=== PATIENT | female | born 1970 | race Caucasian/White ===

== ENCOUNTER 2017-06-05 04:05 | Emergency (ER) | payer OTHER ==
[~2017-06-05] VITALS: Ht 157.5 cm; Wt 75.9 kg
[~2017-06-05 04:05] MED LIST: BENZ100C18 PO; ONDA4TAB10 SL
[2017-06-05 04:08] VITALS: Ht 157.5 cm; Wt 75.9 kg
--- NOTE | 2017-06-05 04:16 | EMERGENCY ROOM VISIT NOTE ---
History Report prepared by Godwin: Nikita Grider Under the Supervision of: Dr. Edgar Arnett M.D. First contact with patient: 04:13 Chief Complaint: FLU LIKE SX Stated Complaint: NAUSEA,VOMITING,DIARRHEA History of Present Illness The patient is a 46 year old female who presents to the Emergency Room with complaints of a persistent illness that started yesterday. She says that she has been having nausea with episodes of vomiting and diarrhea. The patient adds that she has been having chills. She notes that she is having some abdominal pain. The patient says that she took Imodium around 6 hours ago. Associated with epigastric abdominal pain, sharp, radiating to RUQ. No blood in stool though room was dark. History of this previously was due to dehydration. Previous surgery of hysterectomy. Previous US GB with sludge. No trauma, injury, syncope. No cp, sob, fevers, rashes, leg swelling, urinary symptoms, etc. Movement makes worse, rest makes better. Denies recent etoh use. Source of History: patient Onset: Yesterday Position: other (global - illness) Timing: other (persistent) Associated Symptoms: + chills, + nausea, + vomiting, + diarrhea Note: No other associated symptoms noted. Review of Systems See HPI for pertinent positives & negatives. A total of 10 systems reviewed and were otherwise negative. Past Medical & Surgical Medical Problems: (1) Carpal Tunnel Syndrome (2) Rheumatoid Arthritis Surgical Problems: (1) H/O: hysterectomy Family History Cancer Diabetes mellitus Heart disease Hypertension Kidney disease Kidney stones Lung disease Social History Smoking Status: Current Every Day Smoker Alcohol Use: none Marital Status: Housing Status: lives with significant other Occupation Status: employed Current/Historical Medications No Active Prescriptions or Reported Meds Allergies Coded Allergies: Homatropine (Unverified Allergy, Severe, NAUSEA, 06/05/17) Hydrocodone (Unverified Allergy, Severe, NAUSEA, 06/05/17) Morphine (Verified Allergy, Mild, nausea vomiting, 06/05/17) Physical Exam Vital Signs Date Time Temp Pulse Resp B/P (MAP) Pulse Ox O2 Delivery O2 Flow Rate FiO2 06/05/17 05:53 81 16 131/85 97 Room Air 06/05/17 04:08 36.6 77 18 154/87 97 Room Air Physical Exam GENERAL: Patient is very uncomfortable appearing and in moderate distress. HEENT: No acute trauma, normocephalic atraumatic, mucous membranes moist, no nasal congestion, no scleral icterus. NECK: No stridor, no adenopathy, no meningismus, trachea is midline. LUNGS: No dyspnea. Clear to auscultation and equal bilaterally. No wheeze, no rhonchi. HEART: Regular rate and rhythm. No murmurs, rubs, gallops appreciated. ABDOMEN: Moderate epigastric TTP, otherwise soft, nontender, bowel sounds positive, no masses appreciated, no peritonitis. BACK: No midline tenderness, no CVA tenderness EXTREMITIES: Normal motion all extremities, no cyanosis, no edema. NEUROLOGIC: Alert and oriented, no acute motor or sensory deficits, no focal weakness, cranial nerves grossly intact. SKIN: No rash, no jaundice, no diaphoresis. Medical Decision & Procedures ER Provider Diagnostic Interpretation: US results are stated below per my interpretation and the radiologist's interpretation. US RUQ: Comparison: US dated 01/17/2016. Gallbladder sludge and possible small gallbladder polyp. No distinct gallstones or gallbladder wall thickening. Negative sonographic Watson's sign. CBD measures 2.6 to 6.6 mm in diameter. No intrahepatic biliary dilation. Echogenic 1 cm lesion in the liver adjacent to the main portal vein. This may represent small hemangioma although other etiologies are not excluded. Trace perihepatic fluid. Radiologist: Lesley Velez MD Laboratory Results 06/05/17 04:20 Red Blood Count 4.82, Mean Corpuscular Volume 87.6, Mean Corpuscular Hemoglobin 30.1, Mean Corpuscular Hemoglobin Concent 34.4, Mean Platelet Volume 10.7, Neutrophils (%) (Auto) 68.0, Lymphocytes (%) (Auto) 23.4, Monocytes (%) (Auto) 4.6, Eosinophils (%) (Auto) 3.6, Basophils (%) (Auto) 0.3, Neutrophils # (Auto) 5.88, Lymphocytes # (Auto) 2.02, Monocytes # (Auto) 0.40, Eosinophils # (Auto) 0.31, Basophils # (Auto) 0.03 06/05/17 04:20 Test 06/05/17 04:20 06/05/17 04:28 06/05/17 05:30 White Blood Count 8.65 K/uL (4.8-10.8) Red Blood Count 4.82 M/uL (4.2-5.4) Hemoglobin 14.5 g/dL (12.0-16.0) Hematocrit 42.2 % (37-47) Mean Corpuscular Volume 87.6 fL (80-100) Mean Corpuscular Hemoglobin 30.1 pg (25-34) Mean Corpuscular Hemoglobin Concent 34.4 g/dl (32-36) Platelet Count 238 K/uL (130-400) Mean Platelet Volume 10.7 fL (7.4-10.4) Neutrophils (%) (Auto) 68.0 % Lymphocytes (%) (Auto) 23.4 % Monocytes (%) (Auto) 4.6 % Eosinophils (%) (Auto) 3.6 % Basophils (%) (Auto) 0.3 % Neutrophils # (Auto) 5.88 K/uL (1.4-6.5) Lymphocytes # (Auto) 2.02 K/uL (1.2-3.4) Monocytes # (Auto) 0.40 K/uL (0.11-0.59) Eosinophils # (Auto) 0.31 K/uL (0-0.5) Basophils # (Auto) 0.03 K/uL (0-0.2) RDW Standard Deviation 44.6 fL (36.4-46.3) RDW Coefficient of Variation 13.9 % (11.5-14.5) Immature Granulocyte % (Auto) 0.1 % Immature Granulocyte # (Auto) 0.01 K/uL (0.00-0.02) Anion Gap 10.0 mmol/L (3-11) Est Creatinine Clear Calc Drug Dose 79.1 ml/min Estimated GFR () 96.6 Estimated GFR (Non- 83.4 BUN/Creatinine Ratio 15.6 (10-20) Calcium Level 9.1 mg/dl (8.5-10.1) Total Bilirubin 0.5 mg/dl (0.2-1) Direct Bilirubin 0.1 mg/dl (0-0.2) Aspartate Amino Transf (AST/SGOT) 11 U/L (15-37) Alanine Aminotransferase (ALT/SGPT) 21 U/L (12-78) Alkaline Phosphatase 107 U/L (45-117) Total Protein 7.5 gm/dl (6.4-8.2) Albumin 3.9 gm/dl (3.4-5.0) Lipase 65 U/L (73-393) Bedside Lactic Acid Venous 1.57 mmol/L (0.90-1.70) Urine Color YELLOW Urine Appearance CLEAR (CLEAR) Urine pH 5.0 (4.5-7.5) Urine Specific Meally 1.016 (1.000-1.030) Urine Protein NEG (NEG) Urine Glucose (UA) NEG (NEG) Urine Ketones NEG (NEG) Urine Occult Blood NEG (NEG) Urine Nitrite NEG (NEG) Urine Bilirubin NEG (NEG) Urine Urobilinogen NEG (NEG) Urine Leukocyte Esterase NEG (NEG) Urine WBC (Auto) 1-5 /hpf (0-5) Urine RBC (Auto) 0-4 /hpf (0-4) Urine Hyaline Casts (Auto) 1-5 /lpf (0-5) Urine Epithelial Cells (Auto) 20-30 /lpf (0-5) Urine Bacteria (Auto) NEG (NEG) Laboratory results as reviewed by me. Medications Administered Medications (Trade) Dose Ordered Sig/Niall Route Start Time Stop Time Status Last Admin Dose Admin Sodium Chloride 1,000 ml @ 999 mls/hr Q1H1M STAT IV 06/05/17 04:17 06/05/17 05:17 DC 06/05/17 04:25 999 MLS/HR Ondansetron HCl (Zofran Inj) 4 mg NOW STAT IV 06/05/17 04:17 06/05/17 04:19 DC 06/05/17 04:25 4 MG Sodium Chloride 1,000 ml @ 999 mls/hr Q1H1M STAT IV 06/05/17 05:13 06/05/17 06:13 DC 06/05/17 05:13 999 MLS/HR Ketorolac Tromethamine (Toradol Inj) 30 mg NOW STAT IV 06/05/17 05:47 06/05/17 05:48 DC 06/05/17 05:52 30 MG Ondansetron HCl (Zofran Inj) 4 mg NOW STAT IV 06/05/17 05:47 06/05/17 05:48 DC 06/05/17 05:51 4 MG Sodium Chloride 1,000 ml @ 999 mls/hr Q1H1M STAT IV 06/05/17 06:20 06/05/17 07:20 06/05/17 06:20 999 MLS/HR ED Course 0414: The patient was evaluated in room B12B. A complete history and physical exam was performed. 0417: Ordered Zofran Inj 4 mg IV, NSS 1000 ml @ 999 mls/hr IV, Fentanyl Inj 100 mcg IV. 0513: I reevaluated the patient and she declines pain medications. She says that she is still having pain but the nausea resolved. Ordered NSS 1000 ml @ 999 mls/hr IV. 0547: I reevaluated the patient and she says that her pain is much improved but the nausea is coming back. Ordered Toradol Inj 30 mg IV. 0700: I reevaluated the patient and she is resting comfortably. The patient verbally expressed understanding and agreement of the treatment plan. The patient will be discharged. Medical Decision Differential: Gastroenteritis, PUD/Gastritis, Biliary Pathology, Pyelonephritis , Bowel Obstruction, Aortic Pathology, Acute Coronary Syndrome, amongst other pathologies entertained. 46 yr old female with excruciating epigastric pain after vomiting/diarrhea overnight. Notes this occurred 1 yr ago with similar symptoms. Fluids, zofran toradol with much improvement. Declines Fentanyl. US Gallbladder unremarkable. Feeling better. Health care worker thus Cdiff sent. Still a bit dry after 2 L thus 3rd given. Looking well and in much better comfort. Comfortable with going home and stable. Nausea meds and oxy IR to go (will help pain and help decrease diarrhea some). Reviewed symptoms requiring return. Given improvement in symptoms I do not feel this is aortic in nature. Clearly TTP and with nausea/vomiting/diarrhea I feel this is not ACS. Likely primary is gastroenteritis and in setting dehydration is getting some spasm. Medication Reconcilliation Current Medication List: was personally reviewed by me Blood Pressure Screening Patient's blood pressure: Elevated blood pressure Blood pressure disposition: Elevated BP felt to be situational Impression Primary Impression: Nausea, vomiting and diarrhea Additional Impressions: Epigastric abdominal pain Dehydration Scribe Attestation The scribe's documentation has been prepared under my direction and personally reviewed by me in its entirety. I confirm that the note above accurately reflects all work, treatment, procedures, and medical decision making performed by me. Departure Information Dispostion Home / Self-Care Prescriptions No Active Prescriptions or Reported Meds Referrals No Doctor, Assigned (PCP) Patient Instructions ED Gastroenteritis Viral, My [facility] Additional Instructions You have received a narcotic pain medication. These medications may cause drowsiness and should not be used with other sedative medications. Do not drive , drink alcohol, perform dangerous activities, nor make important decisions after taking these medications. intermediate frame tender use or inappropriate use may lead to addiction. Problem Qualifiers
[2017-06-05] MEDS ORDERED: ONDANSETRON INJ 2 MG/ML 2 ML VIAL IV STA ×2 (04:17→05:47)
[2017-06-05] MEDS ORDERED: SODIUM CHLORIDE 0.9% 1000ML 1,000 ML IV STA ×3 (04:17→06:20)
[2017-06-05] MEDS ORDERED: FENTANYL CITRATE INJ 50 MCG/1 ML 2 ML VIAL IV STA (04:17)
[2017-06-05 04:36] LABS: BASO % 0.3 %; BASO ABS # 0.03 K/uL (0-0.2); COMPLETE YES; EOS % 3.6 %; HEMATOCRIT 42.2 % (37-47); IG% 0.1 %; LYMPH % 23.4 %; LYMPH ABS # 2.02 K/uL (1.2-3.4); MEAN CELL VOLUME 87.6 fL (80-100); MEAN CORPUSCULAR HEMOGLOBIN 30.1 pg (25-34); MEAN CORPUSCULAR HGB CONC 34.4 g/dl (32-36); MEAN PLATELET VOLUME 10.7 fL (7.4-10.4); MONO % 4.6 %; PLATELET COUNT 238 K/uL (130-400); RED BLOOD COUNT 4.82 M/uL (4.2-5.4); WHITE BLOOD COUNT 8.65 K/uL (4.8-10.8)
[2017-06-05 04:58] LABS: BUN/CREATININE RATIO 15.6 (10-20); CALCIUM 9.1 mg/dl (8.5-10.1); CREATININE 0.83 mg/dl (0.60-1.20); POTASSIUM 3.8 mmol/L (3.5-5.1)
[2017-06-05 05:42] LABS: MANUAL MICROSCOPIC REQUIRED? NO; REVIEW REQ? NO; URINE APPEARANCE CLEAR (CLEAR); URINE BILIRUBIN NEG (NEG); URINE COLOR YELLOW; URINE EPITHELIAL CELL AUTO 20-30 /lpf (0-5); URINE NITRITE NEG (NEG); URINE SPECIFIC GRAVITY 1.016 (1.000-1.030); UROBILINOGEN NEG (NEG); ZZUR CULT IF INDIC CLEAN CATCH NO
[2017-06-05] MEDS ORDERED: KETOROLAC TROMETHAMINE 30 MG/ML VIAL IV STA (05:47)
[2017-06-05] MEDS ORDERED: OXYCODONE IR HOME PACK PO ONE (07:00)
[2017-06-05] MEDS ORDERED: ONDANSETRON HOME PACK 4MG OD TAB PO ONE (07:00)
[2017-06-05 07:08] VITALS: BP 97/43; PULSE 88; TEMP 36.9; O2SAT 94
--- NOTE | 2017-06-05 07:16 | DIAGNOSTIC IMAGING REPORT ---
ABDOMINAL ULTRASOUND, RIGHT UPPER QUADRANT HISTORY: Epigastric and right upper quadrant abdominal pain. COMPARISON: Right upper quadrant ultrasound January 17, 2016. FINDINGS: Liver morphology is normal. A 1 cm echogenic hepatic lesion adjacent to the main portal vein is noted. No additional hepatic lesions are present. There is no biliary ductal dilatation. Trace perihepatic fluid is noted. The pancreas is within normal limits by sonography although the tail is partially obscured by gas. No shadowing gallstones are identified. There is no gallbladder wall thickening. There is a small amount of sludge within the gallbladder and a tiny gallbladder polyp. There is no right hydronephrosis. IMPRESSION: 1. No gallstones or biliary ductal dilatation. 2. Suspected tiny gallbladder polyp and minimal sludge within the gallbladder. No gallbladder wall thickening. 3. 1 cm echogenic hepatic lesion. While nonspecific, this likely reflects a hemangioma. Electronically signed by: Cleve Gutierres M.D. 06/05/2017 7:14 AM Dictated Date/Time: 06/05/2017 7:11 AM
== END 2017-06-05 07:09 | disposition home or self-care (01) ==
LOC: C.EDB 04:07
DX: K52.9 Noninfective gastroenteritis and colitis, unspecified (principal); E86.0 Dehydration; Z90.710 Acquired absence of both cervix and uterus; M06.9 Rheumatoid arthritis, unspecified; F17.210 Nicotine dependence, cigarettes, uncomplicated; Z80.9 Family history of malignant neoplasm, unspecified; Z83.3 Family history of diabetes mellitus; Z82.49 Family history of ischemic heart disease and other diseases of the circulatory system; Z84.1 Family history of disorders of kidney and ureter

== ENCOUNTER → 2017-08-17 | Outpatient (CLI) | payer OTHER ==
--- NOTE | 2017-08-17 08:59 | DIAGNOSTIC IMAGING REPORT ---
NUCLEAR HEPATOBILIARY SCAN CLINICAL HISTORY: Right upper quadrant abdominal pain. COMPARISON STUDY: Abdominal ultrasound dated 06/05/2017. TECHNIQUE: Dynamic images of the liver and anterior abdomen were obtained every 5 minutes for a total of 40 minutes following the IV administration of 5.5mCi of technetium 99m Choletec. FINDINGS: The hepatobiliary scan shows prompt and homogeneous hepatic uptake. There is visualized activity within the intra and extrahepatic biliary tree at 10 minutes, and within the gallbladder at 10 minutes. There is normal biliary to bowel transit, with small bowel visualized by 30 minutes. IMPRESSION: Unremarkable nuclear hepatobiliary scan. There is no scintigraphic evidence of cholecystitis. Electronically signed by: Mann Liu M.D. 08/17/2017 8:57 AM Dictated Date/Time: 08/17/2017 8:56 AM
== END | disposition home or self-care (01) ==
LOC: C.NUCL 07:20
PROVIDERS: ATTEND Physician Assistant Medical
DX: K82.8 Other specified diseases of gallbladder (principal)

== ENCOUNTER 2021-10-17 05:40 | Inpatient (IN) ==
[2021-10-17] MEDS ORDERED: ONDANSETRON INJ 2 MG/ML 2 ML VIAL IV STA (06:06)
[2021-10-17] MEDS ORDERED: ACETAMINOPHEN 1,000 MG/100 ML VIAL IV STA (06:06)
[2021-10-17] MEDS ORDERED: fentaNYL citrate 100 MCG/2 ML VIAL IV STA (06:06)
[2021-10-17] MEDS: SODIUM CHLORIDE 0.9% 1000ML 1,000 ML IV SCH ×2 (06:13→11:23)
--- NOTE | 2021-10-17 06:28 | Emergency Department Note ---
History of Present Illness General Chief complaint: Abdominal Pain Stated complaint: ABD-NAUSEA,VOMITING,DIARRHEA Time Seen by Provider: 10/17/21 06:05 Source: patient Mode of arrival: ambulatory Limitations: no limitations History of Present Illness Provider complaint: Abdominal pain, nausea, vomiting Onset (ago): day(s) 2 Location: abdomen Maximum Pain Intensity: 8 Associated symptoms: + loss of appetite, + malaise and + nausea/vomiting; no chest pain, no fever/chills or no shortness of breath Treatments prior to arrival: none This is a 51-year-old female presents emergency department complaining abdominal pain, nausea vomiting. Patient states symptoms began 2 days ago. They have been constant, steadily worsening, no change with position or exertion. Patient states she has been unable to eat and is barely drinking. Patient is having difficulty taking her medications. Patient took a Zofran, however no other medications for pain. Patient does use methotrexate and prednisone due to r heumatoid arthritis. She states he also 2 weeks ago began taking injections for her RA in addition. No other medication changes. No history of PUD, IBS or IBD. Patient denies any hematemesis. Denies any black or bloody stools. Patient states she does have chronic diarrhea due to her medications. Patient denies fevers although states she has been having chills. Patient denies any sick contact or change in diet. Pt seen during a time of high acuity and national emergency pandemic while wearing PPE. Home Medications Medication Instructions Recorded Confirmed Type alendronate 70 mg tablet (Fosamax) 70 mg PO WK 11/20/19 10/17/21 History folic acid 1 mg tablet 1 mg PO QAM 11/20/19 10/17/21 History methotrexate sodium 25 mg/mL 20 mg IM WK 11/20/19 10/17/21 History injection solution prednisone 5 mg tablet 5 mg PO QAM 11/20/19 10/17/21 History tramadol 50 mg tablet 50 - 100 mg PO Q6H PRN #24 tab 11/20/19 10/17/21 Rx omeprazole 20 mg capsule,delayed 20 mg PO DAILYBB 10/05/20 10/17/21 History release duloxetine 30 mg capsule,delayed 30 mg PO QAM 10/17/21 10/17/21 History release gabapentin 300 mg capsule 300 mg PO TID 10/17/21 10/17/21 History ondansetron 4 mg disintegrating 4 mg PO Q6H PRN 10/17/21 10/17/21 History tablet tocilizumab 162 mg/0.9 mL 162 mg SUBCUT .Q2W 10/17/21 10/17/21 History subcutaneous pen injector (Actemra ACTPen) Allergies Allergy/AdvReac Type Severity Reaction Status Date / Time homatropine Allergy Severe NAUSEA Unverified 10/17/21 07:16 morphine Allergy Mild nausea Verified 10/17/21 07:16 vomiting Past Med/Surg History Medical History Carpal tunnel syndrome Rheumatoid arthritis Social History Smoking Status: Current every day smoker Tobacco Type: Cigarettes Cigarettes Per Day: 1/2 pack; Second Hand Exposure: No; Do You Dip or Chew Tobacco: No; Tobacco Cessation Education Requested by Patient: No Hx Alcohol Use: No Hx Substance Use: No Preferred Language: Kinyarwanda Communication Ability: Effective Disease Intervention Specialist Required: No Beliefs That Will Affect Care: None Current Living Situation: Spouse Feels Safe at Home: Yes Safety Concerns: Feels Safe At This Time Assistive Devices: Glasses Review of Systems A total of 10 systems reviewed and were otherwise negative All systems reviewed & are unremarkable except as noted in HPI & below Physical Exam Vital Signs Vital Signs - 24 hr 10/17/21 05:43 10/17/21 06:19 10/17/21 06:20 Temperature 36.8 C Temperature Source Oral Pulse Rate 94 H 75 Pulse Rate [Bilateral Apical] 77 Pulse Rate from SpO2 Sensor 78 Pulse Rhythm [Bilateral Apical] Pulse Strength [Bilateral Apical] Respiratory Rate 20 20 16 Respiratory Effort / Characteristics Non-Labored Spontaneous Respiratory Depth Normal Respiratory Pattern Blood Pressure 181/107 H 129/82 Blood Pressure [Right Arm] 163/112 H Blood Pressure Mean 131 97 Blood Pressure Mean [Right Arm] 129 Pulse Oximetry 98 97 97 Oxygen Delivery Method Room Air Room Air Room Air Sepsis New/Unexplained Change in Mental Status N/A Sepsis Action Taken by Nursing No Action Required 10/17/21 06:27 10/17/21 08:24 10/17/21 08:30 Temperature Temperature Source Pulse Rate 81 Pulse Rate [Bilateral Apical] 73 82 Pulse Rate from SpO2 Sensor 78 Pulse Rhythm [Bilateral Apical] Regular Pulse Strength [Bilateral Apical] Normal Respiratory Rate 20 18 16 Respiratory Effort / Characteristics Non-Labored Respiratory Depth Normal Respiratory Pattern Regular Blood Pressure 127/85 Blood Pressure [Right Arm] 129/82 139/104 H Blood Pressure Mean 99 Blood Pressure Mean [Right Arm] 97 115 Pulse Oximetry 94 98 94 Oxygen Delivery Method Room Air Room Air Room Air Sepsis New/Unexplained Change in Mental Status Sepsis Action Taken by Nursing GENERAL: alert, unwell appearing, well nourished, mild distress, non-toxic, tearful EYE EXAM: normal conjunctiva, PERRL and EOM's grossly intact OROPHARYNX: no exudate, no erythema, lips, buccal mucosa, and tongue normal and mucous membranes are moist NECK: supple, no nuchal rigidity, no adenopathy, non-tender LUNGS: Clear to auscultation. Normal chest wall mechanics, no w/r/r HEART: no murmurs, S1 normal and S2 normal ABDOMEN: abdomen soft, generalized discomfort with palpation, normo-active bowel sounds, no masses, no rebound or guarding. BACK: Back is symmetrical on inspection and there is no deformity, no midline tenderness, no CVA tenderness. SKIN: no rashes and no bruising UPPER EXTREMITIES: upper extremities are grossly normal. FROM, nml pulses b/l. LOWER EXTREMITIES: No pitting edema. FROM, nml pulses b/l. NEURO EXAM: Normal sensorium, cranial nerves II-XII grossly intact, normal speech, no gross weakness of arms, no gross weakness of legs. Gross sensation intact. Course Course 0650: Pain mildly improved after IV Tylenol and IV fentanyl. Patient awaiting CT. 0802: Updated patient on labs and imaging. While fentanyl does temporarily alleviate some but not all of the pain, patient still has considerable abdominal pain and feels nauseated. IV fluids running. Vital signs stable blood pressure improved. 0823: Discussed with Dr. Lee. Administered Medications Duloxetine HCl (Duloxetine Hcl 30 Mg Cap) 30 mg PO QPM [facility] Stop: 11/16/21 20:59 Last Admin: 10/17/21 20:06 Dose: 30 mg Documented by: [id number] Folic Acid (Folic Acid 1 Mg Tab) 1 mg PO QPM ASHLEY Stop: 11/16/21 20:59 Last Admin: 10/17/21 20:05 Dose: 1 mg Documented by: [id number] Gabapentin (Gabapentin 300 Mg Cap) 300 mg PO QPM ASHLEY Stop: 11/16/21 20:59 Last Admin: 10/17/21 20:06 Dose: 300 mg Documented by: [id number] Hydromorphone HCl (Hydromorphone Inj 0.5 Mg/0.5 Ml Syr) 0.5 mg IV Q6H PRN PRN Reason: Pain Stop: 10/31/21 10:44 Last Admin: 10/17/21 18:09 Dose: 0.5 mg Documented by: [id number] Dextrose/Sodium Chloride (D5w And Nss) 1,000 mls @ 100 mls/hr IV .Q10H ASHLEY Stop: 11/16/21 10:29 Last Admin: 10/17/21 21:31 Dose: 100 mls/hr Documented by: [id number] Infusion: 10/17/21 21:28 Dose: 100 mls/hr Documented by: [id number] Admin: 10/17/21 11:28 Dose: 100 mls/hr Documented by: [id number] Ondansetron HCl (Ondansetron Inj 2 Mg/Ml 2 Ml Vial) 4 mg IV Q6H PRN PRN Reason: nausea/vomiting Stop: 11/16/21 08:39 Last Admin: 10/17/21 17:34 Dose: 4 mg Documented by: [id number] Prednisone (Prednisone 5 Mg Tab) 5 mg PO QPM ASHLEY Stop: 11/16/21 20:59 Last Admin: 10/17/21 20:04 Dose: 5 mg Documented by: [id number] Discontinued Medications Duloxetine HCl (Duloxetine Hcl 30 Mg Cap) 30 mg PO QAM ASHLEY Stop: 11/16/21 10:44 Last Admin: 10/17/21 12:09 Dose: Not Given Documented by: [id number] Famotidine (Famotidine 20mg/5ml Iv Push) 20 mg IV ONE STA Stop: 10/17/21 07:45 Last Admin: 10/17/21 08:17 Dose: 20 mg Documented by: [id number] Fentanyl Citrate (Fentanyl Citrate 100 Mcg/2 Ml Vial) 50 mcg IV NOW STA Stop: 10/17/21 06:07 Last Admin: 10/17/21 06:15 Dose: 50 mcg Documented by: [id number] Fentanyl Citrate (Fentanyl Citrate 100 Mcg/2 Ml Vial) 50 mcg IV Q15M PRN PRN Reason: Pain Stop: 10/31/21 06:51 Last Admin: 10/17/21 08:17 Dose: 50 mcg Documented by: [id number] Folic Acid (Folic Acid 1 Mg Tab) 1 mg PO QAM ASHLEY Stop: 11/16/21 10:44 Last Admin: 10/17/21 12:10 Dose: Not Given Documented by: [id number] Gabapentin (Gabapentin 300 Mg Cap) 300 mg PO TID ASHLEY Stop: 11/16/21 10:44 Last Admin: 10/17/21 12:10 Dose: Not Given Documented by: [id number] Sodium Chloride (Nss 1000ml) 1,000 mls @ 250 mls/hr IV .Q4H ASHLEY Stop: 11/16/21 06:14 Last Admin: 10/17/21 11:23 Dose: Not Given Documented by: [id number] Infusion: 10/17/21 10:48 Dose: 0 mls/hr Documented by: [id number] Admin: 10/17/21 06:13 Dose: 250 mls/hr Documented by: [id number] Acetaminophen (Ofirmev) 1,000 mg in 100 mls @ 400 mls/hr IV NOW STA Stop: 10/17/21 06:20 Last Infusion: 10/17/21 06:28 Dose: 0 mls/hr Documented by: [id number] Admin: 10/17/21 06:12 Dose: 400 mls/hr Documented by: [id number] Prochlorperazine (Compazine) 1 mls @ 1 mls/min IV ONE ONE Stop: 10/17/21 08:10 Last Admin: 10/17/21 08:17 Dose: 1 mls/min Documented by: [id number] Sodium Chloride (Nss 1000ml) 1,000 mls @ 999 mls/hr IV .Q1H1M ONE Stop: 10/17/21 09:09 Last Infusion: 10/17/21 09:17 Dose: 0 mls/hr Documented by: [id number] Admin: 10/17/21 08:16 Dose: 999 mls/hr Documented by: [id number] Ioversol (Optiray 320 100ml) 95 ml IV ONCE ONE Stop: 10/17/21 07:38 Last Admin: 10/17/21 07:37 Dose: 95 ml Documented by: [id number] Lansoprazole (Lansoprazole 15 Mg Soltab) 15 mg PO NOW STA Stop: 10/17/21 20:37 Last Admin: 10/17/21 21:32 Dose: 15 mg Documented by: [id number] Ondansetron HCl (Ondansetron Inj 2 Mg/Ml 2 Ml Vial) 4 mg IV NOW STA Stop: 10/17/21 06:07 Last Admin: 10/17/21 06:14 Dose: 4 mg Documented by: [id number] Prednisone (Prednisone 5 Mg Tab) 5 mg PO [facility] Stop: 11/16/21 10:44 Last Admin: 10/17/21 12:10 Dose: Not Given Documented by: [id number] Promethazine HCl (Promethazine Hcl 25 Mg/20 Ml Udp) 25 mg PO NOW STA Stop: 10/17/21 20:37 Last Admin: 10/17/21 21:33 Dose: 25 mg Documented by: [id number] Medical Decision Making Differential Diagnosis Differential diagnoses includes but is not limited to gastritis, peptic ulcer disease, GERD, gallbladder disease, pancreatitis, small bowel obstruction, acute coronary syndrome, pericarditis, ischemic bowel, irritable bowel disease, irritable bowel syndrome, appendicitis, diverticulitis, malignancy, hernia, urinary tract infection, torsion, [/ectopic (if female)], perforation, trauma, infectious. Medical Records Attestation: I reviewed the patient's medical records. Home Medications Current Medication List: was personally reviewed by me Laboratory Data Attestation: I reviewed the patient's lab results. Result diagrams: 10/17/21 06:05 10/17/21 06:05 Lab Results 10/17/21 10/17/21 10/17/21 Range/Units 06:05 06:05 06:05 WBC 8.19 (4.8-10.8) K/uL RBC 4.75 (4.2-5.4) M/uL Hgb 16.1 H (12.0-16.0) g/dL Hct 46.5 (37-47) % MCV 97.9 (80-100) fL MCH 33.9 (25-34) pg MCHC 34.6 (32-36) g/dL RDW Std Deviation 52.8 H (36.4-46.3) fL RDW Coeff of Ailyn 15.2 H (11.5-14.5) % Plt Count 196 (130-400) K/uL MPV 10.7 H (7.4-10.4) fL Immature Gran % (Auto) 0.1 % Neut % (Auto) 58.2 % Lymph % (Auto) 30.0 % [place] % (Auto) 6.8 % Eos % (Auto) 4.4 % Baso % (Auto) 0.5 % Neut # (Auto) 4.76 (1.4-6.5) K/uL Lymph # (Auto) 2.46 (1.2-3.4) K/uL [place] # (Auto) 0.56 (0.11-0.59) K/uL Eos # (Auto) 0.36 (0-0.5) K/uL Baso # (Auto) 0.04 (0-0.2) K/uL Immature Gran # (Auto) 0.01 (0.00-0.02) K/uL Sodium 135 L (136-145) mmol/L Potassium 3.6 (3.5-5.1) mmol/L Chloride 101 (98-107) mmol/L Carbon Dioxide 25 (21-32) mmol/L Anion Gap 9 (3-11) BUN 12 (6-23) mg/dl Creatinine 0.85 (0.6-1.2) mg/dl Est Cr Clr Drug Dosing 80.8 ml/min Est GFR ( Amer) 90.7 ml/min Est GFR (Non-Af Amer) 78.2 ml/min BUN/Creatinine Ratio 14.1 (10-20) Glucose 96 (70-99(Fasting)) mg/dl Lactate 1.3 (0.4-2.0) mmol/L Calcium 8.9 (8.5-10.1) mg/dl Magnesium 2.0 (1.7-2.4) mg/dl Total Bilirubin 0.7 (0.2-1.0) mg/dl AST 29 (13-39) U/L ALT 60 H (7-52) U/L Alkaline Phosphatase 81 (34-104) U/L Troponin I < 0.03 (0-0.04) ng/ml Total Protein 7.4 (6.0-8.3) gm/dl Albumin 4.3 (3.4-5.0) gm/dl Globulin 3.1 (2.5-4.0) gm/dl Albumin/Globulin Ratio 1.4 (0.9-2) Lipase 12 (11-82) U/L SARS-CoV-2, RNA, NAAT (NEGATIVE) 10/17/21 Range/Units 08:25 WBC (4.8-10.8) K/uL RBC (4.2-5.4) M/uL Hgb (12.0-16.0) g/dL Hct (37-47) % MCV (80-100) fL MCH (25-34) pg MCHC (32-36) g/dL RDW Std Deviation (36.4-46.3) fL RDW Coeff of Ailyn (11.5-14.5) % Plt Count (130-400) K/uL MPV (7.4-10.4) fL Immature Gran % (Auto) % Neut % (Auto) % Lymph % (Auto) % [place] % (Auto) % Eos % (Auto) % Baso % (Auto) % Neut # (Auto) (1.4-6.5) K/uL Lymph # (Auto) (1.2-3.4) K/uL [place] # (Auto) (0.11-0.59) K/uL Eos # (Auto) (0-0.5) K/uL Baso # (Auto) (0-0.2) K/uL Immature Gran # (Auto) (0.00-0.02) K/uL Sodium (136-145) mmol/L Potassium (3.5-5.1) mmol/L Chloride (98-107) mmol/L Carbon Dioxide (21-32) mmol/L Anion Gap (3-11) BUN (6-23) mg/dl Creatinine (0.6-1.2) mg/dl Est Cr Clr Drug Dosing ml/min Est GFR ( Amer) ml/min Est GFR (Non-Af Amer) ml/min BUN/Creatinine Ratio (10-20) Glucose (70-99(Fasting)) mg/dl Lactate (0.4-2.0) mmol/L Calcium (8.5-10.1) mg/dl Magnesium (1.7-2.4) mg/dl Total Bilirubin (0.2-1.0) mg/dl AST (13-39) U/L ALT (7-52) U/L Alkaline Phosphatase (34-104) U/L Troponin I (0-0.04) ng/ml Total Protein (6.0-8.3) gm/dl Albumin (3.4-5.0) gm/dl Globulin (2.5-4.0) gm/dl Albumin/Globulin Ratio (0.9-2) Lipase (11-82) U/L SARS-CoV-2, RNA, NAAT NEGATIVE (NEGATIVE) Imaging Data Radiologist's Impression: Abdomen/Pelvis CT 10/17/21 06:06 CT OF THE ABDOMEN AND PELVIS WITH CONTRAST CLINICAL HISTORY: Abdominal pain, nausea and vomiting COMPARISON STUDY: Right upper quadrant ultrasound June 05, 2017. TECHNIQUE: Following IV administration of 95 mL of Optiray, axial images of the abdomen and pelvis were obtained from the lung bases to the proximal femurs. Images were reviewed in the axial, sagittal, and coronal planes. IV contrast was administered without complication. Automated exposure control was utilized for the study. A dose lowering technique was utilized adhering to the principles of ALARA. CT DOSE: 402.56 mGy.cm FINDINGS: Note is made of mild subpleural groundglass opacities within the lower lungs. There is a 7 mm right lower lobe nodule on image 74 of 476 and a 5 mm left lower lobe nodule on image 40. No pneumatosis, free air or portal venous gas is present. Hepatic steatosis is noted. There is no biliary or pancreatic d uctal dilatation. No peripancreatic or pericholecystic infiltration is present. 2 low-attenuation lesions within the upper pole of the left kidney favor cysts. A 2 mm right renal calculus is present. There are no ureteral calculi and there is no hydronephrosis. The appendix is unremarkable. Submucosal fat deposition is noted within the distal ileum as well as the colon. This suggest chronic inflam mation. However, there is wall thickening with associated hyperemia and mesenteric stranding of the distal ileum. No free air or abscess is present. Stranding adjacent to the cecum and terminal ileum is also noted. There is a small amount of fluid within the pelvis. There is no abscess. Major vasculature is patent. IMPRESSION: 1. Wall thickening of the distal ileum with evidence for hyperemia with adjacent stranding. This represents an acute enteritis which may be infectious or inflammatory. Submucosal fat deposition within the ileum and colon suggests chronic inflammation. No abscess. No bowel obstruction. 2. No evidence for acute appendicitis. 3. Hepatic steatosis. 4. Subpleural groundglass opacities within the lungs which favor an infectious process, possibly resolving. 5. A few lung nodules measuring up to 7 mm. A follow-up chest CT in 6 months is recommended. 6. 2 mm right renal calculus. ACT 112: Negative or not required by law. Electronically signed by: Cleve Gutierres M.D. 10/17/2021 7:53 AM ECG Data Attestation: I personally reviewed and interpreted this ECG as follows: Indication: + abdominal pain Rate (beats per minute): 84 Rhythm: + normal sinus ECG Intervals/blocks: + Normal QRS and + Normal QT ECG Crump: + Normal ECG ST segments: + Normal ST segments MDM Narrative This is a 51 yo female with a hx of extensive RA on several medications who presents with 2 days of n/v and abdominal pain. VS stable, hypertension likely from pain. Patient given several medications for pain and nausea and started on IVF. Patient stated bad reactions previously to both morphine and Dilaudid, was hesitant to try anything beyond Tylenol or Toradol. Symptoms were slightly improved, patient still appeared visibly uncomfortable. Patient did receive additional medication for nausea and additional IV fluids. I did discuss all results with her at bedside. Due to concern is patient is immunocompromise given her medications for RA, has had ongoing symptoms despite reassuring labs and imaging, I do not feel patient could tolerate p.o. at this point and pain is not controlled for safe discharge home. Discussed with patient and daughter at bedside, they verbalized understanding, and they were in agreement with the plan. Case discussed with hospitalist for inpatient management of intractable pain and intractable nausea. An order was placed for continuous cardiac monitoring. The monitor shows a rate of _80_ with _normal sinus_ rhythm. Impression & Plan Abdominal pain, Nausea & vomiting, Rheumatoid arthritis, Enteritis Discharge Plan Visit Data Chief Complaint: Abdominal Pain Stated Complaint: ABD-NAUSEA,VOMITING,DIARRHEA ED Provider: Liv Simmons Discharge Problem: Abdominal pain, Nausea & vomiting, Rheumatoid arthritis, Enteritis Patient Disposition: Admitted As Inpatient Discharge Instructions Interventions: ED Discharge Assessment Last Done: 10/17/21 10:05 Discharge Problem: Abdominal pain Qualifiers: Abdominal location: generalized Qualified Code(s): R10.84 - Generalized abdominal pain Nausea & vomiting Qualifiers: Vomiting type: unspecified Qualified Code(s): R11.2 - Nausea with vomiting, unspecified Rheumatoid arthritis Qualifiers: Rheumatoid arthritis location: multiple sites Rheumatoid factor presence: unspecified presence Qualified Code(s): M06.9 - Rheumatoid arthritis, u nspecified
[2021-10-17 06:45] LABS: Troponin I < 0.03 ng/ml (0-0.04)
[2021-10-17] MEDS ORDERED: fentaNYL citrate 100 MCG/2 ML VIAL IV PRN (06:52)
[2021-10-17 06:55] LABS: Hematocrit (blood only) 46.5 % (37-47); Hemoglobin 16.1 g/dL (12.0-16.0); Mean Corpuscular Hemoglobin 33.9 pg (25-34); Mean Corpuscular Hgb Conc 34.6 g/dL (32-36); Mean Corpuscular Volume 97.9 fL (80-100); Mean Platelet Volume 10.7 fL (7.4-10.4); Platelet Count 196 K/uL (130-400); RDW Coefficient of Variation 15.2 % (11.5-14.5); RDW Standard Deviation 52.8 fL (36.4-46.3); Red Blood Count 4.75 M/uL (4.2-5.4); White Blood Count 8.19 K/uL (4.8-10.8)
[2021-10-17 06:56] LABS: Alanine Aminotransferase 60 U/L (7-52); Albumin Globulin Ratio 1.4 (0.9-2); Albumin Level 4.3 gm/dl (3.4-5.0); Alkaline Phosphatase 81 U/L (34-104); Anion Gap 9 (3-11); Aspartate Aminotransferase 29 U/L (13-39); BUN Creatinine Ratio 14.1 (10-20); Bilirubin,Total 0.7 mg/dl (0.2-1.0); Blood Urea Nitrogen 12 mg/dl (6-23); Calcium 8.9 mg/dl (8.5-10.1); Carbon Dioxide 25 mmol/L (21-32); Chloride 101 mmol/L (98-107); Creatinine Clr Calc Pharmacy 80.8 ml/min; Est GFR (African American) 90.7 ml/min; Est GFR (Non-African American) 78.2 ml/min; Globulin 3.1 gm/dl (2.5-4.0); Glucose 96 mg/dl (70-99(Fasting)); Lipase 12 U/L (11-82); Potassium 3.6 mmol/L (3.5-5.1); Sodium 135 mmol/L (136-145); Total Protein 7.4 gm/dl (6.0-8.3)
[2021-10-17 07:16] LABS: Basophils # (auto) 0.04 K/uL (0-0.2); Basophils % (auto) 0.5 %; Eosinophils # (auto) 0.36 K/uL (0-0.5); Eosinophils % (auto) 4.4 %; Immature Granulocytes # (auto) 0.01 K/uL (0.00-0.02); Immature Granulocytes % (auto) 0.1 %; Lymphocytes # (auto) 2.46 K/uL (1.2-3.4); Monocytes # (auto) 0.56 K/uL (0.11-0.59); Monocytes % (auto) 6.8 %; Neutrophils # (auto) 4.76 K/uL (1.4-6.5); Neutrophils % (auto) 58.2 %
[2021-10-17] MEDS ORDERED: OPTIRAY 320 100ml IV ONE (07:37)
[2021-10-17] MEDS ORDERED: FAMOTIDINE 20MG/5ML IV PUSH IV STA (07:44)
--- NOTE | 2021-10-17 07:54 | CT Scan Report ---
CT OF THE ABDOMEN AND PELVIS WITH CONTRAST CLINICAL HISTORY: Abdominal pain, nausea and vomiting COMPARISON STUDY: Right upper quadrant ultrasound June 05, 2017. TECHNIQUE: Following IV administration of 95 mL of Optiray, axial images of the abdomen and pelvis we re obtained from the lung bases to the proximal femurs. Images were reviewed in the axial, sagittal, and coronal planes. IV contrast was administered without complication. Automated exposure control wa s utilized for the study. A dose lowering technique was utilized adhering to the principles of ALARA . CT DOSE: 402.56 mGy.cm FINDINGS: Note is made of mild subpleural groundglass opacities within the lower lungs. There is a 7 mm right lower lobe nodule on image 74 of 476 and a 5 mm left lower lobe nodule on image 40. No pneum atosis, free air or portal venous gas is present. Hepatic steatosis is noted. There is no biliary or pancreatic ductal dilatation. No peripancreatic or pericholecystic infiltration is present. 2 low-att enuation lesions within the upper pole of the left kidney favor cysts. A 2 mm right renal calculus is present. There are no ureteral calculi and there is no hydronephrosis. The appendix is unremarkable. Submucosal fat deposition is noted within the distal ileum as well as the colon. This suggest chroni c inflammation. However, there is wall thickening with associated hyperemia and mesenteric stranding of the distal ileum. No free air or abscess is present. Stranding adjacent to the cecum and terminal ileum is also noted. There is a small amount of fluid within the pelvis. There is no abscess. Major v asculature is patent. IMPRESSION: 1. Wall thickening of the distal ileum with evidence for hyperemia with adjacent stranding. This repr esents an acute enteritis which may be infectious or inflammatory. Submucosal fat deposition within t he ileum and colon suggests chronic inflammation. No abscess. No bowel obstruction. 2. No evidence for acute appendicitis. 3. Hepatic steatosis. 4. Subpleural groundglass opacities within the lungs which favor an infectious process, possibly reso lving. 5. A few lung nodules measuring up to 7 mm. A follow-up chest CT in 6 months is recommended. 6. 2 mm right renal calculus. ACT 112: Negative or not required by law. Electronically signed by: Cleve Gutierres M.D. 10/17/2021 7:53 AM
[2021-10-17] MEDS ORDERED: SODIUM CHLORIDE 0.9% 1000ML 1,000 ML IV ONE (08:09)
[2021-10-17] MEDS ORDERED: PROCHLORPERAZINE 1 ML IV ONE (08:09)
[2021-10-17] MEDS ORDERED: FOLIC ACID 1 MG TAB PO SCH (10:45)
[2021-10-17] MEDS ORDERED: predniSONE 5 MG TAB PO SCH (10:45)
[2021-10-17] MEDS ORDERED: DULoxetine HCL 30 MG CAP PO SCH (10:45)
[2021-10-17] MEDS ORDERED: GABAPENTIN 300 MG CAP PO SCH (10:45)
[2021-10-17] MEDS: D5W AND NSS 1,000 ML IV SCH ×2 (11:28→21:31)
--- NOTE | 2021-10-17 11:54 | Electrocardiogram Report ---
Test Reason : Blood Pressure : / mmHG Vent. Rate : 084 BPM Atrial Rate : 084 BPM P-R Int : 132 ms QRS Dur : 094 ms QT Int : 380 ms P-R-T Axes : 070 025 066 degrees QTc Int : 449 ms Normal sinus rhythm Incomplete right bundle branch block Borderline ECG When compared with ECG of 11-JUN-2019 16:49, No significant change was found Confirmed by Rogers Lazar ([id number]) on 10/17/2021 11:54:46 AM Referred By: Confirmed By:Rogers Lazar
--- NOTE | 2021-10-17 14:14 | Ultrasound Report ---
US gallbladder CLINICAL HISTORY: Abdominal pain, nausea and vomiting. COMPARISON STUDY: Right upper quadrant ultrasound June 05, 2017. CT of the abdomen and pelvis p erformed earlier today. FINDINGS: Hepatic echogenicity is increased. No hepatic lesions are identified. There is no biliary d uctal dilatation. The common bile duct measures 5 mm in caliber. No gallstones are identified. There is no gallbladder wall thickening. Gallbladder is slightly distended. Pancreas body is normal. Head a nd tail are obscured. IMPRESSION: 1. Hepatic steatosis. 2. No gallstones or biliary ductal dilatation. 3. Mildly distended gallbladder. No gallbladder wall thickening. No pericholecystic fluid. No evidenc e for cholecystitis. ACT 112: Negative or not required by law. Electronically signed by: Cleve Gutierres M.D. 10/17/2021 2:13 PM
--- NOTE | 2021-10-17 14:39 | History & Physical Report ---
Date of Service October 17, 2021 Assessment & Plan (1) Intractable nausea and vomiting: Plan: 51-year-old white female with a past medical history of rheumatoid arthritis on methotrexate, prednisone, and recently started on tocilizumab presented with intractable nausea vomiting and abdominal pain X 24-hour - Lab data unremarkable including a normal white blood cell count, normal lipase, normal bilirubin. ALT slightly elevated at 60 with a normal ALT - Patient with exquisite right upper quadrant and epigastric tenderness for which right upper quadrant ultrasound performed showing distended gallbladder without gallbladder wall thickening, pericholecystic fluid or evidence of cholecystitis - In review of old records, she does have a history of biliary sludge. Patient very well could have biliary dyskinesia - In addition, CT scan does show evidence of enteritis. This simply could be a viral gastroenteritis - For now, will keep her on a clear liquid/low-fat diet - IV antiemetics and pain medications ordered as needed - Plan for HIDA scan in a.m. if able to facilitate - Although patient with chronic loose stools and reports no change, will obtain stool studies as she is immunocompromised' - Continue to follow clinically (2) Abdominal pain: Plan: - CT scan of the abdomen and pelvis shows concern for acute enteritis--see above as outlined (3) Rheumatoid arthritis: Plan: -Patient on chronic prednisone, methotrexate, and recently started on tocilizumab -Most recent tocilizumab injection was 1 week ago thus doubt this is the contributing factor to #1 and #2 -Patient is ill-appearing but not toxic. No need for steroid challenge at this time; however, should her status change clinically would have low threshold to steroid challenge (4) Abnormal CT scan, chest: Plan: - CT scan of the abdomen and pelvis shows subpleural groundglass opacities which could be concern for infectious process (resolving). Patient without any respiratory symptoms at this time and her Covid test is negative - In addition, noted to have 7 mm nodule in the lung for which a follow-up CT scan in 6 months is advised. 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 Daughter at bedside and agrees would respect patient's wishes but plan is for full code at this time - will D/W Dr. Lee. Further orders as warranted Admission and Anticipated Discharge Date Admission Date: October 17, 2021 History of Present Illness Chief Complaint: Abdominal pain and intractable nausea and vomiting X 24 hours Primary Care Provider: Vitaliy Glass MD Mrs. Richmond is a 51-year-old white female with an underlying past medical history of rheumatoid arthritis on chronic prednisone, methotrexate, and recently started on tocilizumab. She awoke yesterday morning feeling unwell. She describes subjective fevers and chills along with severe abdominal discomfort, nausea and intractable emesis. Pain was epigastric and right-sided in nature. Seem to be better when sitting up and leaning forward. Unable to tolerate oral intake due to the severity of the pain. Pain was initially constant and a 10/10 and throughout the day yesterday and into the evening, pain seemed to wax and wane without known alleviating or aggravating factors. She has chronic loose bowels and denies a change in her bowels. No melena or hematochezia. Denies any recent travel, antibiotic use, other ill contacts, or reptilian pets. Upon further prompting, she does have a gallbladder. The night prior to her symptom onset, she had a hoagie. Her daughter is at bedside and when asked, she does frequently get "stomach problems" which is usually self-limiting. Patient presented to the ED where she was found to be afebrile and hemodynamica lly stable. Lab data was unremarkable. White count was normal at 8.19. Lipase normal at 12. BUN and creatinine 12 and 0.85. LFTs within normal limits. Troponin less than 0.03. CT scan of the abdomen pelvis showed evidence of acute enteritis. She received Fentanyl, Zofran, IV Pepcid, and Compazine and subsequently hospitalized for further evaluation and care. After evaluation by myself, RUQ US ordered showing distended GB but no stones, pericholecystic fluid or evidence of acute cholecystitis. Allergies Allergy/AdvReac Type Severity Reaction Status Date / Time homatropine Allergy Severe NAUSEA Unverified 10/17/21 07:16 morphine Allergy Mild nausea Verified 10/17/21 07:16 vomiting Home Medications Medication Instructions Recorded Confirmed Type alendronate 70 mg tablet (Fosamax) 70 mg PO WK 11/20/19 10/17/21 History folic acid 1 mg tablet 1 mg PO QAM 11/20/19 10/17/21 History methotrexate sodium 25 mg/mL 20 mg IM WK 11/20/19 10/17/21 History injection solution prednisone 5 mg tablet 5 mg PO QAM 11/20/19 10/17/21 History tramadol 50 mg tablet 50 - 100 mg PO Q6H PRN #24 tab 11/20/19 10/17/21 Rx omeprazole 20 mg capsule,delayed 20 mg PO DAILYBB 10/05/20 10/17/21 History release duloxetine 30 mg capsule,delayed 30 mg PO QAM 10/17/21 10/17/21 History release gabapentin 300 mg capsule 300 mg PO TID 10/17/21 10/17/21 History ondansetron 4 mg disintegrating 4 mg PO Q6H PRN 10/17/21 10/17/21 History tablet tocilizumab 162 mg/0.9 mL 162 mg SUBCUT .Q2W 10/17/21 10/17/21 History subcutaneous pen injector (Actemra ACTPen) Past Med/Surg History Medical History Carpal tunnel syndrome Rheumatoid arthritis Social History Smoking Status: Current every day smoker Tobacco Type: Cigarettes Cigarettes Per Day: 1/2 pack; Second Hand Exposure: No; Do You Dip or Chew Tobacco: No; Tobacco Cessation Education Requested by Patient: No Hx Alcohol Use: No Hx Substance Use: No Preferred Language: Kuwaiti Communication Ability: Effective Housing Installer Required: No Beliefs That Will Affect Care: None Current Living Situation: Spouse Feels Safe at Home: Yes Safety Concerns: Feels Safe At This Time Assistive Devices: Glasses Review of Systems Review of Systems: All systems reviewed and are unremarkable except as noted in HPI and below Denies fevers, chills, headache, nasal congestion, sore throat, cough, chest pain, shortness of breath, palpitations, orthopnea, PND, diarrhea, constipation, dysuria, hematuria, frequency, back pain, joint pain or swelling, easy bruising or bleeding, skin lesions or rashes. Physical Exam Physical Exam: General: Resting comfortably in her hospital bed. Appears to be mildly ill but not toxic NAD. HEENT: Head is AT/NC buccal mucosa is moist and pink Neck: No JVD. Negative hepatojugular reflex Cardiac: RRR with 1/6 SMITA Lungs: CTA without W/R/R Abdomen: Normoactive x4. Abdomen soft. Exquisitely tender in the epigastric and right upper quadrant with positive Watson sign. Extremities: No peripheral clubbing cyanosis or edema Neuro: A&O X4 cranial nerves II through XII are grossly intact no focal neuro deficits Skin: No obvious skin lesions or rashes Psych: Appropriate affect pleasant and cooperative Results & Data Results & Data ([facility]) Vital Signs (Past 12 Hours) Vital Signs Temp Pulse Pulse Pulse Resp BP BP 10/17/21 10:45 36.6 C 83 18 175/97 H 10/17/21 09:30 77 16 161/93 H 10/17/21 09:00 87 20 126/85 10/17/21 08:30 81 16 127/85 10/17/21 08:24 82 18 139/104 H 10/17/21 06:27 73 20 129/82 10/17/21 06:20 75 16 129/82 10/17/21 06:19 77 20 163/112 H 10/17/21 05:43 36.8 C 94 H 20 181/107 H Pulse Ox 10/17/21 10:45 97 10/17/21 09:30 97 10/17/21 09:00 97 10/17/21 08:30 94 10/17/21 08:24 98 10/17/21 06:27 94 10/17/21 06:20 97 10/17/21 06:19 97 10/17/21 05:43 98 Laboratory Results 10/17/21 06:05 10/17/21 06:05 Total bilirubin: 0.7 AST: 29 ALT: Elevated at 60 Covid: Negative Lipase: 12 Troponin: Less than 0.[address] of the abdomen and pelvis: IMPRESSION: 1. Wall thickening of the distal ileum with evidence for hyperemia with adjacent stranding. This represents an acute enteritis which may be infectious or inflammatory. Submucosal fat deposition within the ileum and colon suggests chronic inflammation. No abscess. No bowel obstruction. 2. No evidence for acute appendicitis. 3. Hepatic steatosis. 4. Subpleural groundglass opacities within the lungs which favor an infectious process, possibly resolving. 5. A few lung nodules measuring up to 7 mm. A follow-up chest CT in 6 months is recommended. 6. 2 mm right renal calculus. Right upper quadrant ultrasound: IMPRESSION: 1. Hepatic steatosis. 2. No gallstones or biliary ductal dilatation. 3. Mildly distended gallbladder. No gallbladder wall thickening. No pericholecystic fluid. No evidence for cholecystitis. Code Status & VTE Plan VTE Prophylaxis Plan VTE Prophylaxis will be ordered: Yes Supervising Physician Co-Signing Physician Notes Patient seen and examined, chart reviewed, case discussed with Ny Gary and I agree with the assessment and plan as above except as otherwise noted General: A&Ox3. NAD. Cooperative. HEENT: Atraumatic, normocephalic. Pulm: CTAB A&P. -wheezes, -rales, -rhonchi. Symmetrical chest rise. No increase work of breathing. No respiratory distress. Cardiac: RRR, Radial pulses intact and symmetrical. Abdomen: Soft, nondistended. Is focally and exquisitely tender in the right upper quadrant worsened on inspiration, positive Watson's. Minimal radiating epigastric tenderness. No right lower or left lower quadrant tenderness. No guarding. No rebound tenderness. All labs and images reviewed Gabi is a 51-year-old female with a past history of right upper quadrant pain following meals, rheumatoid arthritis who presents with increased right upper quadrant pain. She has had intermittent right upper quadrant pain in the past which has been incited and worsened by meals with a equivocal work-up in the past, she recalls having a HIDA scan done in the past which she is not sure was remarkable. Her CT scan without evidence of appendicitis, suggestive of enteritis inflammatory versus infectious and some suggestion of chronic colonic inflammation. Patient has had similar symptoms in the past, and did see surgery sometime ago who were going to perform a cholecystectomy based on her symptoms, however had deferred then due to an RA flare at the time. Ultrasound shows some gallbladder distention, HIDA scan is pending. She is nontoxic, no leukocytosis or fever. DDx includes viral enteritis, but will continue gallbladder work-up as above based on acute on chronic history and clinical exam. PG Care Time/CCT Total # of Minutes Spent Total Time Spent with Patient: Total time spent is greater than 50% in coordination of care (as documented) at patient's floor/unit and/or counseling patient: Coding Level of Care Code INT OBSERVATION CARE 50M LVL 2 Diagnoses Intractable nausea and vomiting R11.2 Abdominal pain R10.84 Abdominal location: generalized Rheumatoid arthritis M06.[address] scan, chest R93.89 (1) Abdominal pain Abdominal location: generalized Qualified Code(s): R10.84 - Generalized abdominal pain
[2021-10-17] MEDS: ONDANSETRON INJ 2 MG/ML 2 ML VIAL IV PRN (17:34)
[2021-10-17] MEDS: HYDROmorphone INJ 0.5 MG/0.5 ML SYR IV PRN (18:09)
[2021-10-17] MEDS: predniSONE 5 MG TAB PO SCH (20:04)
[2021-10-17] MEDS: FOLIC ACID 1 MG TAB PO SCH (20:05)
[2021-10-17] MEDS: DULoxetine HCL 30 MG CAP PO SCH (20:06)
[2021-10-17] MEDS: GABAPENTIN 300 MG CAP PO SCH (20:06)
[2021-10-17] MEDS ORDERED: LANSOPRAZOLE 15 MG SOLTAB PO STA (20:36)
[2021-10-17] MEDS ORDERED: PROMETHAZINE HCL 25 MG/20 ML UDP PO STA (20:36)
[2021-10-18] MEDS: D5W AND NSS 1,000 ML IV SCH ×2 (06:19→18:24)
[2021-10-18 06:36] LABS: Basophils # (auto) 0.01 K/uL (0-0.2); Basophils % (auto) 0.1 %; Eosinophils # (auto) 0.23 K/uL (0-0.5); Eosinophils % (auto) 3.4 %; Hematocrit (blood only) 38.4 % (37-47); Hemoglobin 12.9 g/dL (12.0-16.0); Immature Granulocytes # (auto) 0.01 K/uL (0.00-0.02); Immature Granulocytes % (auto) 0.1 %; Lymphocytes # (auto) 2.48 K/uL (1.2-3.4); Lymphocytes % (auto) 37.1 %; Mean Corpuscular Hemoglobin 33.3 pg (25-34); Mean Corpuscular Hgb Conc 33.6 g/dL (32-36); Mean Corpuscular Volume 99.2 fL (80-100); Mean Platelet Volume 10.3 fL (7.4-10.4); Monocytes # (auto) 0.39 K/uL (0.11-0.59); Monocytes % (auto) 5.8 %; Neutrophils # (auto) 3.57 K/uL (1.4-6.5); Neutrophils % (auto) 53.5 %; Platelet Count 144 K/uL (130-400); RDW Coefficient of Variation 15.4 % (11.5-14.5); Red Blood Count 3.87 M/uL (4.2-5.4); White Blood Count 6.69 K/uL (4.8-10.8)
[2021-10-18 06:49] LABS: Albumin Globulin Ratio 1.5 (0.9-2); Albumin Level 3.4 gm/dl (3.4-5.0); BUN Creatinine Ratio 9.7 (10-20); Bilirubin,Total 0.5 mg/dl (0.2-1.0); Calcium 7.7 mg/dl (8.5-10.1); Creatinine Clr Calc Pharmacy 93.4 ml/min; Est GFR (African American) 110.8 ml/min; Est GFR (Non-African American) 95.6 ml/min; Globulin 2.2 gm/dl (2.5-4.0); Potassium 3.7 mmol/L (3.5-5.1); Total Protein 5.6 gm/dl (6.0-8.3)
[2021-10-18] MEDS: ENOXAPARIN INJ 40 MG/0.4 ML SYR SQ SCH (08:29)
[2021-10-18] MEDS ORDERED: SINCALIDE 1.6 MCG in 0.9 % SODIUM CHLORIDE 100 ML IV ONE (10:30)
--- NOTE | 2021-10-18 12:06 | Nuclear Medicine Report ---
NM hepatobiliary EF CLINICAL HISTORY: 51 years-old Female with abd pain, n/v. Acute generalized abdominal pain with naus ea and vomiting TECHNIQUE: Following the intravenous administration of 5.03 mCi of technetium-99m Choletec, sequenti al abdominal images were obtained. In order to evaluate the contractile response of the gallbladder, 1.6 mcg of Kinevac was administered by slow intravenous infusion over 30 min starting approximately 60 min after the administration of the radiopharmaceutical. Sequential imaging was continued for 45 min after the start of the Kinevac infusion. COMPARISON: CT abdomen and pelvis 10/17/2021 FINDINGS: There is prompt, uniform accumulation of the tracer by the liver. There is normal filling of the int rahepatic ducts, common bile duct and gallbladder and normal excretion of the tracer into the duodenu m. There is decreased contraction of the gallbladder. The calculated gallbladder ejection fraction is 18% (normal >40%). There is no significant enterogastric reflux. IMPRESSION: 1. Delayed contractile response of the gallbladder to Kinevac infusion. 2. Otherwise unremarkable biliary imaging study. ACT 112: Negative or not required by law. The above report was generated using voice recognition software. It may contain grammatical, syntax o r spelling errors. Electronically signed by: Rufino Pedro M.D. 10/18/2021 12:05 PM
[2021-10-18] MEDS: HYDROmorphone INJ 0.5 MG/0.5 ML SYR IV PRN ×3 (12:26→18:44)
--- NOTE | 2021-10-18 16:20 | Hospitalist Progress Note ---
Date of Service October 18, 2021 Assessment & Plan (1) Biliary dyskinesia: Plan: 51-year-old white female with a past medical history of rheumatoid arthritis on methotrexate, prednisone, and recently started on tocilizumab presented with intractable nausea vomiting and abdominal pain X 24-hour * Lab data unremarkable including a normal white blood cell count, lipase, total bilirubin. AST normal with slightly elevated ALT at 60 (which has since normalized today) * CT of the abdomen and pelvis shows concern for enteritis * Given clinical presentation and reported history of recurrent symptoms, underlying gallbladder disease was suspected * Right upper quadrant ultrasound performed showing distended gallbladder but no pericholecystic fluid, gallbladder wall thickening, cholelithiasis or evidence of acute cholecystitis * HIDA scan done this morning which immediately reproduced patient's pain and nausea. She does have decreased function of the gallbladder consistent with biliary dyskinesia * At this point, patient not able to tolerate oral intake (tried a low-fat diet last evening but subsequently vomited) and her pain is severe/intense following the Kinevac administered today * I have a message out to general surgery regarding potential cholecystectomy * Patient will need steroid challenged if going to the OR (2) Abdominal pain: Plan: - CT scan of the abdomen and pelvis shows concern for acute enteritis--see above as outlined - suspect GB related; however, is on routine Pepcid and could have underlying enteritis - Patient empirically started on pantoprazole and Pepcid IV - Again, call out to general surgery regarding potential cholecystectomy. May need EGD at some point (3) Rheumatoid arthritis: Plan: -Patient on chronic prednisone, methotrexate, and recently started on tocilizumab -Most recent tocilizumab injection was 1 week ago thus doubt this is the contributing factor to #1 and #2 -Patient is ill-appearing but not toxic. No need for steroid challenge at this time; however, if she is going for cholecystectomy will need steroid challenge (4) Abnormal CT scan, chest: Plan: - CT scan of the abdomen and pelvis shows subpleural groundglass opacities which could be concern for infectious process (resolving). Patient without any resp iratory symptoms at this time and her Covid test is negative - In addition, noted to have 7 mm nodule in the lung for which a follow-up CT scan in 6 months is advised. Plan: - Lovenox for DVT prophylaxis - Currently Full code but patient specifies that she would NOT want CPR or Intubation should her quality of life seem poor or her chance of survival be slim. Daughter at bedside and agrees would respect patient's wishes but plan is for full code at this time - will D/W Dr. Lee. Further orders as warranted Admission and Anticipated Discharge Date Admission Date: October 17, 2021 Subjective Patient seen on daily rounds today. Had a low-fat diet tray last evening but subsequently developed vomiting. Was feeling well as of this morning and immediately after her HIDA scan with Kinevac, she developed severe/intense right upper quadrant/epigastric discomfort and nausea. Her HIDA scan does show evidence of biliary dyskinesia Otherwise, she denies fevers, chills, chest pain, shortness of breath Review of Systems Review of Systems: All systems reviewed and are unremarkable except as noted in HPI and below Denies fevers, chills, headache, nasal congestion, sore throat, cough, chest kermit n, shortness of breath, palpitations, orthopnea, PND, diarrhea, constipation, dysuria, hematuria, frequency, back pain, joint pain or swelling, easy bruising or bleeding, skin lesions or rashes. Physical Exam Physical Exam: General: Resting comfortably in her hospital bed. She appears in moderate discomfort but not septic or toxic NAD. HEENT: Head is AT/NC buccal mucosa is moist and pink Neck: No JVD. Negative hepatojugular reflex Cardiac: RRR without M/G/R Lungs: CTA without W/R/R Abdomen: Normoactive X4. With exquisite right upper quadrant and epigastric discomfort. Positive Watson sign. Extremities: No peripheral clubbing cyanosis or edema Neuro: A&O X4 cranial nerves II through XII are grossly intact no focal neuro deficits Skin: No obvious skin lesions or rashes Psych: Appropriate affect pleasant and cooperative Results & Data Results & Data ([facility]) Vital Signs (Past 12 Hours) Vital Signs Temp Pulse Resp BP Pulse Ox 10/18/21 15:53 36.7 C 78 18 145/78 H 97 10/18/21 07:23 37.0 C 86 18 187/98 H 93 Diagnostic Findings 10/18/21 05:38 10/18/21 05:38 Lipase: 13 Total bilirubin: 0.5 AST: 23 ALT: 39 PG Care Time/CCT Total # of Minutes Spent Total Time Spent with Patient: Total time spent is greater than 50% in coordination of care (as documented) at patient's floor/unit and/or counseling patient: Coding Level of Care Code 07714 Subseq Hosp Care Lvl 2 Diagnoses Abdominal pain R10.84 Abdominal location: generalized Rheumatoid arthritis M06.[address] scan, chest R93.89 Biliary dyskinesia K82.8 (1) Abdominal pain Abdominal location: generalized Qualified Code(s): R10.84 - Generalized abdominal pain
[2021-10-18] MEDS: FAMOTIDINE 20 MG in SYRINGE 3 ML IV SCH (16:58)
--- NOTE | 2021-10-18 19:28 | Surgery Consultation ---
Date of Consultation October 18, 2021 Assessment & Plan (1) Biliary dyskinesia: She did have an abnormal HIDA scan today but clearly the severity of her symptoms could not be explained by a simple biliary dyskinesia. People generally have some mild upper abdominal discomfort after eating and may be some associated nausea. The patient currently has diffuse more severe abdominal pain with even mild palpation. She certainly is at risk for something like gastritis or peptic ulcer disease with her methotrexate ,NSAID usage as well as smoking. She also has abnormal terminal ileum with some evidence of chronic inflammation. She tells me she has never had a colonoscopy or an EGD. I believe it would be most important to consult GI for both a colonoscopy and EGD to rule out something such as Crohn's disease gastritis or peptic ulcer etc. If her scopes are completely negative we could consider removing her gallbladder this admission. I will consult GI and I will continue to follow along. (2) Rheumatoid arthritis: (3) Enteritis: (4) Abnormal CT scan, chest: (5) Intractable nausea and vomiting: (6) Rheumatoid arthritis: (7) Abdominal pain: History of Present Illness Attending Physician: Jayce Lee MD History of Present Illness 51-year-old female with acute abdominal pain. She states she has been having acute attacks for about 10 years and she gets them every 4 to 6 months. She states that she normally comes into the hospital for IV medication and it gets better. Her work-up this admission showed a CT scan with some inflammation of her terminal ileum. She also had a HIDA scan today showing some biliary dyskinesia with an ejection fraction of around 18%. She states that her pain is in the epigastric region but she is diffuse only tender all over. She does get associated nausea. She has been on methotrexate for several years for rheumatoid arthritis and does use ibuprofen for joint pain as well. She also has an every day smoker. Allergies Allergy/AdvReac Type Severity Reaction Status Date / Time homatropine Allergy Severe NAUSEA Unverified 10/17/21 07:16 morphine Allergy Mild nausea Verified 10/17/21 07:16 vomiting Home Medications Medication Instructions Recorded Confirmed Type alendronate 70 mg tablet (Fosamax) 70 mg PO WK 11/20/19 10/17/21 History folic acid 1 mg tablet 1 mg PO QAM 11/20/19 10/17/21 History methotrexate sodium 25 mg/mL 20 mg IM WK 11/20/19 10/17/21 History injection solution prednisone 5 mg tablet 5 mg PO QAM 11/20/19 10/17/21 History tramadol 50 mg tablet 50 - 100 mg PO Q6H PRN #24 tab 11/20/19 10/17/21 Rx omeprazole 20 mg capsule,delayed 20 mg PO DAILYBB 10/05/20 10/17/21 History release duloxetine 30 mg capsule,delayed 30 mg PO QAM 10/17/21 10/17/21 History release gabapentin 300 mg capsule 300 mg PO TID 10/17/21 10/17/21 History ondansetron 4 mg disintegrating 4 mg PO Q6H PRN 10/17/21 10/17/21 History tablet tocilizumab 162 mg/0.9 mL 162 mg SUBCUT .Q2W 10/17/21 10/17/21 History subcutaneous pen injector (Actemra ACTPen) Patient History Medical History Carpal tunnel syndrome Rheumatoid arthritis Social History Smoking Status: Current every day smoker Tobacco Type: Cigarettes Cigarettes Per Day: 1/2 pack; Second Hand Exposure: No; Do You Dip or Chew Tobacco: No; Tobacco Cessation Education Requested by Patient: No Hx Alcohol Use: No Hx Substance Use: No Preferred Language: Mauritian Communication Ability: Effective Insulation Mechanic Required: No Beliefs That Will Affect Care: None Current Living Situation: Spouse Feels Safe at Home: Yes Safety Concerns: Feels Safe At This Time Assistive Devices: None Review of Systems Review of Systems: All systems reviewed & are unremarkable except as noted in HPI & below Physical Exam Constitutional: WD/WN, vitals as above no acute distress and not ill appearing Eyes: PERRL, conjunctivae normal, anicteric sclerae EOM intact bilaterally ENMT: external ear and nose normal, oropharynx normal Ears: no hearing impairment Neck: trachea midline, no thyromegaly Respiratory: normal respiratory effort; no respiratory distress and does not use accessory muscles Cardiovascular: Rate/Rhythm: regular rate and regular rhythm Gastrointestinal (Abdomen): soft. Diffusely tender with minimal palpation. No peritonitis. Skin: no rashes, warm and dry Psychiatric: Orientation: alert, oriented x 3 and cooperative Results & Data ([facility]) Vital Signs (Past 12 Hours) Vital Signs Temp Pulse Resp BP Pulse Ox 10/18/21 15:53 36.7 C 78 18 145/78 H 97 PG Care Time/CCT Total # of Minutes Spent Total Time Spent with Patient: Total time spent is greater than 50% in coordination of care (as documented) at patient's floor/unit and/or counseling patient: Coding Level of Care Code 29836 Inpt Consult Level 4 Diagnoses Biliary dyskinesia K82.8 Rheumatoid arthritis M06.9 Rheumatoid arthritis location: multiple sites Rheumatoid factor presence: unspecified presence Enteritis K52.[address] scan, chest R93.89 Intractable nausea and vomiting R11.2 Rheumatoid arthritis M06.9 Abdominal pain R10.84 Abdominal location: generalized (1) Rheumatoid arthritis Rheumatoid arthritis location: multiple sites Rheumatoid factor presence: unspecified presence Qualified Code(s): M06.9 - Rheumatoid arthritis, unspecified (2) Abdominal pain Abdominal location: generalized Qualified Code(s): R10.84 - Generalized abdominal pain
[2021-10-18] MEDS: PANTOprazole 40 MG in SYRINGE 0 ML IV SCH (20:22)
[2021-10-18] MEDS: predniSONE 5 MG TAB PO SCH (20:23)
[2021-10-18] MEDS: GABAPENTIN 300 MG CAP PO SCH (20:24)
[2021-10-18] MEDS: DULoxetine HCL 30 MG CAP PO SCH (20:24)
[2021-10-18] MEDS: FOLIC ACID 1 MG TAB PO SCH (20:24)
[2021-10-19] MEDS: D5W AND NSS 1,000 ML IV SCH ×2 (03:23→15:26)
[2021-10-19] MEDS: FAMOTIDINE 20 MG in SYRINGE 3 ML IV SCH (05:32)
[2021-10-19 05:55] LABS: Basophils # (auto) 0.02 K/uL (0-0.2); Basophils % (auto) 0.3 %; Eosinophils # (auto) 0.25 K/uL (0-0.5); Eosinophils % (auto) 3.5 %; Hematocrit (blood only) 36.2 % (37-47); Hemoglobin 12.2 g/dL (12.0-16.0); Immature Granulocytes # (auto) 0.01 K/uL (0.00-0.02); Immature Granulocytes % (auto) 0.1 %; Lymphocytes # (auto) 2.71 K/uL (1.2-3.4); Lymphocytes % (auto) 37.8 %; Mean Corpuscular Hemoglobin 33.1 pg (25-34); Mean Corpuscular Hgb Conc 33.7 g/dL (32-36); Mean Corpuscular Volume 98.1 fL (80-100); Mean Platelet Volume 10.5 fL (7.4-10.4); Monocytes # (auto) 0.52 K/uL (0.11-0.59); Monocytes % (auto) 7.3 %; Neutrophils # (auto) 3.65 K/uL (1.4-6.5); Platelet Count 137 K/uL (130-400); RDW Coefficient of Variation 15.2 % (11.5-14.5); Red Blood Count 3.69 M/uL (4.2-5.4); White Blood Count 7.16 K/uL (4.8-10.8)
[2021-10-19 06:14] LABS: Albumin Globulin Ratio 1.7 (0.9-2); Albumin Level 3.3 gm/dl (3.4-5.0); BUN Creatinine Ratio 8.5 (10-20); Bilirubin,Total 0.6 mg/dl (0.2-1.0); Calcium 7.9 mg/dl (8.5-10.1); Creatinine Clr Calc Pharmacy 94.7 ml/min; Est GFR (African American) 112.7 ml/min; Est GFR (Non-African American) 97.2 ml/min; Magnesium 1.9 mg/dl (1.7-2.4); Potassium 3.4 mmol/L (3.5-5.1); Total Protein 5.3 gm/dl (6.0-8.3)
[2021-10-19] MEDS: HYDROmorphone INJ 0.5 MG/0.5 ML SYR IV PRN ×3 (06:14→18:17)
--- NOTE | 2021-10-19 08:01 | Surgery Progress Note ---
Date of Service October 19, 2021 Assessment & Plan (1) Biliary dyskinesia: Plan: Pt here w/ abd pain, nausea/vomiting, found to have low EF on HIDA scan. RUQ US (-) for acute luiza. Evidence of enteritis on CT - WBC 7, LFTs WNL. Afebrile - On exam patient with generalized abdominal discomfort to palpation, not worse in RUQ/epigastric region - Would like GI to evaluate patient for possible scopes before considering cholecystectomy to rule out other etiologies of pt's belly pain as patient's symptoms do not seem like it would all be related to biliary dyskinesia - Will follow along Admission and Anticipated Discharge Date Admission Date: October 18, 2021 Subjective Patient reports ongoing abdominal pain, worse with certain movements. Denies further nausea/vomiting. Burping. Physical Exam Physical Exam: awake Gastrointestinal (Abdomen): Inspection/Auscultation: abdomen not distended Percussion/Palpation: + abdomen tender (generalized abdominal discomfort to palpation ) and abdomen soft Results & Data ([facility]) Vital Signs (Past 12 Hours) Vital Signs Temp Pulse Resp BP Pulse Ox 10/19/21 07:21 36.7 C 74 18 143/77 H 95 10/18/21 22:55 36.7 C 74 18 154/79 H 94 PG Care Time/CCT Total # of Minutes Spent Total Time Spent with Patient: Total time spent is greater than 50% in coordination of care (as documented) at patient's floor/unit and/or counseling patient: Coding Level of Care Code 94520 Subseq Hosp Care Lvl 1 Diagnoses Biliary dyskinesia K82.8
[2021-10-19] MEDS: ENOXAPARIN INJ 40 MG/0.4 ML SYR SQ SCH (08:11)
[2021-10-19] MEDS: PANTOprazole 40 MG in SYRINGE 0 ML IV SCH (08:11)
[2021-10-19] MEDS: POTASSIUM CHLORIDE / WTR 10 MEQ/100 ML PLCT IV SCH ×2 (08:25→09:31)
--- NOTE | 2021-10-19 09:34 | Gastrointestinal Consultation ---
Date of Consultation October 19, 2021 Assessment & Plan (1) Abnormal CT scan, small bowel: (2) Abdominal pain: -Keep NPO for EGD today. -Plan for Colonoscopy on 10/21 after prep on 10/20. -Protonix 40 mg BID. -Supportive care per primary team. Supervising Physician Co-Signing Physician Notes I personally evaluated the patient and agree with the findings as documented by Lily Mathew, JACOBO Exam: abd: soft, nt, nd History of Present Illness Reason for Consultation: Abdominal pain Attending Physician: Jayce Lee MD History of Present Illness Mrs. Richmond is a 51-year-old female with PMH of rheumatoid arthritis on chronic prednisone, methotrexate, and recently started on tocilizumab. She notes that she has intermittently suffered from attacks of severe abdominal pain. She does note that several days ago, she woke up with severe right sided- abdominal discomfort. This would not go away, so she presented to the hospital. She has no other associated symptoms. She denies diarrhea, rectal bleeding, nausea, vomiting, GERD. She does report subjective fevers and chill but fortunately is afebrile here. Pain is somewhat better when sitting up and leaning forward. She notes that she has been unable to tolerate oral intake due to the severity of the pain. Pain was initially constant and a 10/10 when she presented, but now she reports some improvement and a more intermittent pattern. She did endorse to someone else that she has chronic loose stools, but explains to me that this is more soft, formed stool and not diarrhea. She had a CT scan that shows thickening of the distal TI. No family history of IBD, though patient has a personal history of autoimmune abnormalities. She had an abnormal HIDA scan that indicated biliary dyskinesia. Surgery requested GI evaluation to exclude other potential causes of this pain. WBC count is within normal limits. Lipase was unremarkable. LFTs unremarkable. She has never had a colonoscopy in the past or an EGD. Allergies Allergy/AdvReac Type Severity Reaction Status Date / Time homatropine Allergy Severe NAUSEA Unverified 10/17/21 07:16 morphine Allergy Mild nausea Verified 10/17/21 07:16 vomiting Home Medications Medication Instructions Recorded Confirmed Type alendronate 70 mg tablet (Fosamax) 70 mg PO WK 11/20/19 10/17/21 History folic acid 1 mg tablet 1 mg PO QAM 11/20/19 10/17/21 History methotrexate sodium 25 mg/mL 20 mg IM WK 11/20/19 10/17/21 History injection solution prednisone 5 mg tablet 5 mg PO QAM 11/20/19 10/17/21 History tramadol 50 mg tablet 50 - 100 mg PO Q6H PRN #24 tab 11/20/19 10/17/21 Rx omeprazole 20 mg capsule,delayed 20 mg PO DAILYBB 10/05/20 10/17/21 History release duloxetine 30 mg capsule,delayed 30 mg PO QAM 10/17/21 10/17/21 History release gabapentin 300 mg capsule 300 mg PO TID 10/17/21 10/17/21 History ondansetron 4 mg disintegrating 4 mg PO Q6H PRN 10/17/21 10/17/21 History tablet tocilizumab 162 mg/0.9 mL 162 mg SUBCUT .Q2W 10/17/21 10/17/21 History subcutaneous pen injector (Actemra ACTPen) Patient History Medical History Carpal tunnel syndrome Rheumatoid arthritis Social History Smoking Status: Current every day smoker Tobacco Type: Cigarettes Cigarettes Per Day: 1/2 pack; Second Hand Exposure: No; Do You Dip or Chew Tobacco: No; Tobacco Cessation Education Requested by Patient: No Hx Alcohol Use: No Hx Substance Use: No Preferred Language: Moldovan Communication Ability: Effective 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: No Beliefs That Will Affect Care: None Current Living Situation: Spouse Feels Safe at Home: Yes Safety Concerns: Feels Safe At This Time Assistive Devices: None Review of Systems Constitutional: no fever and no chills Respiratory: no cough and no dyspnea Cardiovascular: no chest pain Gastrointestinal: + abdominal pain; no nausea, no vomiting and no melena Musculoskeletal: + joint pain Integumentary: no problem reported Psychiatric: no problem reported Hematologic / Lymphatic: no unexplained weight loss Physical Exam Constitutional: well developed Respiratory: normal respiratory effort, lungs clear to auscultation Cardiovascular: Rate/Rhythm: + abnormal rate and + abnormal rhythm Gastrointestinal (Abdomen): Inspection/Auscultation: abdomen normal to inspection Musculoskeletal: Head/Neck/Chest: normocephalic Psychiatric: Orientation: alert and oriented x 3 Results & Data ([facility]) Vital Signs (Past 12 Hours) Vital Signs Temp Pulse Resp BP Pulse Ox 10/19/21 07:21 36.7 C 74 18 143/77 H 95 10/18/21 22:55 36.7 C 74 18 154/79 H 94 PG Care Time/CCT Total # of Minutes Spent Total Time Spent with Patient: Total time spent is greater than 50% in coordination of care (as documented) at patient's floor/unit and/or counseling patient: Coding Level of Care Code 62271 Office/OBS Consult Lvl [address] scan, small bowel R93.3 Abdominal pain R10.84 Abdominal location: generalized (1) Abdominal pain Abdominal location: generalized Qualified Code(s): R10.84 - Generalized abdominal pain
[2021-10-19] MEDS ORDERED: DEXAMETHASONE SOD INJ 4 MG/ML VIAL ONE (10:55)
[2021-10-19] MEDS ORDERED: ONDANSETRON INJ 2 MG/ML 2 ML VIAL ONE (10:55)
--- NOTE | 2021-10-19 11:02 | Anesthesiology Consultation ---
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 Gustavo Chen MD Operation Date: 10/21/21 16:00 Proposed Procedures p Colonoscopy Dr. Gustavo Chen MD Height/Weight Height: 5 ft 4 in Weight: 81.6 kg Allergies Allergy/AdvReac Type Severity Reaction Status Date / Time homatropine Allergy Severe NAUSEA Unverified 10/17/21 07:16 morphine Allergy Mild nausea Verified 10/17/21 07:16 vomiting Medications Home Medications Medication Instructions Recorded Confirmed Last Taken alendronate 70 mg tablet (Fosamax) 70 mg PO WK 11/20/19 10/17/21 10/10/21 folic acid 1 mg tablet 1 mg PO QAM 11/20/19 10/17/21 10/15/21 methotrexate sodium 25 mg/mL 20 mg IM WK 11/20/19 10/17/21 10/10/21 injection solution prednisone 5 mg tablet 5 mg PO QAM 11/20/19 10/17/21 10/15/21 tramadol 50 mg tablet 50 - 100 mg PO Q6H PRN #24 tab 11/20/19 10/17/21 Unknown omeprazole 20 mg capsule,delayed 20 mg PO DAILYBB 10/05/20 10/17/21 10/15/21 release duloxetine 30 mg capsule,delayed 30 mg PO QAM 10/17/21 10/17/21 10/15/21 release gabapentin 300 mg capsule 300 mg PO TID 10/17/21 10/17/21 10/15/21 ondansetron 4 mg disintegrating 4 mg PO Q6H PRN 10/17/21 10/17/21 10/16/21 tablet tocilizumab 162 mg/0.9 mL 162 mg SUBCUT .Q2W 10/17/21 10/17/21 10/10/21 subcutaneous pen injector (Actemra ACTPen) Active Medications Generic Name Dose Route Start Last Admin Trade Name Freq PRN Reason Stop Dose Admin Duloxetine HCl 30 mg 10/17/21 21:00 10/18/21 20:24 Duloxetine Hcl 30 Mg Cap PO 11/16/21 20:59 30 mg QPM ASHLEY Administration Enoxaparin Sodium 40 mg 10/18/21 09:00 10/19/21 08:11 Enoxaparin Inj 40 Mg/0.4 Ml Syr SQ 11/17/21 08:59 Not Given QAM ASHLEY Folic Acid 1 mg 10/17/21 21:00 10/18/21 20:24 Folic Acid 1 Mg Tab PO 11/16/21 20:59 1 mg QPM ASHLEY Administration Gabapentin 300 mg 10/17/21 21:00 10/18/21 20:24 Gabapentin 300 Mg Cap PO 11/16/21 20:59 300 mg QPM ASHLEY Administration Hydromorphone HCl 0.5 mg 10/18/21 15:49 10/19/21 06:14 Hydromorphone Inj 0.5 Mg/0.5 Ml Syr IV 10/31/21 10:44 0.5 mg Q3H PRN Administration Pain Dextrose/Sodium Chloride 1,000 mls @ 100 mls/hr 10/17/21 10:30 10/19/21 10:28 D5w And Nss IV 11/16/21 10:29 0 mls/hr .Q10H ASHLEY Infusion Ondansetron HCl 4 mg 10/17/21 08:40 10/17/21 17:34 Ondansetron Inj 2 Mg/Ml 2 Ml Vial IV 11/16/21 08:39 4 mg Q6H PRN Administration nausea/vomiting Prednisone 5 mg 10/17/21 21:00 10/18/21 20:23 Prednisone 5 Mg Tab PO 11/16/21 20:59 5 mg QPM ASHLEY Administration NPO Date Last Intake of Fluids: 10/19/21 Time Last Intake of Fluids: 00:00 Date Last Intake of Solids: 10/19/21 Time Last Intake of Solids: 00:00 Past Medical History Medical History Carpal tunnel syndrome Rheumatoid arthritis Exercise / Class Metabolic Activity III < 4 Walking/Shop/Light housework Past Surgical History laparoscopy, hysterectomy Past Anesthesia History No Hx of Anesthesia Complications and No Family Hx of Anesthesia Complications History of PONV History of PONV and Hx of Motion Sickness Social History Smoking Status: Current every day smoker tobacco type: cigarettes Smoking cigarettes per day: 1/2 pack Do You Dip or Chew Tobacco: No Hx Alcohol Use: No Hx Substance Use: No substance use type: does not use Physical Exam Vital Signs Last Vital Signs Temp 36.7 C 10/19/21 07:21 Pulse 74 10/19/21 07:21 Resp 18 10/19/21 07:21 BP 143/77 H 10/19/21 07:21 Pulse Ox 95 10/19/21 07:21 Constitutional no acute distress ENMT Mouth: + dental restorations (Caps) and + chipped teeth; no loose teeth Thyromental Distance: > or= 3.5 Finger Breadths Mallampati Class: II Neck normal visual inspection and trachea midline; neck extension not limited Respiratory normal respiratory effort; no respiratory distress Auscultation: lungs clear to auscultation bilaterally; no crackles, no rhonchi and no wheezes Cardiovascular Rate/Rhythm: regular rate and regular rhythm Heart Sounds: no gallop, no murmur and no cardiac rub Neurologic moves all extremities and awake Psychiatric Orientation: alert Testing Laboratory Results 10/19/21 05:35 10/19/21 05:35 Electrocardiogram Date: 10/17/21 Findings: + NSR @ and + RBBB (Incomplete)
[2021-10-19] MEDS ORDERED: LIDOCAINE 2% 2 ML VIAL/AMP(20MG/ML) INFIL ONE ×2 (11:10→11:11)
[2021-10-19] MEDS ORDERED: PROPOFOL IV EMULSION 10 MG/ML 20 ML VIAL IV ONE ×2 (11:10→11:11)
--- NOTE | 2021-10-19 11:32 | GI REPORT ---
Patient Name: Gabi Richmond Procedure Date: 10/19/2021 11:11 AM Date of : 1970 Admit Type: Inpatient Age: 51 Gender: Female Attending MD: Amilcar Chen MD Procedure: Upper GI endoscopy Providers: Amilcar Chen MD Referring MD: Jayce Lee Md Indications: Abdominal pain, Abnormal CT of the GI tract Medicines: Monitored Anesthesia Care Complications: No immediate complications. Estimated blood loss: None. Estimated Blood Loss: Estimated blood loss: none. Procedure: Pre-Anesthesia Assessment: - Prior Anticoagulants: The patient has taken no previous anticoagulant or antiplatelet agents. - ASA Grade Assessment: II - A patient with mild systemic disease. After obtaining informed consent, the endoscope was passed under direct vision. Throughout the procedure, the patient's blood pressure, pulse, and oxygen saturations were monitored continuously. The Endoscope was introduced through the mouth, and advanced to the second part of duodenum. The upper GI endoscopy was accomplished without difficulty. The patient tolerated the procedure well. Findings: The examined esophagus was normal. The entire examined stomach was normal. Biopsies were taken with a cold forceps for Helicobacter pylori testing. Estimated blood loss: none. The duodenal bulb and second portion of the duodenum were normal. Impression: - Normal esophagus. - Normal stomach. Biopsied. - Normal duodenal bulb and second portion of the duodenum. Recommendation: - Return patient to [facility] for [facility] care. - Clear liquid diet today and tomorrow -start golytely 4L prep tomorrow night at 6 pm -colonoscopy to further evaluate on 10/21 - Await pathology results. Amilcar Chen MD 10/19/2021 11:31:23 AM This report has been signed electronically. Note Initiated On: 10/19/2021 11:11 AM Number of Addenda: 0 I attest to the content of the Intraoperative Record and orders documented therein, exceptions below {[id number]}
--- NOTE | 2021-10-19 12:16 | Anesthesiology Progress Note ---
Date of Service October 19, 2021 Anesthesia Post Procedure Vital Signs Vital Signs: Temp Pulse Resp BP Pulse Ox 10/19/21 12:04 37.1 C 75 16 168/96 H 99 10/19/21 11:57 73 18 161/96 H 95 10/19/21 11:42 73 18 160/96 H 96 10/19/21 11:28 75 18 148/89 H 95 10/19/21 10:51 36.5 C 72 18 196/115 H 99 10/19/21 07:21 36.7 C 74 18 143/77 H 95 10/18/21 22:55 36.7 C 74 18 154/79 H 94 10/18/21 15:53 36.7 C 78 18 145/78 H 97 Pain Intensity Bilateral Abdomen: Pain Intensity: 5 Generalized: Pain Intensity: 5 Transfer of Care Handoff Completed per policy Notes Mental Status: alert / awake / arousable and participated in evaluation Patient Amnestic to Procedure: Yes Nausea / Vomiting: adequately controlled Pain: adequately controlled Airway Patency, RR, SpO2: stable & adequate BP & HR: stable & adequate Hydration State: stable & adequate Anesthetic Complications: no major complications apparent and Pt Satisfied with anesthetic care
--- NOTE | 2021-10-19 13:11 | Hospitalist Progress Note ---
Date of Service October 19, 2021 Assessment & Plan (1) Biliary dyskinesia: Plan: 51-year-old white female with a past medical history of rheumatoid arthritis on methotrexate, prednisone, and recently started on tocilizumab presented with intractable nausea vomiting and abdominal pain X 24-hour * Lab data unremarkable including a normal white blood cell count, lipase, total bilirubin. AST normal with slightly elevated ALT at 60 (which has since normalized) * CT of the abdomen and pelvis shows concern for enteritis (fat deposits in the ileum and colon suggests chronic inflammation) * Given clinical presentation and reported history of recurrent symptoms, underlying gallbladder disease was/is suspected * Right upper quadrant ultrasound performed showing distended gallbladder but no pericholecystic fluid, gallbladder wall thickening, cholelithiasis or evidence of acute cholecystitis * HIDA scan done 10/18 which immediately reproduced patient's pain and nausea. She does have decreased function of the gallbladder consistent with biliary dyskinesia * She has had limited ability to tolerate any oral intake (tried a low-fat diet but subsequently vomited) and her pain was intensified following the administration of Kinevac * spoke with General Surgery given questionable need for cholecystectomy. Appreciate their assistance. GS not convinced that this is GB given the CT finding (suggesting chronic inflammation) (2) Abdominal pain: Plan: - CT scan of the abdomen and pelvis shows concern for chronic inflammation of the ileum/colon - does have underlying RA and in MXT and prednisone (increasing her risk for GI etiology) - I agree with GS that not "slam dunk" for GB disease, but I s suspect there is an underlying component of chronic biliary dyskinesia. I do appreciate Dr. Zamorano's assistance - GI consulted-- appreciate recommendations - EGD done today and WNL - plan if for c.scope on 10/21 (with prep to be done tomorrow) - pt empirically on pepcid/protonix (3) Rheumatoid arthritis: Plan: -Patient on chronic prednisone, methotrexate, and recently started on tocilizumab -Most recent tocilizumab injection was 1 week ago thus doubt this is the contributing factor to #1 and #2 -Patient is ill-appearing but not toxic. No need for steroid challenge at this time; however, if she is going for cholecystectomy will need steroid challenge (4) Abnormal CT scan, chest: Plan: - CT scan of the abdomen and pelvis shows subpleural groundglass opacities which could be concern for infectious process (resolving). Patient without any respiratory symptoms at this time and her Covid test is negative - In addition, noted to have 7 mm nodule in the lung for which a follow-up CT scan in 6 months is advised. Plan: - Lovenox for DVT prophylaxis - Currently Full code but patient specifies that she would NOT want CPR or Intubation should her quality of life seem poor or her chance of survival be slim. Daughter at bedside and agrees would respect patient's wishes but plan is for full code at this time - will D/W Dr. Lee. Further orders as warranted -plan to round again this afternoon to update daughter when she comes in Admission and Anticipated Discharge Date Admission Date: October 18, 2021 Subjective Patient seen on daily rounds today. Still having right upper quadrant pain but overall is improved today compared to yesterday. Has been made n.p.o. in preparation for EGD. EGD subsequently done and within normal limits. For colo noscopy on 10/21 with prep to be performed on 10/20. General surgery wanting upper and lower endoscopies performed to rule out other etiology as not convinced it is biliary dyskinesia causing her discomfort. She denies fevers, chills, chest pain, shortness of breath, or vomiting. Still with intermittent nausea. Review of Systems Review of Systems: All systems reviewed and are unremarkable except as noted i n HPI and below Denies fevers, chills, headache, nasal congestion, sore throat, cough, chest pain, shortness of breath, palpitations, orthopnea, PND, vomiting, diarrhea, constipation, dysuria, hematuria, frequency, back pain, joint pain or swelling, easy bruising or bleeding, skin lesions or rashes. Physical Exam Physical Exam: General: Resting comfortably in bedside chair.. She appears in mild discomfort but not septic or toxic NAD. HEENT: Head is AT/NC buccal mucosa is moist and pink Neck: No JVD. Negative hepatojugular reflex Cardiac: RRR without M/G/R Lungs: CTA without W/R/R Abdomen: Normoactive X4. With exquisite right upper quadrant and epigastric discomfort. Positive Watson sign remains. Extremities: No peripheral clubbing cyanosis or edema Neuro: A&O X4 cranial nerves II through XII are grossly intact no focal neuro deficits Skin: No obvious skin lesions or rashes Psych: Appropriate affect pleasant and cooperative Results & Data Results & Data ([facility]) Vital Signs (Past 12 Hours) Vital Signs Temp Pulse Resp BP Pulse Ox 10/19/21 12:04 37.1 C 75 16 168/96 H 99 10/19/21 11:57 73 18 161/96 H 95 10/19/21 11:42 73 18 160/96 H 96 10/19/21 11:28 75 18 148/89 H 95 10/19/21 10:51 36.5 C 72 18 196/115 H 99 10/19/21 07:21 36.7 C 74 18 143/77 H 95 Laboratory Results 10/19/21 05:35 10/19/21 05:35 TB: 0.7 AST: 24 ALT: 36 PG Care Time/CCT Total # of Minutes Spent Total Time Spent with Patient: Total time spent is greater than 50% in coordination of care (as documented) at patient's floor/unit and/or counseling patient: Coding Level of Care Code 07639 Subseq Hosp Care Lvl 2 Diagnoses Biliary dyskinesia K82.8 Abdominal pain R10.84 Abdominal location: generalized Rheumatoid arthritis M06.[address] scan, chest R93.89 (1) Abdominal pain Abdominal location: generalized Qualified Code(s): R10.84 - Generalized abdominal pain
[2021-10-19] MEDS: FAMOTIDINE 20 MG TAB PO SCH (17:44)
[2021-10-19] MEDS: FOLIC ACID 1 MG TAB PO SCH (20:25)
[2021-10-19] MEDS: GABAPENTIN 300 MG CAP PO SCH (20:25)
[2021-10-19] MEDS: DULoxetine HCL 30 MG CAP PO SCH (20:25)
[2021-10-19] MEDS: predniSONE 5 MG TAB PO SCH (20:26)
[2021-10-19] MEDS: PANTOprazole 40 MG TAB PO SCH (20:26)
[2021-10-20] MEDS: D5W AND NSS 1,000 ML IV SCH ×2 (01:31→12:45)
[2021-10-20] MEDS: FAMOTIDINE 20 MG TAB PO SCH ×2 (06:19→08:04)
[2021-10-20] MEDS: PANTOprazole 40 MG TAB PO SCH ×2 (08:04→20:16)
[2021-10-20] MEDS: DULoxetine HCL 30 MG CAP PO SCH (08:05)
[2021-10-20] MEDS: ENOXAPARIN INJ 40 MG/0.4 ML SYR SQ SCH (08:05)
--- NOTE | 2021-10-20 08:52 | Surgery Progress Note ---
Date of Service October 20, 2021 Assessment & Plan (1) Biliary dyskinesia: Plan: EGD was negative....prepping for colonoscopy tomorrow...if no major findings...will plan lap luiza tomorrow afternoon. will ask GI to do scope in AM...discussed options/risks ( bleeding/infection/injury to a bile duct or bile leak, injury to other organs, dvt/pe/mi/cva et...). questions answered. pt agreeable. will plan lap luiza tomorrow after colonoscopy if no major endoscopic findings. consent signed. discussed with anesthesia. (2) Enteritis: (3) Abdominal pain: Admission and Anticipated Discharge Date Admission Date: October 18, 2021 Subjective pt seen. feeling better than monday however has not really eaten. Physical Exam Constitutional: WD/WN, vitals as above no acute distress and not ill appearing Eyes: PERRL, conjunctivae normal, anicteric sclerae EOM intact bilaterally ENMT: external ear and nose normal, oropharynx normal Ears: no hearing impairment Neck: trachea midline, no thyromegaly Respiratory: normal respiratory effort; no respiratory distress and does not use accessory muscles Cardiovascular: Rate/Rhythm: regular rate and regular rhythm Gastrointestinal (Abdomen): soft. mild epigastric ttp. Skin: no rashes, warm and dry Psychiatric: Orientation: alert, oriented x 3 and cooperative Results & Data ([facility]) Vital Signs (Past 12 Hours) Vital Signs Temp Pulse Resp BP Pulse Ox 10/20/21 08:28 36.6 C 69 16 165/90 H 100 10/19/21 22:40 36.6 C 64 18 176/90 H 98 PG Care Time/CCT Total # of Minutes Spent Total Time Spent with Patient: Total time spent is greater than 50% in coordination of care (as documented) at patient's floor/unit and/or counseling patient: Coding Level of Care Code 15252 Subseq Hosp Care Lvl 3 Diagnoses Biliary dyskinesia K82.8 Enteritis K52.9 Abdominal pain R10.84 Abdominal location: generalized (1) Abdominal pain Abdominal location: generalized Qualified Code(s): R10.84 - Generalized abdominal pain
--- NOTE | 2021-10-20 09:17 | Gastroenterology Progress Note ---
Date of Service October 20, 2021 Assessment & Plan (1) Abnormal CT scan, small bowel: (2) Abdominal pain: Plan: -Clear liquids today -Keep NPO after midnight -Bowel prep ordered for colonoscopy tomorrow Admission and Anticipated Discharge Date Admission Date: October 18, 2021 Subjective Patient is a 51 yo female with abdominal pain and abnormal CT of her terminal ileum. She has had continued right sided abdominal pain. EGD on 10/19/21 was unremarkable. She is having formed, non-bloody stool. Appetite is decreased. She denies any acute changes since yesterday. Review of Systems Gastrointestinal: + abdominal pain; no diarrhea/loose stools and no blood in stools Physical Exam Gastrointestinal (Abdomen): normal bowel sounds, soft, nontender, no hepatosplenomegaly Results & Data Results & Data ([facility]) Vital Signs (Past 12 Hours) Vital Signs Temp Pulse Resp BP Pulse Ox 10/20/21 08:28 36.6 C 69 16 165/90 H 100 10/19/21 22:40 36.6 C 64 18 176/90 H 98 PG Care Time/CCT Total # of Minutes Spent Total Time Spent with Patient: Total time spent is greater than 50% in coordination of care (as documented) at patient's floor/unit and/or counseling patient: Coding Level of Care Code 38708 Subseq Hosp Care Lvl [address] scan, small bowel R93.3 Abdominal pain R10.84 Abdominal location: generalized (1) Abdominal pain Abdominal location: generalized Qualified Code(s): R10.84 - Generalized abdominal pain
[2021-10-20] MEDS: HYDROmorphone INJ 0.5 MG/0.5 ML SYR IV PRN (09:33)
[2021-10-20] MEDS ORDERED: bisacodyL 5 MG TABEC PO ONE (15:20)
--- NOTE | 2021-10-20 15:32 | Anesthesiology Consultation ---
Date of Service October 20, 2021 Assessment & Plan Chart Review Chart Review: Acceptable Risk for Surgery and Patient NOT seen in Pre Admission Testing Consults Requested none History Surgery Operation Date: 10/19/21 16:00 Proposed Procedures p Esophagogastroduodenoscopy Dr. Gustavo Chen MD Operation Date: 10/21/21 14:45 Proposed Procedures p Laparoscopic Cholecystectomy - Nikita Zamorano DO Operation Date: 10/21/21 16:00 Proposed Procedures p Colonoscopy Dr. Gustavo Chen MD Height/Weight Height: 5 ft 4 in Weight: 81.6 kg Allergies Allergy/AdvReac Type Severity Reaction Status Date / Time homatropine Allergy Severe NAUSEA Unverified 10/17/21 07:16 morphine Allergy Mild nausea Verified 10/17/21 07:16 vomiting Medications Home Medications Medication Instructions Recorded Confirmed Last Taken alendronate 70 mg tablet (Fosamax) 70 mg PO WK 11/20/19 10/17/21 10/10/21 folic acid 1 mg tablet 1 mg PO QAM 11/20/19 10/17/21 10/15/21 methotrexate sodium 25 mg/mL 20 mg IM WK 11/20/19 10/17/21 10/10/21 injection solution prednisone 5 mg tablet 5 mg PO QAM 11/20/19 10/17/21 10/15/21 tramadol 50 mg tablet 50 - 100 mg PO Q6H PRN #24 tab 11/20/19 10/17/21 Unknown omeprazole 20 mg capsule,delayed 20 mg PO DAILYBB 10/05/20 10/17/21 10/15/21 release duloxetine 30 mg capsule,delayed 30 mg PO QAM 10/17/21 10/17/21 10/15/21 release gabapentin 300 mg capsule 300 mg PO TID 10/17/21 10/17/21 10/15/21 ondansetron 4 mg disintegrating 4 mg PO Q6H PRN 10/17/21 10/17/21 10/16/21 tablet tocilizumab 162 mg/0.9 mL 162 mg SUBCUT .Q2W 10/17/21 10/17/21 10/10/21 subcutaneous pen injector (Actemra ACTPen) Active Medications Generic Name Dose Route Start Last Admin Trade Name Freq PRN Reason Stop Dose Admin Duloxetine HCl 30 mg 10/17/21:00 10/20/21 08:05 Duloxetine Hcl 30 Mg Cap PO 11/16/21 20:59 30 mg QPM ASHLEY Administration Enoxaparin Sodium 40 mg 10/18/21 09:00 10/20/21 08:05 Enoxaparin Inj 40 Mg/0.4 Ml Syr SQ 11/17/21 08:59 Not Given QAM ASHLEY Famotidine 20 mg 10/19/21 18:00 10/20/21 08:04 Famotidine 20 Mg Tab PO 11/18/21 17:59 20 mg Q12H ASHLEY Administration Folic Acid 1 mg 10/17/21 21:00 10/19/21 20:25 Folic Acid 1 Mg Tab PO 11/16/21 20:59 1 mg QPM ASHLEY Administration Gabapentin 300 mg 10/17/21 21:00 10/19/21 20:25 Gabapentin 300 Mg Cap PO 11/16/21 20:59 300 mg QPM ASHLEY Administration Hydromorphone HCl 0.5 mg 10/18/21 15:49 10/20/21 09:33 Hydromorphone Inj 0.5 Mg/0.5 Ml Syr IV 10/31/21 10:44 0.5 mg Q3H PRN Administration Pain Dextrose/Sodium Chloride 1,000 mls @ 100 mls/hr 10/17/21 10:30 10/20/21 12:45 D5w And Nss IV 11/16/21 10:29 100 mls/hr .Q10H ASHLEY Administration Ondansetron HCl 4 mg 10/17/21 08:40 10/17/21 17:34 Ondansetron Inj 2 Mg/Ml 2 Ml Vial IV 11/16/21 08:39 4 mg Q6H PRN Administration nausea/vomiting Pantoprazole Sodium 40 mg 10/19/21 21:00 10/20/21 08:04 Pantoprazole 40 Mg Tab PO 11/18/21 20:59 40 mg BID ASHLEY Administration Prednisone 5 mg 10/17/21 21:00 10/19/21 20:26 Prednisone 5 Mg Tab PO 11/16/21 20:59 5 mg QPM ASHLEY Administration NPO Date Last Intake of Fluids: 10/19/21 Time Last Intake of Fluids: 23:59 Date Last Intake of Solids: 10/19/21 Time Last Intake of Solids: 23:59 Past Medical History Medical History Carpal tunnel syndrome Rheumatoid arthritis Social History Smoking Status: Current every day smoker tobacco type: cigarettes Smoking cigarettes per day: 1/2 pack Do You Dip or Chew Tobacco: No Hx Alcohol Use: No Hx Substance Use: No substance use type: does not use Physical Exam Vital Signs Last Vital Signs Temp 36.7 C 10/20/21 15:22 Pulse 69 10/20/21 15:22 Resp 16 10/20/21 15:22 BP 156/86 H 10/20/21 15:22 Pulse Ox 94 10/20/21 15:22 Testing Laboratory Results 10/19/21 05:35 10/19/21 05:35 Electrocardiogram Date: 10/17/21 Findings: + NSR @ and + RBBB (Incomplete)
[2021-10-20] MEDS: POLYETHYLENE (MIRALAX) 17 GM PACK PO SCH (18:43)
--- NOTE | 2021-10-20 19:17 | Hospitalist Progress Note ---
Date of Service October 20, 2021 Assessment & Plan (1) Biliary dyskinesia: Plan: 51-year-old white female with a past medical history of rheumatoid arthritis on methotrexate, prednisone, and recently started on tocilizumab presented with intractable nausea vomiting and abdominal pain X 24-hour * Lab data unremarkable including a normal white blood cell count, lipase, total bilirubin. AST normal with slightly elevated ALT at 60 (which has since normalized) * CT of the abdomen and pelvis shows concern for enteritis (fat deposits in the ileum and colon suggests chronic inflammation) * Given clinical presentation and reported history of recurrent symptoms, underlying gallbladder disease was/is suspected * Right upper quadrant ultrasound performed showing distended gallbladder but no pericholecystic fluid, gallbladder wall thickening, cholelithiasis or evidence of acute cholecystitis * HIDA scan done 10/18 which immediately reproduced patient's pain and nausea. She does have decreased function of the gallbladder consistent with biliary dyskinesia (18%) * She has had limited ability to tolerate any oral intake (tried a low-fat diet but subsequently vomited) and her pain was intensified following the administration of Kinevac * spoke with General Surgery given questionable need for cholecystectomy. Appreciate their assistance. GS not convinced that this is GB given the CT finding but agreeable for cholecystectomy pending no major findings on colonoscopy tomorrow (2) Abdominal pain: Plan: - CT scan of the abdomen and pelvis shows concern for chronic inflammation of the ileum/colon - does have underlying RA and in MXT and prednisone (increasing her risk for GI etiology) - I agree with GS that not "slam dunk" for GB disease, but I suspect there is an underlying component of chronic biliary dyskinesia. I do appreciate Dr. Zamorano's assistance - GI consulted-- appreciate recommendations - EGD done today and WNL -plan if for c.scope on 10/21 --currently receiving bowel prep. Pending no major findings on colonoscopy, general surgery to proceed with cholecystectomy tomorrow afternoon (patient will need steroid challenge for this) - pt empirically on pepcid/protonix (3) Rheumatoid arthritis: Plan: -Patient on chronic prednisone, methotrexate, and recently started on tocilizumab -Most recent tocilizumab injection was 1 week ago thus doubt this is the contributing factor to #1 and #2 -Patient is ill-appearing but not toxic. No need for steroid challenge at this time; however, if she is going for cholecystectomy will need steroid challenge (4) Abnormal CT scan, chest: Plan: - CT scan of the abdomen and pelvis shows subpleural groundglass opacities which could be concern for infectious process (resolving). Patient without any respiratory symptoms at this time and her Covid test is negative - In addition, noted to have 7 mm nodule in the lung for which a follow-up CT scan in 6 months is advised. Plan: - Lovenox for DVT prophylaxis - Currently Full code but patient specifies that she would NOT want CPR or Intubation should her quality of life seem poor or her chance of survival be slim. Daughter at bedside and agrees would respect patient's wishes but plan is for full code at this time - will D/W Dr. Lee. Further orders as warranted -Daughter updated Admission and Anticipated Discharge Date Admission Date: October 18, 2021 Subjective Patient seen on daily rounds today. Still with abdominal discomfort but not nearly as severe. She is not had any oral intake today as she is prepping for her colonoscopy and hopeful preparation of cholecystectomy. Denies nausea or vomiting. Nursing voices no complaints or concerns. Review of Systems Review of Systems: All systems reviewed and are unremarkable except as noted in HPI and below Denies fevers, chills, headache, nasal congestion, sore throat, cough, chest pain, shortness of breath, palpitations, orthopnea, PND, nausea, vomiting, diarrhea, constipation, dysuria, hematuria, frequency, back pain, joint pain or swelling, easy bruising or bleeding, skin lesions or rashes. Physical Exam Physical Exam: General: Resting comfortably in her hospital bed. Does not appear ill or toxic. NAD. HEENT: Head is AT/NC buccal mucosa is moist and pink Neck: No JVD. Negative hepatojugular reflex Cardiac: RRR without M/G/R Lungs: CTA without W/R/R Abdomen: Normoactive X4. Soft with right upper quadrant and epigastric tenderness Extremities: No peripheral clubbing cyanosis or edema Neuro: A&O X4 cranial nerves II through XII are grossly intact no focal neuro deficits Skin: No obvious skin lesions or rashes Psych: Appropriate affect pleasant and cooperative Results & Data Results & Data ([facility]) Vital Signs (Past 12 Hours) Vital Signs Temp Pulse Resp BP Pulse Ox 10/20/21 15:22 36.7 C 69 16 156/86 H 94 10/20/21 08:28 36.6 C 69 16 165/90 H 100 PG Care Time/CCT Total # of Minutes Spent Total Time Spent with Patient: Total time spent is greater than 50% in coordination of care (as documented) at patient's floor/unit and/or counseling patient: Coding Level of Care Code 58556 Subseq Hosp Care Lvl 2 Diagnoses Biliary dyskinesia K82.8 Abdominal pain R10.84 Abdominal location: generalized Rheumatoid arthritis M06.[address] scan, chest R93.89 (1) Abdominal pain Abdominal location: generalized Qualified Code(s): R10.84 - Generalized abdominal pain
[2021-10-20] MEDS: FOLIC ACID 1 MG TAB PO SCH (20:16)
[2021-10-20] MEDS: predniSONE 5 MG TAB PO SCH (20:16)
[2021-10-20] MEDS: GABAPENTIN 300 MG CAP PO SCH (20:17)
[2021-10-21] MEDS: D5W AND NSS 1,000 ML IV SCH ×3 (00:48→19:14)
[2021-10-21] MEDS: POLYETHYLENE (MIRALAX) 17 GM PACK PO SCH (03:06)
[2021-10-21] MEDS: FAMOTIDINE 20 MG TAB PO SCH ×2 (05:49→19:40)
[2021-10-21 07:53] LABS: Basophils # (auto) 0.02 K/uL (0-0.2); Basophils % (auto) 0.3 %; Eosinophils # (auto) 0.35 K/uL (0-0.5); Eosinophils % (auto) 4.8 %; Hematocrit (blood only) 37.1 % (37-47); Hemoglobin 12.8 g/dL (12.0-16.0); Immature Granulocytes # (auto) 0.01 K/uL (0.00-0.02); Immature Granulocytes % (auto) 0.1 %; Lymphocytes # (auto) 2.86 K/uL (1.2-3.4); Mean Corpuscular Hemoglobin 33.2 pg (25-34); Mean Corpuscular Hgb Conc 34.5 g/dL (32-36); Mean Corpuscular Volume 96.4 fL (80-100); Mean Platelet Volume 10.1 fL (7.4-10.4); Monocytes # (auto) 0.48 K/uL (0.11-0.59); Monocytes % (auto) 6.5 %; Neutrophils # (auto) 3.62 K/uL (1.4-6.5); Neutrophils % (auto) 49.3 %; Platelet Count 153 K/uL (130-400); RDW Standard Deviation 52.2 fL (36.4-46.3); Red Blood Count 3.85 M/uL (4.2-5.4); White Blood Count 7.34 K/uL (4.8-10.8)
[2021-10-21] MEDS ORDERED: LIDOCAINE 2% 2 ML VIAL/AMP(20MG/ML) INFIL ONE ×2 (07:54→11:54)
[2021-10-21] MEDS ORDERED: PROPOFOL IV EMULSION 10 MG/ML 20 ML VIAL IV ONE ×2 (07:54→11:54)
[2021-10-21 08:12] LABS: Albumin Globulin Ratio 1.6 (0.9-2); Albumin Level 3.5 gm/dl (3.4-5.0); BUN Creatinine Ratio 6.7 (10-20); Bilirubin,Total 0.8 mg/dl (0.2-1.0); Calcium 8.4 mg/dl (8.5-10.1); Creatinine Clr Calc Pharmacy 89.6 ml/min; Est GFR (African American) 105.5 ml/min; Globulin 2.2 gm/dl (2.5-4.0); Magnesium 1.8 mg/dl (1.7-2.4); Potassium 2.9 mmol/L (3.5-5.1); Total Protein 5.7 gm/dl (6.0-8.3)
--- NOTE | 2021-10-21 08:24 | History & Physical Bridge Note ---
Date of Service October 21, 2021 History & Physical Bridge Note I have examined the patient, reviewed the History & Physical and in the interval since the performance of the History & Physical I have noted the following changes of clinical significance: no changes noted proceed with colonoscopy. risks/benefits and procedure discussed with patient, who agrees to proceed
[2021-10-21] MEDS ORDERED: ONDANSETRON INJ 2 MG/ML 2 ML VIAL ONE ×2 (09:33→15:10)
--- NOTE | 2021-10-21 09:59 | GI REPORT ---
Patient Name: Gabi Richmond Procedure Date: 10/21/2021 9:02 AM Date of : 1970 Admit Type: Inpatient Age: 51 Gender: Female Attending MD: Amilcar Chen MD Procedure: Colonoscopy Providers: Amilcar Chen MD Referring MD: Referred Self Indications: Abdominal pain, Abnormal CT of the GI tract Medicines: Monitored Anesthesia Care Complications: No immediate complications. Estimated blood loss: None. Estimated Blood Loss: Estimated blood loss: none. Procedure: Pre-Anesthesia Assessment: - Prior Anticoagulants: The patient has taken no previous anticoagulant or antiplatelet agents. - ASA Grade Assessment: II - A patient with mild systemic disease. After I obtained informed consent, the scope was passed under direct vision. Throughout the procedure, the patient's blood pressure, pulse, and oxygen saturations were monitored continuously. The Colonoscope was introduced through the anus and advanced to the terminal ileum, with identification of the appendiceal orifice and IC valve. The colonoscopy was performed without difficulty. The patient tolerated the procedure well. The quality of the bowel preparation was adequate to identify polyps 6 mm and larger in size. Findings: The terminal ileum appeared normal. Biopsies were taken with a cold forceps for histology. Estimated blood loss: none. The colon (entire examined portion) appeared normal. Biopsies for histology were taken with a cold forceps from the right colon and left colon for evaluation of microscopic colitis. Estimated blood loss: none. Multiple small and large-mouthed diverticula were found in the sigmoid colon, descending colon, transverse colon and ascending colon. Four sessile polyps were found in the rectum, descending colon and transverse colon. The polyps were 4 to 6 mm in size. These polyps were removed with a cold snare. Resection and retrieval were complete. Estimated blood loss: none. Impression: - The examined portion of the ileum was normal. Biopsied. - The entire examined colon is normal. Biopsied. - Diverticulosis in the sigmoid colon, in the descending colon, in the transverse colon and in the ascending colon. - Four 4 to 6 mm polyps in the rectum, in the descending colon and in the transverse colon, removed with a cold snare. Resected and retrieved. Recommendation: - Return patient to [facility] for ongoing care. - NPO today. - Await pathology results. Amilcar Chen MD 10/21/2021 9:59:16 AM This report has been signed electronically. Note Initiated On: 10/21/2021 9:02 AM Number of Addenda: 0 I attest to the content of the Intraoperative Record and orders documented therein, exceptions below {[id number]}
--- NOTE | 2021-10-21 10:44 | Anesthesiology Progress Note ---
Date of Service October 21, 2021 Anesthesia Post Procedure Vital Signs Vital Signs: Temp Pulse Resp BP Pulse Ox 10/21/21 10:19 70 18 160/101 H 100 10/21/21 10:04 77 18 163/105 H 100 10/21/21 09:54 74 16 160/101 H 98 10/21/21 09:03 36.2 C L 69 18 173/98 H 100 10/21/21 05:47 36.7 C 71 18 185/95 H 97 10/20/21 22:00 36.9 C 65 16 158/82 H 97 10/20/21 15:22 36.7 C 69 16 156/86 H 94 Pain Intensity Bilateral Abdomen: Pain Intensity: 3 Generalized: Pain Intensity: 2 Transfer of Care Handoff Completed per policy Notes Mental Status: alert / awake / arousable and participated in evaluation Patient Amnestic to Procedure: Yes Nausea / Vomiting: adequately controlled Pain: adequately controlled Airway Patency, RR, SpO2: stable & adequate BP & HR: stable & adequate Hydration State: stable & adequate Anesthetic Complications: no major complications apparent and Pt Satisfied with anesthetic care
[2021-10-21] MEDS: ENOXAPARIN INJ 40 MG/0.4 ML SYR SQ SCH ×2 (11:12→11:24)
[2021-10-21] MEDS: POTASSIUM CHLORIDE / WTR 10 MEQ/100 ML PLCT IV SCH ×3 (11:17→18:18)
[2021-10-21] MEDS: PANTOprazole 40 MG TAB PO SCH ×2 (11:43→20:33)
[2021-10-21] MEDS ORDERED: fentaNYL citrate 100 MCG/2 ML VIAL ONE ×2 (11:54→15:32)
[2021-10-21] MEDS ORDERED: MIDAZOLAM HCL 1 MG/ML 2ML VIAL ONE (11:54)
[2021-10-21] MEDS ORDERED: SCOPOLAMINE 1 MG TDSY TD ONE ×2 (13:41→13:44)
[2021-10-21] MEDS ORDERED: ONDANSETRON INJ 2 MG/ML 2 ML VIAL IV PRN (13:54)
[2021-10-21] MEDS ORDERED: ATROPINE SULFATE 0.1 MG/ML 10ML SYR IV PRN (13:54)
[2021-10-21] MEDS ORDERED: ePHEDrine sulfate 50 MG/ML AMP IV PRN (13:54)
[2021-10-21] MEDS ORDERED: PROMETHAZINE HCL 6.25 MG in SODIUM CHLORIDE 0.9% 50 ML IV PRN (13:54)
--- NOTE | 2021-10-21 13:54 | Anesthesiology Consultation ---
Date of Service October 21, 2021 Assessment & Plan Chart Review Chart Review: Acceptable Risk for Surgery and Patient NOT seen in Pre Admission Testing Consults Requested none ASA ASA2 Proposed Anesthesia Anesthesia Type: General Risk / Benefits Reviewed With: PT / POA / Parent / Guardian, Accepts Plan and Informed Consent Obtained History Surgery Operation Date: 10/19/21 16:00 Proposed Procedures p Esophagogastroduodenoscopy Dr. Gustavo Chen MD Operation Date: 10/21/21 14:45 Proposed Procedures p Laparoscopic Cholecystectomy - Nikita Zamorano DO Operation Date: 10/21/21 16:00 Proposed Procedures p Colonoscopy Dr. Gustavo Chen MD Height/Weight Height: 5 ft 4 in Weight: 81.6 kg Allergies Allergy/AdvReac Type Severity Reaction Status Date / Time homatropine Allergy Severe NAUSEA Unverified 10/17/21 07:16 morphine Allergy Mild nausea Verified 10/17/21 07:16 vomiting Medications Home Medications Medication Instructions Recorded Confirmed Last Taken alendronate 70 mg tablet (Fosamax) 70 mg PO WK 11/20/19 10/17/21 10/10/21 folic acid 1 mg tablet 1 mg PO QAM 11/20/19 10/17/21 10/15/21 methotrexate sodium 25 mg/mL 20 mg IM WK 11/20/19 10/17/21 10/10/21 injection solution prednisone 5 mg tablet 5 mg PO QAM 11/20/19 10/17/21 10/15/21 tramadol 50 mg tablet 50 - 100 mg PO Q6H PRN #24 tab 11/20/19 10/17/21 Unknown omeprazole 20 mg capsule,delayed 20 mg PO DAILYBB 10/05/20 10/17/21 10/15/21 release duloxetine 30 mg capsule,delayed 30 mg PO QAM 10/17/21 10/17/21 10/15/21 release gabapentin 300 mg capsule 300 mg PO TID 10/17/21 10/17/21 10/15/21 ondansetron 4 mg disintegrating 4 mg PO Q6H PRN 10/17/21 10/17/21 10/16/21 tablet tocilizumab 162 mg/0.9 mL 162 mg SUBCUT .Q2W 10/17/21 10/17/21 10/10/21 subcutaneous pen injector (Actemra ACTPen) Active Medications Generic Name Dose Route Start Last Admin Trade Name Freq PRN Reason Stop Dose Admin Duloxetine HCl 30 mg 10/17/21 21:00 10/20/21 08:05 Duloxetine Hcl 30 Mg Cap PO 11/16/21 20:59 30 mg QPM ASHLEY Administration Enoxaparin Sodium 40 mg 10/18/21 09:00 10/21/21 11:24 Enoxaparin Inj 40 Mg/0.4 Ml Syr SQ 11/17/21 08:59 Not Given QAM ASHLEY Famotidine 20 mg 10/19/21 18:00 10/21/21 05:49 Famotidine 20 Mg Tab PO 11/18/21 17:59 20 mg Q12H ASHLEY Administration Folic Acid 1 mg 10/17/21 21:00 10/20/21 20:16 Folic Acid 1 Mg Tab PO 11/16/21 20:59 1 mg QPM ASHLEY Administration Gabapentin 300 mg 10/17/21 21:00 10/20/21 20:17 Gabapentin 300 Mg Cap PO 11/16/21 20:59 300 mg QPM ASHLEY Administration Hydromorphone HCl 0.5 mg 10/18/21 15:49 10/20/21 09:33 Hydromorphone Inj 0.5 Mg/0.5 Ml Syr IV 10/31/21 10:44 0.5 mg Q3H PRN Administration Pain Dextrose/Sodium Chloride 1,000 mls @ 100 mls/hr 10/17/21 10:30 10/21/21 00:48 D5w And Nss IV 11/16/21 10:29 100 mls/hr .Q10H ASHLEY Administration Ondansetron HCl 4 mg 10/17/21 08:40 10/17/21 17:34 Ondansetron Inj 2 Mg/Ml 2 Ml Vial IV 11/16/21 08:39 4 mg Q6H PRN Administration nausea/vomiting Pantoprazole Sodium 40 mg 10/19/21 21:00 10/21/21 11:43 Pantoprazole 40 Mg Tab PO 11/18/21 20:59 Not Given BID ASHLEY Prednisone 5 mg 10/17/21 21:00 10/20/21 20:16 Prednisone 5 Mg Tab PO 11/16/21 20:59 5 mg QPM ASHLEY Administration Scopolamine 1 mg 10/21/21 13:44 10/21/21 13:48 Scopolamine 1 Mg Tdsy TD 10/21/21 13:45 1 mg ONE ONE Administration NPO Date Last Intake of Fluids: 10/21/21 Time Last Intake of Fluids: 05:00 Date Last Intake of Solids: 10/16/21 Time Last Intake of Solids: 10:00 Past Medical History Medical History Carpal tunnel syndrome Rheumatoid arthritis Exercise / Class Metabolic Activity II 4-5 Yardwork/Stairs/Walk up hill Past Anesthesia History No Hx of Anesthesia Complications and No Family Hx of Anesthesia Complications History of PONV No Hx of PONV and No Hx of Motion Sickness Social History Smoking Status: Current every day smoker tobacco type: cigarettes Smoking cigarettes per day: 1/2 pack Do You Dip or Chew Tobacco: No Hx Alcohol Use: No Hx Substance Use: No substance use type: does not use Physical Exam Vital Signs Last Vital Signs Temp 36.8 C 10/21/21 12:59 Pulse 66 10/21/21 12:59 Resp 18 10/21/21 12:59 BP 176/105 H 10/21/21 12:59 Pulse Ox 100 10/21/21 12:59 ENMT Mouth: no dentition abnormality Thyromental Distance: > or= 3.5 Finger Breadths Mallampati Class: II Neck normal visual inspection Respiratory normal respiratory effort Auscultation: lungs clear to auscultation bilaterally Cardiovascular Rate/Rhythm: regular rate and regular rhythm Psychiatric Orientation: alert Testing Laboratory Results 10/21/21 07:35 10/21/21 07:35 Electrocardiogram Date: 10/17/21 Findings: + NSR @ and + RBBB (Incomplete)
--- NOTE | 2021-10-21 13:56 | Hospitalist Progress Note ---
Date of Service October 21, 2021 Assessment & Plan (1) Biliary dyskinesia: Plan: 51-year-old white female with a past medical history of rheumatoid arthritis on methotrexate, prednisone, and recently started on tocilizumab presented with intractable nausea vomiting and abdominal pain X 24-hour * Lab data unremarkable including a normal white blood cell count, lipase, total bilirubin. AST normal with slightly elevated ALT at 60 (which has since normalized) * CT of the abdomen and pelvis shows concern for enteritis (fat deposits in the ileum and colon suggests chronic inflammation) * Given clinical presentation and reported history of recurrent symptoms, underlying gallbladder disease was/is suspected * Right upper quadrant ultrasound performed showing distended gallbladder but no pericholecystic fluid, gallbladder wall thickening, cholelithiasis or evidence of acute cholecystitis * HIDA scan done 10/18 which immediately reproduced patient's pain and nausea. She does have decreased function of the gallbladder consistent with biliary dyskinesia (18%) * She has had limited ability to tolerate any oral intake (tried a low-fat diet but subsequently vomited) and her pain was intensified following the administration of Kinevac * spoke with General Surgery given questionable need for cholecystectomy. Appreciate their assistance. GS not convinced that this is GB given the CT finding but agreeable for cholecystectomy pending no major findings (which was done today and showing diverticulosis and polyps) * Plan is for cholecystectomy this afternoon (2) Abdominal pain: Plan: - CT scan of the abdomen and pelvis shows concern for chronic inflammation of the ileum/colon - does have underlying RA and in MXT and prednisone (increasing her risk for GI etiology) - I agree with GS that not "slam dunk" for GB disease, but I suspect there is an underlying component of chronic biliary dyskinesia. I do appreciate Dr. Zamorano's assistance - GI consulted-- appreciate recommendations - EGD doneand WNL - colonoscopy done showing diverticulosis and polyps. Biopsies obtained. No significant findings otherwise - pt empirically on pepcid/protonix - I do suspect biliary dyskinesia in the setting of underlying gallbladder disease is the culprit. For cholecystectomy today --BP has been somewhat elevated/accelerated during this hospitalization. She does not have an underlying history of HTN and does not on any antihypertensive agents. I suspect this may be pain induced. We will hold off on routine antihypertensive medications but will allow for hydralazine if needed. Will monitor blood pressure postoperatively (3) Hypokalemia: Plan: * Supplement (4) Rheumatoid arthritis: Plan: -Patient on chronic prednisone, methotrexate, and recently started on tocilizumab -Most recent tocilizumab injection was 1 week ago thus doubt this is the contributing factor to #1 and #2 -Patient is ill-appearing but not toxic. No need for steroid challenge at this time; however, if she is going for cholecystectomy will need steroid challenge (5) Abnormal CT scan, chest: Plan: - CT scan of the abdomen and pelvis shows subpleural groundglass opacities which could be concern for infectious process (resolving). Patient without any respiratory symptoms at this time and her Covid test is negative - In addition, noted to have 7 mm nodule in the lung for which a follow-up CT scan in 6 months is advised. Plan: - Lovenox for DVT prophylaxis - Currently Full code but patient specifies that she would NOT want CPR or In tubation should her quality of life seem poor or her chance of survival be slim. Daughter at bedside and agrees would respect patient's wishes but plan is for full code at this time - will D/W Dr. Lee. Further orders as warranted -Daughter updated Admission and Anticipated Discharge Date Admission Date: October 18, 2021 Subjective Patient seen on daily rounds today. Still having mild pain but not as significant as it has been. Had her colonoscopy this morning that did show polyps and diverticulosis but no other significant pathology seen. Biopsies obtained. Plan is for cholecystectomy this afternoon. Potassium low this morning at 2.9. Blood pressure has been intermittently elevated during this hospital stay. Currently 176/105 Review of Systems Review of Systems: All systems reviewed and are unremarkable except as noted in HPI and below Denies fevers, chills, headache, nasal congestion, sore throat, cough, chest pain, shortness of breath, palpitations, orthopnea, PND, nausea, vomiting, diarrhea, constipation, dysuria, hematuria, frequency, back pain, joint pain or swelling, easy bruising or bleeding, skin lesions or rashes. Physical Exam Physical Exam: General: Resting comfortably in her hospital bed. Does not appear ill or toxic. NAD. HEENT: Head is AT/NC buccal mucosa is moist and pink Neck: No JVD. Negative hepatojugular reflex Cardiac: RRR without M/G/R Lungs: CTA without W/R/R Abdomen: Normoactive X4. Soft with right upper quadrant and epigastric tenderness Extremities: No peripheral clubbing cyanosis or edema Neuro: A&O X4 cranial nerves II through XII are grossly intact no focal neuro deficits Skin: No obvious skin lesions or rashes Psych: Appropriate affect pleasant and cooperative Results & Data Results & Data ([facility]) Vital Signs (Past 12 Hours) Vital Signs Temp Pulse Resp BP Pulse Ox 10/21/21 12:59 36.8 C 66 18 176/105 H 100 10/21/21 10:19 70 18 160/101 H 100 10/21/21 10:04 77 18 163/105 H 100 10/21/21 09:54 74 16 160/101 H 98 10/21/21 09:03 36.2 C L 69 18 173/98 H 100 10/21/21 05:47 36.7 C 71 18 185/95 H 97 Laboratory Results 10/21/21 07:35 10/21/21 07:35 PG Care Time/CCT Total # of Minutes Spent Total Time Spent with Patient: Total time spent is greater than 50% in coordination of care (as documented) at patient's floor/unit and/or counseling patient: Coding Level of Care Code 79532 Subseq Hosp Care Lvl 2 Diagnoses Biliary dyskinesia K82.8 Abdominal pain R10.84 Abdominal location: generalized Rheumatoid arthritis M06.[address] scan, chest R93.89 Hypokalemia E87.6 (1) Abdominal pain Abdominal location: generalized Qualified Code(s): R10.84 - Generalized abdominal pain
[2021-10-21] MEDS ORDERED: ceFAZolin 2000MG 2,000 MG/15 ML SYR IV SCH (14:00)
--- NOTE | 2021-10-21 14:12 | History & Physical Bridge Note ---
Date of Service October 21, 2021 History & Physical Bridge Note I have examined the patient, reviewed the History & Physical and in the interval since the performance of the History & Physical I have noted the following changes of clinical significance: no changes noted pt's colonoscopy today essentially negative...discussed options. will proceed with lap luiza today.
[2021-10-21] MEDS ORDERED: EPINEPHrine INJ 1 MG/ML AMP ONE (14:29)
[2021-10-21] MEDS ORDERED: BUPIVACAINE 0.5 % 5 MG/1 ML MPF 30ML VIAL ONE (14:30)
[2021-10-21] MEDS ORDERED: SUGAMMADEX SODIUM 200 MG/2 ML VIAL IV ONE (14:38)
[2021-10-21] MEDS ORDERED: ROCURONIUM BROMIDE 10 MG/ML 5 ML VIAL IV ONE (15:10)
[2021-10-21] MEDS ORDERED: DEXAMETHASONE SOD INJ 4 MG/ML VIAL ONE (15:10)
--- NOTE | 2021-10-21 15:46 | Operative Report ---
PG Post Operative Report Pre & Post Diagnosis Operation Date: 10/19/21 16:00 Pre-Op Diagnosis: INTACTABLE ABD/N/V Post-Op Diagnosis: normal Operation Date: 10/21/21 14:45 Pre-Op Diagnosis: biliary dyskinesia Post-Op Diagnosis: biliary dyskinesia;small hiatal hernia Operation Date: 10/21/21 16:00 Pre-Op Diagnosis: INTACTABLE ABD/N/V, abnormal CT Post-Op Diagnosis: polyps, hemorrhoids I identified the patient and participated in the time-out.: Yes Procedure Operation Date: 10/19/21 16:00 Actual Procedures p EGD Biopsy Cytology - Amilcar Chen MD Operation Date: 10/21/21 14:45 Actual Procedures p Laparoscopic Cholecystectomy(Not Applicable) - Nikita Zamorano DO Operation Date: 10/21/21 16:00 Actual Procedures p Colonoscopy Polypectomy - Amilcar Chen MD Surgeon Nikita Zamorano DO Glass Edger eliza Rodriguez Estimated Blood Loss 5 Findings Consistent with Post-Op Diagnosis Specimens gallbladder Description of Procedure After informed consent was obtained the patient was taken to the operating room and placed in the supine position. After successful intubation the abdomen was sterilely prepped and draped in usual fashion. A periumbilical incision was made with an 11 blade scalpel and carried down through the soft tissue using electrocautery. The anterior rectus fascia was opened using electrocautery and 2 #0 Vicryl stay sutures were placed. The peritoneum was elevated with hemostats and incised under direct vision using Metzenbaum scissors. A finger sweep was performed and a 12 mm Corona trocar was placed. The abdomen was insufflated to 18 mmHg. The laparoscope was inserted and the abdomen was examined in 360. Other than a small probably 3 cm hiatal hernia, no gross abnormalities were identified. A subxiphoid 5 mm port and 2 right upper quadrant 5 mm ports were placed under direct vision. The patient was placed in a reverse Trendelenburg position and slightly airplaned to the left. The gallbladder was grasped and elevated superiorly and laterally. A [place] dissector was used to take down adhesions around the neck of the gallbladder. The cystic duct was identified and skeletonized. It was clipped three proximally and once distally and transected using a laparoscopic scissor. In similar fashion the cystic artery was identified and skeletonized clipped and divided. The gallbladder was removed from the gallbladder fossa with electrocautery. A small hole in the gallbladder was made during this process releasing a small amount of bile into the right upper quadrant. This was immediately suctioned and irrigated out. It was placed into an Endo Catch bag. Thorough irrigation was performed. At the end of the procedure there was adequate hemostasis and no evidence of any bile leaks. A final look around the abdomen showed no other abnormalities. The gallbladder and trochars were all removed and the abdomen was desufflated. The fascia of the camera port was c losed using 0 Vicryl in a [id number] fashion. All the wounds were irrigated and closed using 4-0 Monocryl. Marcaine was injected around them for postoperative analgesia and skin glue used as a dressing. The patient was awaken extubated and transferred to recovery in stable condition. My physician's office assistant receptionist was present throughout the entire case... helped with prepping the patient. With exposure for trocar placement, as well as retracted the gallbladder throughout the case and also assisted with wound closure and dressing placement. I attest to the content of the Intraoperative Record and any orders documented therein. Any exceptions are noted below.
[2021-10-21] MEDS: fentaNYL citrate 100 MCG/2 ML VIAL IV PRN ×4 (15:50→16:17)
[2021-10-21] MEDS ORDERED: hydrALAZINE HCL 20 MG/ML VIAL IV STA (15:59)
[2021-10-21] MEDS ORDERED: hydrALAZINE HCL 20 MG/ML VIAL ONE (16:00)
[2021-10-21] MEDS ORDERED: CHECK SCOPOLAMINE PATCH PLACEMENT SCH (16:00)
--- NOTE | 2021-10-21 16:29 | Anesthesiology Progress Note ---
Date of Service October 21, 2021 Anesthesia Post Procedure Vital Signs Vital Signs: Temp Pulse Pulse Resp BP BP Pulse Ox 10/21/21 16:25 76 20 139/85 93 10/21/21 16:15 67 13 148/87 H 96 10/21/21 16:05 75 17 183/102 H 98 10/21/21 15:55 65 17 184/101 H 92 10/21/21 15:45 97.3 F L 67 10 L 185/114 H 95 10/21/21 12:59 98.2 F 66 18 176/105 H 100 10/21/21 10:19 70 18 160/101 H 100 10/21/21 10:04 77 18 163/105 H 100 10/21/21 09:54 74 16 160/101 H 98 10/21/21 09:03 97.2 F L 69 18 173/98 H 100 10/21/21 05:47 98.1 F 71 18 185/95 H 97 10/20/21 22:00 98.4 F 65 16 158/82 H 97 Pain Intensity Bilateral Abdomen: Pain Intensity: 6 Generalized: Pain Intensity: 2 Abdomen: Pain Intensity: 8 Transfer of Care Handoff Completed per policy Notes Mental Status: alert / awake / arousable and participated in evaluation Patient Amnestic to Procedure: Yes Nausea / Vomiting: adequately controlled Pain: adequately controlled Airway Patency, RR, SpO2: stable & adequate BP & HR: stable & adequate Hydration State: stable & adequate Anesthetic Complications: no major complications apparent and Pt Satisfied with anesthetic care
[2021-10-21] MEDS ORDERED: HYDROCODONE/ACETAMOPHEN 5/325MG TAB PO PRN ×2 (16:50)
[2021-10-21] MEDS: HYDROmorphone INJ 0.5 MG/0.5 ML SYR IV PRN (17:08)
[2021-10-21] MEDS: ONDANSETRON INJ 2 MG/ML 2 ML VIAL IV PRN (17:14)
[2021-10-21] MEDS: DULoxetine HCL 30 MG CAP PO SCH (20:33)
[2021-10-21] MEDS: GABAPENTIN 300 MG CAP PO SCH (20:34)
[2021-10-21] MEDS: predniSONE 5 MG TAB PO SCH (20:34)
[2021-10-21] MEDS: FOLIC ACID 1 MG TAB PO SCH (20:34)
[2021-10-22 02:37] LABS: IgA Serum 171 mg/dL (47-310); Tis Trans IgA <1.0 U/mL
[2021-10-22] MEDS: FAMOTIDINE 20 MG TAB PO SCH (05:49)
--- NOTE | 2021-10-22 06:43 | Surgery Progress Note ---
Date of Service October 22, 2021 Assessment & Plan (1) Biliary dyskinesia: Plan: Postop day #1 laparoscopic cholecystectomy Continue analgesics Continue antiemetics as needed Continue diet as tolerated Mobilize as able (patient says that she has already been up walking) Lovenox is in place for DVT prevention At time of discharge patient will be instructed to follow-up with Dr. Zamorano in the office in 1 to 2 weeks Admission and Anticipated Discharge Date Admission Date: October 18, 2021 Subjective Patient is resting comfortably in bed. He notes that since surgery her abdominal pain is markedly improved and she only has some minor soreness at her surgical incisions. She denies any nausea or vomiting. She tolerated solid mila d already since her surgery. She is voiding without difficulty. She denies any shortness of breath. She is passing some flatus. Physical Exam Gastrointestinal (Abdomen): Abdomen is soft and nondistended with positive bowel sounds. She has appropriate tenderness near surgical incisions. Incisions are covered with dressings that are clean dry intact with exception of the umbilical dressing which has a small amount of serosanguineous drainage on it. Results & Data ([facility]) Vital Signs (Past 12 Hours) Vital Signs Temp Pulse Resp BP Pulse Ox 10/22/21 04:24 36.8 C 79 20 134/78 92 10/21/21 22:52 36.8 C 82 18 120/68 95 10/21/21 19:41 36.9 C 75 20 144/86 H 95 10/21/21 18:50 36.9 C 79 16 136/76 97 PG Care Time/CCT Total # of Minutes Spent Total Time Spent with Patient: Total time spent is greater than 50% in coordination of care (as documented) at patient's floor/unit and/or counseling patient: Coding Level of Care Code None Diagnoses Biliary dyskinesia K82.8
[2021-10-22] MEDS: ENOXAPARIN INJ 40 MG/0.4 ML SYR SQ SCH (08:19)
[2021-10-22] MEDS: PANTOprazole 40 MG TAB PO SCH (08:19)
[2021-10-22 09:16] LABS: BUN Creatinine Ratio 11.3 (10-20); Calcium 9.2 mg/dl (8.5-10.1); Creatinine Clr Calc Pharmacy 63.4 ml/min; Est GFR (African American) 69.4 ml/min; Est GFR (Non-African American) 59.9 ml/min; Potassium 3.5 mmol/L (3.5-5.1)
--- NOTE | 2021-10-22 16:20 | Discharge Summary ---
Date of Service October 22, 2021 Admission HPI Per Admitting Provider Mrs. Richmond is a 51-year-old white female with an underlying past medical history of rheumatoid arthritis on chronic prednisone, methotrexate, and recently started on tocilizumab. She awoke yesterday morning feeling unwell. She describes subjective fevers and chills along with severe abdominal discomfort, nausea and intractable emesis. Pain was epigastric and right-sided in nature. Seem to be better when sitting up and leaning forward. Unable to tolerate oral intake due to the severity of the pain. Pain was initially constant and a 10/10 and throughout the day yesterday and into the evening, pain seemed to wax and wane without known alleviating or aggravating factors. She has chronic loose bowels and denies a change in her bowels. No melena or hematochezia. Denies any recent travel, antibiotic use, other ill contacts, or reptilian pets. Upon further prompting, she does have a gallbladder. The night prior to her symptom onset, she had a hoagie. Her daughter is at bedside and when asked, she does frequently get "stomach problems" which is usually self-limiting. Patient presented to the ED where she was found to be afebrile and hemodynamically stable. Lab data was unremarkable. White count was normal at 8.19. Lipase normal at 12. BUN and creatinine 12 and 0.85. LFTs within normal limits. Troponin less than 0.03. CT scan of the abdomen pelvis showed evidence of acute enteritis. She received Fentanyl, Zofran, IV Pepcid, and Compazine and subsequently hospitalized for further evaluation and care. After evaluation by myself, RUQ US ordered showing distended GB but no stones, pericholecystic fluid or evidence of acute cholecystitis. Principal Diagnosis 1. Intractable abdominal pain with nausea and vomiting due to biliary dyskinesia 2. Biliary dyskinesias/p laparoscopic cholecystectomy 3. Hypokalemiareplaced and resolved Discharge Exam General: Resting comfortably in her hospital bed. Does not appear ill or toxic. NAD. HEENT: Head is AT/NC buccal mucosa is moist and pink Neck: No JVD. Negative hepatojugular reflex Cardiac: RRR without M/G/R Lungs: CTA without W/R/R Abdomen: Normoactive X4.Incisions well approximated. Scant bloody drainage near her umbilicus but otherwise dressing dry. Extremities: No peripheral clubbing cyanosis or edema Neuro: A&O X4 cranial nerves II through XII are grossly intact no focal neuro deficits Skin: No obvious skin lesions or rashes Psych: Appropriate affect pleasant and cooperative Discharge Data Allergies Allergy/AdvReac Type Severity Reaction Status Date / Time homatropine Allergy Severe NAUSEA Unverified 10/17/21 07:16 morphine Allergy Mild nausea Verified 10/17/21 07:16 vomiting Consultations 10/17/21 08:23 ED Decision to Admit Stat 10/18/21 15:54 Consult General Surgery Routine 10/18/21 19:21 Consult Gastroenterology Routine Procedures Performed Operation Date: 10/19/21 16:00 Actual Procedures p EGD Biopsy Cytology - Amilcar Chen MD Operation Date: 10/21/21 14:45 Actual Procedures p Laparoscopic Cholecystectomy(Not Applicable) - Nikita Zamorano DO Operation Date: 10/21/21 16:00 Actual Procedures p Colonoscopy Polypectomy - Amilcar Chen MD Ordered Studies 10/17/21 06:06 CT abd pelvis IV con only Stat 10/17/21 10:21 US gallbladder Urgent Hospital Course (1) Biliary dyskinesia: 51-year-old white female with a past medical history of rheumatoid arthritis on methotrexate, prednisone, and recently started on tocilizumab presented with intractable nausea vomiting and abdominal pain X 24-hour * Lab data unremarkable including a normal white blood cell count, lipase, total bilirubin. AST normal with slightly elevated ALT at 60 (which has since normalized) * CT of the abdomen and pelvis showed concern for enteritis (fat deposits in the ileum and colon suggests chronic inflammation) * Given clinical presentation and reported history of recurrent symptoms, underlying gallbladder disease was/is suspected * RUQ U/S: distended gallbladder but no pericholecystic fluid, gallbladder wall thickening, cholelithiasis or evidence of acute cholecystitis * HIDA scan done 10/18 which immediately reproduced patient's pain and nausea (administration of Kinevac) and noted to have decreased function of the gallbladder consistent with biliary dyskinesia (18%) * She has had limited ability to tolerate any oral intake (tried a low-fat diet but subsequently vomited) and her pain was intensified following the administration of Kinevac * spoke with General Surgery given questionable need for cholecystectomy. Appreciate their assistance. GS not convinced that this is GB given the CT findings. Requested upper and lower endoscopy be performed first. EGD WNL. C.Scope with polyps and diverticulosis. * laparoscopic cholecystectomy done on 10/21. Patient had an uneventful perioperative course. * Rounds today, tolerating oral intake and reports that she "has not felt this well in years". Tolerating oral intake without pain, nausea or vomiting. She is medically and hemodynamically stable for discharge to home. (2) Abdominal pain: - CT os A/P: concern for chronic inflammation of the ileum/colon - does have underlying RA and in MXT and prednisone (increasing her risk for GI etiology) - I agree with GS that not "slam dunk" for GB disease, but suspected to be secondary to chronic biliary dyskinesia. I do appreciate Dr. Zamorano's assistance - GI consulted for upper and lower endoscopy-- appreciate recommendations - EGD done and WNL - colonoscopy done showing diverticulosis and polyps. Biopsies obtained. No significant findings otherwise - pt empirically on pepcid/protonix - I do suspect biliary dyskinesia in the setting of underlying gallbladder disease is the culprit. - Is s/p cholecystectomy-- currently denies abd pain, N/V and tolerated PO intake (3) Elevated BP without diagnosis of hypertension: * BP was elevated into the 160-180 systolic range upfront. This was thought to be due to uncontrolled abdominal pain * As needed hydralazine utilized but held off on initiation of routine antihypertensive agents * Since cholecystectomy, BP has improved greatly. Has been averaging 120-130 with an occasional 140-150--(systolic). * May have a component of whitecoat or perhaps undiagnosed hypertension. We will hold off on additional medications at this time but recommend patient follow-up with her PCP regarding this. In addition, her daughter is a nurse who can check her blood pressure at home (4) Hypokalemia: * replaced/resolved (5) Rheumatoid arthritis: -Patient on chronic prednisone, methotrexate, and recently started on tocilizumab -Most recent tocilizumab injection was 1 week ago thus doubt this is the contributing factor to #1 and #2 -Patient is ill-appearing but not toxic. No need for steroid challenge at this time; however, if she is going for cholecystectomy will need steroid challenge (6) Abnormal CT scan, chest: - CT scan of the abdomen and pelvis shows subpleural groundglass opacities which could be concern for infectious process (resolving). Patient without any respiratory symptoms at this time and her Covid test is negative - In addition, noted to have 7 mm nodule in the lung for which a follow-up CT scan in 6 months is advised. - Lovenox for DVT prophylaxis while in house - Currently Full code but patient specifies that she would NOT want CPR or Intubation should her quality of life seem poor or her chance of survival be slim. Daughter at bedside and agrees would respect patient's wishes but plan is for full code at this time - will D/W Dr. Lee. Further orders as warranted -Daughter updated Total Time Total Time Spent Total Time Spent (In Minutes): 40 minutes including time spent with the patient, calling daughter, preparation of documentation and coordination of care Discharge Plan Discharge Items Patient Disposition: Home - Self-Care Reason For Visit: INTACTABLE ABD/N/V Discharge Diagnosis: laparoscopic cholecystectomy for biliary dyskinesia Activity: Per Instructions section Lifting: No more than 10 pounds Bathing Comment: may shower starting 10/22/21; no soaking in tubs/pools Exercise/Sports: Wait until after follow-up appointment Driving/Machine Use: no driving while taking narcotics for pain Non-emergency contact: Primary Care Provider and Surgeon Call non-emergency contact if: you have any medication questions, your symptoms worsen, your pain is not controlled, your pain is worsening, you have a fever, your temperature is above 101.5, your wound has increased redness, your wound has increased drainage and your wound pain has increased Follow-up/Referrals: Vitaliy Glass III, MD [Primary Care Provider] - Nikita Zamorano DO [Surgeon] - (Please call to schedule follow up in clinic within 2 weeks) Diet: Regular and Low Fat Addtl Attending Provider Instructions: Diet: low fat Activity: as tolerated Recommendations - okay to get incisions wet but do not soak or saturate. Pat dry. - maintain a low fat diet as excess fat will cause increased diarrhea (as discussed: bile is needed to digest fat and you no longer have a gallbladder-- which served as the "storage container" for your bile. This will cause increased loose stools) - Hydrocodone was ordered for pain control. This can be habit forming so use only as needed. If only needing Tylenol, that is okay to take. Do not take the Hydrocodone WITH Tylenol (as there is Tylenol in the hydrocodone). This can be sedating. - follow up with Dr. Zamorano within 2 weeks - BP elevated upfront-- which was likely pain related. Still slightly elevated today (156/89) but this may improve once home from the hospital. Follow up with PCP regarding this. Can have your daughter check this intermittently at home) - follow up with PCP: 7-10 days - return to the ED for new or worsening symptoms Pending Studies at Discharge: Yes Studies:: surgical pathology- from coloscopy Stand-Alone Forms: My [facility], Opioid Pain Management Medications and DC Order Prescriptions: New hydrocodone-acetaminophen 5-325 mg tablet 1 - 2 tab PO .q4h- q6h PRN (Reason: pain, for initial therapy, max 6 tabs per day ) Qty: 15 RF: 0 Continued omeprazole 20 mg capsule,delayed release(DR/EC) 20 mg PO DAILYBB RF: 0 alendronate [Fosamax] 70 mg tablet 70 mg PO WK RF: 0 prednisone 5 mg tablet 5 mg PO QAM RF: 0 methotrexate sodium 25 mg/mL solution 20 mg IM WK RF: 0 folic acid 1 mg tablet 1 mg PO QAM RF: 0 gabapentin 300 mg capsule 300 mg PO TID RF: 0 ondansetron 4 mg Tablet,Disintegrating 4 mg PO Q6H PRN (Reason: Nausea) RF: 0 duloxetine 30 mg capsule,delayed release(DR/EC) 30 mg PO QAM RF: 0 Actemra ACTPen 162 mg/0.9 mL pen injector 162 mg SUBCUT .Q2W RF: 0 Discontinued tramadol 50 mg tablet 50 - 100 mg PO Q6H PRN (Reason: pain) Qty: 24 RF: 0 Discharge Orders: Discharge Order (Routine); Ordered 10/22/21 Ordered By: Thais Samayoa/Other Patient Handouts: After Gallbladder Surgery, Having Laparoscopic Cholecystectomy Admission Data Admit Date/Time: 10/18/21 15:56 Attending Provider: Jayce Lee Admit Provider: Jayce Lee Primary Care Provider: Vitaliy Glass III Other Providers: Jayce Lee ; Nikita Zamorano ; Michael Rollins Other Interventions: Discharge Summary Assessment (RN) Last Done: 10/22/21 12:37 Supervising Physician Co-Signing Physician Notes Patient seen and examined, chart reviewed, case discussed with Ny Gary PA-C and I agree with the assessment and plan as above except as otherwise noted Patient seen within 24 hours of discharge, exam from 10/21/2021 General: A&Ox3. NAD. Cooperative. HEENT: Atraumatic, normocephalic. Vision/hearing grossly intact. Pulm: CTAB A&P. -wheezes, -rales, -rhonchi. Symmetrical chest rise. No increase in work of breathing. No respiratory distress. Cardiac: RRR, -mrg. Radial pulses intact and symmetrical. Abdominal: Mildly tender at postsurgical site, greatly improved from prior. Abdomen nonrigid, no rebound. Labs and images reviewed 51-year-old female with chronic abdominal pain suspicious for gallbladder disease. Improved post cholecystectomy. Tolerating orals well, pain improved. Some residual pain from chronic rheumatoid at baseline. Stable for discharge Coding Level of Care Code D/C DAY MANAGEMENT >30 MINS Diagnoses Biliary dyskinesia K82.8 Abdominal pain R10.84 Abdominal location: generalized Hypokalemia E87.6 Rheumatoid arthritis M06.[address] scan, chest R93.89 Elevated BP without diagnosis of hypertension R03.0
== END 2021-10-22 12:56 | disposition home or self-care (01) | DRG 418 ==
LOC: 3W 05:40 → ED 05:40 → 3W 10:05

== ENCOUNTER 2023-04-17 16:37 | Inpatient (IN) ==
--- NOTE | 2023-04-17 16:51 | ED Triage Note ---
Date of Service April 17, 2023 History of Present Illness This patient was briefly evaluated while in triage. An abbreviated physical exam was performed. This patient is a 52-year-old Female who presents to the ED for evaluation of R sided abd pain and rectal bleeding x 2 weeks. Here the other day and notes she underwent workup. She notes nausea. No hx of crohns or uc. Physical Exam GENERAL: 52 year old female. In no acute distress. SKIN: No lesions or rashes. HEART: Regular rate and rhythm. LUNGS: Clear to auscultation. ABDOMEN: Bowel sounds normoactive. No guarding or rigidity. R sided abd pain noted. NEURO: Alert and oriented. No deficits. MUSCULOSKELETAL: No deformities to inspection of the extremities. PSYCH: Patient is pleasant and answers all questions appropriately. Initial orders for labs and / or imaging were placed and patient was placed in the waiting area until a bed is available. Please see further documentation for the full ED course.
[2023-04-17] MEDS ORDERED: HYDROmorphone INJ 0.5 MG/0.5 ML SYR IV STA (17:25)
[2023-04-17] MEDS ORDERED: ONDANSETRON INJ 2 MG/ML 2 ML VIAL IV STA ×2 (17:25→22:24)
[2023-04-17] MEDS ORDERED: SODIUM CHLORIDE 0.9% 1000ML 1,000 ML IV SCH (17:30)
[2023-04-17 17:44] LABS: Basophils # (auto) 0.07 K/uL (0-0.2); Basophils % (auto) 0.7 %; Eosinophils # (auto) 0.17 K/uL (0-0.50); Eosinophils % (auto) 1.7 %; Hematocrit (blood only) 40.6 % (37.0-47.0); Hemoglobin 14.2 g/dl (12.0-16.0); Immature Granulocytes # (auto) 0.02 K/uL (0.01-0.20); Immature Granulocytes % (auto) 0.2 %; Lymphocytes # (auto) 3.02 K/uL (1.2-3.4); Lymphocytes % (auto) 30.8 %; Mean Corpuscular Hemoglobin 32.3 pg (25.0-34.0); Mean Corpuscular Volume 92.3 fL (80.0-100.0); Mean Platelet Volume 10.4 fL (9.4-12.4); Monocytes # (auto) 0.62 K/uL (0.11-0.59); Monocytes % (auto) 6.3 %; Neutrophils # (auto) 5.91 K/uL (1.40-6.50); Neutrophils % (auto) 60.3 %; Platelet Count 326 K/uL (130-400); RDW Coefficient of Variation 15.7 % (11.5-14.5); RDW Standard Deviation 52.4 fL (36.4-46.3); White Blood Count 9.81 K/ul (4.8-10.8)
--- NOTE | 2023-04-17 17:46 | Emergency Department Note ---
History of Present Illness General Chief complaint: Abdominal Pain Stated complaint: RT SIDE ABDOMINAL PAIN Time Seen by Provider: 04/17/23 17:20 History of Present Illness Maximum Pain Intensity: 10 This is a 52-year-old female who presents to the emergency department via private vehicle with complaints of "right lower quadrant abdominal pain, bloody stool". The patient notes for the past 2-week she has been experiencing right lower quadrant abdominal pain. No fevers but she has had intermittent pain. She notes that she was evaluated here in the ED and had a CT scan showing coli tis. She felt better and was discharged home. She notes worsening symptoms therefore prompting arrival here today. No history of ulcerative colitis or Crohn's. No anticoagulant use. Home Medications Medication Instructions Recorded Confirmed Type alendronate 70 mg tablet (Fosamax) 70 mg PO WK 11/20/19 04/17/23 History folic acid 1 mg tablet 1 mg PO QAM 11/20/19 04/17/23 History prednisone 5 mg tablet 5 mg PO QAM 11/20/19 04/17/23 History omeprazole 20 mg capsule,delayed 20 mg PO DAILYBB 10/05/20 04/17/23 History release duloxetine 30 mg capsule,delayed 30 mg PO QAM 10/17/21 04/17/23 History release gabapentin 300 mg capsule 300 mg PO TID 10/17/21 04/17/23 History methotrexate sodium 2.5 mg tablet 20 mg PO WK 11/09/21 04/17/23 History losartan 50 mg tablet 50 mg PO QAM #90 tabs 02/08/23 04/17/23 Rx rosuvastatin 10 mg tablet 10 mg PO QAM #90 tabs 02/08/23 04/17/23 Rx buspirone 15 mg tablet 15 mg PO BID #60 tabs 03/02/23 04/17/23 Rx Allergies Allergy/AdvReac Type Severity Reaction Status Date / Time latex Allergy Intermediate Rash Verified 04/12/23 22:26 homatropine AdvReac Severe NAUSEA Verified 04/12/23 22:26 morphine AdvReac Intermediate nausea Verified 04/12/23 22:26 vomiting Past Med/Surg History Medical History Anxiety Biliary dyskinesia Depression Diverticular disease Fibromyalgia GERD (gastroesophageal reflux disease) History of COVID-19 May 12, 2022 > home test, cough, runny nose, > all resolved Hyperlipidemia Hypertension ILD (interstitial lung disease) lung scan scheduled for a few weeks from now Nausea and vomiting after administration of anesthetic agent Osteoporosis Rheumatoid arthritis Shingles outbreak Sep 2020 Surgical History History of carpal tunnel release bilat History of colonoscopy History of esophagogastroduodenoscopy (EGD) History of hysterectomy History of incisional hernia repair (06/30/22) Open Incisional Hernia Repair - Nikita Zamorano DO History of surgery on wrist right for fracture Hx laparoscopic cholecystectomy (10/21/21) Laparoscopic Cholecystectomy - Nikita Zamorano DO 10/21/2021 Hx of removal of cyst from left hand Family History Aunt Diabetes Uncle Diabetes Social History Smoking Status: Current every day smoker Tobacco Type: Cigarettes Cigarettes Per Day: over 1/2 ppd; Second Hand Exposure: No; Do You Dip or Chew Tobacco: No; Tobacco Cessation Education Requested by Patient: No Hx Alcohol Use: No Hx Substance Use: No Preferred Language: Hebrew Communication Ability: Effective Visual Impairment: Partially Limited Ancillary Specialist Required: No Beliefs That Will Affect Care: None marital status: Current Living Situation: Family How many Children do You have: 2 Other Information That Helps Us Care for You: No Feels Safe at Home: Yes Safety Concerns: Feels Safe At This Time Assistive Devices: Cane Review of Systems A total of 10 systems reviewed and were otherwise negative Physical Exam Vital Signs Vital Signs - 24 hr 04/17/23 16:46 04/17/23 19:37 Temperature 36.8 C Temperature Source Temporal Artery Scan Pulse Rate 112 H 84 Respiratory Rate 22 Respiratory Effort / Characteristics Non-Labored Respiratory Depth Normal Blood Pressure 141/93 H Blood Pressure Mean 109 Pulse Oximetry 96 Oxygen Delivery Method Room Air Sepsis Recent Fever Within 48 Hours No Sepsis New/Unexplained Change in Mental Status No Sepsis Action Taken by Nursing No Action Required VITAL SIGNS - Vital signs and nursing notes were reviewed. Stable and afebrile. GENERAL - 52-year-old female appearing her stated age who is in no acute distress but appears tired and to be in pain. Communicates well with provider and answers questions appropriately. SKIN - Without rashes. No meningeal or petechial rash. HEAD - NC/AT. EYES - Sclera anicteric. EARS - No deformities of external structures noted on gross examination bilaterally. NOSE - Midline and without cyanosis. MOUTH/OROPHARYNX - Without perioral cyanosis. NECK - Neck with FROM. No nuchal rigidity. LUNGS - Chest wall symmetric without accessory muscle use, intercostals retractions, or central cyanosis. Normal vesicular breath sounds CTA B/L. No wheezes, rales, or rhonchi appreciated. CARDIAC - RRR with S1/S2. No murmur, rubs, or gallops appreciated. ABDOMEN - Abdominal contour normal without pulsations or visible masses. BS normoactive all four quadrants. R sided abd TTP noted. No palpable masses, hepatosplenomegaly, or ascites noted. EXTREMITIES - No clubbing or peripheral cyanosis. +5/5 strength noted in UE/LE bilaterally. NEUROLOGIC -no deficits on exam. PSYCH - A&O, and cooperates fully with examiner. Pt is very pleasant and inte racts well with examiner. Course Administered Medications Nicotine (Nicotine 14 Mg/24 Hr Patch) 14 mg TD QAM [facility] Stop: 05/18/23 08:59 Last Admin: 04/17/23 22:11 Dose: 14 mg Documented By: NRB Discontinued Medications Hydromorphone HCl (Hydromorphone Inj 0.5 Mg/0.5 Ml Syr) 0.25 mg IV NOW STA Stop: 04/17/23 17:26 Last Admin: 04/17/23 18:04 Dose: 0.25 mg Documented By: ALYCIA Hydromorphone HCl (Hydromorphone Inj 0.5 Mg/0.5 Ml Syr) 0.5 mg IV Q15M PRN PRN Reason: Pain Stop: 05/01/23 18:54 Last Admin: 04/17/23 22:09 Dose: 0.5 mg Documented By: Admin: 04/17/23 19:43 Dose: 0.5 mg Documented By: CROW Sodium Chloride (Nss 1000ml) 1,000 mls @ 999 mls/hr IV .Q1H1M ASHLEY Stop: 04/17/23 18:30 Last Infusion: 04/17/23 19:02 Dose: 0 mls/hr Documented By: Admin: 04/17/23 18:03 Dose: 999 mls/hr Documented By: ALYCIA Potassium Chloride (K Gunnar / Wtr) 10 meq in 100 mls @ 100 mls/hr IV ONE ONE Stop: 04/17/23 20:01 Last Infusion: 04/17/23 20:53 Dose: 0 mls/hr Documented By: Admin: 04/17/23 19:37 Dose: 100 mls/hr Documented By: CROW Ioversol (Optiray 320 100ml) 90 ml IV ONCE ONE Stop: 04/17/23 18:40 Last Admin: 04/17/23 18:40 Dose: 90 ml Documented By: ASIA Ondansetron HCl (Ondansetron Inj 2 Mg/Ml 2 Ml Vial) 4 mg IV NOW STA Stop: 04/17/23 17:26 Last Admin: 04/17/23 18:03 Dose: 4 mg Documented By: ALYCIA Ondansetron HCl (Ondansetron Inj 2 Mg/Ml 2 Ml Vial) 4 mg IV NOW STA Stop: 04/17/23 22:25 Last Admin: 04/17/23 22:26 Dose: 4 mg Documented By: CROW Ondansetron HCl (Ondansetron Inj 2 Mg/Ml 2 Ml Vial) Confirm Administered Dose 4 mg .ROUTE .STK-MED ONE Stop: 04/17/23 22:26 Last Admin: 04/17/23 22:26 Dose: Not Given Documented By: CROW Potassium Chloride (Potassium Chloride Crtab 20 Meq Tabcr) 20 meq PO NOW STA Stop: 04/17/23 20:56 Last Admin: 04/17/23 22:11 Dose: 20 meq Documented By: CROW Medical Decision Making Laboratory Data 04/17/23 17:31 04/17/23 17:31 Lab Results 04/17/23 04/17/23 04/17/23 Range/Units 17:30 17:30 17:31 WBC 9.81 (4.8-10.8) K/ul RBC 4.40 (4.20-5.40) M/uL Hgb 14.2 (12.0-16.0) g/dl Hct 40.6 (37.0-47.0) % MCV 92.3 (80.0-100.0) fL MCH 32.3 (25.0-34.0) pg MCHC 35.0 (32.0-36.0) g/dL RDW Std Deviation 52.4 H (36.4-46.3) fL RDW Coeff of Ailyn 15.7 H (11.5-14.5) % Plt Count 326 (130-400) K/uL MPV 10.4 (9.4-12.4) fL Immature Gran % (Auto) 0.2 % Neut % (Auto) 60.3 % Lymph % (Auto) 30.8 % [place] % (Auto) 6.3 % Eos % (Auto) 1.7 % Baso % (Auto) 0.7 % Neut # (Auto) 5.91 (1.40-6.50) K/uL Lymph # (Auto) 3.02 (1.2-3.4) K/uL [place] # (Auto) 0.62 H (0.11-0.59) K/uL Eos # (Auto) 0.17 (0-0.50) K/uL Baso # (Auto) 0.07 (0-0.2) K/uL Immature Gran # (Auto) 0.02 (0.01-0.20) K/uL ESR (0-30) mm/hr PT (9.0-12.0) Seconds INR (0.9-1.1) APTT (21.0-31.0) Seconds PTT Ratio Sodium (136-145) mmol/L Potassium (3.5-5.1) mmol/L Chloride (98-107) mmol/L Carbon Dioxide (21-32) mmol/L Anion Gap (3-11) BUN (6-23) mg/dl Creatinine (0.6-1.2) mg/dl Est Cr Clr Drug Dosing ml/min Est GFR ( Amer) ml/min Est GFR (Non-Af Amer) ml/min BUN/Creatinine Ratio (10-20) Glucose (70-99(Fasting)) mg/dl Lactate (0.4-2.0) mmol/L Calcium (8.6-10.3) mg/dl Magnesium (1.7-2.4) mg/dl Total Bilirubin (0.2-1.0) mg/dl AST (13-39) U/L ALT (7-52) U/L Alkaline Phosphatase (34-104) U/L C-Reactive Protein (0-0.5) mg/dl Total Protein (6.0-8.3) gm/dl Albumin (3.4-5.0) gm/dl Globulin (2.5-4.0) gm/dl Albumin/Globulin Ratio (0.9-2) Lipase (11-82) U/L Procalcitonin (0-0.5) ng/ml Stl C. cayetanensis PCR Not Detected (NotDetected) Stool Rotavirus A PCR Not Detected (NotDetected) Stl Adenov F 40/41 PCR Not Detected (NotDetected) Stool Astrovirus (PCR) Not Detected (NotDetected) Stool Campylobacter PCR Not Detected (NotDetected) Stl C. diff Tox B Gene Negative Cdiff Gene (Neg) Stool Cryptosporidium PCR Not Detected (NotDetected) Stl E.coli Shiga Tox PCR Not Detected (NotDetected) Stl Enterotoxigenic E PCR Not Detected (NotDetected) Stool EPEC (PCR) DETECTED A* (NotDetected) Stool EAEC (PCR) Not Detected (NotDetected) Stl E. histolytica PCR Not Detected (NotDetected) Stool Giardia Lamblia PCR Not Detected (NotDetected) Stool Salmonella PCR Not Detected (NotDetected) Stool Sapovirus (PCR) Not Detected (NotDetected) Stl P. shigelloides PCR Not Detected (NotDetected) Stl Shigella/EIEC PCR Not Detected (NotDetected) St Y.enterocolitica PCR Not Detected (NotDetected) Stool Vibrio (PCR) Not Detected (NotDetected) Stl Vibrio cholerae PCR Not Detected (NotDetected) Stl Norovirus GI/GII PCR Not Detected (NotDetected) Blood Type Antibody Screen 04/17/23 04/17/23 04/17/23 Range/Units 17:31 17:31 17: WBC (4.8-10.8) K/ul RBC (4.20-5.40) M/uL Hgb (12.0-16.0) g/dl Hct (37.0-47.0) % MCV (80.0-100.0) fL MCH (25.0-34.0) pg MCHC (32.0-36.0) g/dL RDW Std Deviation (36.4-46.3) fL RDW Coeff of Ailyn (11.5-14.5) % Plt Count (130-400) K/uL MPV (9.4-12.4) fL Immature Gran % (Auto) % Neut % (Auto) % Lymph % (Auto) % [place] % (Auto) % Eos % (Auto) % Baso % (Auto) % Neut # (Auto) (1.40-6.50) K/uL Lymph # (Auto) (1.2-3.4) K/uL [place] # (Auto) (0.11-0.59) K/uL Eos # (Auto) (0-0.50) K/uL Baso # (Auto) (0-0.2) K/uL Immature Gran # (Auto) (0.01-0.20) K/uL ESR 21 (0-30) mm/hr PT (9.0-12.0) Seconds INR (0.9-1.1) APTT (21.0-31.0) Seconds PTT Ratio Sodium 139 (136-145) mmol/L Potassium 2.8 L (3.5-5.1) mmol/L Chloride 99 (98-107) mmol/L Carbon Dioxide 28 (21-32) mmol/L Anion Gap 12 H (3-11) BUN 15 (6-23) mg/dl Creatinine 1.02 (0.6-1.2) mg/dl Est Cr Clr Drug Dosing 62.7 ml/min Est GFR ( Amer) 72.2 ml/min Est GFR (Non-Af Amer) 62.3 ml/min BUN/Creatinine Ratio 14.7 (10-20) Glucose 95 (70-99(Fasting)) mg/dl Lactate (0.4-2.0) mmol/L Calcium 9.8 (8.6-10.3) mg/dl Magnesium 1.9 (1.7-2.4) mg/dl Total Bilirubin 0.6 (0.2-1.0) mg/dl AST 22 (13-39) U/L ALT 24 (7-52) U/L Alkaline Phosphatase 92 (34-104) U/L C-Reactive Protein 1.05 H (0-0.5) mg/dl Total Protein 8.3 (6.0-8.3) gm/dl Albumin 4.7 (3.4-5.0) gm/dl Globulin 3.6 (2.5-4.0) gm/dl Albumin/Globulin Ratio 1.3 (0.9-2) Lipase 14 (11-82) U/L Procalcitonin 0.17 (0-0.5) ng/ml Stl C. cayetanensis PCR (NotDetected) Stool Rotavirus A PCR (NotDetected) Stl Adenov F 40/41 PCR (NotDetected) Stool Astrovirus (PCR) (NotDetected) Stool Campylobacter PCR (NotDetected) Stl C. diff Tox B Gene (Neg) Stool Cryptosporidium PCR (NotDetected) Stl E.coli Shiga Tox PCR (NotDetected) Stl Enterotoxigenic E PCR (NotDetected) Stool EPEC (PCR) (NotDetected) Stool EAEC (PCR) (NotDetected) Stl E. histolytica PCR (NotDetected) Stool Giardia Lamblia PCR (NotDetected) Stool Salmonella PCR (NotDetected) Stool Sapovirus (PCR) (NotDetected) Stl P. shigelloides PCR (NotDetected) Stl Shigella/EIEC PCR (NotDetected) St Y.enterocolitica PCR (NotDetected) Stool Vibrio (PCR) (NotDetected) Stl Vibrio cholerae PCR (NotDetected) Stl Norovirus GI/GII PCR (NotDetected) Blood Type Antibody Screen 04/17/23 04/17/23 04/17/23 Range/Units 17:31 18:01 18:02 WBC (4.8-10.8) K/ul RBC (4.20-5.40) M/uL Hgb (12.0-16.0) g/dl Hct (37.0-47.0) % MCV (80.0-100.0) fL MCH (25.0-34.0) pg MCHC (32.0-36.0) g/dL RDW Std Deviation (36.4-46.3) fL RDW Coeff of Ailyn (11.5-14.5) % Plt Count (130-400) K/uL MPV (9.4-12.4) fL Immature Gran % (Auto) % Neut % (Auto) % Lymph % (Auto) % [place] % (Auto) % Eos % (Auto) % Baso % (Auto) % Neut # (Auto) (1.40-6.50) K/uL Lymph # (Auto) (1.2-3.4) K/uL [place] # (Auto) (0.11-0.59) K/uL Eos # (Auto) (0-0.50) K/uL Baso # (Auto) (0-0.2) K/uL Immature Gran # (Auto) (0.01-0.20) K/uL ESR (0-30) mm/hr PT 10.9 (9.0-12.0) Seconds INR 1.0 (0.9-1.1) APTT 26.5 (21.0-31.0) Seconds PTT Ratio 0.9 Sodium (136-145) mmol/L Potassium (3.5-5.1) mmol/L Chloride (98-107) mmol/L Carbon Dioxide (21-32) mmol/L Anion Gap (3-11) BUN (6-23) mg/dl Creatinine (0.6-1.2) mg/dl Est Cr Clr Drug Dosing ml/min Est GFR ( Amer) ml/min Est GFR (Non-Af Amer) ml/min BUN/Creatinine Ratio (10-20) Glucose (70-99(Fasting)) mg/dl Lactate 1.6 (0.4-2.0) mmol/L Calcium (8.6-10.3) mg/dl Magnesium (1.7-2.4) mg/dl Total Bilirubin (0.2-1.0) mg/dl AST (13-39) U/L ALT (7-52) U/L Alkaline Phosphatase (34-104) U/L C-Reactive Protein (0-0.5) mg/dl Total Protein (6.0-8.3) gm/dl Albumin (3.4-5.0) gm/dl Globulin (2.5-4.0) gm/dl Albumin/Globulin Ratio (0.9-2) Lipase (11-82) U/L Procalcitonin (0-0.5) ng/ml Stl C. cayetanensis PCR (NotDetected) Stool Rotavirus A PCR (NotDetected) Stl Adenov F 40/41 PCR (NotDetected) Stool Astrovirus (PCR) (NotDetected) Stool Campylobacter PCR (NotDetected) Stl C. diff Tox B Gene (Neg) Stool Cryptosporidium PCR (NotDetected) Stl E.coli Shiga Tox PCR (NotDetected) Stl Enterotoxigenic E PCR (NotDetected) Stool EPEC (PCR) (NotDetected) Stool EAEC (PCR) (NotDetected) Stl E. histolytica PCR (NotDetected) Stool Giardia Lamblia PCR (NotDetected) Stool Salmonella PCR (NotDetected) Stool Sapovirus (PCR) (NotDetected) Stl P. shigelloides PCR (NotDetected) Stl Shigella/EIEC PCR (NotDetected) St Y.enterocolitica PCR (NotDetected) Stool Vibrio (PCR) (NotDetected) Stl Vibrio cholerae PCR (NotDetected) Stl Norovirus GI/GII PCR (NotDetected) Blood Type O Negative Antibody Screen NEGATIVE Imaging Data Radiologist's Impression: Abdomen/Pelvis CT 04/17/23 16:58 CT SCAN OF THE ABDOMEN AND PELVIS WITH IV CONTRAST CLINICAL HISTORY: Right-sided abdominal pain. COMPARISON STUDY: Abdominal CT dated 04/12/2023. TECHNIQUE: Following the IV administration of 90 cc of Optiray 320, CT scan of the abdomen and pelvis is performed from the lung bases to the proximal femora. Images are reviewed in the axial, sagittal, and coronal planes. IV contrast was administered without complication. A dose lowering technique was utilized adhering to the principles of ALARA. CT DOSE: 1067.69 mGy.cm FINDINGS: Lung bases: The heart is normal in size and without pericardial effusion. The lung bases are clear noting dependent scarring/atelectasis. Peribronchial thickening is seen in the lower lobes. 4 mm left lower lobe pulmonary nodules seen on images #5 and #16 are unchanged. Liver: The contrast-enhanced liver is normal in size and contour. The liver demonstrates diffusely diminished attenuation indicating steatosis. There is minimal central intrahepatic biliary ductal dilatation. The hepatic veins and portal veins are patent. Gallbladder: Surgically absent noting clips in the gallbladder fossa. Spleen: Normal in size and attenuation. Pancreas: Unremarkable. Adrenal glands: Unremarkable. Kidneys: The contrast enhanced kidneys are normal in size and without hydronephrosis. The kidneys enhance symmetrically. There is a 2 mm nonobstructing right renal calculus. Abdominal vasculature: The abdominal aorta is normal in course and caliber noting mild to moderate atherosclerotic calcification. Bowel: There are scattered colonic diverticula without CT evidence of acute diverticulitis. No bowel obstruction is seen. Some mucosal fat deposition is seen throughout the colon. This is a nonspecific finding but has been described in the setting of chronic inflammation. There is wall thickening and mucosal hyp eremia involving the left colon, greatest involving the sigmoid. The appearance favors a nonspecific colitis.. The appendix is well-visualized and normal. Peritoneum: There is no intraperitoneal free air or abdominal ascites. There is a fat-containing umbilical hernia. Lymphadenopathy: None. Pelvic viscera: The bladder is decompressed and grossly unremarkable. The uterus is surgically absent. No adnexal lesion is seen. Skeletal structures: Large hemangiomas are seen in the bodies of T10 and T12. No lytic or blastic lesions are seen. IMPRESSION: 1. Findings suggest chronic colonic inflammation with evidence of a nonspecific colitis involving the left colon. This is greatest involving the rectosigmoid. Clinical correlation will be required. 2. There is no bowel obstruction. 3. Hepatic steatosis. 4. Peribronchial thickening in the lower lobes suggests bronchitis/reactive airway disease. Correlate clinically. 5. Right-sided nephrolithiasis. 6. Additional findings as above. ACT 112: Negative or not required by law. Electronically signed by: Mann Liu M.D. 04/17/2023 7:10 PM [facility] Narrative Patient was seen and evaluated as above in room D02. Review was performed of triage nursing notes and vital signs. I did review pertinent previous visits and patient history. After obtaining a thorough history and physical examination the above work up was performed. Patient presents to us today for evaluation of ongoing right-sided abdominal pain and blood in the stool. Patient appears tire d and to be in pain. IV access was established, labs were drawn. No leukocytosis or concerning an emia. Hypokalemia 2.8. Repletion ordered intravenously. No evidence of kidney or liver failure. CRP mildly elevated. Lactate normal. Lipase within normal range. Procalcitonin within normal range. Repeat CT scan of the abdomen pelvis felt to be warranted noting the patient interval increase of pain. Results of this as above. Per radiologist there are findings suggesting chronic colonic inflammation with evidence of a nonspecific colitis involving the left colon. This is greatest involving the rectosigmoid. Stool panel positive for EPEC. At this time I do believe that further evaluation and management in the inpatient setting is warranted. Case discussed with the hospitalist service. Please refer to further documentation regarding her stay. While here in the ED the patient did receive IV analgesia, IV hydration, IV antiemetics as well as IV repletion of the potassium. In the evaluation and treatment of this patient the following differential diagnoses were entertained: Bowel obstruction, perforation, diverticulitis, appendicitis, UTI, pyelonephritis, malignancy, colitis, among others. Impression & Plan 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, Hypokalemia, Right sided abdominal pain, Bloody stool Discharge Plan Visit Data Chief Complaint: Abdominal Pain Stated Complaint: RT SIDE ABDOMINAL PAIN ED Provider: Long [facility] ED Midlevel Provider: Tejas Steele Discharge Problem: 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, Hypokalemia, Right sided abdominal pain, Bloody stool Patient Disposition: Admitted As Inpatient Discharge Instructions Interventions: ED Discharge Assessment Last Done: 04/17/23 22:32
[2023-04-17 18:08] LABS: Albumin Globulin Ratio 1.3 (0.9-2); Albumin Level 4.7 gm/dl (3.4-5.0); BUN Creatinine Ratio 14.7 (10-20); Bilirubin,Total 0.6 mg/dl (0.2-1.0); C Reactive Protein 1.05 mg/dl (0-0.5); Calcium 9.8 mg/dl (8.6-10.3); Creatinine Clr Calc Pharmacy 62.7 ml/min; Est GFR (African American) 72.2 ml/min; Est GFR (Non-African American) 62.3 ml/min; Globulin 3.6 gm/dl (2.5-4.0); Magnesium 1.9 mg/dl (1.7-2.4); Potassium 2.8 mmol/L (3.5-5.1); Total Protein 8.3 gm/dl (6.0-8.3)
[2023-04-17 18:13] LABS: Partial Thromboplastin Ratio 0.9; Partial Thromboplastin Time 26.5 Seconds (21.0-31.0); Prothrombin Time 10.9 Seconds (9.0-12.0)
[2023-04-17] MEDS ORDERED: OPTIRAY 320 100ml IV ONE (18:39)
[2023-04-17] MEDS ORDERED: POTASSIUM CHLORIDE / WTR 10 MEQ/100 ML PLCT IV ONE (19:02)
[2023-04-17 19:11] LABS: Adenovirus F 40/41 PCR Not Detected (NotDetected); Astrovirus PCR Not Detected (NotDetected); Campylobacter PCR Not Detected (NotDetected); Cryptosporidium PCR Not Detected (NotDetected); Cyclospora cayetanensis PCR Not Detected (NotDetected); Entamoeba histolytica PCR Not Detected (NotDetected); Enteroaggregative E.coli(EAEC) Not Detected (NotDetected); Enterotoxigenic E.coli (ETEC) Not Detected (NotDetected); Giardia lamblia PCR Not Detected (NotDetected); Norovirus GI/GII PCR Not Detected (NotDetected); Plesiomonas shigelloides PCR Not Detected (NotDetected); Rotavirus A PCR Not Detected (NotDetected); Salmonella PCR Not Detected (NotDetected); Sapovirus PCR Not Detected (NotDetected); Shiga-like Toxin E.coli (STEC) Not Detected (NotDetected); Shigella/Enteroinvasive E.coli Not Detected (NotDetected); Vibrio cholerae PCR Not Detected (NotDetected); Vibrio species PCR Not Detected (NotDetected); Yersinia enterocolitica PCR Not Detected (NotDetected)
--- NOTE | 2023-04-17 19:12 | CT Scan Report ---
CT SCAN OF THE ABDOMEN AND PELVIS WITH IV CONTRAST CLINICAL HISTORY: Right-sided abdominal pain. COMPARISON STUDY: Abdominal CT dated 04/12/2023. TECHNIQUE: Following the IV administration of 90 cc of Optiray 320, CT scan of the abdomen and pelvi s is performed from the lung bases to the proximal femora. Images are reviewed in the axial, sagittal , and coronal planes. IV contrast was administered without complication. A dose lowering technique wa s utilized adhering to the principles of ALARA. CT DOSE: 1067.69 mGy.cm FINDINGS: Lung bases: The heart is normal in size and without pericardial effusion. The lung bases are clear no ting dependent scarring/atelectasis. Peribronchial thickening is seen in the lower lobes. 4 mm left l ower lobe pulmonary nodules seen on images #5 and #16 are unchanged. Liver: The contrast-enhanced liver is normal in size and contour. The liver demonstrates diffusely di minished attenuation indicating steatosis. There is minimal central intrahepatic biliary ductal dilat ation. The hepatic veins and portal veins are patent. Gallbladder: Surgically absent noting clips in the gallbladder fossa. Spleen: Normal in size and attenuation. Pancreas: Unremarkable. Adrenal glands: Unremarkable. Kidneys: The contrast enhanced kidneys are normal in size and without hydronephrosis. The kidneys enh ance symmetrically. There is a 2 mm nonobstructing right renal calculus. Abdominal vasculature: The abdominal aorta is normal in course and caliber noting mild to moderate at herosclerotic calcification. Bowel: There are scattered colonic diverticula without CT evidence of acute diverticulitis. No bowel obstruction is seen. Some mucosal fat deposition is seen throughout the colon. This is a nonspecific finding but has been described in the setting of chronic inflammation. There is wall thickening and m ucosal hyperemia involving the left colon, greatest involving the sigmoid. The appearance favors a no nspecific colitis.. The appendix is well-visualized and normal. Peritoneum: There is no intraperitoneal free air or abdominal ascites. There is a fat-containing umbi lical hernia. Lymphadenopathy: None. Pelvic viscera: The bladder is decompressed and grossly unremarkable. The uterus is surgically absent . No adnexal lesion is seen. Skeletal structures: Large hemangiomas are seen in the bodies of T10 and T12. No lytic or blastic les ions are seen. IMPRESSION: 1. Findings suggest chronic colonic inflammation with evidence of a nonspecific colitis involving the left colon. This is greatest involving the rectosigmoid. Clinical correlation will be required. 2. There is no bowel obstruction. 3. Hepatic steatosis. 4. Peribronchial thickening in the lower lobes suggests bronchitis/reactive airway disease. Correlate clinically. 5. Right-sided nephrolithiasis. 6. Additional findings as above. ACT 112: Negative or not required by law. Electronically signed by: Mann Liu M.D. 04/17/2023 7:10 PM
[2023-04-17 19:29] LABS: Enteropathogenic E.coli (EPEC) DETECTED (NotDetected)
[2023-04-17] MEDS: HYDROmorphone INJ 0.5 MG/0.5 ML SYR IV PRN ×2 (19:43→22:09)
--- NOTE | 2023-04-17 20:44 | History & Physical Report ---
Date of Service April 17, 2023 Assessment & Plan (1) Infectious gastroenteritis and colitis: Plan: Patient is a 52-year-old female with a past medical history of rheumatoid arthritis, interstitial lung disease, hyperlipidemia, hypertension, and nicotine dependence who presents to the hospital for evaluation abdominal pain. Labs and imaging suggestive of gastroenteritis and colitis secondary to EPEC. Patient also found to be hypokalemic with a potassium of 2.8. Patient to be admitted for antibiotic therapy, fluid resuscitation, and potassium supplementation. -Admit to [facility] with telemetry -Begin azithromycin therapy 500 mg daily x3 days -Imodium as needed for diarrhea -No need for colonoscopy at this time given stable hemoglobin and source of pancolitis identified -Dilaudid and Tylenol as needed for abdominal pain -Lactted Ringer's at 125 cc/h -Daily CBC/CMP (2) Hypokalemia: Plan: -Suspect secondary to poor p.o. intake - Status post 10 mill equivalent K rider +20 mill equivalent oral potassium -Typically runs low normal likely from chronic steroid use -Recheck CMP in the morning (3) Hypertension: Plan: - Hold antihypertensives in the setting of hypovolemia secondary to gastroenteritis and poor p.o. intake (4) Hyperlipidemia: Plan: - Continue rosuvastatin (5) Current smoker: Plan: - Currently smokes 10 to 20 cigarettes daily -Nicotine patch while inpatient, continue to recommend smoking cessation (6) Rheumatoid arthritis: Plan: - Continue methotrexate 20 mg weekly -Last dose was 04/16/2023 -Continue prednisone daily (7) Osteoporosis: Plan: - Continue Fosamax weekly -Last dose was on 04/16/2023 (8) GERD (gastroesophageal reflux disease): Plan: - Continue PPI Plan Disposition: Admit to [facility] with telemetry, indication is hypokalemia Diet: Regular with LR at 125 cc/h given poor p.o. intake DVT prophylaxis: Heparin CODE STATUS: Full code History of Present Illness Chief Complaint: Abdominal pain Primary Care Provider: EM Church Patient is a 52-year-old female with a past medical history of rheumatoid arthritis, interstitial lung disease, hyperlipidemia, hypertension, and nicotine dependence who presents to the hospital for evaluation abdominal pain. Patient reports for the past 2 weeks, she has been experiencing abdominal pain has been waxing and waning from anywhere between a 5 out of 10 to an 8 out of 10 pain. She initially came to the emergency department a few days ago and had a CT scan done that showed pancolitis. She was given fluids and offered admission, however, patient was feeling better and preferred to be discharged home under self-care. Unfortunately at the day following her discharge, her abdominal pain was worse and she tried to not return to the hospital but unfortunately her abdominal pain was so persistent today that she return for reevaluation. Originally patient was having nausea without vomiting, frequent bowel movements that some had scant blood, and poor p.o. intake. Patient has not been nauseous for the past few days is just had no appetite. She reports that she is having "50 bowel movements per hour". They are very small volumes, however, patient reports that every time she goes she feels like she has to go to the bathroom really bad, but only produces a small amount of liquid stool that sometimes has blood in it. No fevers recorded. Denies recent travel. No other people that she is aware of with her symptoms. No other complaints at this time. Patient is currently smoking anywhere from 10 cigarettes to a full pack daily. ED course: Patient evaluated by provider. Lab work significant for a potassium of 2.8, C-reactive protein of 1.05, and a bio fire positive for EPEC. Patient given a bolus of normal saline and 1 Krider. Patient received Dilaudid due to abdominal pain. Abdomen pelvis CT Findings suggest chronic colonic inflammation with evidence of a nonspecific colitis involving the left colon. This is greatest involving the rectosigmoid. Hospitalist service was consulted for admission. Allergies Allergy/AdvReac Type Severity Reaction Status Date / Time latex Allergy Intermediate Rash Verified 04/12/23 22:26 homatropine AdvReac Severe NAUSEA Verified 04/12/23 22:26 morphine AdvReac Intermediate nausea Verified 04/12/23 22:26 vomiting Home Medications Medication Instructions Recorded Confirmed Type alendronate 70 mg tablet (Fosamax) 70 mg PO WK 11/20/19 04/17/23 History folic acid 1 mg tablet 1 mg PO QAM 11/20/19 04/17/23 History prednisone 5 mg tablet 5 mg PO QAM 11/20/19 04/17/23 History omeprazole 20 mg capsule,delayed 20 mg PO DAILYBB 10/05/20 04/17/23 History release duloxetine 30 mg capsule,delayed 30 mg PO QAM 10/17/21 04/17/23 History release gabapentin 300 mg capsule 300 mg PO TID 10/17/21 04/17/23 History methotrexate sodium 2.5 mg tablet 20 mg PO WK 11/09/21 04/17/23 History losartan 50 mg tablet 50 mg PO QAM #90 tabs 02/08/23 04/17/23 Rx rosuvastatin 10 mg tablet 10 mg PO QAM #90 tabs 02/08/23 04/17/23 Rx buspirone 15 mg tablet 15 mg PO BID #60 tabs 03/02/23 04/17/23 Rx Past Med/Surg History Medical History Anxiety Biliary dyskinesia Depression Diverticular disease Fibromyalgia GERD (gastroesophageal reflux disease) History of COVID-19 May 12, 2022 > home test, cough, runny nose, > all resolved Hyperlipidemia Hypertension ILD (interstitial lung disease) lung scan scheduled for a few weeks from now Nausea and vomiting after administration of anesthetic agent Osteoporosis Rheumatoid arthritis Shingles outbreak Sep 2020 Surgical History History of carpal tunnel release bilat History of colonoscopy History of esophagogastroduodenoscopy (EGD) History of hysterectomy History of incisional hernia repair (06/30/22) Open Incisional Hernia Repair - Nikita Zamorano, History of surgery on wrist right for fracture Hx laparoscopic cholecystectomy (10/21/21) Laparoscopic Cholecystectomy - Nikita Zamorano DO 10/21/2021 Hx of removal of cyst from left hand Family History Aunt Diabetes Uncle Diabetes Social History Smoking Status: Current every day smoker Tobacco Type: Cigarettes Cigarettes Per Day: over 1/2 ppd; Second Hand Exposure: No; Do You Dip or Chew Tobacco: No; Tobacco Cessation Education Requested by Patient: No Hx Alcohol Use: No Hx Substance Use: No Preferred Language: Setswana Communication Ability: Effective Visual Impairment: Partially Limited 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: No Beliefs That Will Affect Care: None marital status: Current Living Situation: Family How many Children do You have: 2 Other Information That Helps Us Care for You: No Feels Safe at Home: Yes Safety Concerns: Feels Safe At This Time Assistive Devices: Cane Review of Systems Review of Systems: All systems reviewed & are unremarkable except as noted in HPI & below Physical Exam Constitutional: WD/WN, vitals as above cooperative Eyes: + anicteric sclerae Neck: trachea midline, no thyromegaly Respiratory: normal respiratory effort, lungs clear to auscultation Cardiovascular: RRR, no murmur, no edema Gastrointestinal (Abdomen): Inspection/Auscultation: + abdomen distended and normal bowel sounds Percussion/Palpation: + abdomen tender (R quadrants), abdomen soft (L quadrants) and + abdomen firm (R quadrants) Musculoskeletal: Head/Neck/Chest: normocephalic and head atraumatic Skin: no rashes, warm and dry Neurologic: moves all extremities Results & Data Results & Data Vital Signs (Past 12 Hours) Vital Signs Temp Pulse Resp BP Pulse Ox O2 Del Method 04/17/23 16:46 36.8 C 112 H 22 141/93 H 96 Room Air Supervising Physician Co-Signing Physician Notes Attending addendum: I have physically seen this patient, have supervised the medical residents activities, and agree with the H&P unless as otherwise noted. Assessment and Plan: Stool EPEC PCR positive colitis, primarily rectosigmoid and left colon- Azithromycin 5 mg daily for 3 days as noted LR at 125 mils per hour Full liquid diet as tolerated Cholestyramine 4 g twice daily with meals titrate to 4 times daily as needed Follow serial CBC with differential, chemistry profile and magnesium level Hypokalemia- Potassium 2.8 on admission Secondary to fecal losses Replace IV and recheck laboratories in a.m. Tobacco use disorder- Tobacco cessation counseling As discussed with patient, important in the prevention of pulmonary issues but also recurrent GI issues Rheumatoid arthritis- Chronic immunosuppression on methotrexate Remaining orders and notations as noted
[2023-04-17] MEDS ORDERED: POTASSIUM CHLORIDE CRTAB 20 MEQ TABCR PO STA (20:55)
[2023-04-17] MEDS: NICOTINE 14 MG/24 HR PATCH TD SCH (22:11)
[2023-04-17] MEDS ORDERED: ONDANSETRON INJ 2 MG/ML 2 ML VIAL ONE (22:25)
[2023-04-17] MEDS ORDERED: ACETAMINOPHEN 1,000 MG/100 ML VIAL IV PRN (22:57)
[2023-04-17] MEDS ORDERED: HYDROmorphone INJ 1 MG/ML SYRINGE IV PRN (22:57)
[2023-04-17] MEDS ORDERED: ONDANSETRON INJ 2 MG/ML 2 ML VIAL IV PRN (22:57)
[2023-04-17] MEDS ORDERED: LOPERAMIDE HCL 2 MG CAP PO PRN (22:57)
[2023-04-17] MEDS: LACTATED RINGER'S 1,000 ML IV SCH (23:23)
[2023-04-17] MEDS: AZITHROMYCIN 500 MG in DEXTROSE 5% 250 ML IV SCH (23:52)
[2023-04-17] MEDS: busPIRone 15 MG TAB PO SCH (23:54)
[2023-04-17] MEDS: GABAPENTIN 300 MG CAP PO SCH (23:55)
[2023-04-18] LABS: Appearance Urine Clear (Clear); Bacteria Urine Automated Negative (Negative); Bilirubin Urine Negative (Negative); Blood Urine Negative (Negative); Color Urine Yellow; Epithelial Cell Urine Auto >30 /lpf (0-5); Glucose Urine UA Negative (Negative); Ketones Urine Negative (Negative); Leukocyte Esterase Urine Negative (Negative); Nitrite Urine Negative (Negative); Protein Urine Trace (Negative); RBC Urine Automated 0-4 /hpf (0-4); Specific Gravity Urine > 1.045 (1.000-1.030); Urobilinogen Urine Negative (Negative); pH Urine 5.5 (4.5-7.5)
[2023-04-18 00:50] LABS: Cast Urine Automated 0 /lpf (0-5)
[2023-04-18] MEDS: PANTOprazole 40 MG TAB PO SCH (06:07)
[2023-04-18 06:15] LABS: Hematocrit (blood only) 32.5 % (37.0-47.0); Hemoglobin 11.2 g/dl (12.0-16.0); Mean Corpuscular Hemoglobin 32.6 pg (25.0-34.0); Mean Corpuscular Hgb Conc 34.5 g/dL (32.0-36.0); Mean Corpuscular Volume 94.5 fL (80.0-100.0); Mean Platelet Volume 10.2 fL (9.4-12.4); Platelet Count 238 K/uL (130-400); RDW Coefficient of Variation 15.7 % (11.5-14.5); RDW Standard Deviation 52.9 fL (36.4-46.3); Red Blood Count 3.44 M/uL (4.20-5.40); White Blood Count 5.28 K/ul (4.8-10.8)
[2023-04-18 06:24] LABS: Albumin Globulin Ratio 1.3 (0.9-2); Albumin Level 3.3 gm/dl (3.4-5.0); BUN Creatinine Ratio 12.8 (10-20); Bilirubin,Total 0.5 mg/dl (0.2-1.0); Calcium 8.2 mg/dl (8.6-10.3); Creatinine Clr Calc Pharmacy 75.1 ml/min; Est GFR (African American) 88.8 ml/min; Est GFR (Non-African American) 76.6 ml/min; Globulin 2.5 gm/dl (2.5-4.0); Magnesium 1.8 mg/dl (1.7-2.4); Potassium 3.4 mmol/L (3.5-5.1); Total Protein 5.8 gm/dl (6.0-8.3)
[2023-04-18] MEDS: busPIRone 15 MG TAB PO SCH ×2 (08:18→20:02)
[2023-04-18] MEDS: DULoxetine HCL 30 MG CAP PO SCH (08:18)
[2023-04-18] MEDS: LACTATED RINGER'S 1,000 ML IV SCH ×3 (08:18→23:56)
[2023-04-18] MEDS: GABAPENTIN 300 MG CAP PO SCH ×3 (08:18→20:02)
[2023-04-18] MEDS: FOLIC ACID 1 MG TAB PO SCH (08:18)
[2023-04-18] MEDS: ROSUVASTATIN CALCIUM 10 MG TAB PO SCH (08:18)
[2023-04-18] MEDS: predniSONE 5 MG TAB PO SCH (08:18)
--- NOTE | 2023-04-18 12:31 | Hospitalist Progress Note ---
Date of Service April 18, 2023 Assessment & Plan (1) Infectious gastroenteritis and colitis: Plan: Patient is a 52-year-old female with a past medical history of rheumatoid arthritis, interstitial lung disease, hyperlipidemia, hypertension, and nicotine dependence who presents to the hospital for evaluation abdominal pain. Labs and imaging suggestive of gastroenteritis and colitis secondary to EPEC. -Has been started on azithromycin, with clinical improvement -Imodium as needed for diarrhea -No need for colonoscopy at this time given stable hemoglobin and source of pancolitis identified -Dilaudid and Tylenol as needed for abdominal pain -Continue IV fluids -Encourage oral intake -Daily CBC/CMP (2) Hypokalemia: Plan: -Suspect secondary to poor p.o. intake and diarrhea -Replace potassium (3) Hypertension: Plan: - Resume home medications (4) Hyperlipidemia: Plan: - Continue rosuvastatin (5) Current smoker: Plan: - Currently smokes 10 to 20 cigarettes daily -Nicotine patch while inpatient, continue to recommend smoking cessation (6) Rheumatoid arthritis: Plan: - Continue methotrexate 20 mg weekly -Last dose was 04/16/2023 -Continue prednisone daily (7) Osteoporosis: Plan: - Continue Fosamax weekly -Last dose was on 04/16/2023 (8) GERD (gastroesophageal reflux disease): Plan: - Continue PPI Plan Disposition: Hopefully discharge in next 24 to 48 hours Diet: Regular with LR at 125 cc/h given poor p.o. intake DVT prophylaxis: Heparin CODE STATUS: Full code Admission and Anticipated Discharge Date Admission Date: April 17, 2023 Subjective Patient seen and examined today, states she feels overall better, no new episodes of diarrhea Review of Systems Review of Systems: All systems reviewed are negative, apart from the ones contained in the history. Physical Exam Physical Exam: The patient is awake, alert and oriented 3, well developed and well nourished, normocephalic and atraumatic, lying in bed and in no acute distress. HEENT--PERRL, EOMI, mucous membranes and oropharynx mildly dry Neck--supple. No JVD. No bruits. Thyroid normal, trachea midline, no adenopathy. Heart--normal S1 and S2. No murmurs, rubs or gallops. Lungs--clear bilaterally, no respiratory distress, no accessory muscle use. Abdomen--normal bowel sounds and soft. Mild epigastric and left sided abdominal pain Extremities--no cyanosis or clubbing. No edema. Dermatologic--normal skin turgor, normal color, no abnormal lymph nodes, no rash. Neurologic--cranial nerves II through XII grossly intact. Rheumatologic--normal range of motion. Psychiatric--normal affect. Results & Data Results & Data Vital Signs (Past 12 Hours) Vital Signs Temp Pulse Resp BP BP Pulse Ox O2 Del Method 04/18/23 11:31 98.1 F 79 18 138/63 98 Room Air 04/18/23 11:20 Room Air 04/18/23 08:03 98.1 F 76 17 131/81 98 Room Air 04/18/23 03:00 97.7 F 77 18 126/74 96 Room Air PG Care Time/CCT Total # of Minutes Spent Total Time Spent with Patient: Total time spent is greater than 50% in coordination of care (as documented) at patient's floor/unit and/or counseling patient: Coding Level of Care Code 96617 SUB INP/OBS CARE 2/35MIN Diagnoses Infectious gastroenteritis and colitis A09 Hypokalemia E87.6 Hypertension I10 Hyperlipidemia E78.5 Current smoker F17.200 Rheumatoid arthritis M06.9 Osteoporosis M81.0 GERD (gastroesophageal reflux disease) K21.9 Time Spent (min) 35
[2023-04-18] MEDS: HYDROmorphone INJ 0.5 MG/0.5 ML SYR IV PRN ×3 (14:29→23:58)
--- NOTE | 2023-04-18 19:37 | Billing Data ---
Date of Service April 18, 2023 Coding Level of Care Code 64746 INT INP/OBS CARE
[2023-04-18] MEDS: AZITHROMYCIN 500 MG in DEXTROSE 5% 250 ML IV SCH (23:57)
[2023-04-19] MEDS: PANTOprazole 40 MG TAB PO SCH (05:49)
[2023-04-19] MEDS: DULoxetine HCL 30 MG CAP PO SCH (08:11)
[2023-04-19] MEDS: LACTATED RINGER'S 1,000 ML IV SCH ×2 (08:11→21:35)
[2023-04-19] MEDS: ROSUVASTATIN CALCIUM 10 MG TAB PO SCH (08:11)
[2023-04-19] MEDS: predniSONE 5 MG TAB PO SCH (08:11)
[2023-04-19] MEDS: busPIRone 15 MG TAB PO SCH ×2 (08:11→21:57)
[2023-04-19] MEDS: FOLIC ACID 1 MG TAB PO SCH (08:11)
[2023-04-19] MEDS: NICOTINE 14 MG/24 HR PATCH TD SCH (08:11)
[2023-04-19] MEDS: GABAPENTIN 300 MG CAP PO SCH ×3 (08:11→21:56)
[2023-04-19 10:16] LABS: Hematocrit (blood only) 31.7 % (37.0-47.0); Hemoglobin 10.8 g/dl (12.0-16.0); Mean Corpuscular Hemoglobin 31.7 pg (25.0-34.0); Mean Corpuscular Hgb Conc 34.1 g/dL (32.0-36.0); Mean Platelet Volume 10.4 fL (9.4-12.4); Platelet Count 240 K/uL (130-400); RDW Coefficient of Variation 15.4 % (11.5-14.5); RDW Standard Deviation 51.8 fL (36.4-46.3); Red Blood Count 3.41 M/uL (4.20-5.40); White Blood Count 5.51 K/ul (4.8-10.8)
[2023-04-19 10:32] LABS: BUN Creatinine Ratio 11.8 (10-20); Calcium 8.8 mg/dl (8.6-10.3); Creatinine Clr Calc Pharmacy 70.9 ml/min; Est GFR (African American) 80.8 ml/min; Est GFR (Non-African American) 69.7 ml/min
--- NOTE | 2023-04-19 12:53 | Hospitalist Progress Note ---
Date of Service April 19, 2023 Assessment & Plan (1) Infectious gastroenteritis and colitis: Plan: Patient is a 52-year-old female with a past medical history of rheumatoid arthritis, interstitial lung disease, hyperlipidemia, hypertension, and nicotine dependence who presents to the hospital for evaluation abdominal pain. Labs and imaging suggestive of gastroenteritis and colitis secondary to EPEC. -Has been started on azithromycin, with clinical improvement -Imodium as needed for diarrhea, had an episode of blood y stool yesterday, none today -No need for colonoscopy at this time given stable hemoglobin and source of pancolitis identified -Dilaudid and Tylenol as needed for abdominal pain -Continue IV fluids -Encourage oral intake -Daily CBC/CMP (2) Hypokalemia: Plan: -Suspect secondary to poor p.o. intake and diarrhea -Replace potassium (3) Hypertension: Plan: - Resume home medications (4) Hyperlipidemia: Plan: - Continue rosuvastatin (5) Current smoker: Plan: - Currently smokes 10 to 20 cigarettes daily -Nicotine patch while inpatient, continue to recommend smoking cessation (6) Rheumatoid arthritis: Plan: - Continue methotrexate 20 mg weekly -Last dose was 04/16/2023 -Continue prednisone daily (7) Osteoporosis: Plan: - Continue Fosamax weekly -Last dose was on 04/16/2023 (8) GERD (gastroesophageal reflux disease): Plan: - Continue PPI Plan Disposition: Hopefully discharge in next 24 to 48 hours Diet: Regular DVT prophylaxis: Heparin CODE STATUS: Full code Admission and Anticipated Discharge Date Admission Date: April 17, 2023 Subjective Patient seen and examined today, states she feels overall better, had an episode of bloody stool yesterday, none today Review of Systems Review of Systems: All systems reviewed are negative, apart from the ones contained in the history. Physical Exam Physical Exam: The patient is awake, alert and oriented 3, well developed and well nourished, normocephalic and atraumatic, lying in bed and in no acute distress. HEENT--PERRL, EOMI, mucous membranes and oropharynx mildly dry Neck--supple. No JVD. No bruits. Thyroid normal, trachea midline, no adenopathy. Heart--normal S1 and S2. No murmurs, rubs or gallops. Lungs--clear bilaterally, no respiratory distress, no accessory muscle use. Abdomen--normal bowel sounds and soft. Mild epigastric and left sided abdominal pain Extremities--no cyanosis or clubbing. No edema. Dermatologic--normal skin turgor, normal color, no abnormal lymph nodes, no rash. Neurologic--cranial nerves II through XII grossly intact. Rheumatologic--normal range of motion. Psychiatric--normal affect. Results & Data Results & Data Vital Signs (Past 12 Hours) Vital Signs Temp Pulse Resp BP Pulse Ox O2 Del Method 04/19/23 11:13 97.9 F 73 16 162/84 H 96 Room Air 04/19/23 07:16 98.1 F 78 17 158/73 H 98 Room Air 04/19/23 03:00 98.1 F 71 18 124/66 95 Room Air PG Care Time/CCT Total # of Minutes Spent Total Time Spent with Patient: Total time spent is greater than 50% in coordination of care (as documented) at patient's floor/unit and/or counseling patient: Coding Level of Care Code 58975 SUB INP/OBS CARE 2/35MIN Diagnoses Infectious gastroenteritis and colitis A09 Hypokalemia E87.6 Hypertension I10 Hyperlipidemia E78.5 Current smoker F17.200 Rheumatoid arthritis M06.9 Osteoporosis M81.0 GERD (gastroesophageal reflux disease) K21.9 Time Spent (min) 35
[2023-04-19] MEDS ORDERED: Nursing to Pharmacy Communication SCH (23:45)
[2023-04-20] MEDS: HYDROmorphone INJ 0.5 MG/0.5 ML SYR IV PRN (00:07)
[2023-04-20] MEDS: AZITHROMYCIN 500 MG in DEXTROSE 5% 250 ML IV SCH (00:17)
[2023-04-20] MEDS: PANTOprazole 40 MG TAB PO SCH (06:31)
[2023-04-20 06:36] LABS: Hemoglobin 11.3 g/dl (12.0-16.0); Mean Corpuscular Hemoglobin 32.3 pg (25.0-34.0); Mean Corpuscular Hgb Conc 34.2 g/dL (32.0-36.0); Mean Corpuscular Volume 94.3 fL (80.0-100.0); Mean Platelet Volume 10.4 fL (9.4-12.4); Platelet Count 270 K/uL (130-400); RDW Standard Deviation 51.7 fL (36.4-46.3); White Blood Count 6.66 K/ul (4.8-10.8)
[2023-04-20 06:55] LABS: BUN Creatinine Ratio 12.4 (10-20); Calcium 8.8 mg/dl (8.6-10.3); Creatinine Clr Calc Pharmacy 74.8 ml/min; Est GFR (African American) 85.2 ml/min; Est GFR (Non-African American) 73.5 ml/min; Potassium 3.7 mmol/L (3.5-5.1)
[2023-04-20] MEDS: LACTATED RINGER'S 1,000 ML IV SCH (08:26)
[2023-04-20] MEDS: DULoxetine HCL 30 MG CAP PO SCH (08:30)
[2023-04-20] MEDS: ROSUVASTATIN CALCIUM 10 MG TAB PO SCH (08:30)
[2023-04-20] MEDS: GABAPENTIN 300 MG CAP PO SCH (08:30)
[2023-04-20] MEDS: busPIRone 15 MG TAB PO SCH (08:30)
[2023-04-20] MEDS: FOLIC ACID 1 MG TAB PO SCH (08:30)
[2023-04-20] MEDS: NICOTINE 14 MG/24 HR PATCH TD SCH (08:31)
[2023-04-20] MEDS: predniSONE 5 MG TAB PO SCH (08:31)
[2023-04-20] MEDS ORDERED: ACETAMINOPHEN 325 MG TAB PO PRN (10:25)
--- NOTE | 2023-04-20 11:52 | Discharge Summary ---
Date of Service April 20, 2023 Admission HPI Per Admitting Provider Patient is a 52-year-old female with a past medical history of rheumatoid arthritis, interstitial lung disease, hyperlipidemia, hypertension, and nicotine dependence who presents to the hospital for evaluation abdominal pain. Patient reports for the past 2 weeks, she has been experiencing abdominal pain has been waxing and waning from anywhere between a 5 out of 10 to an 8 out of 10 pain. She initially came to the emergency department a few days ago and had a CT scan done that showed pancolitis. She was given fluids and offered admission, however, patient was feeling better and preferred to be discharged home under self-care. Unfortunately at the day following her discharge, her abdominal pain was worse and she tried to not return to the hospital but unfortunately her abdominal pain was so persistent today that she return for reevaluation. Originally patient was having nausea without vomiting, frequent bowel movements that some had scant blood, and poor p.o. intake. Patient has not been nauseous for the past few days is just had no appetite. She reports that she is having "50 bowel movements per hour". They are very small volumes, however, patient reports that every time she goes she feels like she has to go to the bathroom really bad, but only produces a small amount of liquid stool that sometimes has blood in it. No fevers recorded. Denies recent travel. No other people that she is aware of with her symptoms. No other complaints at this time. Patient is currently smoking anywhere from 10 cigarettes to a full pack daily. ED course: Patient evaluated by provider. Lab work significant for a potassium of 2.8, C-reactive protein of 1.05, and a bio fire positive for EPEC. Patient given a bolus of normal saline and 1 Krider. Patient received Dilaudid due to abdominal pain. Abdomen pelvis CT Findings suggest chronic colonic inflammation with evidence of a nonspecific colitis involving the left colon. This is greatest involving the rectosigmoid. Hospitalist service was consulted for admission. Principal Diagnosis Enteropathogenic E. coli colitis Discharge Exam The patient is awake, alert and oriented 3, well developed and well nourished, normocephalic and atraumatic, lying in bed and in no acute distress. HEENT--PERRL, EOMI, mucous membranes and oropharynx mildly dry Neck--supple. No JVD. No bruits. Thyroid normal, trachea midline, no adenopathy. Heart--normal S1 and S2. No murmurs, rubs or gallops. Lungs--clear bilaterally, no respiratory distress, no accessory muscle use. Abdomen--normal bowel sounds and soft. Mild epigastric and left sided abdominal pain Extremities--no cyanosis or clubbing. No edema. Dermatologic--normal skin turgor, normal color, no abnormal lymph nodes, no rash. Neurologic--cranial nerves II through XII grossly intact. Rheumatologic--normal range of motion. Psychiatric--normal affect. Discharge Data Allergies Allergy/AdvReac Type Severity Reaction Status Date / Time latex Allergy Intermediate Rash Verified 04/12/23 22:26 homatropine AdvReac Severe NAUSEA Verified 04/12/23 22:26 morphine AdvReac Intermediate nausea Verified 04/12/23 22:26 vomiting Consultations 04/17/23 19:27 ED Decision to Admit Stat Ordered Studies 04/17/23 16:58 CT abd pelvis IV con only Stat Hospital Course (1) Infectious gastroenteritis and colitis: Patient is a 52-year-old female with a past medical history of rheumatoid arthritis, interstitial lung disease, hyperlipidemia, hypertension, and nicotine dependence who presents to the hospital for evaluation abdominal pain. Labs and imaging suggestive of gastroenteritis and colitis secondary to EPEC. -Has been started on azithromycin, with clinical improvement -Imodium as needed for diarrhea, had an episode of blood y stool yesterday, none today -No need for colonoscopy at this time given stable hemoglobin and source of pancolitis identified -Dilaudid and Tylenol as needed for abdominal pain -Patient now tolerating diet -Encourage oral intake -Daily CBC/CMP -Discharge home on p.o. ciprofloxacin for 5 more days 500 mg twice daily (2) Hypokalemia: -Suspect secondary to poor p.o. intake and diarrhea -Replace potassium (3) Hypertension: - Resume home medications (4) Hyperlipidemia: - Continue rosuvastatin (5) Current smoker: - Currently smokes 10 to 20 cigarettes daily -Nicotine patch while inpatient, continue to recommend smoking cessation (6) Rheumatoid arthritis: - Continue methotrexate 20 mg weekly -Last dose was 04/16/2023 -Continue prednisone daily (7) Osteoporosis: - Continue Fosamax weekly -Last dose was on 04/16/2023 (8) GERD (gastroesophageal reflux disease): - Continue PPI Plan Disposition: Discharge home Diet: Regular DVT prophylaxis: Heparin CODE STATUS: Full code Total Time Total Time Spent Total Time Spent (In Minutes): 35 Discharge Plan Discharge Items Patient Disposition: Home - Self-Care Reason For Visit: ABDOMINAL PAIN 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 Activity: Resume your previous activity Non-emergency contact: Primary Care Provider Call non-emergency contact if: you have any medication questions Follow-up/Referrals: Justa Rose CRNP [Primary Care Provider] - Diet: Regular Addtl Attending Provider Instructions: please make appintment to follow up with your regular PCP Pending Studies at Discharge: No Stand-Alone Forms: My [employer], Smoking Cessation Medications and DC Order Prescriptions: New ciprofloxacin HCl 500 mg tablet 500 mg PO BID Qty: 10 0RF Continued buspirone 15 mg tablet 15 mg PO BID Qty: 60 5RF omeprazole 20 mg capsule,delayed release(DR/EC) 20 mg PO DAILYBB methotrexate sodium 2.5 mg tablet 20 mg PO WK Rx Instructions: TAKES 8 TABLETS ON SUNDAYS rosuvastatin 10 mg tablet 10 mg PO QAM Qty: 90 3RF losartan 50 mg tablet 50 mg PO QAM Qty: 90 3RF alendronate [Fosamax] 70 mg tablet 70 mg PO WK Rx Instructions: Monday prednisone 5 mg tablet 5 mg PO QAM folic acid 1 mg tablet 1 mg PO QAM gabapentin 300 mg capsule 300 mg PO TID duloxetine 30 mg capsule,delayed release(DR/EC) 30 mg PO QAM Admission Data Admit Date/Time: 04/17/23 20:35 Attending Provider: Kaylyn Bynum Admit Provider: Sebastien Lindsey Primary Care Provider: Justa Rose Other Providers: Jian Holloway Coding Level of Care Code 40820 INP/OBS DISCH >30 MIN Diagnoses Infectious gastroenteritis and colitis A09 Hypokalemia E87.6 Hypertension I10 Hyperlipidemia E78.5 Current smoker F17.200 Rheumatoid arthritis M06.9 Osteoporosis M81.0 GERD (gastroesophageal reflux disease) K21.9 Time Spent (min) 35
== END 2023-04-20 14:16 | disposition home or self-care (01) | DRG 372 ==
LOC: ED 16:37 → SUATTDRO 20:35 → 2W 20:35
DX: E87.6 Hypokalemia; A04.0 Enteropathogenic Escherichia coli infection; K21.9 Gastro-esophageal reflux disease without esophagitis; Z79.899 Other long term (current) drug therapy; M06.9 Rheumatoid arthritis, unspecified; E78.5 Hyperlipidemia, unspecified; Z88.8 Allergy status to other drugs, medicaments and biological substances; M81.0 Age-related osteoporosis without current pathological fracture; Z86.16 Personal history of COVID-19; I10 Essential (primary) hypertension; Z88.5 Allergy status to narcotic agent; Z91.040 Latex allergy status; Z79.52 Long term (current) use of systemic steroids; J84.9 Interstitial pulmonary disease, unspecified; F17.210 Nicotine dependence, cigarettes, uncomplicated

== ENCOUNTER 2024-03-04 22:36 | Inpatient (IN) ==
[2024-03-04 23:10] LABS: Basophils # (auto) 0.03 K/uL (0.00-0.20); Basophils % (auto) 0.1 %; Eosinophils % (auto) 0.5 %; Hematocrit (blood only) 41.3 % (37.0-47.0); Immature Granulocytes # (auto) 0.14 K/uL (0.01-0.20); Immature Granulocytes % (auto) 0.6 %; Lymphocytes # (auto) 2.76 K/uL (1.20-3.40); Lymphocytes % (auto) 12.6 %; Mean Corpuscular Hemoglobin 32.2 pg (25.0-34.0); Mean Corpuscular Hgb Conc 33.9 g/dL (32.0-36.0); Mean Corpuscular Volume 94.9 fL (80.0-100.0); Mean Platelet Volume 10.6 fL (9.4-12.4); Monocytes # (auto) 0.67 K/uL (0.11-0.59); Monocytes % (auto) 3.1 %; Neutrophils # (auto) 18.21 K/uL (1.40-6.50); Neutrophils % (auto) 83.1 %; Platelet Count 194 K/uL (130-400); RDW Coefficient of Variation 16.3 % (11.5-14.5); RDW Standard Deviation 55.7 fL (36.4-46.3); Red Blood Count 4.35 M/uL (4.20-5.40); White Blood Count 21.91 K/ul (4.8-10.8)
[2024-03-04 23:22] LABS: Alanine Aminotransferase 30 U/L (7-52); Albumin Globulin Ratio 1.3 (0.9-2); Albumin Level 4.4 gm/dl (3.4-5.0); Alkaline Phosphatase 106 U/L (34-104); Anion Gap 8 (3-11); Aspartate Aminotransferase 20 U/L (13-39); BUN Creatinine Ratio 13.7 (10-20); Bilirubin,Total 1.2 mg/dl (0.2-1.0); Blood Urea Nitrogen 13 mg/dl (6-23); Calcium 9.8 mg/dl (8.6-10.3); Carbon Dioxide 26 mmol/L (21-32); Chloride 101 mmol/L (98-107); Est GFR (African American) 78.2 ml/min; Est GFR (Non-African American) 67.4 ml/min; Globulin 3.5 gm/dl (2.5-4.0); Glucose 139 mg/dl (70-99(Fasting)); Magnesium 2.1 mg/dl (1.7-2.4); Potassium 3.2 mmol/L (3.5-5.1); Sodium 135 mmol/L (136-145); Total Protein 7.9 gm/dl (6.0-8.3)
[2024-03-04 23:28] LABS: Troponin I High Sensitivity 7.8 pg/ml (0-14)
[2024-03-04 23:38] LABS: INR 1.1 (0.9-1.1); Partial Thromboplastin Ratio 1.2; Partial Thromboplastin Time 31 Seconds (21-31); Prothrombin Time 12.2 Seconds (9.0-12.0)
--- NOTE | 2024-03-04 23:49 | Emergency Department Note ---
Impression & Plan Shortness of breath, Acute pain of left shoulder, Sepsis, Leukocytosis, Elevated procalcitonin, Elevated lactic acid level, Pneumonia, Acute hypokalemia, Rhinovirus infection ED Provider Note HISTORY OF PRESENT ILLNESS: Patient is a 53-year-old female presenting with left shoulder pain and shortness of breath. Patient reports that she developed left shoulder pain starting yesterday and presented to the emergency department. She was found to have pneumonia and discharged home. She reports that today the left shoulder pain has gotten significantly worse. Pain is on the posterior left shoulder and wraps around the left chest into her left breast. Reports that it hurts to take a deep breath. Denies any DVT or PE history. She is not on any anticoagulation. Denies any history of cardiac stents. She has been trying to use Tylenol and ibuprofen and tramadol at home with little relief in her symptoms. She also tried a lidocaine patch without any improvement. Reports that she has had a cough productive of a yellow-white, thick sputum. Denies any notable fevers. Denies any nausea or vomiting. Denies any abdominal pain. ROS: as above PHYSICAL EXAM: Constitutional: Patient appears in mild distress. HENT: Head: Normocephalic and atraumatic. Eyes: EOMI, PERRL Mouth/Throat: Mucous membranes moist. Neck: Trachea midline. Neck supple. Cardiovascular: Tachycardic with regular rhythm. No murmurs, rubs or gallops. Intact distal pulses. Pulmonary/Chest: Patient has attempted breathing. She is seated upright in bed and clearly uncomfortable. Reproducible tenderness to palpation along the left trapezius to the shoulder. Abdominal: Abdomen soft, no tenderness, rebound or guarding. Musculoskeletal: No edema, tenderness or deformity noted. Skin: Warm and dry. No rash, erythema, pallor or cyanosis Psychiatric: Appropriate mood and affect for situation. Neurological: Alert and keenly responsive. CN II-XII grossly intact, moving all extremities equally and fully. MDM: - Vitals signs showed tachycardia - History obtained via patient. History as above. - Chronic conditions affecting care: rheumatoid arthritis; HTN; HLD; interstitial lung disease; GERD - Differential diagnoses include, but are not limited to: Congestive heart failure; acute coronary syndrome; COPD/asthma exacerbation; pulmonary edema; pulmonary embolism; pneumonia; pneumothorax; viral syndrome - Order placed for continuous cardiac monitoring. At this time, monitor showed rate of 105 bpm with normal sinus rhythm, per my interpretation. - External medical records reviewed. Primary care visit note dated 01/19/2024 was reviewed. Patient follows in their clinic for her multiple chronic illnesses. She has a history of pulmonary nodules and interstitial lung disease and had a referral sent for pulmonology. - EKG interpreted by myself showed normal sinus rhythm. Rate tachycardic at 105 bpm. QT 350. No acute ischemic changes. - Laboratory workup interpreted by myself showed leukocytosis (WBC 21.9 - increased from 16.78 yesterday) with left shift; normal INR; hypokalemia (K 3.2); elevated lactate (2.7); elevated total bilirubin (1.2); normal troponin; elevated procalcitonin (1.51) - Blood cultures obtained - CXR negative for pneumonia, per my interpretation - VBG grossly normal - Viral respiratory panel positive for rhinovirus/enterovirus infection - CTA chest from yesterday was reviewed and showed a left basilar consolidation suggestive of pneumonia - Patient initially given 50 mcg IV fentanyl for pain control. However, reports still having significant pain. Given 0.25 mg IV dilaudid. On reassessment, patient appears more comfortable and is resting comfortably in bed. - Given 20 mEq IV potassium for electrolyte replacement. - IV zosyn empirically started. - Patient given 2L NS in ER. Sepsis volume fluid resuscitation based on ideal body weight is 1704.3 mL. - Discussion was had with child support case officer about patient's case and need for admission - Hospitalist consulted for admission - Patient admitted to [facility] for further evaluation and management. I have personally spent 33 minutes of critical care time in the direct management of this patient. This includes bedside care, interpretation of diagnostic studies, and testing, discussion with consultants, patient, and family members, and other required patient management activities. This 33 minutes is in excess of all separately billable procedures. ASSESSMENT AND PLAN: Diagnosis: shortness of breath; left shoulder pain; sepsis; leukocytosis; acute hypokalemia; elevated lactic acid level; elevated procalcitonin; pneumonia; rhinovirus infection Plan: admit Past Med/Surg History Problem List (Updated 03/05/24 @ 00:54 by Kenya Elmore MD) Rhinovirus infection (Acute) Acute hypokalemia (Acute) Pneumonia (Acute) Elevated lactic acid level (Acute) Elevated procalcitonin (Acute) Leukocytosis (Acute) Sepsis (Acute) Acute pain of left shoulder (Acute) Shortness of breath (Acute) Atypical chest pain (Acute) Irregular bowel habits Chronic respiratory failure with hypoxia Bloody stool (Acute) Right sided abdominal pain (Acute) Hypokalemia (Acute) Infectious gastroenteritis and colitis Decreased pedal pulses Rectal bleeding History of incisional hernia repair (06/30/22) Open Incisional Hernia Repair - Nikita Zamorano DO GERD (gastroesophageal reflux disease) Osteoporosis Chronic bronchitis Current smoker ILD (interstitial lung disease) Pulmonary nodules Impaired fasting glucose Lymphocytosis Anxiety Hyperlipidemia Hypertension Hx laparoscopic cholecystectomy (10/21/21) Laparoscopic Cholecystectomy - Nikita Zamorano DO 10/21/2021 Hypokalemia Rheumatoid arthritis Medical History 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 History of COVID-19 Shingles outbreak Nausea and vomiting after administration of anesthetic agent ILD (interstitial lung disease) Fibromyalgia Diverticular disease GERD (gastroesophageal reflux disease) Depression Anxiety Osteoporosis Hyperlipidemia Hypertension Biliary dyskinesia Rheumatoid arthritis Surgical History History of incisional hernia repair (06/30/22) History of surgery on wrist Hx of removal of cyst History of carpal tunnel release History of esophagogastroduodenoscopy (EGD) History of colonoscopy History of hysterectomy Hx laparoscopic cholecystectomy (10/21/21) Family History Aunt Diabetes Uncle Diabetes Social History (Updated 02/15/24 @ 10:25 by AARON Kenny) Smoking Status: Current every day smoker Tobacco Type: Cigarettes Cigarettes Per Day: over 1/2 ppd; Second Hand Exposure: No; Do You Dip or Chew Tobacco: No; Hx Alcohol Use: No Hx Substance Use: No Preferred Language: Niuean Communication Ability: Effective Visual Impairment: Partially Limited Banquet Steward Required: No Beliefs That Will Affect Care: None marital status: Current Living Situation: Family current occupational status: disabled How many Children do You have: 2 Feels Safe at Home: Yes Diet: regular Assistive Devices: Cane Allergies Allergies Allergy/AdvReac Type Severity Reaction Status Date / Time latex Allergy Intermediate Rash Verified 03/05/24 00:32 homatropine AdvReac Severe NAUSEA Verified 03/05/24 00:32 morphine AdvReac Intermediate nausea Verified 03/05/24 00:32 vomiting Home Meds Home Medications Medication Instructions Recorded Confirmed folic acid 1 mg tablet 1 mg PO QAM 11/20/19 03/05/24 prednisone 5 mg tablet 5 mg PO QAM 11/20/19 03/05/24 omeprazole 20 mg capsule,delayed 20 mg PO DAILYBB 10/05/20 03/05/24 release duloxetine 30 mg capsule,delayed 30 mg PO QAM 10/17/21 03/05/24 release gabapentin 300 mg capsule 300 mg PO TID 10/17/21 03/05/24 methotrexate sodium 2.5 mg tablet 20 mg PO WK 11/09/21 03/05/24 tramadol 50 mg tablet 50 mg PO DAILY 04/27/23 03/05/24 hydroxychloroquine 200 mg tablet 200 mg PO DAILY 08/31/23 03/05/24 (Plaquenil) ibuprofen 200 mg tablet 400 mg PO Q6H PRN Pain 03/05/24 03/05/24 Previous Rx's Medication Instructions Recorded alendronate 70 mg tablet (Fosamax) 70 mg PO WK #12 tabs 10/23/23 buspirone 15 mg tablet 15 mg PO BID #60 tabs 02/13/24 losartan 50 mg tablet 50 mg PO QAM #30 tabs 02/13/24 rosuvastatin 20 mg tablet 20 mg PO QAM #90 tabs 02/15/24 ondansetron 8 mg disintegrating 8 mg PO Q8H PRN nausea and 02/28/24 tablet vomiting #20 tabs valacyclovir 1 gram tablet 2,000 mg (2 x 1 gram) PO Q12H PRN 02/28/24 cold sores 1 day #4 tabs azithromycin 500 mg tablet 500 mg PO DAILY 3 days #3 tabs 03/03/24 cefdinir 300 mg capsule 300 mg PO BID 10 days #20 caps 03/03/24 Results & Data (ED) Vital Signs Vital Signs - 24 hr 03/04/24 22:38 03/04/24 22:50 03/04/24 22:56 Temperature 36.7 C Temperature Source Oral Pulse Rate 106 H 107 H Pulse Rate from SpO2 Sensor Respiratory Rate 20 Respiratory Effort / Characteristics Non-Labored Non-Labored Respiratory Depth Normal Normal Respiratory Pattern Regular Regular Blood Pressure 123/77 Blood Pressure Mean 92 Pulse Oximetry 99 Oxygen Delivery Method Room Air Room Air Sepsis Recent Fever Within 48 Hours No Sepsis New/Unexplained Change in Mental Status N/A Sepsis Action Taken by Nursing No Action Required 03/04/24 23:03 03/04/24 23:18 03/04/24 23:21 Temperature Temperature Source Pulse Rate 103 H 93 H Pulse Rate from SpO2 Sensor 103 H 93 H Respiratory Rate 28 H 41 H Respiratory Effort / Characteristics Respiratory Depth Respiratory Pattern Blood Pressure 117/81 Blood Pressure Mean 93 Pulse Oximetry 98 99 98 Oxygen Delivery Method Room Air Room Air Sepsis Recent Fever Within 48 Hours Sepsis New/Unexplained Change in Mental Status Sepsis Action Taken by Nursing 03/04/24 23:21 03/04/24 23:26 03/04/24 23:26 Temperature Temperature Source Pulse Rate 92 H Pulse Rate from SpO2 Sensor 92 H Respiratory Rate 33 H Respiratory Effort / Characteristics Respiratory Depth Respiratory Pattern Blood Pressure Blood Pressure Mean Pulse Oximetry 99 99 99 Oxygen Delivery Method Room Air Room Air Sepsis Recent Fever Within 48 Hours Sepsis New/Unexplained Change in Mental Status Sepsis Action Taken by Nursing 03/04/24 23:51 03/05/24 00:06 03/05/24 00:18 Temperature Temperature Source Pulse Rate 95 H 90 85 Pulse Rate from SpO2 Sensor 95 H 90 84 Respiratory Rate 29 H 32 H 18 Respiratory Effort / Characteristics Respiratory Depth Respiratory Pattern Blood Pressure 114/73 Blood Pressure Mean 86 Pulse Oximetry 98 97 99 Oxygen Delivery Method Sepsis Recent Fever Within 48 Hours Sepsis New/Unexplained Change in Mental Status Sepsis Action Taken by Nursing 03/05/24 00:21 03/05/24 00:30 03/05/24 00:30 Temperature Temperature Source Pulse Rate 87 83 Pulse Rate from SpO2 Sensor 88 84 Respiratory Rate 19 24 Respiratory Effort / Characteristics Respiratory Depth Respiratory Pattern Blood Pressure 102/65 Blood Pressure Mean 77 Pulse Oximetry 96 99 97 Oxygen Delivery Method Room Air Room Air Sepsis Recent Fever Within 48 Hours Sepsis New/Unexplained Change in Mental Status Sepsis Action Taken by Nursing 03/05/24 00:42 Temperature Temperature Source Pulse Rate 85 Pulse Rate from SpO2 Sensor 85 Respiratory Rate 20 Respiratory Effort / Characteristics Respiratory Depth Respiratory Pattern Blood Pressure Blood Pressure Mean Pulse Oximetry 94 Oxygen Delivery Method Sepsis Recent Fever Within 48 Hours Sepsis New/Unexplained Change in Mental Status Sepsis Action Taken by Nursing Laboratory Data 03/04/24 22:50 03/04/24 22:50 Lab Results 03/04/24 03/04/24 03/04/24 Range/Units 22:50 23:16 23:43 WBC 21.91 H (4.8-10.8) K/ul RBC 4.35 (4.20-5.40) M/uL Hgb 14.0 (12.0-16.0) g/dl Hct 41.3 (37.0-47.0) % MCV 94.9 (80.0-100.0) fL MCH 32.2 (25.0-34.0) pg MCHC 33.9 (32.0-36.0) g/dL RDW Std Deviation 55.7 H (36.4-46.3) fL RDW Coeff of Ailyn 16.3 H (11.5-14.5) % Plt Count 194 (130-400) K/uL MPV 10.6 (9.4-12.4) fL Immature Gran % (Auto) 0.6 % Neut % (Auto) 83.1 % Lymph % (Auto) 12.6 % Sully % (Auto) 3.1 % Eos % (Auto) 0.5 % Baso % (Auto) 0.1 % Neut # (Auto) 18.21 H (1.40-6.50) K/uL Lymph # (Auto) 2.76 (1.20-3.40) K/uL Sully # (Auto) 0.67 H (0.11-0.59) K/uL Eos # (Auto) 0.10 (0.00-0.50) K/uL Baso # (Auto) 0.03 (0.00-0.20) K/uL Immature Gran # (Auto) 0.14 (0.01-0.20) K/uL PT 12.2 H (9.0-12.0) Seconds INR 1.1 (0.9-1.1) APTT 31 (21-31) Seconds PTT Ratio 1.2 VBG pH 7.44 H (7.36-7.41) VBG pCO2 34 L (38-50) mmHg VBG pO2 63 mmHg VBG HCO3 23 mmol/L VBG O2 Saturation 93.9 % VBG Base Excess -0.5 mEq/L Sodium 135 L (136-145) mmol/L Potassium 3.2 L (3.5-5.1) mmol/L Chloride 101 (98-107) mmol/L Carbon Dioxide 26 (21-32) mmol/L Anion Gap 8 (3-11) BUN 13 (6-23) mg/dl Creatinine 0.95 (0.6-1.2) mg/dl Est Cr Clr Drug Dosing Not Reportable Est GFR ( Amer) 78.2 ml/min Est GFR (Non-Af Amer) 67.4 ml/min BUN/Creatinine Ratio 13.7 (10-20) Glucose 139 H (70-99(Fasting)) mg/dl Lactate 2.7 H* (0.4-2.0) mmol/L Calcium 9.8 (8.6-10.3) mg/dl Magnesium 2.1 (1.7-2.4) mg/dl Total Bilirubin 1.2 H (0.2-1.0) mg/dl AST 20 (13-39) U/L ALT 30 (7-52) U/L Alkaline Phosphatase 106 H (34-104) U/L Troponin I High Sens 7.8 (0-14) pg/ml Total Protein 7.9 (6.0-8.3) gm/dl Albumin 4.4 (3.4-5.0) gm/dl Globulin 3.5 (2.5-4.0) gm/dl Albumin/Globulin Ratio 1.3 (0.9-2) Procalcitonin 1.51 H (0-0.5) ng/ml Adenovirus (PCR) Not Detected (NotDetected) B. pertussis DNA (PCR) Not Detected (NotDetected) B.parapertussis DNA PCR Not Detected (NotDetected) C. pneumoniae DNA (PCR) Not Detected (NotDetected) Coronavirus OC43 (PCR) Not Detected (NotDetected) Coronavirus HKU1 (PCR) Not Detected (NotDetected) Coronavirus 229E (PCR) Not Detected (NotDetected) SARS-CoV-2 (PCR) Not Detected (NotDetected) Coronavirus NL63 (PCR) Not Detected (NotDetected) Human Metapneumovir PCR Not Detected (NotDetected) Influenza Type A (PCR) Not Detected (NotDetected) Influenza Type B (PCR) Not Detected (NotDetected) M. pneumoniae (PCR) Not Detected (NotDetected) Parainfluenza 1 (PCR) Not Detected (NotDetected) Parainfluenza 2 (PCR) Not Detected (NotDetected) Parainfluenza 3 (PCR) Not Detected (NotDetected) Parainfluenza 4 (PCR) Not Detected (NotDetected) RSV (PCR) Not Detected (NotDetected) Entero/Rhino (PCR) DETECTED A (NotDetected) Administered Medications Sodium Chloride (Nss) 2,000 mls @ 999 mls/hr IV .Q2H1M ONE Stop: 03/05/24 01:43 Last Admin: 03/05/24 00:01 Dose: 999 mls/hr Documented By: DANIELLA Discontinued Medications Fentanyl Citrate (Fentanyl Citrate Pf 100 Mcg/2 Ml Vial) 50 mcg IV NOW STA Stop: 03/04/24 23:44 Last Admin: 03/04/24 23:50 Dose: 50 mcg Documented By: DAINELLA Hydromorphone HCl (Hydromorphone Inj 0.5 Mg/0.5 Ml Syr) 0.25 mg IV NOW STA Stop: 03/05/24 00:25 Last Admin: 03/05/24 00:32 Dose: 0.25 mg Documented By: DANIELLA Piperacillin Sod/Tazobactam Sod (Zosyn) 4.5 gm in 100 mls @ 200 mls/hr IV NOW ONE Stop: 03/05/24 00:11 Last Admin: 03/05/24 00:01 Dose: 200 mls/hr Documented By: DANIELLA Discharge Plan Visit Data Chief Complaint: Shortness of Breath/Dyspnea Stated Complaint: SOB ED Provider: Kenya Elmore Discharge Problem: Shortness of breath, Acute pain of left shoulder, Sepsis, Leukocytosis, Elevated procalcitonin, Elevated lactic acid level, Pneumonia, Acute hypokalemia, Rhinovirus infection Forms Stand Alone Forms: My [facility] Prescriptions Prescriptions: No Action alendronate [Fosamax] 70 mg tablet 70 mg PO WK Qty: 12 3RF Rx Instructions: Monday buspirone 15 mg tablet 15 mg PO BID Qty: 60 5RF losartan 50 mg tablet 50 mg PO QAM Qty: 30 0RF valacyclovir 1 gram tablet 2,000 mg PO Q12H PRN (Reason: cold sores) 1 Days Qty: 4 2RF Rx Instructions: Take 2 tablets every 12 hours x 2 doses for each cold sore flare. Take at first sign of cold sore. ondansetron 8 mg tablet,disintegrating 8 mg PO Q8H PRN (Reason: nausea and vomiting) Qty: 20 0RF hydroxychloroquine [Plaquenil] 200 mg tablet 200 mg PO DAILY omeprazole 20 mg capsule,delayed release(DR/EC) 20 mg PO DAILYBB methotrexate sodium 2.5 mg tablet 20 mg PO WK Rx Instructions: TAKES 8 TABLETS ON SUNDAYS tramadol 50 mg tablet 50 mg PO DAILY rosuvastatin 20 mg tablet 20 mg PO QAM Qty: 90 3RF prednisone 5 mg tablet 5 mg PO QAM folic acid 1 mg tablet 1 mg PO QAM gabapentin 300 mg capsule 300 mg PO TID duloxetine 30 mg capsule,delayed release(DR/EC) 30 mg PO QAM cefdinir 300 mg capsule 300 mg PO BID 10 Days Qty: 20 0RF Rx Instructions: STARTED 03/04/24 FOR 10 DAYS azithromycin 500 mg tablet 500 mg PO DAILY 3 Days Qty: 3 0RF Rx Instructions: STARTED 03/04/24 FOR 3 DAYS ibuprofen 200 mg Tablet 400 mg PO Q6H PRN (Reason: Pain) Referrals Referrals: Justa Rose CRNP [Primary Care Provider] -
[2024-03-04] MEDS: fentaNYL citrate PF 100 MCG/2 ML VIAL IV STA (23:50)
[2024-03-05] MEDS: SODIUM CHLORIDE 0.9% 2,000 ML IV ONE (00:01)
[2024-03-05] MEDS: PIPERACILLIN/TAZOBACTAM 4.5 GM/100 ML BAG IV ONE (00:01)
[2024-03-05 00:15] LABS: Base Excess VBG -0.5 mEq/L; HCO3 VBG 23 mmol/L; Oxygen Saturation VBG 93.9 %; PCO2 VBG 34 mmHg (38-50); PO2 VBG 63 mmHg; pH VBG 7.44 (7.36-7.41)
[2024-03-05 00:19] LABS: Adenovirus PCR Not Detected (NotDetected); Bordetella parapertussis PCR Not Detected (NotDetected); Bordetella pertussis PCR Not Detected (NotDetected); Chlamydia pneumoniae PCR Not Detected (NotDetected); Coronavirus 229E PCR Not Detected (NotDetected); Coronavirus CoV-2 (COVID19)PCR Not Detected (NotDetected); Coronavirus HKU1 PCR Not Detected (NotDetected); Coronavirus NL63 PCR Not Detected (NotDetected); Coronavirus OC43PCR Not Detected (NotDetected); Human Metapneumovirus PCR Not Detected (NotDetected); Influenza A PCR Not Detected (NotDetected); Influenza B PCR Not Detected (NotDetected); Mycoplasma pneumoniae PCR Not Detected (NotDetected); Parainfluenza Virus 1 PCR Not Detected (NotDetected); Parainfluenza Virus 2 PCR Not Detected (NotDetected); Parainfluenza Virus 3 PCR Not Detected (NotDetected); Parainfluenza Virus 4 PCR Not Detected (NotDetected); Respiratory Syncytial VirusPCR Not Detected (NotDetected); Rhinovirus/Enterovirus PCR DETECTED (NotDetected)
[2024-03-05] MEDS: HYDROmorphone INJ 0.5 MG/0.5 ML SYR IV STA ×3 (00:32→12:38)
--- NOTE | 2024-03-05 01:01 | History & Physical Report ---
Date of Service March 05, 2024 Assessment & Plan (1) Pneumonia: Plan: -Patient initially started symptoms on 03/03 and was seen in the ED. Started on cefdinir and azithromycin. Sent home. Came back to the ED with similar symptoms. -CBC with increased leukocytosis compared to yesterday. -VBG showing 7.44 with 34 pCO2. -CMP showed a slight decrease in potassium at 3.2. Repleted in the ED. -Lactate of 2.7 in the ED, improved with fluids. Pro-Rah 1.51 -BNP of 27. -UA grossly positive for UTI, no urinary symptoms at this time. -Chest x-ray showed a mild submental basilar opacities favoring atelectasis yesterday. Mild pneumonitis may be present. -Chest x-ray today showed no significant change. -Chest CTA showed no central pulmonary emboli, did show patchy left basilar consolidation suggestive of pneumonia. Pulmonary nodules also seen as previously seen on CT. -Zosyn received in the ED. -Blood and urine cultures pending. -Respiratory BioFire positive for rhinovirus. -Patient is a current smoker with a [id number] history. Has seen pulmonology in the past for interstitial lung disease. -Will start on ceftriaxone and azithromycin for possibility of bacterial pneumonia superimposed on viral pneumonia. MRSA swab pending -Inspiratory spirometry, flutter valve, DuoNebs as needed, -Will start on LR maintenance fluids given sepsis picture. (2) Rhinovirus infection: Plan: -As above. (3) Acute hypokalemia: Plan: -Potassium of 3.2 in the ED, repleted in the ED. -Continue monitoring with daily labs. (4) Sepsis: Plan: -Patient with elevated lactate and Pro-Rah as well as tachycardia, increasing respiratory rate, and leukocytosis. -Blood cultures and urine cultures pending. -Most likely secondary to respiratory illness. -Lactate improved with fluids. Continue maintenance fluids at this time. (5) Atypical chest pain: Plan: -Patient with left-sided chest wall tenderness most likely secondary to chronic cough and acute respiratory illness. -Received Dilaudid in the ED with some improvement. -Patient does take tramadol for RA. Will continue tramadol. -Hold off on pain meds at this time as patient's symptoms most likely improved with above treatments for pneumonia. (6) Current smoker: Plan: -Encouraged smoking cessation. (7) Rheumatoid arthritis: Plan: -Continue prednisone 5 mg daily. -Will continue tramadol. -Most likely contributing to increased atypical chest pain. Plan Fluids: LR at 125 mL an hour, status post 2 L NSS in ED. Nutrition: Regular Code status: DNR/DNI DVT ppx: lovenox Dispo: med/surg History of Present Illness Chief Complaint: Pneumonia, sepsis Primary Care Provider: EM Church Patient is a 53-year-old female with past medical history of interstitial lung disease, pulmonary nodules, hyperlipidemia, hypertension, and rheumatoid arthritis who presents to the hospital with left-sided chest pain, and shortness of breath. Patient's symptoms started on 03/03 and she initially came into the ED and was discharged home on cefdinir and azithromycin. She states that she did receive 1 day of treatment. She then presented this afternoon with similar symptoms. States that the chest pain is under her left breast that extends to her back. She has been trying to use her Tylenol, ibuprofen, and tramadol at home which is only helped a little bit. She had also tried a lidocaine patch without any improvement. States that she is having a productive yellowwhite cough. Denies any fevers. Denies any nausea, vomiting, abdominal pain, or any injury to the left shoulder or left chest. Allergies Allergy/AdvReac Type Severity Reaction Status Date / Time latex Allergy Intermediate Rash Verified 03/05/24 00:32 homatropine AdvReac Severe NAUSEA Verified 03/05/24 00:32 morphine AdvReac Intermediate nausea Verified 03/05/24 00:32 vomiting Home Medications Medication Instructions Recorded Confirmed Type folic acid 1 mg tablet 1 mg PO QAM 11/20/19 03/05/24 History prednisone 5 mg tablet 5 mg PO QAM 11/20/19 03/05/24 History omeprazole 20 mg capsule,delayed 20 mg PO DAILYBB 10/05/20 03/05/24 History release duloxetine 30 mg capsule,delayed 30 mg PO QAM 10/17/21 03/05/24 History release gabapentin 300 mg capsule 300 mg PO TID 10/17/21 03/05/24 History methotrexate sodium 2.5 mg tablet 20 mg PO WK 11/09/21 03/05/24 History tramadol 50 mg tablet 50 mg PO DAILY 04/27/23 03/05/24 History hydroxychloroquine 200 mg tablet 200 mg PO DAILY 08/31/23 03/05/24 History (Plaquenil) alendronate 70 mg tablet (Fosamax) 70 mg PO WK #12 tabs 10/23/23 03/05/24 Rx buspirone 15 mg tablet 15 mg PO BID #60 tabs 02/13/24 03/05/24 Rx losartan 50 mg tablet 50 mg PO QAM #30 tabs 02/13/24 03/05/24 Rx rosuvastatin 20 mg tablet 20 mg PO QAM #90 tabs 02/15/24 03/05/24 Rx ondansetron 8 mg disintegrating 8 mg PO Q8H PRN nausea and 02/28/24 03/05/24 Rx tablet vomiting #20 tabs valacyclovir 1 gram tablet 2,000 mg (2 x 1 gram) PO Q12H PRN 02/28/24 03/05/24 Rx cold sores 1 day #4 tabs azithromycin 500 mg tablet 500 mg PO DAILY 3 days #3 tabs 03/03/24 03/05/24 Rx cefdinir 300 mg capsule 300 mg PO BID 10 days #20 caps 03/03/24 03/05/24 Rx ibuprofen 200 mg tablet 400 mg PO Q6H PRN Pain 03/05/24 03/05/24 History Past Med/Surg History Problem List (Updated 03/05/24 @ 00:54 by Kenya Elmore MD) Rhinovirus infection (Acute) Acute hypokalemia (Acute) Pneumonia (Acute) Elevated lactic acid level (Acute) Elevated procalcitonin (Acute) Leukocytosis (Acute) Sepsis (Acute) Acute pain of left shoulder (Acute) Shortness of breath (Acute) Atypical chest pain (Acute) Irregular bowel habits Chronic respiratory failure with hypoxia Bloody stool (Acute) Right sided abdominal pain (Acute) Hypokalemia (Acute) Infectious gastroenteritis and colitis Decreased pedal pulses Rectal bleeding History of incisional hernia repair (06/30/22) Open Incisional Hernia Repair - Nikita Zamorano DO GERD (gastroesophageal reflux disease) Osteoporosis Chronic bronchitis Current smoker ILD (interstitial lung disease) Pulmonary nodules Impaired fasting glucose Lymphocytosis Anxiety Hyperlipidemia Hypertension Hx laparoscopic cholecystectomy (10/21/21) Laparoscopic Cholecystectomy - Nikita Zamorano DO 10/21/2021 Hypokalemia Rheumatoid arthritis Medical History 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 History of COVID-19 Shingles outbreak Nausea and vomiting after administration of anesthetic agent ILD (interstitial lung disease) Fibromyalgia Diverticular disease GERD (gastroesophageal reflux disease) Depression Anxiety Osteoporosis Hyperlipidemia Hypertension Biliary dyskinesia Rheumatoid arthritis Surgical History History of incisional hernia repair (06/30/22) History of surgery on wrist Hx of removal of cyst History of carpal tunnel release History of esophagogastroduodenoscopy (EGD) History of colonoscopy History of hysterectomy Hx laparoscopic cholecystectomy (10/21/21) Family History Aunt Diabetes Uncle Diabetes Social History (Updated 02/15/24 @ 10:25 by AARON Kenny) Smoking Status: Former smoker Tobacco Type: Cigarettes Cigarettes Per Day: over 1/2 ppd; Second Hand Exposure: No; Do You Dip or Chew Tobacco: No; Hx Alcohol Use: Yes Hx Substance Use: No Preferred Language: [place] Communication Ability: Effective Visual Impairment: Partially Limited Nitrator Operator Required: No Beliefs That Will Affect Care: None marital status: Current Living Situation: Spouse current occupational status: disabled How many Children do You have: 2 Feels Safe at Home: Yes Diet: regular Assistive Devices: Cane Review of Systems Review of Systems: All systems reviewed & are unremarkable except as noted in Subjective Physical Exam Physical Exam: Constitutional: well-appearing, mild distress HEENT: NCAT, no conjunctival injection CV: regular rhythm, no murmur appreciated, extremities well-perfused, no LE edema Resp: CTABL, no wheezes/rales/rhonchi appreciated, no increased work of breathing GI: soft, nondistended, nontender, BS normoactive MSK: Left-sided chest wall tenderness with light palpitation, left shoulder pain with palpitation Skin: warm, dry, no rash appreciated Results & Data Results & Data Vital Signs (Past 12 Hours) Vital Signs Temp Pulse Resp BP Pulse Ox O2 Del Method 03/05/24 00:42 85 20 94 03/05/24 00:30 83 24 102/65 97 Room Air 03/05/24 00:30 99 Room Air 03/05/24 00:21 87 19 96 03/05/24 00:18 85 18 99 03/05/24 00:06 90 32 H 114/73 97 03/04/24 23:51 95 H 29 H 98 03/04/24 23:26 99 Room Air 03/04/24 23:26 99 Room Air 03/04/24 23:21 92 H 33 H 99 03/04/24 23:21 98 Room Air 03/04/24 23:18 93 H 41 H 99 03/04/24 23:03 103 H 28 H 117/81 98 Room Air 03/04/24 22:56 107 H 03/04/24 22:50 Room Air 03/04/24 22:38 36.7 C 106 H 20 123/77 99 Room Air Supervising Physician Co-Signing Physician Notes Patient seen and examined, chart reviewed, case discussed with Kendall Amin and I agree with the assessment and plan as above
[2024-03-05 01:23] LABS: Appearance Urine Cloudy (Clear); Bacteria Urine Automated 1+ (None Seen); Bilirubin Urine 1+ (Negative); Blood Urine Negative (Negative); Color Urine Dark Yellow; Glucose Urine UA Negative (Negative); Ketones Urine 1+ (Negative); Leukocyte Esterase Urine 1+ (Negative); Mucus Urine Present (None Prsent); Nitrite Urine Negative (Negative); Protein Urine 2+ (Negative); RBC Urine Automated 0-2 /hpf (0-2); Specific Gravity Urine > 1.045 (1.000-1.030); Urobilinogen Urine Negative (Negative); WBC Urine Automated 0-5 /hpf (0-5)
[2024-03-05] MEDS: POTASSIUM CHLORIDE / WTR 10 MEQ/100 ML PLCT IV SCH (01:27)
[2024-03-05] MEDS ORDERED: POLYETHYLENE (MIRALAX) 17 GM PACK PO PRN (02:44)
[2024-03-05] MEDS ORDERED: ALBUT/IPRATROP 3MG/0.5MG NEB 3 ML VIAL NEB PRN (02:44)
[2024-03-05] MEDS: LACTATED RINGER'S 1,000 ML IV SCH (03:32)
[2024-03-05] MEDS: AZITHROMYCIN 500 MG in DEXTROSE 5% 250 ML IV SCH (03:33)
[2024-03-05] MEDS: LIDOCAINE 5% 1 PATCH TD STA (03:39)
[2024-03-05] MEDS: ONDANSETRON INJ 2 MG/ML 2 ML VIAL IV PRN (03:48)
[2024-03-05] MEDS: cefTRIAXone SODIUM 2,000 MG in DEXTROSE 5% 50 ML IV SCH (05:46)
[2024-03-05 06:37] LABS: Albumin Globulin Ratio 1.2 (0.9-2); Bilirubin,Total 0.9 mg/dl (0.2-1.0); Calcium 7.8 mg/dl (8.6-10.3); Creatinine Clr Calc Pharmacy 81.1 ml/min; Est GFR (African American) 94.8 ml/min; Est GFR (Non-African American) 81.8 ml/min; Globulin 2.5 gm/dl (2.5-4.0); Magnesium 1.9 mg/dl (1.7-2.4); Potassium 3.5 mmol/L (3.5-5.1); Total Protein 5.5 gm/dl (6.0-8.3)
--- NOTE | 2024-03-05 06:53 | XRay Report ---
XR chest 1V not portable HISTORY: 53 years-old Female Chest pain, nonspecific COMPARISON: 03/03/2024 TECHNIQUE: AP view of the chest FINDINGS: Linear bibasilar areas of subsegmental consolidation. No pneumothorax or pleural effusion. Chronic in terstitial coarsening. Bones appear grossly intact. IMPRESSION: Mild bibasilar atelectasis without acute process. ACT 112: Negative or not required by law. The above report was generated using voice recognition software. It may contain grammatical, syntax o r spelling errors. Electronically signed by: Rufino Pedro M.D. 03/05/2024 6:52 AM
[2024-03-05 07:15] LABS: Basophils # (auto) 0.03 K/uL (0.00-0.20); Basophils % (auto) 0.3 %; Eosinophils # (auto) 0.07 K/uL (0.00-0.50); Eosinophils % (auto) 0.6 %; Hematocrit (blood only) 30.4 % (37.0-47.0); Hemoglobin 10.3 g/dl (12.0-16.0); Immature Granulocytes # (auto) 0.05 K/uL (0.01-0.20); Immature Granulocytes % (auto) 0.4 %; Lymphocytes # (auto) 1.85 K/uL (1.20-3.40); Lymphocytes % (auto) 16.4 %; Mean Corpuscular Hemoglobin 32.7 pg (25.0-34.0); Mean Corpuscular Hgb Conc 33.9 g/dL (32.0-36.0); Mean Corpuscular Volume 96.5 fL (80.0-100.0); Mean Platelet Volume 10.9 fL (9.4-12.4); Monocytes % (auto) 2.7 %; Neutrophils # (auto) 8.99 K/uL (1.40-6.50); Neutrophils % (auto) 79.6 %; Platelet Count 142 K/uL (130-400); RDW Standard Deviation 55.5 fL (36.4-46.3); Red Blood Count 3.15 M/uL (4.20-5.40); White Blood Count 11.29 K/ul (4.8-10.8)
[2024-03-05] MEDS: traMADol HCL 50 MG TABLET PO SCH (08:03)
[2024-03-05] MEDS: FOLIC ACID 1 MG TAB PO SCH (08:04)
[2024-03-05] MEDS: ROSUVASTATIN CALCIUM 20 MG TAB PO SCH (08:04)
[2024-03-05] MEDS: predniSONE 5 MG TAB PO SCH (08:04)
[2024-03-05] MEDS: DULoxetine HCL 30 MG CAP PO SCH (08:05)
[2024-03-05] MEDS: busPIRone 15 MG TAB PO SCH (08:05)
[2024-03-05] MEDS: GABAPENTIN 300 MG CAP PO SCH (08:05)
[2024-03-05] MEDS: guaiFENesin 600 MG TABCR PO PRN (08:06)
[2024-03-05] MEDS: ENOXAPARIN INJ 40 MG/0.4 ML SYR SQ SCH (08:06)
[2024-03-05] MEDS: LOSARTAN POTASSIUM 50 MG TAB PO SCH (08:56)
--- NOTE | 2024-03-05 12:44 | Electrocardiogram Report ---
Test Reason : Blood Pressure : / mmHG Vent. Rate : 105 BPM Atrial Rate : 105 BPM P-R Int : 156 ms QRS Dur : 094 ms QT Int : 350 ms P-R-T Axes : 080 070 065 degrees QTc Int : 462 ms Sinus tachycardia Nonspecific ST and T wave abnormality Abnormal ECG When compared with ECG of 03-MAR-2024 15:21, Questionable change in QRS axis Confirmed by Rogers Lazar ([id number]) on 03/05/2024 12:44:32 PM Referred By: REFERRED SELF Confirmed By:Rogers Lazar
--- NOTE | 2024-03-05 14:49 | Hospitalist Progress Note ---
Date of Service March 05, 2024 Assessment & Plan (1) Pneumonia: Plan: Patient initially started symptoms on 03/03 and was seen in the ED. Started on cefdinir and azithromycin. Sent home. Came back to the ED with similar symptoms. -Lactate of 2.7 in the ED, improved with fluids. Pro-Rah 1.51 -Chest CTA showed no central pulmonary emboli, did show patchy left basilar consolidation suggestive of pneumonia. Pulmonary nodules also seen as previously seen on CT. -Zosyn received in the ED. started on azithromycin and ceftriaxone 03/05 - MRSA negative -Blood and urine cultures pending. -Respiratory BioFire positive for rhinovirus. -Patient is a current smoker with a [id number] history. -Inspiratory spirometry, flutter valve, DuoNebs as needed (2) Atypical chest pain: Plan: -Patient with left-sided chest wall tenderness most likely secondary to chronic cough and acute respiratory illness. -Patient does take tramadol for RA up to BID - Worsening pain today, one time dose of dilaudid given. Hold tramadol, prn oxycodone - Lidocaine patches/heat/ice (3) Rhinovirus infection: Plan: - isolation precaution supportive care: Mucinex, as needed nebs, incentive spirometer and flutter valve (4) Sepsis: Plan: Patient with elevated lactate (resloved) and Pro-Rah as well as tachycardia, increasing respiratory rate, and leukocytosis. -Most likely secondary to respiratory illness. tolerating p.o. intake, fluids discontinued. (5) Current smoker: Plan: -Encouraged smoking cessation. (6) Rheumatoid arthritis: Plan: - Home dose prednisone 5 mg daily - will hold with increasing amount of chest pain, and provide stress dose steroids with IV dexamethasone -Most likely contributing to increased atypical chest pain. methotrexate and hydroxychloroquine on hold in setting of acute infection Plan Chronic stable medical conditions: * Hyperlipidemiacontinue rosuvastatin * anxiety/depressioncontinue Cymbalta and BuSpar * hypertensioncontinue losartan * Osteoporosiscontinue Fosamax DVT ppx: lovenox Dispo: continued inpatient stay for pain control Admission and Anticipated Discharge Date Admission Date: March 05, 2024 Supervising Physician Co-Signing Physician Notes Attending Attestation - Chart reviewed, care plan d/w ELVA Cagle. I agree w/ the galloway components of her documentation. Jaxon August MD Subjective Patient seen just prior to lunch, having sharp pain under her left breast. States this is very similar to the pain that brought her to the ER. Worsening with movement and coughing, makes it difficult to take a deep breath. Denies falls at home. Is coughing up a little mucus appetite is okay. Review of Systems Review of Systems: All systems reviewed & are unremarkable except as noted in Subjective Physical Exam Physical Exam: General: Mild distress from pain, diaphoretic and clearly uncomfortable, VS as above Resp: normal respiratory effort, lungs clear to auscultation restless in bed, O2 99% on room air despite difficulty taking a deep breath. Pain worsening with palpation under left breast CV: RRR, no murmur, Abd: Soft, non tender, no hepatosplenomegaly Extremities: Moves all extremities, no edema Neuro: A&O x3, Skin: intact, no lesions noted Results & Data Results & Data Vital Signs (Past 12 Hours) Vital Signs Temp Pulse Resp BP BP Pulse Ox O2 Del Method 03/05/24 08:55 109/69 03/05/24 07:39 Room Air 03/05/24 07:30 36.7 C 74 16 100/64 97 Room Air 03/05/24 02:46 36.5 C 89 18 145/87 H 99 Room Air Laboratory Results CBC, chemistry, blood and urine cultures reviewed PG Care Time/CCT Total # of Minutes Spent Total Time Spent with Patient: Total time spent is greater than 50% in coordination of care (as documented) at patient's floor/unit and/or counseling patient: Coding Level of Care Code None Diagnoses Pneumonia J18.9 Atypical chest pain R07.89 Rhinovirus infection B34.8 Sepsis A41.9 Current smoker F17.200 Rheumatoid arthritis M06.9
[2024-03-05] MEDS: dexAMETHasone 4 MG in SYRINGE 0 ML IV SCH (16:13)
[2024-03-05] MEDS: oxyCODONE HCL IR 5 MG TAB (IMMEDIATE RELEASE) PO PRN (18:05)
[2024-03-05] MEDS: MELATONIN 3 MG TAB PO PRN (22:18)
--- NOTE | 2024-03-06 03:52 | Billing Data ---
Date of Service March 05, 2024 Coding Level of Care Code 93449 INT INP/OBS CARE
[2024-03-06 06:01] LABS: Hematocrit (blood only) 29.1 % (37.0-47.0); Hemoglobin 9.7 g/dl (12.0-16.0); Immature Granulocytes # (auto) 0.03 K/uL (0.01-0.20); Immature Granulocytes % (auto) 0.6 %; Lymphocytes # (auto) 0.59 K/uL (1.20-3.40); Lymphocytes % (auto) 11.6 %; Mean Corpuscular Hemoglobin 31.9 pg (25.0-34.0); Mean Corpuscular Hgb Conc 33.3 g/dL (32.0-36.0); Mean Corpuscular Volume 95.7 fL (80.0-100.0); Mean Platelet Volume 10.7 fL (9.4-12.4); Monocytes # (auto) 0.04 K/uL (0.11-0.59); Monocytes % (auto) 0.8 %; Neutrophils # (auto) 4.42 K/uL (1.40-6.50); Platelet Count 168 K/uL (130-400); RDW Coefficient of Variation 16.1 % (11.5-14.5); RDW Standard Deviation 56.2 fL (36.4-46.3); Red Blood Count 3.04 M/uL (4.20-5.40); White Blood Count 5.08 K/ul (4.8-10.8)
[2024-03-06 06:30] LABS: Albumin Globulin Ratio 1.1 (0.9-2); BUN Creatinine Ratio 22.2 (10-20); Bilirubin,Total 0.4 mg/dl (0.2-1.0); Calcium 8.5 mg/dl (8.6-10.3); Creatinine Clr Calc Pharmacy 81.1 ml/min; Est GFR (African American) 94.8 ml/min; Est GFR (Non-African American) 81.8 ml/min; Globulin 2.7 gm/dl (2.5-4.0); Magnesium 1.7 mg/dl (1.7-2.4); Potassium 3.7 mmol/L (3.5-5.1); Total Protein 5.7 gm/dl (6.0-8.3)
--- NOTE | 2024-03-06 12:15 | Discharge Summary ---
Discharge Summary Date of Service March 07, 2024 Principal Dx & Hospital Course #1 = Principal Diagnosis (1) Pneumonia: Patient initially started symptoms on 03/03 and was seen in the ED. Started on cefdinir and azithromycin. Sent home. Came back to the ED with similar symptoms. -Lactate of 2.7 in the ED, improved with fluids. Pro-Rah 1.51 -Chest CTA showed no central pulmonary emboli, did show patchy left basilar consolidation suggestive of pneumonia. Pulmonary nodules also seen as previously seen on CT. -Zosyn received in the ED. started on azithromycin and ceftriaxone 03/05 - discharged with continued course of azithromycin and cefpodoxime - MRSA negative -Blood Cultures negative at 48 hours -Urine culture with no growth. -Respiratory BioFire positive for rhinovirus. -Patient is a current smoker with a [id number] history. -Inspiratory spirometry, flutter valve - recommend continue with discharge (2) Atypical chest pain: -Patient with left-sided chest wall tenderness most likely secondary to chronic cough and acute respiratory illness. -Patient does take tramadol for RA up to BID pain control improving continue with multimodal pain control including: - Lidocaine patches/heat/ice - Baclofen 10mg BID PRN for muscle spasms - Patient given 10 tablets of oxycodone for home, discussed that she cannot take this at the same time of her tramadol (3) Rhinovirus infection: - isolation precaution supportive care: Mucinex, as needed nebs, incentive spirometer and flutter valve (4) Sepsis: Patient with elevated lactate (resloved) and Pro-Rah as well as tachycardia, increasing respiratory rate, and leukocytosis. -Most likely secondary to respiratory illness. tolerating p.o. intake, fluids discontinued. improved (5) Current smoker: -Encouraged smoking cessation. (6) Rheumatoid arthritis: - Home dose prednisone 5 mg daily - will hold with increasing amount of chest pain, and provide stress dose steroids with IV dexamethasone - discharged with prednisone taper to begin 03/08, down to her home dose of 5 mg - patient expressed interest in weaning off the prednisone completely, I encouraged her to discuss this with her fur sewer -Most likely contributing to increased atypical chest pain. methotrexate and hydroxychloroquine on hold in setting of acute infection Plan Chronic stable medical conditions: * Hyperlipidemiacontinue rosuvastatin * anxiety/depressioncontinue Cymbalta and BuSpar * Hypertensioncontinue losartan * Osteoporosiscontinue Fosamax dispo: Discharged to home today Notes For Next Care Provider admitted for atypical chest pain in the setting of rhinovirus and Bacterial pneumonia. pain improved with stress dose steroids and oxycodone. Continue antibiotics and multimodal pain control. Stable on room air during entire visit. Had another flare of pain prior to planned discharge on 03/06, baclofen added after that. patient expressed wanting to wean off prednisone completely, I encouraged her to speak to her fur sewer regarding this. Blood cultures negative at 48 hours at discharge Fatty liver seen on Chest CTA Medication Changes From Visit Azithromycin, cefpodoxime Oxycodone x 10 tablets prednisone taper Baclofen Admission HPI Per Admitting Provider Patient is a 53-year-old female with past medical history of interstitial lung disease, pulmonary nodules, hyperlipidemia, hypertension, and rheumatoid arthritis who presents to the hospital with left-sided chest pain, and shortness of breath. Patient's symptoms started on 03/03 and she initially came into the ED and was discharged home on cefdinir and azithromycin. She states that she did receive 1 day of treatment. She then presented this afternoon with similar symptoms. States that the chest pain is under her left breast that extends to her back. She has been trying to use her Tylenol, ibuprofen, and tramadol at home which is only helped a little bit. She had also tried a lidocaine patch without any improvement. States that she is having a productive yellowwhite cough. Denies any fevers. Denies any nausea, vomiting, abdominal pain, or any injury to the left shoulder or left chest. Discharge Exam General: appears much more comfortable today, no distress. Sitting up in bed, VS as above Resp: normal respiratory effort, lungs clear to auscultation Back: does have reproducible tenderness. CV: RRR, no murmur, Abd: Soft, non tender, no hepatosplenomegaly Extremities: Moves all extremities, no edema Neuro: A&O x3, Skin: intact, no lesions noted Updated Medication List Medication Instructions Recorded Confirmed Type folic acid 1 mg tablet 1 mg PO QAM 11/20/19 03/05/24 History prednisone 5 mg tablet 5 mg PO QAM 11/20/19 03/05/24 History omeprazole 20 mg capsule,delayed 20 mg PO DAILYBB 10/05/20 03/05/24 History release duloxetine 30 mg capsule,delayed 30 mg PO QAM 10/17/21 03/05/24 History release gabapentin 300 mg capsule 300 mg PO TID 10/17/21 03/05/24 History methotrexate sodium 2.5 mg tablet 20 mg PO WK 11/09/21 03/05/24 History tramadol 50 mg tablet 50 mg PO DAILY 04/27/23 03/05/24 History hydroxychloroquine 200 mg tablet 200 mg PO DAILY 08/31/23 03/05/24 History (Plaquenil) alendronate 70 mg tablet (Fosamax) 70 mg PO WK #12 tabs 10/23/23 03/05/24 Rx buspirone 15 mg tablet 15 mg PO BID #60 tabs 02/13/24 03/05/24 Rx losartan 50 mg tablet 50 mg PO QAM #30 tabs 02/13/24 03/05/24 Rx rosuvastatin 20 mg tablet 20 mg PO QAM #90 tabs 02/15/24 03/05/24 Rx ondansetron 8 mg disintegrating 8 mg PO Q8H PRN nausea and 02/28/24 03/05/24 Rx tablet vomiting #20 tabs valacyclovir 1 gram tablet 2,000 mg (2 x 1 gram) PO Q12H PRN 02/28/24 03/05/24 Rx cold sores 1 day #4 tabs ibuprofen 200 mg tablet 400 mg PO Q6H PRN Pain 03/05/24 03/05/24 History azithromycin 500 mg tablet 500 mg PO DAILY 3 days #3 tabs 03/06/24 Rx cefpodoxime 200 mg tablet 200 mg PO BID #10 tabs 03/06/24 Rx guaifenesin 600 mg tablet, 1,200 mg (2 x 600 mg) PO BID PRN 03/06/24 Rx extended release 12 hr (Mucinex) cough #30 tabs oxycodone 5 mg tablet 5 mg PO Q6H PRN pain #10 tabs 03/06/24 Rx prednisone 10 mg tablet See Taper PO DAILY #10 tabs 03/06/24 Rx baclofen 10 mg tablet 10 mg PO BID PRN muscle spasm #20 03/07/24 Rx tabs Hospital Stay Data Consultations 03/05/24 00:42 ED Decision to Admit Stat Diagnostic Imagining Performed Chest X-Ray 03/04/24 22:50 XR chest 1V not portable HISTORY: 53 years-old Female Chest pain, nonspecific COMPARISON: 03/03/2024 TECHNIQUE: AP view of the chest FINDINGS: Linear bibasilar areas of subsegmental consolidation. No pneumothorax or pleural effusion. Chronic interstitial coarsening. Bones appear grossly intact. IMPRESSION: Mild bibasilar atelectasis without acute process. ACT 112: Negative or not required by law. The above report was generated using voice recognition software. It may contain grammatical, syntax or spelling errors. Electronically signed by: Rufino Pedro M.D. 03/05/2024 6:52 AM Pending Results Patient Have Any Pending Studies at Discharge: Yes (blood cultures ) Discharge Instructions Given to Patient (Per Discharging Provider) Ms. Richmond, You were hospitalized after having chest pain and were found to have pneumonia with concomitant viral infection, rhinovirus. You were treated with IV antibiotics, IV steriods and pain medication and have made improvement. We will plan for oral antibiotics and a steroid taper at discharge. Will continue with multimodal pain control with lidocaine patches, heat and ice, baclofen and your tramadol as needed. I will send in a few oxycodone that you can use for break through pain. Do NOT take this at the same time as tramadol, it should be taken in place of. As we discussed, smoking cessation will help you overall health. Continue using the incentive spirometer, flutter valve, and you can take Mucinex as well for symptom control. Your blood cultures are pending, they are negative at 48 hours at the time of discharge but will take 5 days to get final results. If these become positive, you will be notified, but I do not suspect this will happen. Your urine culture did not grow bacteria but the antibiotics you are on for your pneumonia would cover if you also had a UTI. Recommendations: * Azithromycin 500 mg every morning starting 03/08 * Cefpodoxime 200 mg twice a day starting a.m. 03/08 * Continue supportive care with Mucinex, incentive spirometer, and flutter valve * Prednisone taper as directed, when finished continue at 5mg daily. You should talk to your fur sewer * baclofen as needed for muscle spasms * Do not take the hydroxychloroquine on the methotrexate while you are on antibiotics. * Please dispose of the prior antibiotics that you are prescribed and do not take these. Activity: You can do normal everyday activities as your body allows. Take rest breaks if you feel tired. Do not overexert. Stop activity if you have pain, shortness of breath or feel dizzy. Follow-up appointments: Make an appointment with your primary care physician within one week of discharge. A copy of this summary will be sent to them. Every time you see your primary care physician, or any other doctor, bring your medication list, and a list of questions. CONTACT YOUR PRIMARY CARE PROVIDER if you experience any of the following: Shortness of breath or difficulty breathing Fevers or chills Feeling tired with normal activity or experiencing dizziness or fainting Difficulty following your treatment plan, or difficulty taking medications CALL 911 OR GO TO THE EMERGENCY DEPARTMENT if you experience any of the following: Severe abdominal pain or nausea/vomiting Severe chest pain, or chest pain that radiates (moves) to your jaw or arm Sudden, severe shortness of breath or difficulty breathing Thank you for allowing us to participate in your care. Total Time Total Time Spent Total Time Spent (In Minutes): Time spend day of discharge 35 minutes including direct patient care, medication reconciliation, documentation, review of labs and images, and coordination of care. Coding Level of Care Code 91418 INP/OBS DISCH >30 MIN Diagnoses Pneumonia J18.9 Atypical chest pain R07.89 Rhinovirus infection B34.8 Sepsis A41.9 Current smoker F17.200 Rheumatoid arthritis M06.9
[2024-03-06] MEDS: ACETAMINOPHEN 325 MG TAB PO PRN (12:20)
[2024-03-06] MEDS: HYDROmorphone INJ 0.5 MG/0.5 ML SYR IV STA (12:59)
--- NOTE | 2024-03-06 16:02 | Hospitalist Progress Note ---
Date of Service March 06, 2024 Assessment & Plan (1) Pneumonia: Plan: Patient initially started symptoms on 03/03 and was seen in the ED. Started on cefdinir and azithromycin. Sent home. Came back to the ED with similar symptoms. -Lactate of 2.7 in the ED, improved with fluids. Pro-Rah 1.51 -Chest CTA showed no central pulmonary emboli, did show patchy left basilar consolidation suggestive of pneumonia. Pulmonary nodules also seen as previously seen on CT. -Zosyn received in the ED. started on azithromycin and ceftriaxone 03/05 - MRSA negative -Blood Cultures negative at 24 hours -Urine culture with no growth. -Respiratory BioFire positive for rhinovirus. -Patient is a current smoker with a [id number] history. -Inspiratory spirometry, flutter valve - (2) Atypical chest pain: Plan: -Patient with left-sided chest wall tenderness most likely secondary to chronic cough and acute respiratory illness. -Patient does take tramadol for RA up to BID pain control improving continue with multimodal pain control including: - Lidocaine patches/heat/ice - as needed oxycodone - baclofen added 03/06 will check rib series to make sure no broken ribs causing pain (3) Rhinovirus infection: Plan: - isolation precaution supportive care: Mucinex, as needed nebs, incentive spirometer and flutter valve (4) Sepsis: Plan: Patient with elevated lactate (resloved) and Pro-Rah as well as tachycardia, increasing respiratory rate, and leukocytosis. -Most likely secondary to respiratory illness. tolerating p.o. intake, fluids discontinued. improved (5) Current smoker: Plan: -Encouraged smoking cessation. (6) Rheumatoid arthritis: Plan: - Home dose prednisone 5 mg daily - will hold with increasing amount of chest pain, and provide stress dose steroids with IV dexamethasone - patient expressed interest in weaning off the prednisone completely, I encouraged her to discuss this with her psychiatric security nurse -Most likely contributing to increased atypical chest pain. methotrexate and hydroxychloroquine on hold in setting of acute infection Plan Chronic stable medical conditions: * Hyperlipidemiacontinue rosuvastatin * anxiety/depressioncontinue Cymbalta and BuSpar * hypertensioncontinue losartan * Osteoporosiscontinue Fosamax dispo: continued inpatient stay for further pain control Admission and Anticipated Discharge Date Admission Date: March 05, 2024 Supervising Physician Co-Signing Physician Notes Attending Attestation and Progress Note - Pt seen/examined, chart reviewed, care plan d/w ELVA Cagle. I agree w/ the galloway components of her documentation. Patient was being readied for discharge home today. She had been stable in room air all night. I went to do my discharge assessment and upon entering her room the patient was crying profusely and rocking back/forth on the bed. She was grunting. She complained of intense pain under the left rib cage with extension of pain to the left shoulder, left posterior back and flank, etc. She had been up in the room getting herself ready when the pain started. Any movements bring on the pain and taking deep breaths or coughing also makes it worse. She had had similar pain yesterday which was relieved with IV dilaudid. She denies having pain like this at home routinely. Exam - gen - very uncomfortable, crying, rocking back/forth neck - no JVD heart - heart tones distant, but RRR, s1 s2, no murmur lungs - mild end-exp wheezes b/l with rales (fine) bases abd - soft ND BS+ musculo - diffuse tenderness along the left costal margin extending to the left flank and all of the left posterior back; considerable myofascial pain - light touch of any of these areas leads to wincing in pain; no bony deformities ext - trace edema psych - a/o x 3 A/P: 1. rhinovirus infection with resulting bronchitis 2. LLL pneumonia - likely superimposed bacterial community-acquired pneumonia 3. steroid-dependent RA 4. severe left costal margin musculoskeletal pain with radiation to left back; CTA chest 03/03 with no large PE, no effusion on left; fibrotic changes present; LLL infiltrates present cont dexamethasone cont abx for #4 -- check rib series on left, r/o rib fracture causing pain steroids/pain meds/muscle relaxer/heat if k-pad available if x-rays are negative consult one of our hospitalist partners who performs OMT no discharge today due to #4 of note - I do not believe this is ischemic chest pain; pain is highly reproducible on physical exam and is brought on by even minor movements/coughing/etc Jaxon Auugst MD Subjective Patient seen earlier this morning ambulating in the room. Pain was much better controlled, stable on room air. The plan was for discharge home today however this afternoon patient had another spell of intense pain. Would not stable for discharge Review of Systems Review of Systems: All systems reviewed & are unremarkable except as noted in Subjective Physical Exam Physical Exam: General: appears much more comfortable today, no distress. Sitting up in bed, VS as above Resp: normal respiratory effort, lungs clear to auscultation t CV: RRR, no murmur, Abd: Soft, non tender, no hepatosplenomegaly Extremities: Moves all extremities, no edema Neuro: A&O x3, Skin: intact, no lesions noted Results & Data Results & Data Vital Signs (Past 12 Hours) Vital Signs Temp Pulse Resp BP Pulse Ox O2 Del Method 03/06/24 15:26 36.8 C 84 16 122/72 96 Room Air 03/06/24 07:55 36.7 C 83 16 116/74 97 Room Air 03/06/24 07:41 Room Air Laboratory Results CBC and chemistry reviewed PG Care Time/CCT Total # of Minutes Spent Total Time Spent with Patient: Total time spent is greater than 50% in coordination of care (as documented) at patient's floor/unit and/or counseling patient: Coding Level of Care Code 90007 SUB INP/OBS CARE 3/50MIN Diagnoses Pneumonia J18.9 Atypical chest pain R07.89 Rhinovirus infection B34.8 Sepsis A41.9 Current smoker F17.200 Rheumatoid arthritis M06.9
[2024-03-06] MEDS: BACLOFEN 10 MG TAB PO PRN (18:02)
--- NOTE | 2024-03-06 21:22 | XRay Report ---
XR ribs LT min 2V CLINICAL HISTORY: worsen chest pain, ?broken rib TECHNIQUE: 3 views of the left ribs were obtained. Single frontal view of the chest was obtained. Comparison: Comparison is made to chest radiograph 03/04/2024 FINDINGS: No acute fractures are seen. The chest wall and soft tissues are normal. No lines and tubes are seen. The cardiomediastinal silhouette is normal. The lungs are clear apart fr om minimal atelectasis. No evidence of pleural effusion or pneumothorax. IMPRESSION: No evidence of acute fracture or other acute abnormalities in the visualized portions of the chest. ACT 112: Negative or not required by law. Electronically signed by: Brock Ca M.D. 03/06/2024 9:21 PM
[2024-03-07] MEDS ORDERED: BACLOFEN 10 MG TAB PO PRN (11:39)
[2024-03-07] MEDS: BACLOFEN 10 MG TAB PO ONE (12:25)
[2024-03-10] MEDS ORDERED: ALENDRONATE SODIUM 70 MG TAB PO SCH (07:00)
== END 2024-03-07 15:12 | disposition home or self-care (01) | DRG 871 ==
LOC: ED 22:36 → 3E 03-05 01:39 → SUATTDRO 03-05 01:39 → 3E 03-05 02:49
DX: I10 Essential (primary) hypertension; F41.9 Anxiety disorder, unspecified; M06.9 Rheumatoid arthritis, unspecified; Z86.16 Personal history of COVID-19; Z88.5 Allergy status to narcotic agent; F17.210 Nicotine dependence, cigarettes, uncomplicated; N39.0 Urinary tract infection, site not specified; E87.6 Hypokalemia; B34.8 Other viral infections of unspecified site; A41.89 Other specified sepsis; Z79.52 Long term (current) use of systemic steroids; Z88.8 Allergy status to other drugs, medicaments and biological substances; J12.9 Viral pneumonia, unspecified; Z91.040 Latex allergy status; R07.89 Other chest pain; K21.9 Gastro-esophageal reflux disease without esophagitis; Z11.52 Encounter for screening for COVID-19; Z79.899 Other long term (current) drug therapy; Z66 Do not resuscitate; M81.0 Age-related osteoporosis without current pathological fracture; E78.5 Hyperlipidemia, unspecified; J96.11 Chronic respiratory failure with hypoxia; J15.9 Unspecified bacterial pneumonia; F32.A Depression, unspecified

== ENCOUNTER 2024-10-22 17:59 | Observation (INO) ==
--- NOTE | 2024-10-22 18:13 | ED Triage Note ---
Date of Service October 22, 2024 Provider in Triage Author: Ryan Spears History of Present Illness This patient was briefly evaluated while in triage. An abbreviated physical exam was performed. This patient is a 54-year-old Female who presents to the ED for evaluation Right mid/lower abdominal pain x 4 days nausea, denies vomiting/diarrhea/urinary symptoms hx of cholecystectomy, hernia repair, hysterectomy Physical Exam GENERAL: Ambulatory into triage in obvious distress, holding abdomen in pain. CARDIOVASCULAR: RRR RESPIRATORY: CTA ABDOMEN: BS x 4. Right mid/lateral lower abdominal tenderness to palpation. Initial orders for labs and / or imaging were placed and patient was placed in the waiting area until a bed is available. Please see further documentation for the full ED course.
[2024-10-22 18:45] LABS: Basophils # (auto) 0.04 K/uL (0.00-0.20); Basophils % (auto) 0.8 %; Eosinophils # (auto) 0.18 K/uL (0.00-0.50); Eosinophils % (auto) 3.8 %; Hematocrit (blood only) 32.5 % (37.0-47.0); Hemoglobin 11.2 g/dl (12.0-16.0); Lymphocytes # (auto) 1.64 K/uL (1.20-3.40); Lymphocytes % (auto) 34.8 %; Mean Corpuscular Hemoglobin 33.1 pg (25.0-34.0); Mean Corpuscular Hgb Conc 34.5 g/dL (32.0-36.0); Mean Corpuscular Volume 96.2 fL (80.0-100.0); Mean Platelet Volume 11.2 fL (9.4-12.4); Monocytes # (auto) 0.07 K/uL (0.11-0.59); Monocytes % (auto) 1.5 %; Neutrophils # (auto) 2.78 K/uL (1.40-6.50); Neutrophils % (auto) 59.1 %; Platelet Count 151 K/uL (130-400); RDW Coefficient of Variation 17.3 % (11.5-14.5); Red Blood Count 3.38 M/uL (4.20-5.40); White Blood Count 4.71 K/ul (4.8-10.8)
--- NOTE | 2024-10-22 18:56 | Emergency Department Note ---
Impression & Plan Colitis, Right sided abdominal pain, Nausea ED Provider Note Provider: Ryan Spears MD CHIEF COMPLAINT: Right-sided abdominal pain HISTORY OF PRESENT ILLNESS: Patient is a 54-year-old female past medical history of cholecystectomy, hysterectomy, rectal bleeding, GERD, ILD/bronchitis, hypertension presenting here today reporting just over 4 days ago on [place] began to have some right-sided abdominal pain. Worsened over the weekend and severe right lower quadrant pain to the right upper abdomen wrapping the right flank. No trauma. Some nausea but not a lot of vomiting. Decreased intake. No diarrhea. Has taken Colace yesterday and today to try to promote bowel move without effect. No fevers. Does have a least 1 small hernia in the abdomen mildly tender by her report. Patient has been using her evening tramadol for pain at home without much improvement. PAST MEDICAL HISTORY: As noted above MEDICATIONS: Reviewed home medications SOCIAL HISTORY: Smoker PHYSICAL EXAM: GENERAL: alert and oriented laying on her right side mildly tachypneic and grimacing. Head: normocephalic and atraumatic EYES: No injection, discharge or icterus. NECK: Trachea midline. ENT: Mucous membranes pink and moist. LUNGS: Airway patent. No retractions. Breath sounds clear with some tachypnea HEART: Regular rate and rhythm. No chest wall tenderness ABDOMEN: Soft significant right lower to right flank tenderness. Prior healed small abdominal scars. SKIN: Acyanotic, warm, dry, without rashes EXTREMITIES: Without swelling, tenderness or deformity NEUROLOGICAL: No focal deficits. No aphasia. No facial droop or slurred speech. Ambulatory. Patient's laboratory studies and imaging reviewed. Differential includes Appendicitis, infections, diverticulitis, UTI, obstruction, mesenteric ischemia, aortic pathology, inflammatory bowel disease, renal colic, PUD, pancreatitis, biliary pathology, hernia, volvulus, constipation, as well as other pathologies. IMPRESSION/MEDICAL DECISION MAKING: Patient appears quite uncomfortable. Several days of RLQ pain and nausea symptoms. Prior cholecystectomy and hysterectomy. No prior appendectomy. No obvious large hernia on exam. Basic labs obtained. No significant leukocytosis actually leukopenic on labs. No severe anemia. Will send for CT scan given some Zofran fluid and Dilaudid here. Denies urinary symptoms and doubt this is urinary relation. Doubt kidney stone. Did not seem in any relation to cardiac disease or pulmonary disease given location reproducible tenderness. There is no trauma history of concern either. Urine here without evidence of infection. No evidence of acute hepatitis or pancreatitis ALT AST and alkaline phosphatase just above normal. Normal bilirubin. No significant electrolyte abnormality or signs of renal dysfunction. Lipase normal. CT scan with evidence of some diffuse colonic wall thickening questioning colitis. Normal noninflamed appendix is noted with nonconcerning fat-containing small hernias noted. Patient's nausea is improving as is pain with medications. Discussed with her findings. Again not having diarrhea. Has been using some Colace to try to promote bowel movement. Reassessment nausea has resolved but some increased pain. Will try some Toradol. Discussed with her and her daughter findings. Likely more of a viral situation causing the colitis. Again no reports of concern for diverticulitis on imaging. Patient does have some GI issues in the past by report. Discussed with patient findings and options. Concern for recurrent pain as the pain medicine wears off. Discussed possible observation for additional supportive care and pain control. In shared decision making with her and her daughter will pursue this and hospitalist team consulted. DIAGNOSIS: Colitis, abdominal pain DISPOSITION: Hospitalist will evaluate Patient was agreeable with this plan. Past Med/Surg History Problem List (Updated 10/23/24 @ 00:26 by Ryan Spears M.D.) Nausea (Acute) Right sided abdominal pain (Acute) Colitis (Acute) Rhinovirus infection (Acute) Irregular bowel habits Chronic respiratory failure with hypoxia Bloody stool (Acute) Right sided abdominal pain (Acute) Hypokalemia (Acute) Infectious gastroenteritis and colitis Decreased pedal pulses Rectal bleeding History of incisional hernia repair (06/30/22) Open Incisional Hernia Repair - Nikita Zamorano DO GERD (gastroesophageal reflux disease) Osteoporosis Chronic bronchitis ILD (interstitial lung disease) Pulmonary nodules Impaired fasting glucose Lymphocytosis Anxiety Hyperlipidemia Hypertension Hx laparoscopic cholecystectomy (10/21/21) Laparoscopic Cholecystectomy - Nikita Zamorano DO 10/21/2021 Hypokalemia Medical History Pneumonia Atypical chest pain Current smoker Rheumatoid arthritis 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 History of COVID-19 Shingles outbreak Nausea and vomiting after administration of anesthetic agent ILD (interstitial lung disease) Fibromyalgia Diverticular disease Depression Anxiety Hyperlipidemia Hypertension Biliary dyskinesia Surgical History History of surgery on wrist Hx of removal of cyst History of carpal tunnel release History of esophagogastroduodenoscopy (EGD) History of colonoscopy History of hysterectomy Family History Aunt Diabetes Uncle Diabetes Social History (Updated 06/19/24 @ 09:57 by Bridget Castillo LPN) Smoking Status: Current every day smoker Tobacco Type: Cigarettes Age Started Using Tobacco: 15; Cigarettes Per Day: over 1/2 ppd; Second Hand Exposure: No; Do You Dip or Chew Tobacco: No; Tobacco Cessation Education Requested by Patient: No Hx Alcohol Use: Yes Hx Substance Use: No Preferred Language: Portuguese Communication Ability: Effective Visual Impairment: Partially Limited Research Professor Required: No Beliefs That Will Affect Care: None marital status: Current Living Situation: Spouse current occupational status: disabled How many Children do You have: 2 Other Information That Helps Us Care for You: No Feels Safe at Home: Yes Safety Concerns: Feels Safe At This Time Diet: regular caffeine: Yes Dental Care, Regularly: No Physical Activity Frequency: Daily Physical Activity Frequency Comment: Active Seatbelt Use: always Sunscreen Use: No Assistive Devices: Cane and Glasses Allergies Allergies Allergy/AdvReac Type Severity Reaction Status Date / Time latex Allergy Intermediate Rash Verified 06/19/24 09:50 homatropine AdvReac Severe NAUSEA Verified 06/19/24 09:50 morphine AdvReac Intermediate nausea Verified 06/19/24 09:50 vomiting Home Meds Home Medications Medication Instructions Recorded Confirmed prednisone 5 mg tablet 5 mg PO QAM 11/20/19 10/22/24 omeprazole 20 mg capsule,delayed 20 mg PO DAILYBB 10/05/20 10/22/24 release gabapentin 300 mg capsule 300 mg PO TID 10/17/21 10/22/24 methotrexate sodium 2.5 mg tablet 20 mg PO WK 11/09/21 10/22/24 tramadol 50 mg tablet 50 mg PO DAILY 04/27/23 10/22/24 hydroxychloroquine 200 mg tablet 200 mg PO DAILY 08/31/23 10/22/24 (Plaquenil) ibuprofen 200 mg tablet 400 mg PO Q6H PRN Pain 03/05/24 10/22/24 duloxetine 30 mg capsule,delayed 60 mg PO QAM 03/08/24 10/22/24 release Previous Rx's Medication Instructions Recorded alendronate 70 mg tablet (Fosamax) 70 mg PO WK #12 tabs 10/23/23 rosuvastatin 20 mg tablet 20 mg PO QAM #90 tabs 02/15/24 ondansetron 8 mg disintegrating 8 mg PO Q8H PRN nausea and 02/28/24 tablet vomiting #20 tabs valacyclovir 1 gram tablet 2,000 mg (2 x 1 gram) PO Q12H PRN 02/28/24 cold sores 1 day #4 tabs guaifenesin 600 mg tablet, 1,200 mg (2 x 600 mg) PO BID PRN 03/06/24 extended release 12 hr (Mucinex) cough #30 tabs oxycodone 5 mg tablet 5 mg PO Q6H PRN pain #10 tabs 03/06/24 baclofen 10 mg tablet 10 mg PO BID PRN muscle spasm #20 03/07/24 tabs losartan 50 mg tablet 50 mg PO QAM #30 tabs 03/12/24 albuterol sulfate 90 mcg/actuation 2 puff inhalation QID PRN 06/19/24 aerosol inhaler shortness of breath or wheezing #8.5 grams cefdinir 300 mg capsule 300 mg PO BID #20 caps 06/19/24 doxycycline hyclate 100 mg tablet 100 mg PO BID #20 tabs 06/19/24 prednisone 20 mg tablet See Rx Instructions PO QAM #18 tabs 06/19/24 buspirone 15 mg tablet 15 mg PO BID #60 tabs 08/19/24 potassium chloride 20 mEq 20 meq PO BID #180 tabs 09/30/24 tablet,extended release Results & Data (ED) Vital Signs Vital Signs - 24 hr 10/22/24 18:11 10/22/24 19:00 10/22/24 20:14 Temperature 36.8 C Temperature Source Temporal Artery Scan Pulse Rate 107 H 93 H Pulse Rate [Finger] 88 Respiratory Rate 18 18 Respiratory Effort / Characteristics Non-Labored Spontaneous Respiratory Depth Normal Respiratory Pattern Regular Blood Pressure 163/84 H Blood Pressure [Right Arm] 126/84 Blood Pressure Mean 110 Blood Pressure Mean [Right Arm] 98 Blood Pressure Position Sitting Pulse Oximetry 100 99 100 Oxygen Delivery Method Room Air Room Air Sepsis Recent Fever Within 48 Hours No Sepsis New/Unexplained Change in Mental Status N/A Sepsis Action Taken by Nursing No Action Required 10/22/24 21:31 Temperature Temperature Source Pulse Rate Pulse Rate [Finger] 88 Respiratory Rate 18 Respiratory Effort / Characteristics Respiratory Depth Respiratory Pattern Blood Pressure Blood Pressure [Right Arm] 111/72 Blood Pressure Mean Blood Pressure Mean [Right Arm] 85 Blood Pressure Position Pulse Oximetry 98 Oxygen Delivery Method Room Air Sepsis Recent Fever Within 48 Hours Sepsis New/Unexplained Change in Mental Status Sepsis Action Taken by Nursing Laboratory Data 10/22/24 18:23 10/22/24 18:23 Lab Results 10/22/24 10/22/24 Range/Units 18:23 18:34 WBC 4.71 L (4.8-10.8) K/ul RBC 3.38 L (4.20-5.40) M/uL Hgb 11.2 L (12.0-16.0) g/dl Hct 32.5 L (37.0-47.0) % MCV 96.2 (80.0-100.0) fL MCH 33.1 (25.0-34.0) pg MCHC 34.5 (32.0-36.0) g/dL RDW Std Deviation 61.0 H (36.4-46.3) fL RDW Coeff of Ailyn 17.3 H (11.5-14.5) % Plt Count 151 (130-400) K/uL MPV 11.2 (9.4-12.4) fL Immature Gran % (Auto) 0.0 % Neut % (Auto) 59.1 % Lymph % (Auto) 34.8 % [place] % (Auto) 1.5 % Eos % (Auto) 3.8 % Baso % (Auto) 0.8 % Neut # (Auto) 2.78 (1.40-6.50) K/uL Lymph # (Auto) 1.64 (1.20-3.40) K/uL [place] # (Auto) 0.07 L (0.11-0.59) K/uL Eos # (Auto) 0.18 (0.00-0.50) K/uL Baso # (Auto) 0.04 (0.00-0.20) K/uL Immature Gran # (Auto) 0.00 L (0.01-0.20) K/uL Sodium 136 (136-145) mmol/L Potassium 3.8 (3.5-5.1) mmol/L Chloride 105 (98-107) mmol/L Carbon Dioxide 25 (21-32) mmol/L Anion Gap 6 (3-11) BUN 11 (6-23) mg/dl Creatinine 0.85 (0.6-1.2) mg/dl Est Cr Clr Drug Dosing 72.6 ml/min eGFR 80.36 BUN/Creatinine Ratio 12.9 (10-20) Glucose 88 (70-99(Fasting)) mg/dl Calcium 8.8 (8.6-10.3) mg/dl Total Bilirubin 1.0 (0.2-1.0) mg/dl AST 60 H (13-39) U/L ALT 43 (7-52) U/L Alkaline Phosphatase 124 H (34-104) U/L Total Protein 7.2 (6.0-8.3) gm/dl Albumin 3.7 (3.4-5.0) gm/dl Globulin 3.5 (2.5-4.0) gm/dl Albumin/Globulin Ratio 1.1 (0.9-2) Lipase 28 (11-82) U/L Urine Color Dark Yellow Urine Appearance Clear (Clear) Urine pH 5.0 (4.5-7.5) Ur Specific [place] 1.030 (1.000-1.030) Urine Protein 1+ H (Negative) Urine Glucose (UA) Negative (Negative) Urine Ketones 1+ H (Negative) Urine Blood Negative (Negative) Urine Nitrite Negative (Negative) Urine Bilirubin Negative (Negative) Urine Urobilinogen Negative (Negative) Ur Leukocyte Esterase Negative (Negative) Urine WBC (Auto) 0-5 (0-5) /hpf Urine RBC (Auto) 0-2 (0-2) /hpf U Hyaline Cast (Auto) 0-2 (0-2) /lpf U Epithel Cells (Auto) 6-10 H (0-2) /hpf Urine Bacteria (Auto) None Seen (None Seen) Urine Mucus Present A (None Prsent) Administered Medications Discontinued Medications Hydromorphone HCl (Hydromorphone Inj 1 Mg/Ml Syringe) 1 mg IV NOW STA Stop: 10/22/24 18:51 Last Admin: 10/22/24 18:59 Dose: 1 mg Documented By: SENAIT Hydromorphone HCl (Hydromorphone Inj 1 Mg/Ml Syringe) 1 mg IV NOW STA Stop: 10/22/24 22:14 Last Admin: 10/22/24 22:21 Dose: 1 mg Documented By: CHADD Sodium Chloride (Nss) 1,000 mls @ 999 mls/hr IV .Q1H1M ONE Stop: 10/22/24 19:50 Last Infusion: 10/22/24 20:07 Dose: Infused Documented By: Admin: 10/22/24 18:57 Dose: 999 mls/hr Documented By: SENAIT Ioversol (Optiray 320 100ml) 94 ml IV ONCE ONE Stop: 10/22/24 19:36 Last Admin: 10/22/24 19:35 Dose: 94 ml Documented By: ELLI Ketorolac Tromethamine (Ketorolac Tromethamine 15 Mg/Ml Vial) 10 mg IV NOW STA Stop: 10/22/24 20:55 Last Admin: 10/22/24 21:02 Dose: 10 mg Documented By: CHADD Metoclopramide HCl (Metoclopramide Hcl Inj 5 Mg/Ml 2 Ml Vial) 5 mg IV ONE ONE Stop: 10/22/24 19:59 Last Admin: 10/22/24 20:10 Dose: 5 mg Documented By: CHADD Ondansetron HCl (Ondansetron Inj 2 Mg/Ml 2 Ml Vial) 4 mg IV NOW STA Stop: 10/22/24 18:51 Last Admin: 10/22/24 18:57 Dose: 4 mg Documented By: SENAIT Ondansetron HCl (Ondansetron Inj 2 Mg/Ml 2 Ml Vial) 4 mg IV NOW STA Stop: 10/22/24 22:51 Last Admin: 10/22/24 22:57 Dose: 4 mg Documented By: [facility] Imaging Data Radiologist's Impression: Abdomen/Pelvis CT 10/22/24 18:15 EXAMINATION: CT of the abdomen and pelvis performed after the administration of IV contrast TECHNIQUE: Helical CT images from the lung bases through the symphysis pubis were obtained with contrast. Coronal and sagittal reformatted images were generated at a workstation for further assessment. Dose reduction techniques were achieved by using automatic exposure control and/or adjustment of mA and/or kV according to patient size and/or use of iterative reconstruction technique. COMPARISON: 10/04/2023 HISTORY: Abdominal pain FINDINGS: Reticular abnormality mixed with mild patchy groundglass at the periphery of both lung bases, is consistent with interstitial lung disease. No free air. Unremarkable spleen, pancreas and adrenal glands. Cholecystectomy is likely postsurgical biliary ductal dilation. The common bile duct measures 1.8 cm transversely. Hepatic steatosis. Symmetric nephrograms. No renal masses. 3 mm nonobstructing calculus of the interpolar right kidney. There is no hydronephrosis. Incompletely distended urinary bladder. Hysterectomy. No adnexal mass lesions. No bowel obstruction or ascites. Colonic diverticulosis. There is moderate diffuse thickening of the wall of the large bowel, slightly increased from prior, and with greater involvement of the transverse colon when compared to prior. Noninflamed appendix. No significant pericolonic inflammation. Small fat-filled umbilical hernia. Small fat-containing inguinal hernias bilaterally. No herniated bowel.. No acute fracture. No suspicious lesion in the bones. IMPRESSION: Moderate diffuse colonic wall thickening, is increased from October 04, 2023, consistent with colitis. Mild, bibasilar subpleural interstitial lung disease. Electronically signed by Shiv Castillo 10-22-2024 8:18 PM Discharge Plan Visit Data Chief Complaint: Abdominal Pain Stated Complaint: ABD PAIN, ED Provider: Ryan Spears Discharge Problem: Colitis, Right sided abdominal pain, Nausea Patient Disposition: Admitted As Inpatient Discharge Instructions Interventions: ED Discharge Assessment Last Done: 10/22/24 22:49
[2024-10-22] MEDS: ONDANSETRON INJ 2 MG/ML 2 ML VIAL IV STA ×2 (18:57→22:57)
[2024-10-22] MEDS: SODIUM CHLORIDE 0.9% 1,000 ML IV ONE (18:57)
[2024-10-22] MEDS: HYDROmorphone INJ 1 MG/ML SYRINGE IV STA ×2 (18:59→22:21)
[2024-10-22 19:00] LABS: Albumin Globulin Ratio 1.1 (0.9-2); Albumin Level 3.7 gm/dl (3.4-5.0); BUN Creatinine Ratio 12.9 (10-20); Calcium 8.8 mg/dl (8.6-10.3); Creatinine Clr Calc Pharmacy 72.6 ml/min; Globulin 3.5 gm/dl (2.5-4.0); Potassium 3.8 mmol/L (3.5-5.1); Total Protein 7.2 gm/dl (6.0-8.3)
[2024-10-22 19:02] LABS: Appearance Urine Clear (Clear); Bacteria Urine Automated None Seen (None Seen); Bilirubin Urine Negative (Negative); Blood Urine Negative (Negative); Cast Urine Automated 0-2 /lpf (0-2); Color Urine Dark Yellow; Glucose Urine UA Negative (Negative); Ketones Urine 1+ (Negative); Leukocyte Esterase Urine Negative (Negative); Mucus Urine Present (None Prsent); Nitrite Urine Negative (Negative); Protein Urine 1+ (Negative); RBC Urine Automated 0-2 /hpf (0-2); Urobilinogen Urine Negative (Negative); WBC Urine Automated 0-5 /hpf (0-5)
[2024-10-22] MEDS: OPTIRAY 320 100ml IV ONE (19:35)
[2024-10-22] MEDS: METOCLOPRAMIDE HCL INJ 5 MG/ML 2 ML VIAL IV ONE (20:10)
--- NOTE | 2024-10-22 20:18 | CT Scan Report ---
EXAMINATION: CT of the abdomen and pelvis performed after the administration of IV contrast TECHNIQUE: Helical CT images from the lung bases through the symphysis pubis were obtained with contrast. Coronal and sagittal reformatted images were generated at a workstation for further assessment. Dose reduction techniques were achieved by using automatic exposure control and/or adjustment of mA and/or kV according to patient size and/or use of iterative reconstruction technique. COMPARISON: 10/04/2023 HISTORY: Abdominal pain FINDINGS: Reticular abnormality mixed with mild patchy groundglass at the periphery of both lung bases, is consistent with interstitial lung disease. No free air. Unremarkable spleen, pancreas and adrenal glands. Cholecystectomy is likely postsurgical biliary ductal dilation. The common bile duct measures 1.8 cm transversely. Hepatic steatosis. Symmetric nephrograms. No renal masses. 3 mm nonobstructing calculus of the interpolar right kidney. There is no hydronephrosis. Incompletely distended urinary bladder. Hysterectomy. No adnexal mass lesions. No bowel obstruction or ascites. Colonic diverticulosis. There is moderate diffuse thickening of the wall of the large bowel, slightly increased from prior, and with greater involvement of the transverse colon when compared to prior. Noninflamed appendix. No significant pericolonic inflammation. Small fat-filled umbilical hernia. Small fat-containing inguinal hernias bilaterally. No herniated bowel.. No acute fracture. No suspicious lesion in the bones. IMPRESSION: Moderate diffuse colonic wall thickening, is increased from October 04, 2023, consistent with colitis. Mild, bibasilar subpleural interstitial lung disease. Electronically signed by Shiv Castillo 10-22-2024 8:18 PM
[2024-10-22] MEDS: KETOROLAC TROMETHAMINE 15 MG/ML VIAL IV STA (21:02)
--- NOTE | 2024-10-22 22:31 | History & Physical Report ---
Date of Service October 22, 2024 Assessment & Plan (1) Colitis: Plan: 54yo female presenting with right sided abdominal pain ongoing for the last 4-5 days as well as nausea, decreased appetite and poor oral intake. CT as above with diffuse colitis. Patient has had similar in the past. 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 She is not having diarrhea at this time. -Admit to medical -Check stool culture -Clear liquid diet -NSS at 80mL/hr x 2L ordered -Azithromycin 500mg IV PO daily -Zofran and Compazine PRN nausea -Dilaudid PRN pain -Toradol PRN pain Plan Rheumatoid Arthritis -Continue Prednisone 5mg po daily - low threshold for stress dosed steroids should patient's blood pressure drop -Continue MTX weekly -Continue Plaquenil 200mg po daily -Continue Gabapentin -Continue Duloxetine Hypertension -Continue Losartan 50mg po daily GERD -Continue Protonix 40mg po daily Hyperlipidemia -Continue Crestor 20mg po qAM F/E/N - NSS at 80mL/hr x 2L, electroltyes WNL, Clear liquid diet as tolerated Ppx - SCDs Code - DNR/DNI per discussion with patient Dispo -Admit to medical History of Present Illness Chief Complaint: abdominal pain Primary Care Provider: EM Church Gabi Richmond is a pleasant 54yo female with history of HTN, HLP, RA on chronic Prednisone, Plaquenil and MTX presenting with abdominal pain. Patient woke up on 10/18/24 with severe abdominal pain. Pain in the mid-abdomen - pulling sensation with involvement of the right lower abdomen as well. Pain has been persistent - acutely worse today which prompted her to come to the ER. Right sided and lower abdominal pain 6-10 with associated nausea, poor appetite and decreased oral intake. Patient has been taking a lot of Colace because she though she was constipated. Last BM today at 16:00 - soft and somewhat mucoid She is passing flatus No additional complaints at this time ER Course: Dilaudid 1mg IV Zofran 4mg IV NSS x 1L Allergies Allergy/AdvReac Type Severity Reaction Status Date / Time latex Allergy Intermediate Rash Verified 06/19/24 09:50 homatropine AdvReac Severe NAUSEA Verified 06/19/24 09:50 morphine AdvReac Intermediate nausea Verified 06/19/24 09:50 vomiting Home Medications Medication Instructions Recorded Confirmed Type prednisone 5 mg tablet 5 mg PO QAM 11/20/19 10/22/24 History omeprazole 20 mg capsule,delayed 20 mg PO DAILYBB 10/05/20 10/22/24 History release gabapentin 300 mg capsule 300 mg PO TID 10/17/21 10/22/24 History methotrexate sodium 2.5 mg tablet 20 mg PO WK 11/09/21 10/22/24 History tramadol 50 mg tablet 50 mg PO DAILY 04/27/23 10/22/24 History hydroxychloroquine 200 mg tablet 200 mg PO DAILY 08/31/23 10/22/24 History (Plaquenil) alendronate 70 mg tablet (Fosamax) 70 mg PO WK #12 tabs 10/23/23 10/22/24 Rx rosuvastatin 20 mg tablet 20 mg PO QAM #90 tabs 02/15/24 10/22/24 Rx ondansetron 8 mg disintegrating 8 mg PO Q8H PRN nausea and 02/28/24 10/22/24 Rx tablet vomiting #20 tabs valacyclovir 1 gram tablet 2,000 mg (2 x 1 gram) PO Q12H PRN 02/28/24 06/19/24 Rx cold sores 1 day #4 tabs ibuprofen 200 mg tablet 400 mg PO Q6H PRN Pain 03/05/24 10/22/24 History guaifenesin 600 mg tablet, 1,200 mg (2 x 600 mg) PO BID PRN 03/06/24 10/22/24 Rx extended release 12 hr (Mucinex) cough #30 tabs oxycodone 5 mg tablet 5 mg PO Q6H PRN pain #10 tabs 03/06/24 06/19/24 Rx baclofen 10 mg tablet 10 mg PO BID PRN muscle spasm #20 03/07/24 10/22/24 Rx tabs duloxetine 30 mg capsule,delayed 60 mg PO QAM 03/08/24 10/22/24 History release losartan 50 mg tablet 50 mg PO QAM #30 tabs 03/12/24 10/22/24 Rx albuterol sulfate 90 mcg/actuation 2 puff inhalation QID PRN 06/19/24 10/22/24 Rx aerosol inhaler shortness of breath or wheezing #8.5 grams cefdinir 300 mg capsule 300 mg PO BID #20 caps 06/19/24 06/19/24 Rx doxycycline hyclate 100 mg tablet 100 mg PO BID #20 tabs 06/19/24 06/19/24 Rx prednisone 20 mg tablet See Rx Instructions PO QAM #18 tabs 06/19/24 06/19/24 Rx buspirone 15 mg tablet 15 mg PO BID #60 tabs 08/19/24 10/22/24 Rx potassium chloride 20 mEq 20 meq PO BID #180 tabs 09/30/24 10/22/24 Rx tablet,extended release Past Med/Surg History Problem List Nausea (Acute) Right sided abdominal pain (Acute) Colitis (Acute) Rhinovirus infection (Acute) Irregular bowel habits Chronic respiratory failure with hypoxia Bloody stool (Acute) Right sided abdominal pain (Acute) Hypokalemia (Acute) Infectious gastroenteritis and colitis Decreased pedal pulses Rectal bleeding History of incisional hernia repair (06/30/22) Open Incisional Hernia Repair - Nikita Zamorano DO GERD (gastroesophageal reflux disease) Osteoporosis Chronic bronchitis ILD (interstitial lung disease) Pulmonary nodules Impaired fasting glucose Lymphocytosis Anxiety Hyperlipidemia Hypertension Hx laparoscopic cholecystectomy (10/21/21) Laparoscopic Cholecystectomy - Nikita Zamorano DO 10/21/2021 Hypokalemia Medical History Pneumonia Atypical chest pain Current smoker Rheumatoid arthritis 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 History of COVID-19 May 12, 2022 > home test, cough, runny nose, > all resolved Shingles outbreak Sep 2020 Nausea and vomiting after administration of anesthetic agent ILD (interstitial lung disease) lung scan scheduled for a few weeks from now Fibromyalgia Diverticular disease Depression Anxiety Hyperlipidemia Hypertension Biliary dyskinesia Surgical History History of surgery on wrist right for fracture Hx of removal of cyst from left hand History of carpal tunnel release bilat History of esophagogastroduodenoscopy (EGD) History of colonoscopy History of hysterectomy Family History Aunt Diabetes Uncle Diabetes Social History Smoking Status: Current every day smoker Tobacco Type: Cigarettes Age Started Using Tobacco: 15; Cigarettes Per Day: over 1/2 ppd; Second Hand Exposure: No; Do You Dip or Chew Tobacco: No; Tobacco Cessation Education Requested by Patient: No Hx Alcohol Use: Yes Hx Substance Use: No Preferred Language: Faroese Communication Ability: Effective Visual Impairment: Partially Limited Mail Superintendent Required: No Beliefs That Will Affect Care: None marital status: Current Living Situation: Spouse current occupational status: disabled How many Children do You have: 2 Other Information That Helps Us Care for You: No Feels Safe at Home: Yes Safety Concerns: Feels Safe At This Time Diet: regular caffeine: Yes Dental Care, Regularly: No Physical Activity Frequency: Daily Physical Activity Frequency Comment: Active Seatbelt Use: always Sunscreen Use: No Assistive Devices: Cane and Glasses Review of Systems Review of Systems: All systems reviewed & are unremarkable except as noted in HPI & below Physical Exam Physical Exam: General: patient resting comfortably, NAD, non-toxic in appearance, AA&O x 4 Skin: warm, dry, intact, no rashes or lesions HEENT: NC/AT, PERRL, EOMI, anicteric sclera, conjunctiva without injection, external ear normal to inspection and nontender, nares patent, moist mucus membranes, dentition intact, no oropharyngeal lesions, neck supple, trachea midline, no LAD, no thyromegaly, no JVD Heart: +S1/S2, regular, no m/r/g Lungs: equal air entry bilaterally, no rales/rhonchi/wheezes Abd: +BS, soft, ND, tenderness of mid and lower abdomen and right side abdomen, no masses/organomegaly/ascites Ext: warm, 2+ pulses in UE/LE bilaterally, no clubbing/cyanosis or edema Neuro: nonfocal, patient AA&O x 4, speech intact, no facial droop, moving all extremities on command with equal strength 5/5 Results & Data Results & Data Vital Signs (Past 12 Hours) Vital Signs Temp Pulse Pulse Resp BP BP Pulse Ox 10/22/24 21:31 88 18 111/72 98 10/22/24 20:14 88 18 126/84 100 10/22/24 19:00 93 H 99 10/22/24 18:11 36.8 C 107 H 18 163/84 H 100 O2 Del Method 10/22/24 21:31 Room Air 10/22/24 20:14 Room Air 10/22/24 19:00 10/22/24 18:11 Room Air Laboratory Results Laboratory Results WBC 4.71 K/ul (4.8-10.8) L 10/22/24 18:23 RBC 3.38 M/uL (4.20-5.40) L 10/22/24 18:23 Hgb 11.2 g/dl (12.0-16.0) L 10/22/24 18:23 Hct 32.5 % (37.0-47.0) L 10/22/24 18:23 MCV 96.2 fL (80.0-100.0) 10/22/24 18:23 MCH 33.1 pg (25.0-34.0) 10/22/24 18:23 MCHC 34.5 g/dL (32.0-36.0) 10/22/24 18:23 RDW Std Deviation 61.0 fL (36.4-46.3) H 10/22/24 18:23 RDW Coeff of Ailyn 17.3 % (11.5-14.5) H 10/22/24 18:23 Plt Count 151 K/uL (130-400) 10/22/24 18:23 MPV 11.2 fL (9.4-12.4) 10/22/24 18:23 Immature Gran % (Auto) 0.0 % 10/22/24 18:23 Neut % (Auto) 59.1 % 10/22/24 18:23 Lymph % (Auto) 34.8 % 10/22/24 18:23 [place] % (Auto) 1.5 % 10/22/24 18:23 Eos % (Auto) 3.8 % 10/22/24 18:23 Baso % (Auto) 0.8 % 10/22/24 18:23 Neut # (Auto) 2.78 K/uL (1.40-6.50) 10/22/24 18:23 Lymph # (Auto) 1.64 K/uL (1.20-3.40) 10/22/24 18:23 [place] # (Auto) 0.07 K/uL (0.11-0.59) L 10/22/24 18:23 Eos # (Auto) 0.18 K/uL (0.00-0.50) 10/22/24 18:23 Baso # (Auto) 0.04 K/uL (0.00-0.20) 10/22/24 18:23 Immature Gran # (Auto) 0.00 K/uL (0.01-0.20) L 10/22/24 18:23 Sodium 136 mmol/L (136-145) 10/22/24 18:23 Potassium 3.8 mmol/L (3.5-5.1) 10/22/24 18:23 Chloride 105 mmol/L (98-107) 10/22/24 18:23 Carbon Dioxide 25 mmol/L (21-32) 10/22/24 18:23 Anion Gap 6 (3-11) 10/22/24 18:23 BUN 11 mg/dl (6-23) 10/22/24 18:23 Creatinine 0.85 mg/dl (0.6-1.2) 10/22/24 18:23 Est Cr Clr Drug Dosing 72.6 ml/min 10/22/24 18:23 eGFR 80.36 10/22/24 18:23 BUN/Creatinine Ratio 12.9 (10-20) 10/22/24 18:23 Glucose 88 mg/dl (70-99(Fasting)) 10/22/24 18:23 Calcium 8.8 mg/dl (8.6-10.3) 10/22/24 18:23 Total Bilirubin 1.0 mg/dl (0.2-1.0) 10/22/24 18:23 AST 60 U/L (13-39) H 10/22/24 18:23 ALT 43 U/L (7-52) 10/22/24 18:23 Alkaline Phosphatase 124 U/L (34-104) H 10/22/24 18:23 Total Protein 7.2 gm/dl (6.0-8.3) 10/22/24 18:23 Albumin 3.7 gm/dl (3.4-5.0) 10/22/24 18:23 Globulin 3.5 gm/dl (2.5-4.0) 10/22/24 18:23 Albumin/Globulin Ratio 1.1 (0.9-2) 10/22/24 18:23 Lipase 28 U/L (11-82) 10/22/24 18:23 Urine Color Dark Yellow 10/22/24 18:34 Urine Appearance Clear (Clear) 10/22/24 18:34 Urine pH 5.0 (4.5-7.5) 10/22/24 18:[address] [place] [address] [place] 1.030 (1.000-1.030) 10/22/24 18:34 Urine Protein 1+ (Negative) H 10/22/24 18:34 Urine Glucose (UA) Negative (Negative) 10/22/24 18:34 Urine Ketones 1+ (Negative) H 10/22/24 18:34 Urine Blood Negative (Negative) 10/22/24 18:34 Urine Nitrite Negative (Negative) 10/22/24 18:34 Urine Bilirubin Negative (Negative) 10/22/24 18:34 Urine Urobilinogen Negative (Negative) 10/22/24 18:34 Ur Leukocyte Esterase Negative (Negative) 10/22/24 18:34 Urine WBC (Auto) 0-5 /hpf (0-5) 10/22/24 18:34 Urine RBC (Auto) 0-2 /hpf (0-2) 10/22/24 18:34 U Hyaline Cast (Auto) 0-2 /lpf (0-2) 10/22/24 18:34 U Epithel Cells (Auto) 6-10 /hpf (0-2) H 10/22/24 18:34 Urine Bacteria (Auto) None Seen (None Seen) 10/22/24 18:34 Urine Mucus Present (None Prsent) A 10/22/24 18:34 Impressions Abdomen/Pelvis CT 10/22/24 18:15 EXAMINATION: CT of the abdomen and pelvis performed after the administration of IV contrast TECHNIQUE: Helical CT images from the lung bases through the symphysis pubis were obtained with contrast. Coronal and sagittal reformatted images were generated at a workstation for further assessment. Dose reduction techniques were achieved by using automatic exposure control and/or adjustment of mA and/or kV according to patient size and/or use of iterative reconstruction technique. COMPARISON: 10/04/2023 HISTORY: Abdominal pain FINDINGS: Reticular abnormality mixed with mild patchy groundglass at the periphery of both lung bases, is consistent with interstitial lung disease. No free air. Unremarkable spleen, pancreas and adrenal glands. Cholecystectomy is likely postsurgical biliary ductal dilation. The common bile duct measures 1.8 cm transversely. Hepatic steatosis. Symmetric nephrograms. No renal masses. 3 mm nonobstructing calculus of the interpolar right kidney. There is no hydronephrosis. Incompletely distended urinary bladder. Hysterectomy. No adnexal mass lesions. No bowel obstruction or ascites. Colonic diverticulosis. There is moderate diffuse thickening of the wall of the large bowel, slightly increased from prior, and with greater involvement of the transverse colon when compared to prior. Noninflamed appendix. No significant pericolonic inflammation. Small fat-filled umbilical hernia. Small fat-containing inguinal hernias bilaterally. No herniated bowel.. No acute fracture. No suspicious lesion in the bones. IMPRESSION: Moderate diffuse colonic wall thickening, is increased from October 04, 2023, consistent with colitis. Mild, bibasilar subpleural interstitial lung disease. Electronically signed by Shiv Castillo 10-22-2024 8:18 PM PG Care Time/CCT Total # of Minutes Spent Total Time Spent with Patient: Total time spent is greater than 50% in coordination of care (as documented) at patient's floor/unit and/or counseling patient: Coding Level of Care Code 26981 INT INP/OBS CARE 3/75MIN Diagnoses Colitis K52.9
[2024-10-22] MEDS ORDERED: HYDROmorphone INJ 0.5 MG/0.5 ML SYR IV PRN (23:36)
[2024-10-22] MEDS ORDERED: bisacodyL 10 MG SUPP PR PRN (23:36)
[2024-10-23] MEDS: KETOROLAC TROMETHAMINE 15 MG/ML VIAL IV PRN (00:26)
[2024-10-23] MEDS: SODIUM CHLORIDE 0.9% 1,000 ML IV SCH (00:28)
[2024-10-23] MEDS: PROCHLORPERAZINE 5 MG in SYRINGE 4 ML IV PRN (00:40)
[2024-10-23 08:01] LABS: Hematocrit (blood only) 28.1 % (37.0-47.0); Hemoglobin 9.5 g/dl (12.0-16.0); Mean Corpuscular Hemoglobin 32.4 pg (25.0-34.0); Mean Corpuscular Hgb Conc 33.8 g/dL (32.0-36.0); Mean Corpuscular Volume 95.9 fL (80.0-100.0); Mean Platelet Volume 11.1 fL (9.4-12.4); Platelet Count 115 K/uL (130-400); RDW Coefficient of Variation 17.7 % (11.5-14.5); RDW Standard Deviation 61.2 fL (36.4-46.3); Red Blood Count 2.93 M/uL (4.20-5.40); White Blood Count 3.34 K/ul (4.8-10.8)
[2024-10-23] MEDS: PANTOprazole 40 MG TAB PO SCH (08:05)
[2024-10-23] MEDS: GABAPENTIN 300 MG CAP PO SCH (08:05)
[2024-10-23] MEDS: DULoxetine HCL 60 MG CAP PO SCH (08:05)
[2024-10-23] MEDS: LOSARTAN POTASSIUM 50 MG TAB PO SCH (08:06)
[2024-10-23] MEDS: HYDROXYCHLOROQUINE SULFATE 200 MG TAB PO SCH (08:06)
[2024-10-23] MEDS: busPIRone 15 MG TAB PO SCH (08:06)
[2024-10-23] MEDS: AZITHROMYCIN 250 MG TAB PO SCH (08:06)
[2024-10-23] MEDS: ROSUVASTATIN CALCIUM 20 MG TAB PO SCH (08:07)
[2024-10-23] MEDS: predniSONE 5 MG TAB PO SCH (08:07)
[2024-10-23 08:18] LABS: BUN Creatinine Ratio 19.2 (10-20); Potassium 3.8 mmol/L (3.5-5.1); Total Protein 5.5 gm/dl (6.0-8.3)
[2024-10-23 08:19] LABS: Albumin Level 2.9 gm/dl (3.4-5.0); Bilirubin Direct 0.2 mg/dl (0-0.2); Bilirubin,Total 0.7 mg/dl (0.2-1.0); Calcium 8.2 mg/dl (8.6-10.3)
--- NOTE | 2024-10-23 08:42 | Hospitalist Progress Note ---
Date of Service October 23, 2024 Assessment & Plan (1) Colitis: Plan: 54yo woman with RA on methotrexate and plaquenil, ILD, presenting with right sided abdominal pain ongoing for the last 4-5 days as well as nausea, decreased appetite and poor oral intake. No diarrhea - recent difficulty having BMs/constipation and was using a lot of colace to produce a BM CT with diffuse colitis, especially transverse colon. Patient has had similar in the past. 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 CT scans in 2022, 2023 also with colonic thickening. Colonoscopy in 2021 with diverticulosis. She is not having diarrhea at this time. -consulted gastroenterology - may have ischemic or inflammatory colitis, infectious seems less likely because of lack of diarrhea and chronicity - CTA abdomen completed today as recommended by gastroenterology and was unremarkable except for pancolitis - she would benefit from colonoscopy because of the possibility of IBD however she categorically refuses at this time because of a bad experience with prolonged hematochezia in the past -stool biofire ordered but not having diarrhea - fecal calprotectin ordered -Clear liquid diet -NSS at 80mL/hr x 2L ordered -hold off on antibiotics - got dose of azithromycin 2/4 -check CRP and ESR -Zofran and Compazine PRN nausea -Dilaudid PRN pain -Toradol PRN pain Plan Pancytopenia - W3, Hg 9.5, Plt 115 - diff with low monocytes. possibly related to methotrexate? check b12, iron panel, retic, peripheral smear Rheumatoid Arthritis -Continue Prednisone 5mg po daily -hold methotrexate -continue plaquenil -Continue Gabapentin -Continue Duloxetine ILD and bronchiectasis -last visit with Dr. Valladares in 2022, though to be related to RA -schedule follow up with pulm, routine -on home O2 2L? -still smoking? Hepatic steatosis -noted on serial imaging -mild elevation of AST/ALT/Alk phos probably related to this Hypertension -Continue Losartan 50mg po daily GERD -Continue Protonix 40mg po daily Hyperlipidemia -Continue Crestor 20mg po qAM Ppx - enoxaparin Code - DNR/DNI per discussion with patient Admission and Anticipated Discharge Date Admission Date: October 22, 2024 Subjective continues with right lower quadrant to central abdominal pain, no emesis, small stool yesterday, no appetite states she has been eating poorly for at least a month because of concurrent illnessesfirst she had an upper respiratory infection with severe cough for few weeks now this abdominal pain Physical Exam 2 Physical Exam: PHYSICAL EXAMINATION Last 24h vital signs reviewed, see documentation in flowsheet General: comfortable appearing, no distress HEENT: Normocephalic, atraumatic, pupils round and equal, sclerae anicteric, no conjunctival injection, moist mucus membranes Lungs: Normal respiratory effort. Clear to auscultation bilaterally. No RRW Heart: Regular rate and rhythm, no murmurs. No JVD Abdomen: Soft, nondistended. tender to palpation in periumbilical area and right lower quadrant without rebound rigidity or guarding Bowel sounds present. Extremities: Warm, dry, well-perfused. No extremity edema. Neuro: Alert and oriented x 4, face symmetric, moves 4 extremities well Psych: Normal affect and behavior Results & Data Results & Data Vital Signs (Past 12 Hours) Vital Signs Temp Pulse Resp BP Pulse Ox O2 Del Method 10/23/24 07:24 97.9 F 81 16 111/64 97 Room Air 10/22/24 23:57 Room Air 10/22/24 23:57 97.7 F 95 H 16 160/89 H 95 Room Air 10/22/24 21:31 88 18 111/72 98 Room Air Laboratory Results 10/23/24 07:43 10/23/24 07:43 PG Care Time/CCT Total # of Minutes Spent Total Time Spent with Patient: Total time spent is greater than 50% in coordination of care (as documented) at patient's floor/unit and/or counseling patient: Coding Level of Care Code 85690 SUB INP/OBS CARE 3/50MIN Diagnoses Colitis K52.9
[2024-10-23 09:29] LABS: C Reactive Protein 0.73 mg/dl (0-0.5)
[2024-10-23 09:38] LABS: Reticulocyte % 1.85 % (0.50-2.00); Reticulocytes # 0.05 10^6/uL (0.020-0.100)
[2024-10-23 09:50] LABS: Ferritin 121.7 ng/ml (8-388)
[2024-10-23 09:55] LABS: Folate (Folic Acid),Ser orPlas 2.52 ng/ml (>5.38)
[2024-10-23] MEDS: ENOXAPARIN INJ 40 MG/0.4 ML SYR SQ SCH (12:04)
--- NOTE | 2024-10-23 13:23 | Gastrointestinal Consultation ---
Date of Consultation October 23, 2024 Assessment & Plan (1) Right sided abdominal pain: (2) Colitis: Plan -Stool PCR pending -Add stool calprotectin -Refuses colonoscopy, though given autoimmune issues would be concerned for IBD. -Will obtain a CTA to assess for ischemic colitis -Further recommendations pending work-up Supervising Physician Co-Signing Physician Notes Patient examined at the bedside. I agree with the notes above by the PA. Patient is relatively tender though she feels improved since her admission between 8 and 10%. She does have some voluntary guarding and rebound. Bowel sounds are present. There is no lactic acidosis. No anion gap acidosis. Presentation sounds ischemic. CTA today however did show patent SMA and CIRILO. This does not exclude small vessel disease. Patient also was a smoker which could contribute. Alternatively she does have an autoimmune disease. Potential for inflammatory bowel disease should be considered. Infectious process seems less likely. She had a similar episode 2 years ago that resolved on its own. Recommend observation bowel rest. I did discuss the potential for a colonoscopy with her the patient is resistant to this. Did discuss the possibility for inflammatory bowel disease. History of Present Illness Reason for Consultation: Colitis Attending Physician: Mikayla Hussein MD History of Present Illness Patient is a 54 yo female who GI has been consulted for colitis. She presented to the ED after developing severe abdominal pain in the mid abdomen. She notes a history of rectal bleeding that worsened after her colonoscopy in 2021. She has a history of multiple CT imaging studies noting colitis. She notes that she will never have another colonoscopy again. She notes her pain is persistent, worsened with activity. She has a history of RA on daily Prednisone and Methotrexate. She denies diarrhea. No further complaints at present. H/H 9.5/28.1. Allergies Allergy/AdvReac Type Severity Reaction Status Date / Time latex Allergy Intermediate Rash Verified 06/19/24 09:50 homatropine AdvReac Severe NAUSEA Verified 06/19/24 09:50 morphine AdvReac Intermediate nausea Verified 06/19/24 09:50 vomiting Home Medications Medication Instructions Recorded Confirmed Type prednisone 5 mg tablet 5 mg PO QAM 11/20/19 10/22/24 History omeprazole 20 mg capsule,delayed 20 mg PO DAILYBB 10/05/20 10/22/24 History release gabapentin 300 mg capsule 300 mg PO TID 10/17/21 10/22/24 History methotrexate sodium 2.5 mg tablet 20 mg PO WK 11/09/21 10/22/24 History tramadol 50 mg tablet 50 mg PO DAILY 04/27/23 10/22/24 History hydroxychloroquine 200 mg tablet 200 mg PO DAILY 08/31/23 10/22/24 History (Plaquenil) alendronate 70 mg tablet (Fosamax) 70 mg PO WK #12 tabs 10/23/23 10/22/24 Rx rosuvastatin 20 mg tablet 20 mg PO QAM #90 tabs 02/15/24 10/22/24 Rx ondansetron 8 mg disintegrating 8 mg PO Q8H PRN nausea and 02/28/24 10/22/24 Rx tablet vomiting #20 tabs valacyclovir 1 gram tablet 2,000 mg (2 x 1 gram) PO Q12H PRN 02/28/24 06/19/24 Rx cold sores 1 day #4 tabs ibuprofen 200 mg tablet 400 mg PO Q6H PRN Pain 03/05/24 10/22/24 History guaifenesin 600 mg tablet, 1,200 mg (2 x 600 mg) PO BID PRN 03/06/24 10/22/24 Rx extended release 12 hr (Mucinex) cough #30 tabs oxycodone 5 mg tablet 5 mg PO Q6H PRN pain #10 tabs 03/06/24 06/19/24 Rx baclofen 10 mg tablet 10 mg PO BID PRN muscle spasm #20 03/07/24 10/22/24 Rx tabs duloxetine 30 mg capsule,delayed 60 mg PO QAM 03/08/24 10/22/24 History release losartan 50 mg tablet 50 mg PO QAM #30 tabs 03/12/24 10/22/24 Rx albuterol sulfate 90 mcg/actuation 2 puff inhalation QID PRN 06/19/24 10/22/24 Rx aerosol inhaler shortness of breath or wheezing #8.5 grams cefdinir 300 mg capsule 300 mg PO BID #20 caps 06/19/24 06/19/24 Rx doxycycline hyclate 100 mg tablet 100 mg PO BID #20 tabs 06/19/24 06/19/24 Rx prednisone 20 mg tablet See Rx Instructions PO QAM #18 tabs 10/02/24 10/02/24 Rx buspirone 15 mg tablet 15 mg PO BID #60 tabs 08/19/24 10/22/24 Rx potassium chloride 20 mEq 20 meq PO BID #180 tabs 09/30/24 10/22/24 Rx tablet,extended release Patient History Medical History Pneumonia Atypical chest pain Current smoker Rheumatoid arthritis 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 History of COVID-19 May 12, 2022 > home test, cough, runny nose, > all resolved Shingles outbreak Sep 2020 Nausea and vomiting after administration of anesthetic agent ILD (interstitial lung disease) lung scan scheduled for a few weeks from now Fibromyalgia Diverticular disease Depression Anxiety Hyperlipidemia Hypertension Biliary dyskinesia Surgical History History of surgery on wrist right for fracture Hx of removal of cyst from left hand History of carpal tunnel release bilat History of esophagogastroduodenoscopy (EGD) History of colonoscopy History of hysterectomy Family History Aunt Diabetes Uncle Diabetes Social History Smoking Status: Current every day smoker Tobacco Type: Cigarettes Age Started Using Tobacco: 15; Cigarettes Per Day: over 1/2 ppd; Second Hand Exposure: No; Do You Dip or Chew Tobacco: No; Tobacco Cessation Education Requested by Patient: No Hx Alcohol Use: Yes Hx Substance Use: No Preferred Language: [place] Communication Ability: Effective Visual Impairment: Partially Limited 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 Beliefs That Will Affect Care: None marital status: Current Living Situation: Spouse current occupational status: disabled How many Children do You have: 2 Other Information That Helps Us Care for You: No Feels Safe at Home: Yes Safety Concerns: Feels Safe At This Time Diet: regular caffeine: Yes Dental Care, Regularly: No Physical Activity Frequency: Daily Physical Activity Frequency Comment: Active Seatbelt Use: always Sunscreen Use: No Assistive Devices: Cane Review of Systems Gastrointestinal: + abdominal pain and + blood in stools Physical Exam Constitutional: well developed Respiratory: normal respiratory effort Cardiovascular: Rate/Rhythm: regular rate Gastrointestinal (Abdomen): normal bowel sounds, soft, nontender, no hepatosplenomegaly Psychiatric: Orientation: alert and oriented x 3 Results & Data Vital Signs (Past 12 Hours) Vital Signs Temp Pulse Resp BP Pulse Ox O2 Del Method 10/23/24 07:24 36.6 C 81 16 111/64 97 Room Air PG Care Time/CCT Total # of Minutes Spent Total Time Spent with Patient: Total time spent is greater than 50% in coordination of care (as documented) at patient's floor/unit and/or counseling patient: Coding Level of Care Code 00559 IN/OBS CONSULT LVL 4,60M Diagnoses Right sided abdominal pain R10.9 Colitis K52.9
[2024-10-23] MEDS: OPTIRAY 320 125ml IV ONE (15:20)
--- NOTE | 2024-10-23 15:40 | CT Scan Report ---
CT angio abd pelvis w con HISTORY: 54 years-old Female RLQ pain; rectal bleeding acute right lower quadrant abdominal pain wit h rectal bleeding COMPARISON: CT abdomen and pelvis 10/22/2024 CT abdomen and pelvis 10/04/2023 TECHNIQUE: CTA abdomen and pelvis was obtained with IV contrast. 3-D coronal and sagittal hip obtaine d and submitted for review. All measurements were obtained according to NASCET criteria. A dose lower ing technique was used consistent with the principals of JOSE. FINDINGS: CTA: Heart is upper limits of normal in size. Mild atherosclerosis of the abdominal aorta and iliac a rteries. Patent celiac trunk, superior and inferior mesenteric and renal arteries. No aneurysm, disse ction, high-grade stenosis or arterial occlusion identified. There is mild stenosis at the origin of the left internal iliac artery, unchanged. The common and external iliac arteries are widely patent. Internal hemorrhoids without active extravasation. CT ABDOMEN/PELVIS: Bibasilar bronchial wall thickening with atelectasis. No free air. Unremarkable sp myra, pancreas and adrenal glands. Cholecystectomy with likely postsurgical biliary ductal dilation. The common bile duct measures 1.8 cm transversely. Hepatic steatosis. Unremarkable kidneys. There are a few nonobstructing calculi in the kidneys measuring up to 4 mm on t he right. There is no hydronephrosis. Decompressed urinary bladder with wall thickening. Hysterectomy . No adnexal mass lesions. No bowel obstruction. Trace free fluid within the pelvis. Colonic divertic ulosis. Moderate diffuse wall thickening throughout the rectum and colon with mild adjacent pericolon ic inflammatory stranding. No significant change from yesterday's study. Normal appendix. Mild to mod erate colonic fecal retention. Periportal lymph nodes measure up to 1.2 cm. These are stable from the 2023 study. Small fat-filled umbilical hernia, diastasis of 2.6 cm. No acute fracture. IMPRESSION: 1. Unremarkable CTA of the abdomen and pelvis. 2. Redemonstration of a nonspecific pancolitis. No bowel obstruction or pneumoperitoneum. 3. Internal hemorrhoids without active extravasation. Findings could be correlated with colonoscopy. 4. Hepatic steatosis. 5. Incidental findings as above. ACT 112: Negative or not required by law. The above report was generated using voice recognition software. It may contain grammatical, syntax o r spelling errors. Electronically signed by: Rufino Pedro M.D. 10/23/2024 3:38 PM
[2024-10-23 15:45] VITALS: TEMP 98.1
[2024-10-23] MEDS: SENNA 8.6 MG TAB PO SCH (20:41)
[2024-10-24 07:46] LABS: Hematocrit (blood only) 28.5 % (37.0-47.0); Hemoglobin 9.5 g/dl (12.0-16.0); Mean Corpuscular Hgb Conc 33.3 g/dL (32.0-36.0); Platelet Count 126 K/uL (130-400); RDW Coefficient of Variation 17.6 % (11.5-14.5); RDW Standard Deviation 61.5 fL (36.4-46.3); Red Blood Count 2.97 M/uL (4.20-5.40); White Blood Count 3.74 K/ul (4.8-10.8)
[2024-10-24 08:00] LABS: Albumin Globulin Ratio 1.1 (0.9-2); Albumin Level 2.9 gm/dl (3.4-5.0); BUN Creatinine Ratio 12.9 (10-20); Bilirubin,Total 0.7 mg/dl (0.2-1.0); Calcium 8.4 mg/dl (8.6-10.3); Creatinine Clr Calc Pharmacy 88.7 ml/min; Globulin 2.7 gm/dl (2.5-4.0); Potassium 3.7 mmol/L (3.5-5.1); Total Protein 5.6 gm/dl (6.0-8.3)
[2024-10-24 08:01] LABS: Calcium 8.4 mg/dl (8.6-10.3); Creatinine Clr Calc Pharmacy 89.9 ml/min; Potassium 3.6 mmol/L (3.5-5.1)
--- NOTE | 2024-10-24 08:57 | XRay Report ---
KUB HISTORY: Colitis, pain COMPARISON STUDY: 09/13/2023 x-ray and CT scan yesterday FINDINGS: Stable right upper quadrant surgical clips. There is mild retained stool. No bowel obstruct ion seen. No gross free air. IMPRESSION: No acute findings seen by x-ray. Findings of colitis were present on the CT scan yesterda y. ACT 112: Negative or not required by law. The above report was generated using voice recognition software. It may contain grammatical, syntax o r spelling errors. Electronically signed by: Aron Bridges M.D. 10/24/2024 8:56 AM
[2024-10-24] MEDS: FOLIC ACID 1 MG TAB PO SCH (09:27)
[2024-10-24] MEDS: ONDANSETRON INJ 2 MG/ML 2 ML VIAL IV PRN (10:12)
[2024-10-24] MEDS: ASPIRIN 81 MG CHEW PO SCH (11:49)
--- NOTE | 2024-10-24 13:06 | Gastroenterology Progress Note ---
Date of Service October 24, 2024 Assessment & Plan (1) Right sided abdominal pain: (2) Colitis: Plan Discussed with Dr. Gaines who reviewed the CTA imaging. Will add an Aspirin daily. Patient needs to stop smoking. Await results of the stool calprotectin in the outpatient setting. Admission and Anticipated Discharge Date Admission Date: October 22, 2024 Supervising Physician Co-Signing Physician Notes Patient continues to improve. States her abdominal pain is less than yesterday though still there. She is up walking in the hallways. There is no acidosis. Her white count is improving. The CTA showed widely patent arteries. This may be small vessel disease or watershed colitis. Will add a baby aspirin. Patient's been strongly advised to stop smoking. She is reluctant to undergo a colonoscopy though I think once her abdomen is less tender this would be advisable. Subjective Patient is a 54 yo female with RLQ abdominal pain. She notes nausea today. Pain persists. No diarrhea. No new symptoms otherwise. Review of Systems Gastrointestinal: + abdominal pain Physical Exam Constitutional: well developed Gastrointestinal (Abdomen): Percussion/Palpation: + abdomen tender Results & Data Results & Data Vital Signs (Past 12 Hours) Vital Signs Temp Pulse Resp BP Pulse Ox O2 Del Method 10/24/24 06:35 36.7 C 89 16 111/68 96 Room Air PG Care Time/CCT Total # of Minutes Spent Total Time Spent with Patient: Total time spent is greater than 50% in coordination of care (as documented) at patient's floor/unit and/or counseling patient: Coding Level of Care Code 16924 SUB INP/OBS CARE 2/35MIN Diagnoses Right sided abdominal pain R10.9 Colitis K52.9
[2024-10-24 16:19] LABS: Adenovirus F 40/41 PCR Not Detected (NotDetected); Astrovirus PCR Not Detected (NotDetected); Campylobacter PCR Not Detected (NotDetected); Cryptosporidium PCR Not Detected (NotDetected); Cyclospora cayetanensis PCR Not Detected (NotDetected); Entamoeba histolytica PCR Not Detected (NotDetected); Enteroaggregative E.coli(EAEC) Not Detected (NotDetected); Enteropathogenic E.coli (EPEC) Not Detected (NotDetected); Enterotoxigenic E.coli (ETEC) Not Detected (NotDetected); Giardia lamblia PCR Not Detected (NotDetected); Norovirus GI/GII PCR Not Detected (NotDetected); Plesiomonas shigelloides PCR Not Detected (NotDetected); Rotavirus A PCR Not Detected (NotDetected); Salmonella PCR Not Detected (NotDetected); Sapovirus PCR Not Detected (NotDetected); Shiga-like Toxin E.coli (STEC) Not Detected (NotDetected); Shigella/Enteroinvasive E.coli Not Detected (NotDetected); Vibrio cholerae PCR Not Detected (NotDetected); Vibrio species PCR Not Detected (NotDetected); Yersinia enterocolitica PCR Not Detected (NotDetected)
--- NOTE | 2024-10-24 17:22 | Hospitalist Progress Note ---
Date of Service October 24, 2024 Assessment & Plan (1) Colitis: Plan: 54yo woman with RA on methotrexate and plaquenil, ILD, presenting with right sided abdominal pain ongoing for the last 4-5 days as well as nausea, decreased appetite and poor oral intake. No diarrhea - recent difficulty having BMs/constipation and was using a lot of colace to produce a BM CT with diffuse colitis, especially transverse colon. Patient has had similar in the past. 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 CT scans in 2022, 2023 also with colonic thickening. Colonoscopy in 2021 with diverticulosis. She is not having diarrhea at this time. -consulted gastroenterology - may have ischemic or inflammatory colitis - reviewed CTA abdomen 10/23 was unremarkable except for pancolitis - discussed with gastroenterology colitis is in a watershed area potentially ischemic related to small vessel disease, baby aspirin initiated advised stopping smoking - she would benefit from colonoscopy because of the possibility of IBD - we discussed this at length today and she seems willing to proceed when that is indicated -stool biofire ordered but not having diarrhea, stool calprotectin ordered. CRP and ESR are both low - continue clear liquid diet today since still very tender on exam -Clear liquid diet - a.m. BMP and mag hypokalemia - recently started 20 meq bid as outpatient. K 3.6 today. Resume 20 bid. Check K and mag in AM Plan Pancytopenia - W3, Hg 9.5, Plt 115 - diff with low monocytes. folate deficiency retic count normal but not proportionately elevated, B12 normal, iron studies normal, folate is low which can cause pancytopenia -start folic acid 1 mg daily -related to methotrexate and poor oral intake for at least a month -monitor CBC Rheumatoid Arthritis -Continue Prednisone 5mg po daily -hold methotrexate until acute illness improved -continue plaquenil -Continue Gabapentin -Continue Duloxetine -follow up with Dr. Santiago ILD and bronchiectasis -last visit with Dr. Valladares in 2022, though to be related to RA -schedule follow up with pulm, routine -on home O2 2L? 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 Hepatic steatosis -noted on serial imaging -mild elevation of AST/ALT/Alk phos probably related to this Hypertension -Continue Losartan 50mg po daily GERD -Continue Protonix 40mg po daily Hyperlipidemia -Continue Crestor 20mg po qAM Ppx - enoxaparin Code - DNR/DNI per discussion with patient Admission and Anticipated Discharge Date Admission Date: October 22, 2024 Subjective abdominal pain has improved has passed a little bit of gas, no nausea emesis we had a long discussion today about risks and benefits of a colonoscopy Physical Exam 2 Physical Exam: PHYSICAL EXAMINATION Last 24h vital signs reviewed, see documentation in flowsheet General: comfortable appearing, no distress HEENT: Normocephalic, atraumatic, pupils round and equal, sclerae anicteric, no conjunctival injection, moist mucus membranes Lungs: Normal respiratory effort. Clear to auscultation bilaterally. No RRW Heart: Regular rate and rhythm, no murmurs. No JVD Abdomen: Soft, nondistended. still very tender to palpation especially in right lower quadrant more than epigastric/periumbilical area. no rebound rigidity or guarding. Bowel sounds present. Extremities: Warm, dry, well-perfused. No extremity edema. Neuro: Alert and oriented x 4, face symmetric, moves 4 extremities well Psych: Normal affect and behavior Results & Data Results & Data Vital Signs (Past 12 Hours) Vital Signs Temp Pulse Resp BP Pulse Ox O2 Del Method 10/24/24 06:35 98.1 F 89 16 111/68 96 Room Air Laboratory Results 10/24/24 07:17 10/24/24 07:17 PG Care Time/CCT Total # of Minutes Spent Total Time Spent with Patient: Total time spent is greater than 50% in coordination of care (as documented) at patient's floor/unit and/or counseling patient: Coding Level of Care Code 46354 SUB INP/OBS CARE 3/50MIN Diagnoses Colitis K52.9
[2024-10-24] MEDS: POTASSIUM CHLORIDE CRTAB 20 MEQ TABCR PO SCH (20:33)
[2024-10-25 08:43] LABS: Basophils # (auto) 0.04 K/uL (0.00-0.20); Basophils % (auto) 0.7 %; Eosinophils # (auto) 0.24 K/uL (0.00-0.50); Eosinophils % (auto) 4.1 %; Hematocrit (blood only) 28.7 % (37.0-47.0); Hemoglobin 9.7 g/dl (12.0-16.0); Immature Granulocytes # (auto) 0.02 K/uL (0.01-0.20); Immature Granulocytes % (auto) 0.3 %; Lymphocytes % (auto) 41.3 %; Mean Corpuscular Hemoglobin 32.7 pg (25.0-34.0); Mean Corpuscular Hgb Conc 33.8 g/dL (32.0-36.0); Mean Corpuscular Volume 96.6 fL (80.0-100.0); Mean Platelet Volume 11.2 fL (9.4-12.4); Monocytes # (auto) 0.16 K/uL (0.11-0.59); Monocytes % (auto) 2.8 %; Neutrophils # (auto) 2.95 K/uL (1.40-6.50); Neutrophils % (auto) 50.8 %; Platelet Count 144 K/uL (130-400); RDW Coefficient of Variation 17.3 % (11.5-14.5); RDW Standard Deviation 61.1 fL (36.4-46.3); Red Blood Count 2.97 M/uL (4.20-5.40); White Blood Count 5.81 K/ul (4.8-10.8)
[2024-10-25 09:18] LABS: BUN Creatinine Ratio 13.5 (10-20); Calcium 8.3 mg/dl (8.6-10.3); Creatinine Clr Calc Pharmacy 83.9 ml/min; Magnesium 1.7 mg/dl (1.7-2.4); Potassium 3.7 mmol/L (3.5-5.1)
--- NOTE | 2024-10-25 11:04 | Gastroenterology Progress Note ---
Date of Service October 25, 2024 Assessment & Plan (1) Colitis: (2) Right sided abdominal pain: Plan -Continue Aspirin daily -Patient needs to quit smoking -Await stool calprotectin Admission and Anticipated Discharge Date Admission Date: October 22, 2024 Supervising Physician Co-Signing Physician Notes Patient continues to improve but slowly. She is less tender with less rebound though still has right-sided abdominal discomfort. There is no significant leukocytosis there is no acidosis. She is tolerating p.o. and wishes it to be advanced. At this point we feel this is probably ischemic colitis with small vessel disease. Inflammatory bowel disease is not excluded. Patient agreeable to colonoscopy maybe as an outpatient. Strongly recommended not to smoke and continue her baby aspirin. Potential discharge in 1 to 2 days if continued improvement. Subjective Patient with possible ischemic vs inflammatory colitis. She notes right sided abdominal pain but is able to get up and walk around throughout the hallways. H/H 9.7/28.7. Review of Systems Gastrointestinal: + abdominal pain Physical Exam Gastrointestinal (Abdomen): Percussion/Palpation: + abdomen tender Psychiatric: Orientation: alert and oriented x 3 Results & Data Results & Data Vital Signs (Past 12 Hours) Vital Signs Temp Pulse Resp BP Pulse Ox O2 Del Method 10/25/24 07:29 36.7 C 94 H 15 108/61 96 Room Air PG Care Time/CCT Total # of Minutes Spent Total Time Spent with Patient: Total time spent is greater than 50% in coordination of care (as documented) at patient's floor/unit and/or counseling patient: Coding Level of Care Code 61624 SUB INP/OBS CARE 2/35MIN Diagnoses Colitis K52.9 Right sided abdominal pain R10.9
[2024-10-25] MEDS: HYDROmorphone INJ 0.5 MG/0.5 ML SYR IV PRN (11:10)
--- NOTE | 2024-10-25 19:01 | Hospitalist Progress Note ---
Date of Service October 25, 2024 Assessment & Plan (1) Colitis: Plan: 54yo woman with RA on methotrexate and plaquenil, ILD, presenting with right sided abdominal pain ongoing for the last 4-5 days as well as nausea, decreased appetite and poor oral intake. No diarrhea - recent difficulty having BMs/constipation and was using a lot of colace to produce a BM CT with diffuse colitis, especially transverse colon. Patient has had similar in the past. 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 CT scans in 2022, 2023 also with colonic thickening. Colonoscopy in 2021 with diverticulosis. She is not having diarrhea at this time. -consulted gastroenterology - may have ischemic or inflammatory colitis - reviewed CTA abdomen 10/23 was unremarkable except for pancolitis - stool biofire was negative 10/24 - discussed with gastroenterology colitis is in a watershed area potentially ischemic related to small vessel disease, baby aspirin initiated advised stopping smoking - she would benefit from colonoscopy because of the possibility of IBD - after lots of discussion she's ok with this, likely as an outpatient - stool calprotectin pending. CRP and ESR are both low - continue trying to advance diet - added oral oxycodone prn hypokalemia - resumed 20 meq bid outpatient dose recently started. K 3.7 today. Mag normal at 1.7 Plan Pancytopenia - W3, Hg 9.5, Plt 115 - diff with low monocytes. folate deficiency retic count normal but not proportionately elevated, B12 normal, iron studies normal, folate is low which can cause pancytopenia -started folic acid 1 mg daily -related to methotrexate and poor oral intake for at least a month -CBC today with improved WBC to 5, Plt normal at 125. Hg unchanged not macrocytic Rheumatoid Arthritis -Continue Prednisone 5mg po daily -hold methotrexate until acute illness improved -continue plaquenil -Continue Gabapentin -Continue Duloxetine -follow up with Dr. Santiago ILD and bronchiectasis -last visit with Dr. Valladares in 2022, though to be related to RA -schedule follow up with pulm, routine -on home O2 2L? -still smoking - counseled cessation - shes not willing to totally quit but only smoking a few cigarettes a day at this time. We discussed some nicotine replacement options. Hepatic steatosis -noted on serial imaging -mild elevation of AST/ALT/Alk phos probably related to this Hypertension -Continue Losartan 50mg po daily GERD -Continue Protonix 40mg po daily Hyperlipidemia -Continue Crestor 20mg po qAM Ppx - enoxaparin Code - DNR/DNI per discussion with patient Hopefully home tomorrow with outpatient GI follow up if tolerates diet. Admission and Anticipated Discharge Date Admission Date: October 22, 2024 Subjective Gabi is feeling a little bit better today, abdominal pain still present but has improved, did need a dose of hydromorphone IV this am Tolerating CLD and advanced to [facility] for lunch, has eaten a little bit. requests crackers which are ok Has had soft stool last 24h nonbloody, not diarrhea. No N/V Physical Exam 2 Physical Exam: PHYSICAL EXAMINATION Last 24h vital signs reviewed, see documentation in flowsheet General: comfortable appearing, no distress, sitting up in bed and walking in HW HEENT: Normocephalic, atraumatic, pupils round and equal, sclerae anicteric, no conjunctival injection, moist mucus membranes Lungs: Normal respiratory effort. Heart: Deferred Abdomen: Soft, nondistended. Remains TTP on right side of abdomen and some fullness there. Bowel sounds present. Extremities: Warm, dry, well-perfused. No extremity edema. Neuro: Alert and oriented x 4, face symmetric, moves 4 extremities well Psych: Normal affect and behavior Results & Data Results & Data Vital Signs (Past 12 Hours) Vital Signs Temp Pulse Resp BP Pulse Ox O2 Del Method 10/25/24 15:39 98.1 F 78 16 116/75 100 Room Air 10/25/24 07:29 98.1 F 94 H 15 108/61 96 Room Air Laboratory Results 10/25/24 07:51 10/25/24 07:51 PG Care Time/CCT Total # of Minutes Spent Total Time Spent with Patient: Total time spent is greater than 50% in coordination of care (as documented) at patient's floor/unit and/or counseling patient: Coding Level of Care Code 15914 SUB INP/OBS CARE 2/35MIN Diagnoses Colitis K52.9
[2024-10-26 07:02] VITALS: PULSE 81; RESP 16; O2SAT 98
[2024-10-26 13:20] VITALS: BP 112/71
--- NOTE | 2024-10-26 17:58 | Discharge Summary ---
Discharge Summary Date of Service October 26, 2024 Principal Dx & Hospital Course #1 = Principal Diagnosis (1) Colitis: 54yo woman with RA on methotrexate and plaquenil, ILD, presenting with right sided abdominal pain ongoing for the last 4-5 days as well as nausea, decreased appetite and poor oral intake. No diarrhea - recent difficulty having BMs/constipation and was using a lot of colace to produce a BM CT with diffuse colitis, especially transverse colon. Patient has had similar in the past - multiple CTs past year with colitis findings. Does have history of EPEC E. coli colitis a year ago as well which was treated with Azithromycin. CT scans in 2022, 2023 with colonic thickening. Colonoscopy in 2021 with diverticulosis. She is not having diarrhea at this time. stool biofire was negative 10/24 -consulted gastroenterology - may have ischemic or inflammatory colitis - reviewed CTA abdomen 10/23 was unremarkable except for pancolitis - discussed with gastroenterology colitis is in a watershed area potentially ischemic related to small vessel disease, baby aspirin initiated advised stopping smoking - she would benefit from colonoscopy because of the possibility of IBD - after lots of discussion she's ok with this, planned as an outpatient - she was found to have folate deficiency and is on methotrexate 20 mg weekly, which can also cause colitis - advised her to hold this until follow up with GI and her Vegetable Canner - stool calprotectin pending. CRP and ESR are both low - she was able to advance diet to low fiber, she still does have right sided abdominal pain and tenderness, but improving - oral oxycodone prn - will use sparingly, mostly she has been controlled on tylenol and toradol - discussed return precautions at length Plan # Pancytopenia probably due to folate deficiency, setting of methotrexate retic count normal but not proportionately elevated, B12 normal, iron studies normal, folate is low which can cause pancytopenia -started folic acid 1 mg daily -related to methotrexate and poor oral intake for at least a month -CBC with improved WBC to 5, Plt normal at 125. Hg unchanged not macrocytic -follow up CBC as outpatient should resolve in 2-4 weeks Rheumatoid Arthritis -Continue Prednisone 5mg po daily -hold methotrexate as discussed above, because of pancytopenia and colitis -continue plaquenil -Continue Gabapentin -Continue Duloxetine -follow up with Dr. Santiago ILD and bronchiectasis -last visit with Dr. Valladares in 2022, though to be related to RA -schedule follow up with pulm, routine -on home O2 2L? -still smoking - counseled cessation - shes not willing to totally quit but only smoking a few cigarettes a day at this time. We discussed some nicotine replacement options. Hepatic steatosis -noted on serial imaging -mild elevation of AST/ALT/Alk phos probably related to this or methotrexate - improved Hypertension -Continue Losartan 50mg po daily GERD -Continue Protonix 40mg po daily Hyperlipidemia -Continue Crestor 20mg po qAM Notes For Next Care Provider Pancolitis - ischemic, IBD or related to methotexate Following up with GI for colonoscopy Medication Changes From Visit held methotrexate added folic acid 1 mg daily added B12 supplement for low normal B12 Admission HPI Per Admitting Provider Gabi Richmond is a pleasant 54yo female with history of HTN, HLP, RA on chronic Prednisone, Plaquenil and MTX presenting with abdominal pain. Patient woke up on 10/18/24 with severe abdominal pain. Pain in the mid-abdomen - pulling sensation with involvement of the right lower abdomen as well. Pain has been persistent - acutely worse today which prompted her to come to the ER. Right sided and lower abdominal pain 6-10/10 with associated nausea, poor appetite and decreased oral intake. Patient has been taking a lot of Colace because she though she was constipated. Last BM today at 16:00 - soft and somewhat mucoid She is passing flatus No additional complaints at this time ER Course: Dilaudid 1mg IV Zofran 4mg IV NSS x 1L Discharge Exam PHYSICAL EXAMINATION Last 24h vital signs reviewed, see documentation in flowsheet General: sitting on EOB HEENT: Normocephalic, atraumatic, pupils round and equal, sclerae anicteric, no conjunctival injection, moist mucus membranes Lungs: Normal respiratory effort. Heart: Deferred Abdomen: Soft, nondistended. Remains TTP on right side of abdomen and some fullness there but less so and no rebound. Bowel sounds present. Extremities: Warm, dry, well-perfused. No extremity edema. Neuro: Alert and oriented x 4, face symmetric, moves 4 extremities well Psych: Normal affect and behavior Discharge Plan Discharge Items Patient Disposition: Home - Self-Care Reason For Visit: ABDOMINAL PAIN, COLITIS Discharge Diagnosis: pancolitis - ischemic vs inflammatory (IBD) Condition on Discharge: Fair Activity: Resume your previous activity Non-emergency contact: Primary Care Provider and Revenue Coordinator Call non-emergency contact if: you have any medication questions, your symptoms worsen, your pain is worsening and you have a fever Follow-up/Referrals: Justa Rose CRNP [Primary Care Provider] - Long Santiago MD [Physician] - Kyrie Gaines MD [Physician] - Diet: Low Fiber Addtl Attending Provider Instructions: You were evaluated for colitis - colon inflammation CTA of abdomen showed that all the main arteries in your abdomen are open -stool test was negative for infections It is possible that it is ischemic colitis - transient poor blood flow to the colon because of a small artery closing up -take aspirin 81 mg daily -work on quitting smoking It is also possible that you have inflammatory bowel disease (like Crohn's or Ulcerative colitis) -fecal calprotectin test is pending -follow up with gastroenterology - inflammatory bowel disease requires specific treatment to control and must be diagnosed by colonoscopy It is also possible that the methotrexate could be causing the colitis (as well as low blood counts and folate deficiency) - I recommend holding the methotrexate until your follow up with gastroenterology and rheumatology You have folate deficiency - this can cause low blood counts. The low folate is related to methotrexate and recent difficulty eating / low intake, it is easily supplemented with folic acid 1 mg daily. You should continue this indefinitely, especially if you are on methotrexate. For some people, taking folic acid while on methotrexate can resolve these problems, so its possible that methotrexate can be restarted when you are doing better. Talk to your Vegetable Canner. Your B12 is low normal and I recommend a B12 supplement at well. It was a pleasure taking care of you in the hospital, Mikayla Hussein MD Pending Studies at Discharge: Yes Stand-Alone Forms: My [facility] [employer], Smoking Cessation Medications and DC Order Prescriptions: New aspirin [Children's Aspirin] 81 mg Tablet,Chewable 81 mg PO DAILY Qty: 30 0RF Rx Instructions: buy over the counter folic acid 1 mg Tablet 1 mg PO QAM Qty: 30 0RF Rx Instructions: buy over the counter mecobalamin (vitamin B12) 500 mcg tablet,chewable 500 mcg PO DAILY Qty: 30 0RF Rx Instructions: buy over the counter Continued alendronate [Fosamax] 70 mg tablet 70 mg PO WK Qty: 12 3RF Rx Instructions: Monday valacyclovir 1 gram tablet 2,000 mg PO Q12H PRN (Reason: cold sores) 1 Days Qty: 4 2RF Rx Instructions: Take 2 tablets every 12 hours x 2 doses for each cold sore flare. Take at first sign of cold sore. ondansetron 8 mg tablet,disintegrating 8 mg PO Q8H PRN (Reason: nausea and vomiting) Qty: 20 0RF losartan 50 mg tablet 50 mg PO QAM Qty: 30 0RF buspirone 15 mg tablet 15 mg PO BID Qty: 60 5RF potassium chloride 20 mEq tablet extended release 20 meq PO BID Qty: 180 1RF hydroxychloroquine [Plaquenil] 200 mg tablet 200 mg PO DAILY Hold Instructions: Resume on 03/12/24. resume after finishing antibiotics omeprazole 20 mg capsule,delayed release(DR/EC) 20 mg PO DAILYBB tramadol 50 mg tablet 50 mg PO DAILY rosuvastatin 20 mg tablet 20 mg PO QAM Qty: 90 3RF duloxetine 30 mg capsule,delayed release(DR/EC) 60 mg PO QAM albuterol sulfate 90 mcg/actuation HFA aerosol inhaler 2 puff inhalation QID PRN (Reason: shortness of breath or wheezing) Qty: 8.5 0RF prednisone 5 mg tablet 5 mg PO QAM Hold Instructions: Resume on 03/16/24. until completing steroid taper gabapentin 300 mg capsule 300 mg PO TID oxycodone 5 mg Tablet 5 mg PO Q6H PRN (Reason: pain) Qty: 15 0RF ibuprofen 200 mg Tablet 400 mg PO Q6H PRN (Reason: Pain) guaifenesin [Mucinex] 600 mg Tablet Extended Release 12hr 1,200 mg PO BID PRN (Reason: cough) Qty: 30 0RF baclofen 10 mg Tablet 10 mg PO BID PRN (Reason: muscle spasm) Qty: 20 0RF Held methotrexate sodium 2.5 mg tablet 20 mg PO WK Hold Instructions: Resume on 03/12/24. resume after completing antibiotics Rx Instructions: TAKES 8 TABLETS ON SUNDAYS Discontinued doxycycline hyclate 100 mg tablet 100 mg PO BID Qty: 20 0RF cefdinir 300 mg capsule 300 mg PO BID Qty: 20 0RF prednisone 20 mg tablet See Rx Instructions PO QAM Qty: 18 0RF Rx Instructions: Take 3 tablets daily x 3 days, 2 tablets daily x 3 days, 1 tablet daily x 3 days, then stop PO QAM; Discharge Orders: Discharge Order (Routine); Ordered 10/26/24 Ordered By: Mikayla Hussein Admission Data Admit Date/Time: 10/22/24 22:30 Attending Provider: Mikayla Hussein Admit Provider: Steffi Duarte Primary Care Provider: Justa Rose Other Providers: Steffi Duarte; Rene Murillo; Michael Rollins; Cecille Ponce; Lily Mathew; Ginette Figueredo; Toma Dave; Torsten Downing; Omari Luz; Yelena Peña; Westley Corrales; Kari Kenyon; Jolene Mora; Brandy Mercer; Sallie Ross; Filemon Vo; Karthik Hardy; Farheen Bhakta; Venus Cuba Jr; Gabino Brady.; Rui Mendoza; Von Persaud; Gonsalo Méndez; Trish Saleh; Jake Koroma I; Larissa Campuzano; Kyrie Gaines Other Interventions: Discharge Summary Assessment (RN) Last Done: 10/26/24 13:19 Hospital Stay Data Consultations 10/22/24 21:53 ED Decision to Admit Stat 10/23/24 08:31 Consult Gastroenterology Routine Diagnostic Imagining Performed 10/22/24 18:15 CT abd pelvis IV con only Stat 10/23/24 13:20 CT angio abdomen pelvis w con Routine Pending Results Patient Have Any Pending Studies at Discharge: Yes Discharge Instructions Given to Patient (Per Discharging Provider) You were evaluated for colitis - colon inflammation CTA of abdomen showed that all the main arteries in your abdomen are open -stool test was negative for infections It is possible that it is ischemic colitis - transient poor blood flow to the colon because of a small artery closing up -take aspirin 81 mg daily -work on quitting smoking It is also possible that you have inflammatory bowel disease (like Crohn's or Ulcerative colitis) -fecal calprotectin test is pending -follow up with gastroenterology - inflammatory bowel disease requires specific treatment to control and must be diagnosed by colonoscopy It is also possible that the methotrexate could be causing the colitis (as well as low blood counts and folate deficiency) - I recommend holding the methotrexate until your follow up with gastroenterology and rheumatology You have folate deficiency - this can cause low blood counts. The low folate is related to methotrexate and recent difficulty eating / low int gil, it is easily supplemented with folic acid 1 mg daily. You should continue this indefinitely, especially if you are on methotrexate. For some people, taking folic acid while on methotrexate can resolve these problems, so its possible that methotrexate can be restarted when you are doing better. Talk to your Vegetable Canner. Your B12 is low normal and I recommend a B12 supplement at well. It was a pleasure taking care of you in the hospital, Mikayla Hussein MD Total Time Total Time Spent Total Time Spent (In Minutes): I personally spent: 45 today on clinical care activities including: reviewing chart notes and vital signs reviewing labs reviewing studies examining and counseling the patient writing orders writing prescriptions, discharge instructions documentation Coding Level of Care Code 10240 INP/OBS DISCH >30 MIN Diagnoses Colitis K52.9
[2024-10-27] MEDS ORDERED: metHOTREXate sodium 2.5 MG TAB PO SCH (09:00)
--- NOTE | 2024-11-15 09:46 | Coding Query ---
A supporting diagnosis is required for the test/procedure performed on this patient in order for us to be reimbursed by the patient's insurance. Please provide a supporting diagnosis for the following test/procedure listed below next to the test name. *If there is no additional diagnosis for this patient that would support the following test/procedure please document that below next to the test/procedure. Test(s)/Procedure(s) that require a supporting diagnosis: * 00980 GI GASTROINTESTINAL PANEL DIAGNOSIS: Patient with 4-5 days of diarrhea, diffuse colitis noted on CT. She has history of RA and is immunosuppressed on Methotrexate, Prednisone and Hydroxychloroquine. History of EPEC. DATE OF SERVICE: 10/24/24 Thank you [facility] Information Management Once completed, please kindly fax back to [phone] For questions please call [phone] [facility]
== END 2024-10-26 13:59 | disposition home or self-care (01) | DRG 392 ==
LOC: ED 17:59 → SUATTDRO 22:30 → 3W 22:30 → INTOOBSV 22:30 → 3W 22:49

== ENCOUNTER 2025-01-30 16:20 | Inpatient (IN) ==
[2025-01-30] MEDS: ONDANSETRON INJ 2 MG/ML 2 ML VIAL IV STA (16:50)
[2025-01-30] MEDS: HYDROmorphone INJ 1 MG/ML SYRINGE IV STA (16:50)
[2025-01-30] MEDS: SODIUM CHLORIDE 0.9% 1,000 ML IV ONE (16:53)
[2025-01-30 16:55] LABS: Basophils # (auto) 0.05 K/uL (0.00-0.20); Basophils % (auto) 0.9 %; Eosinophils # (auto) 0.13 K/uL (0.00-0.50); Eosinophils % (auto) 2.4 %; Hemoglobin 10.6 g/dl (12.0-16.0); Immature Granulocytes # (auto) 0.01 K/uL (0.01-0.20); Immature Granulocytes % (auto) 0.2 %; Lymphocytes # (auto) 1.69 K/uL (1.20-3.40); Lymphocytes % (auto) 31.1 %; Mean Corpuscular Hemoglobin 28.8 pg (25.0-34.0); Mean Corpuscular Hgb Conc 33.1 g/dL (32.0-36.0); Mean Platelet Volume 10.9 fL (9.4-12.4); Monocytes # (auto) 0.35 K/uL (0.11-0.59); Monocytes % (auto) 6.4 %; Neutrophils # (auto) 3.21 K/uL (1.40-6.50); Platelet Count 111 K/uL (130-400); RDW Standard Deviation 49.9 fL (36.4-46.3); Red Blood Count 3.68 M/uL (4.20-5.40); White Blood Count 5.44 K/ul (4.8-10.8)
--- NOTE | 2025-01-30 17:00 | Emergency Department Note ---
Impression & Plan Abdominal pain, Colitis, Anemia, Abnormal CT of the abdomen, Hypokalemia, Elevated liver enzymes ED Provider Note NAME: ALISON NICOLAS AGE: 54 SEX: F : 1970 ARRIVES VIA: Walk-In INFORMANT: [Patient][daughter] ED PROVIDER(S): [Mann Fraire MD] CHIEF COMPLAINT: Abdominal pain HISTORY OF PRESENT ILLNESS: Patient is a 54-year-old female who presents to the ER with right sided abdominal pain and some left lower pelvic pain. The patient has had issues with her abdomen for some time. She had a colonoscopy within the last month and, some polyps were removed. She was thought to have ischemic bowel but, this was not seen on colonoscopy. Apparently, recently, her hemoglobin has been dropping, she does occasionally have bright red rectal bleeding. In the last 2 days, she has had increasing pain, she presents tearful asking for pain relief and additional workup. The patient has not had fever, she does have some nausea but there has been no vomiting. She is moving her bowels, no urinary complaints. No cough cold or congestion. PMHx/PSHx/Social Hx: See Below PHYSICAL EXAM: GENERAL: Patient is in moderate distress from pain. HEENT: No acute trauma, normocephalic atraumatic, mucous membranes moist, no nasal congestion. NECK: No stridor, no adenopathy, no meningismus, trachea is midline. LUNGS: Clear to auscultation bilaterally, no wheeze, no rhonchi, breath sounds equal. HEART: Without murmurs gallops or rubs, regular rate and rhythm. ABDOMEN: Soft, no distention. Tender primarily on the right side of the abdomen and also in the inferior left pelvis EXTREMITIES: No cyanosis, full range of motion of all the joints without pain or difficulty. NEUROLOGIC: Oriented x 3, no acute motor or sensory deficits, no focal weakness. SKIN: No jaundice, no diaphoresis. DIFFERENTIAL DIAGNOSIS: Ischemic bowel, clot, bowel obstruction, diverticulitis, UTI, renal colic, renal colic, among others. EMERGENCY DEPARTMENT PROCEDURES: MEDICAL DECISION MAKING: There is no leukocytosis. The patient is anemic however, this has been a chronic issue lately. Platelet count was low at 111, also documented previously. INR was elevated at 1.3. Potassium was low at 3.1. No renal failure. There were some liver enzyme elevations noted. No evidence for pancreatitis. Urinalysis did not show findings of infection. Chest film did not show obvious pneumonia although the radiologist questioned some congestion of the right lower lung. There was no free air. Abdominal and pelvis CT showed mesenteric inflammation, adenopathy and possible colitis or mesenteric adenitis. No bowel obstruction, there was no evidence for ischemic bowel. Lactic acid level returned normal making bowel ischemia less likely. On exam, the patient was quite uncomfortable. She was not febrile. She was not hypotensive. Patient received IV saline for hydration. She was given IV Zosyn as antibiotic coverage, she was given IV Zofran and IV Dilaudid. She received IV Solu-Medrol. She was given IV Toradol. The patient presents with severe abdominal pain. She has an abnormal abdominal/pelvis CT. Up until this point, the cause for her abdominal pain and her CT findings has been unclear. It remains unclear today. I do think the patient requires a hospital stay, further workup and GI consult/evaluation. I spoke with the patient and case management, the on-call hospitalist was consulted. Patient does seem improved with the treatment here in the ED. Prior/Outside records/notes reviewed: None Imaging/x-ray results per my interpretation: Chest x-ray does not show mediastinal widening, obvious pneumonia or pneumothorax. Chronic Medical/Social conditions affecting care: None Care/Management discussed with: Case management, the on-call hospitalist. Level of care consideration(s): After review of the information above and other included data: --I believe the patient requires escalation of care to admission DISPOSITION: Admission Past Med/Surg History Problem List (Updated 01/31/25 @ 10:13 by Mann Fraire MD) Elevated liver enzymes (Acute) Hypokalemia (Acute) Abnormal CT of the abdomen (Acute) Anemia (Acute) Colitis (Acute) Abdominal pain (Acute) Abnormal LFTs Left groin pain Visual disturbance Acute colitis Colitis (Acute) Rhinovirus infection (Acute) Irregular bowel habits Chronic respiratory failure with hypoxia Bloody stool (Acute) Right sided abdominal pain (Acute) Hypokalemia (Acute) Infectious gastroenteritis and colitis Decreased pedal pulses Rectal bleeding History of incisional hernia repair (06/30/22) Open Incisional Hernia Repair - Nikita Zamorano, GERD (gastroesophageal reflux disease) Osteoporosis Chronic bronchitis ILD (interstitial lung disease) Pulmonary nodules Impaired fasting glucose Lymphocytosis Anxiety Hyperlipidemia Hypertension Hx laparoscopic cholecystectomy (10/21/21) Laparoscopic Cholecystectomy - Nikita Zamorano DO 10/21/2021 Hypokalemia Medical History Cold sore Currently has "fever blister on my lip" - hasn't started PRN valtrex yet as per patient Pulmonary nodules Osteoporosis GERD (gastroesophageal reflux disease) hx History of bloody stools "after my last colonoscopy, I had 6-8 months of bleeding like clots." as per patient Right sided abdominal pain reason for procedure 12/17/24 Acute colitis reason for procedure 12/17/24 Pneumonia hx - pt denies at any issues at this time Atypical chest pain pt denies any issues currently Current smoker Rheumatoid arthritis Dr Rivas Rheumotology 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 History of COVID-May 12, 2022 > home test, cough, runny nose, > all resolved Shingles outbreak Sep 2020 Nausea and vomiting after administration of anesthetic agent ILD (interstitial lung disease) no longer following Pulm Fibromyalgia Diverticular disease no hospitalizations - unsure if incidental finding from imaging or colonoscopy Depression Anxiety Hyperlipidemia Hypertension Biliary dyskinesia Surgical History History of laparoscopic cholecystectomy History of incisional hernia repair Hx of removal of cyst from left hand during carpal tunnel History of carpal tunnel release Bilateral History of esophagogastroduodenoscopy (EGD) History of colonoscopy "after my last colonoscopy, I had 6-8 months of bleeding like clots." as per patient History of hysterectomy Family History Aunt Diabetes Uncle Diabetes Social History Smoking Status: Current every day smoker Tobacco Type: Cigarettes Age Started Using Tobacco: 15; packs per day: 1; Cigarettes Per Day: 1/2 ppd; Second Hand Exposure: No; Do You Dip or Chew Tobacco: No; Tobacco Cessation Education Requested by Patient: No Hx Alcohol Use: Yes Hx Substance Use: No Preferred Language: Slovenian Communication Ability: Effective Visual Impairment: Partially Limited Student Records Coordinator Required: No Beliefs That Will Affect Care: None marital status: Current Living Situation: Spouse current occupational status: disabled How many Children do You have: 2 Other Information That Helps Us Care for You: No Feels Safe at Home: Yes Safety Concerns: Feels Safe At This Time Diet: regular caffeine: Yes Dental Care, Regularly: No Physical Activity Frequency: Daily Physical Activity Frequency Comment: Active Seatbelt Use: always Sunscreen Use: No Assistive Devices: None Allergies Allergies Allergy/AdvReac Type Severity Reaction Status Date / Time latex Allergy Intermediate Rash Verified 01/30/25 21:05 homatropine AdvReac Intermediate Nausea Verified 01/30/25 21:05 morphine AdvReac Intermediate Nausea, Verified 01/30/25 21:05 Vomiting Home Meds Home Medications Medication Instructions Recorded Confirmed prednisone 5 mg tablet 5 mg PO QAM 11/20/19 01/30/25 omeprazole 20 mg capsule,delayed 20 mg PO DAILYBB 10/05/20 01/30/25 release gabapentin 300 mg capsule 300 mg PO TID 10/17/21 01/30/25 (Neurontin) methotrexate sodium 2.5 mg tablet 20 mg PO WK 11/09/21 01/30/25 tramadol 50 mg tablet 50 mg PO DAILY 04/27/23 01/30/25 hydroxychloroquine 200 mg tablet 200 mg PO DAILY 08/31/23 01/30/25 (Plaquenil) ibuprofen 200 mg tablet 400 mg PO Q6H PRN Pain 03/05/24 01/30/25 duloxetine 30 mg capsule,delayed 60 mg PO QAM 03/08/24 01/30/25 release (Cymbalta) valacyclovir 1 gram tablet 2,000 mg PO Q12H PRN cold sores 12/06/24 01/30/25 (Valtrex) prednisone 20 mg tablet See Rx Instructions PO QAM PRN 01/30/25 01/30/25 FLARE [employer] Previous Rx's Medication Instructions Recorded alendronate 70 mg tablet (Fosamax) 70 mg PO WK #12 tabs 10/23/23 rosuvastatin 20 mg tablet 20 mg PO QAM #90 tabs 02/15/24 ondansetron 8 mg disintegrating 8 mg PO Q8H PRN nausea and 02/28/24 tablet vomiting #20 tabs guaifenesin 600 mg tablet, 1,200 mg (2 x 600 mg) PO BID PRN 03/06/24 extended release 12 hr (Mucinex) cough #30 tabs baclofen 10 mg tablet 10 mg PO BID PRN muscle spasm #20 03/07/24 tabs losartan 50 mg tablet 50 mg PO QAM #30 tabs 03/12/24 albuterol sulfate 90 mcg/actuation 2 puff inhalation QID PRN 06/19/24 aerosol inhaler shortness of breath or wheezing #8.5 grams buspirone 15 mg tablet 15 mg PO BID #60 tabs 08/19/24 potassium chloride 20 mEq 20 meq PO BID #180 tabs 09/30/24 tablet,extended release aspirin 81 mg chewable tablet 81 mg PO DAILY #30 tabs 10/26/24 (Children's Aspirin) folic acid 1 mg tablet 1 mg PO QAM #30 tabs 10/26/24 mecobalamin (vitamin B12) 500 mcg 500 mcg PO DAILY #30 tabs 10/26/24 chewable tablet oxycodone 5 mg tablet 5 mg PO Q6H PRN pain #20 tabs 11/27/24 Results & Data (ED) Vital Signs Vital Signs - 24 hr 01/30/25 16:25 01/30/25 16:29 01/30/25 16:56 Temperature 36.7 C Temperature Source Temporal Artery Scan Pulse Rate 101 H 96 H Pulse Rate [Apical] 102 H Respiratory Rate 18 22 Respiratory Effort / Characteristics Non-Labored Spontaneous Respiratory Depth Normal Blood Pressure 114/73 Blood Pressure [Right Arm] 120/98 Blood Pressure Mean 86 Blood Pressure Mean [Right Arm] 105 Blood Pressure Position Sitting Pulse Oximetry 99 99 Oxygen Delivery Method Room Air Room Air Sepsis Recent Fever Within 48 Hours No Sepsis New/Unexplained Change in Mental Status No Sepsis Action Taken by Nursing No Action Required 01/30/25 18:52 01/30/25 21:08 01/30/25 21:30 Temperature Temperature Source Pulse Rate 102 H 102 H Pulse Rate [Apical] 97 H Respiratory Rate 20 20 Respiratory Effort / Characteristics Respiratory Depth Blood Pressure 110/77 Blood Pressure [Right Arm] 99/65 L Blood Pressure Mean 88 Blood Pressure Mean [Right Arm] 76 Blood Pressure Position Pulse Oximetry 94 93 Oxygen Delivery Method Room Air Room Air Sepsis Recent Fever Within 48 Hours Sepsis New/Unexplained Change in Mental Status Sepsis Action Taken by Jail Medications Current Medication List: was personally reviewed by me Laboratory Data Attestation: I reviewed the patient's lab results. 01/31/25 06:15 01/31/25 06:15 Lab Results 01/30/25 01/30/25 01/30/25 Range/Units 16:30 17:21 19:20 WBC 5.44 (4.8-10.8) K/ul RBC 3.68 L (4.20-5.40) M/uL Hgb 10.6 L (12.0-16.0) g/dl Hct 32.0 L (37.0-47.0) % MCV 87.0 (80.0-100.0) fL MCH 28.8 (25.0-34.0) pg MCHC 33.1 (32.0-36.0) g/dL RDW Std Deviation 49.9 H (36.4-46.3) fL RDW Coeff of Ailyn 16.0 H (11.5-14.5) % Plt Count 111 L (130-400) K/uL MPV 10.9 (9.4-12.4) fL Immature Gran % (Auto) 0.2 % Neut % (Auto) 59.0 % Lymph % (Auto) 31.1 % Williams % (Auto) 6.4 % Eos % (Auto) 2.4 % Baso % (Auto) 0.9 % Neut # (Auto) 3.21 (1.40-6.50) K/uL Lymph # (Auto) 1.69 (1.20-3.40) K/uL Williams # (Auto) 0.35 (0.11-0.59) K/uL Eos # (Auto) 0.13 (0.00-0.50) K/uL Baso # (Auto) 0.05 (0.00-0.20) K/uL Immature Gran # (Auto) 0.01 (0.01-0.20) K/uL ESR 28 (0-30) mm/hr PT 13.5 H (9.0-12.0) Seconds INR 1.3 H (0.9-1.1) APTT 32 H (21-31) Seconds PTT Ratio 1.2 Sodium 138 (136-145) mmol/L Potassium 3.1 L (3.5-5.1) mmol/L Chloride 105 (98-107) mmol/L Carbon Dioxide 25 (21-32) mmol/L Anion Gap 8 (3-11) BUN 10 (6-23) mg/dl Creatinine 0.83 (0.6-1.2) mg/dl Est Cr Clr Drug Dosing 74.6 ml/min eGFR 82.69 BUN/Creatinine Ratio 12.0 (10-20) Glucose 114 H (70-99(Fasting)) mg/dl Lactate 1.5 (0.4-2.0) mmol/L Calcium 8.5 L (8.6-10.3) mg/dl Magnesium 1.8 (1.7-2.4) mg/dl Total Bilirubin 1.4 H (0.2-1.0) mg/dl AST 47 H (13-39) U/L ALT 28 (7-52) U/L Alkaline Phosphatase 123 H (34-104) U/L C-Reactive Protein 0.52 H (0-0.5) mg/dl Total Protein 7.1 (6.0-8.3) gm/dl Albumin 3.2 L (3.4-5.0) gm/dl Globulin 3.9 (2.5-4.0) gm/dl Albumin/Globulin Ratio 0.8 L (0.9-2) Lipase 25 (11-82) U/L Urine Color Dark Yellow Urine Appearance Cloudy A (Clear) Urine pH 6.0 (4.5-7.5) Ur Specific [place] > 1.045 H (1.000-1.030) Urine Protein 1+ H (Negative) Urine Glucose (UA) Negative (Negative) Urine Ketones Trace H (Negative) Urine Blood Negative (Negative) Urine Nitrite Negative (Negative) Urine Bilirubin 1+ H (Negative) Urine Urobilinogen Negative (Negative) Ur Leukocyte Esterase Negative (Negative) Urine WBC (Auto) 0-5 (0-5) /hpf Urine RBC (Auto) 0-2 (0-2) /hpf U Hyaline Cast (Auto) 0-2 (0-2) /lpf U Epithel Cells (Auto) 6-10 H (0-2) /hpf Urine Bacteria (Auto) 2+ H (None Seen) Urine Mucus Present A (None Prsent) Urine Comment Administered Medications Aspirin (Aspirin 81 Mg Ectab) 81 mg PO DAILY ASHLEY Stop: 03/02/25 08:59 Last Admin: 01/31/25 08:15 Dose: 81 mg Documented By: DOV Buspirone HCl (Buspirone 15 Mg Tab) 15 mg PO BID ASHLEY Stop: 03/02/25 08:59 Last Admin: 01/31/25 08:15 Dose: 15 mg Documented By: DOV Duloxetine HCl (Duloxetine Hcl 60 Mg Cap) 60 mg PO QAM ASHLEY Stop: 03/02/25 08:59 Last Admin: 01/31/25 08:14 Dose: 60 mg Documented By: DOV Folic Acid (Folic Acid 1 Mg Tab) 1 mg PO QAM ASHLEY Stop: 03/02/25 08:59 Last Admin: 01/31/25 08:14 Dose: 1 mg Documented By: DOV Gabapentin (Gabapentin 300 Mg Cap) 300 mg PO TID ASHLEY Stop: 03/02/25 08:59 Last Admin: 01/31/25 08:15 Dose: 300 mg Documented By: DOV Hydroxychloroquine Sulfate (Hydroxychloroquine Sulfate 200 Mg Tab) 200 mg PO DAILY ASHLEY Stop: 03/02/25 08:59 Last Admin: 01/31/25 08:15 Dose: 200 mg Documented By: DOV Methylprednisolone 60 mg/ (Syringe) 0.96 mls @ 1.5 mls/min IV DAILY ASHLEY Stop: 03/02/25 08:59 Last Admin: 01/31/25 08:16 Dose: 1.5 mls/min Documented By: DOV Ampicillin Sodium/Sulbactam Sodium (Unasyn) 3,000 mg in 100 mls @ 200 mls/hr IV Q6H ASHLEY Stop: 02/10/25 00:00 Last Infusion: 01/31/25 07:02 Dose: Infused Documented By: Admin: 01/31/25 05:44 Dose: 200 mls/hr Documented By: Infusion: 01/31/25 01:18 Dose: Infused Documented By: Admin: 01/31/25 00:17 Dose: 200 mls/hr Documented By: TUCKER Lactated Ringer's (Lr) 1,000 mls @ 100 mls/hr IV .Q10H ASHLEY Stop: 01/31/25 21:14 Last Admin: 01/31/25 01:38 Dose: 100 mls/hr Documented By: TUCKER Losartan Potassium (Losartan Potassium 50 Mg Tab) 50 mg PO QAM ASHLEY Stop: 03/02/25 08:59 Last Admin: 01/31/25 08:15 Dose: 50 mg Documented By: DOV Pantoprazole Sodium (Pantoprazole 40 Mg Tab) 40 mg PO DAILY ASHLEY Stop: 03/02/25 08:59 Last Admin: 01/31/25 08:15 Dose: 40 mg Documented By: DOV Rosuvastatin Calcium (Rosuvastatin Calcium 20 Mg Tab) 20 mg PO QAM ASHLEY Stop: 03/02/25 08:59 Last Admin: 01/31/25 08:14 Dose: 20 mg Documented By: DOV Senna/Docusate Sodium (Docusate Sodium/Senna 50/8.6mg Tab) 1 tab PO QAM [facility] Stop: 03/02/25 08:59 Last Admin: 01/31/25 08:13 Dose: 1 tab Documented By: DOV Tramadol HCl (Tramadol Hcl 50 Mg Tablet) 50 mg PO DAILY ASHLEY Stop: 03/02/25 08:59 Last Admin: 01/31/25 08:25 Dose: 50 mg Documented By: DOV Discontinued Medications Hydromorphone HCl (Hydromorphone Inj 1 Mg/Ml Syringe) 1 mg IV NOW STA Stop: 01/30/25 16:45 Last Admin: 01/30/25 16:50 Dose: 1 mg Documented By: JOSE Hydromorphone HCl (Hydromorphone Inj 0.5 Mg/0.5 Ml Syr) 0.5 mg IV Q15M PRN PRN Reason: Pain Stop: 02/13/25 16:45 Last Admin: 01/30/25 21:15 Dose: 0.5 mg Documented By: Admin: 01/30/25 19:06 Dose: 0.5 mg Documented By: Admin: 01/30/25 18:02 Dose: 0.5 mg Documented By: QGV Sodium Chloride (Nss) 1,000 mls @ 999 mls/hr IV .Q1H1M ONE Stop: 01/30/25 17:44 Last Infusion: 01/30/25 17:58 Dose: Infused Documented By: Admin: 01/30/25 16:53 Dose: 999 mls/hr Documented By: JOSE Piperacillin Sod/Tazobactam Sod (Zosyn) 4.5 gm in 100 mls @ 200 mls/hr IV NOW ONE Stop: 01/30/25 21:22 Last Infusion: 01/30/25 21:50 Dose: Infused Documented By: Admin: 01/30/25 21:15 Dose: 200 mls/hr Documented By: QGV Ioversol (Optiray 320 125ml) 115 ml IV ONCE ONE Stop: 01/30/25 18:29 Last Admin: 01/30/25 18:29 Dose: 115 ml Documented By: ASIA Ketorolac Tromethamine (Ketorolac Tromethamine 15 Mg/Ml Vial) 15 mg IV NOW STA Stop: 01/30/25 22:40 Last Admin: 01/30/25 23:15 Dose: Not Given Documented By: TUCKER Ketorolac Tromethamine (Ketorolac Tromethamine 15 Mg/Ml Vial) Confirm Administered Dose 15 mg .ROUTE .STK-MED ONE Stop: 01/30/25 22:29 Last Admin: 01/30/25 22:36 Dose: 15 mg Documented By: OdetteGV Methylprednisolone (Methylprednisolone 125 Mg/2 Ml Vial) 60 mg IV NOW STA Stop: 01/30/25 20:46 Last Admin: 01/30/25 21:15 Dose: 60 mg Documented By: OdetteGV Ondansetron HCl (Ondansetron Inj 2 Mg/Ml 2 Ml Vial) 4 mg IV NOW STA Stop: 01/30/25 16:45 Last Admin: 01/30/25 16:50 Dose: 4 mg Documented By: JOSE Ondansetron HCl (Ondansetron Inj 2 Mg/Ml 2 Ml Vial) Confirm Administered Dose 4 mg .ROUTE .STK-MED ONE Stop: 01/30/25 22:30 Last Admin: 01/30/25 22:36 Dose: 4 mg Documented By: QGV Potassium Chloride (Potassium Chloride 10 Meq Tabcr) 60 meq PO NOW STA Stop: 01/31/25 01:14 Last Admin: 01/31/25 01:36 Dose: 60 meq Documented By: TUCEKR Discharge Plan Visit Data Chief Complaint: Abdominal Pain Stated Complaint: ABD PAIN, L LEG PAIN ED Provider: Mann Fraire Discharge Problem: Abdominal pain, Colitis, Anemia, Abnormal CT of the abdomen, Hypokalemia, Elevated liver enzymes Patient Disposition: Admitted As Inpatient Condition: Fair Discharge Instructions Interventions: ED Discharge Assessment Last Done: 01/30/25 22:46 Discharge Problem: Abdominal pain Qualifiers: Abdominal location: generalized Qualified Code(s): R10.84 - Generalized abdominal pain Anemia Qualifiers: Anemia type: unspecified type Qualified Code(s): D64.9 - Anemia, unspecified
[2025-01-30 17:16] LABS: Albumin Globulin Ratio 0.8 (0.9-2); Albumin Level 3.2 gm/dl (3.4-5.0); Bilirubin,Total 1.4 mg/dl (0.2-1.0); Calcium 8.5 mg/dl (8.6-10.3); Creatinine Clr Calc Pharmacy 74.6 ml/min; Globulin 3.9 gm/dl (2.5-4.0); Magnesium 1.8 mg/dl (1.7-2.4); Potassium 3.1 mmol/L (3.5-5.1); Total Protein 7.1 gm/dl (6.0-8.3)
--- NOTE | 2025-01-30 17:28 | XRay Report ---
Clinical History: Pain Technique: A frontal view of the chest was obtained Comparison is made with the prior examination dated 04/02/2024 Findings: There is new mild interstitial prominence in the right lung base. The heart size is within normal limits. No pleural effusion or pneumothorax is seen. There is no definite pulmonary nodule. No fracture is noted. No foreign body is seen Impression: Possible right lower lobe bronchopneumonia ACT 112: Positive. There are findings on this exam that require communication between the performing entity and the patient following Patient Test Result Information Act ([place] ACT 112) guidelines. Electronically signed by Ced De Dios 01-30-2025 5:28 PM
[2025-01-30 17:46] LABS: INR 1.3 (0.9-1.1); Partial Thromboplastin Ratio 1.2; Partial Thromboplastin Time 32 Seconds (21-31); Prothrombin Time 13.5 Seconds (9.0-12.0)
[2025-01-30] MEDS: HYDROmorphone INJ 0.5 MG/0.5 ML SYR IV PRN (18:02)
[2025-01-30] MEDS: OPTIRAY 320 125ml IV ONE (18:29)
[2025-01-30 19:56] LABS: Bacteria Urine Automated 2+ (None Seen); Cast Urine Automated 0-2 /lpf (0-2); Mucus Urine Present (None Prsent); RBC Urine Automated 0-2 /hpf (0-2); WBC Urine Automated 0-5 /hpf (0-5)
[2025-01-30 20:02] LABS: Appearance Urine Cloudy (Clear); Bilirubin Urine 1+ (Negative); Blood Urine Negative (Negative); Color Urine Dark Yellow; Glucose Urine UA Negative (Negative); Ketones Urine Trace (Negative); Leukocyte Esterase Urine Negative (Negative); Nitrite Urine Negative (Negative); Protein Urine 1+ (Negative); Specific Gravity Urine > 1.045 (1.000-1.030); Urobilinogen Urine Negative (Negative)
--- NOTE | 2025-01-30 20:31 | CT Scan Report ---
EXAM: CT angio abdomen pelvis w con CLINICAL HISTORY: Possible ischemic colitis TECHNIQUE: CTA of the abdomen and pelvis was performed with IV contrast. Coronal and sagittal reconstructive images were also obtained. 115 ml optiray 320 intravenous contrast was administered. One of these 3D techniques was utilized: Maximum Intensity Pixel (MIP), 3D Reconstructed Images, Volume Rendered Images, Surface Shaded Rendering. Axial non-contrast sections of the abdomen and pelvis were also obtained. One of the following dose reduction techniques was utilized for this exam.Automated exposure control, adjustment of the mA and/or kV according to patient size, and use of iterative reconstruction. DLP: 1032.98 mGy-cm. COMPARISON: 10/23/2024. FINDINGS: Aorta: The abdominal aorta is normal in caliber. Diffuse atherosclerotic changes with multiple mural calcifications. No evidence of aneurysm, dissection. Aortic bifurcation is unremarkable. Renal Arteries: Renal arteries are normal in size and opacification. No evidence of stenosis or occlusion. Symmetric perfusion of both kidneys. Mesenteric Arteries: Superior mesenteric artery (SMA) and inferior mesenteric artery (CIRILO) are normal in caliber and opacification. No evidence of stenosis or occlusion. Celiac Artery: Celiac artery is normal in caliber and opacification. No evidence of stenosis or occlusion. Iliac Arteries: Common, and external iliac arteries are normal in caliber and opacification. Mild narrowing of left internal iliac artery by calcific plaques. No evidence of aneurysm, or occlusion. Venous Structures: Inferior vena cava (IVC) and major venous structures are normal in caliber and opacification. No evidence of thrombus or obstruction. Liver: Normal size and morphology. Homogeneous enhancement post-contrast. No focal hepatic lesions. Gallbladder and Biliary System: Status post cholecystectomy. Moderate dilatation of CBD (14 mm), likely physiological. Pancreas: Normal size and contour. Homogeneous enhancement post-contrast. No masses or cystic lesions. Spleen: Normal size and appearance. Homogeneous enhancement post-contrast. Adrenal Glands: Normal size and morphology bilaterally. No adrenal masses. Kidneys and Ureters: Normal size, shape, and position of both kidneys. Homogeneous enhancement post-contrast. No renal stones, masses, or hydronephrosis. Ureters are unremarkable. Bladder: Normal in size and wall thickness. No intraluminal masses. Normal enhancement post-contrast. Bowel: Diffuse submucosal edema involving entire segments of the colon, suggest acute colitis. Uncomplicated colonic diverticulosis. Mesenteric fat stranding and multiple reactive lymph nodes, inflammatory changes. Lymph Nodes: No pathologically enlarged lymph nodes in the abdomen or pelvis. Peritoneum: Mild free ascites. Bones: No lytic or sclerotic lesions. Normal alignment and bone density. Multiple vertebral body hemangiomas. Soft Tissues: Normal appearance of the visualized soft tissues. uterus not optimally visualized, requires correlation surgical history IMPRESSION: 1. Normal abdominal angiography, no signs of vascular occlusion or significant stenosis. 2. Diffuse submucosal edema involving entire segments of the colon, suggest acute colitis. Infective etiology is favoured over ischemic cause. Clinical correlation is advised. Interval progression. 3. Mild free ascites. Interval new. 4. Mesenteric fat stranding and multiple reactive lymph nodes, inflammatory changes. Interval progression. 5. Status post cholecystectomy. Moderate dilatation of CBD (14 mm), likely physiological. Redemonstration. 6. Uncomplicated colonic diverticulosis. Stable. 7. Diffuse atherosclerotic changes with multiple mural calcifications. Stable. 8. Mild narrowing of left internal iliac artery by calcific plaques. Stable. Electronically signed by Leonardo Blanco 01-30-2025 8:31 PM
[2025-01-30] MEDS: PIPERACILLIN/TAZOBACTAM 4.5 GM/100 ML BAG IV ONE (21:15)
[2025-01-30] MEDS: methylPREDNISolone 125 MG/2 ML VIAL IV STA (21:15)
--- NOTE | 2025-01-30 22:23 | History & Physical Report ---
Date of Service January 30, 2025 Assessment & Plan (1) Acute colitis: (2) Left groin pain: (3) Visual disturbance: (4) Abnormal LFTs: (5) Rheumatoid arthritis: (6) ILD (interstitial lung disease): (7) Hypertension: (8) Hyperlipidemia: (9) GERD (gastroesophageal reflux disease): Plan 54-year-old female with history of rheumatoid arthritis on daily steroids, Plaquenil, interstitial lung disease, hypertension, hyperlipidemia presenting with acute on chronic right sided abdominal pain as well as severe left groin pain and complaint of visual disturbances specifically with color. #Acute colitispatient is afebrile, hemodynamically stable, no leukocytosis. She denies diarrhea or bloody bowel movements. No fever/chills. CT of the abdomen does not support ischemia. Lactate is unremarkable at 1.5. Patient has had nonspecific colitis present on multiple CTs since 2021. Stool Calprotectin is not markedly elevated and prior biopsy is not suggestive of inflammatory bowel disease. Patient also with fibrosis and scarring appearance of her mesentery. ?mesenteric panniculitis as possible diagnosis - patient with RA, not scleroderma so would be less likely? CTA today not suggestive of ischemic colitis. Etiology unclear Admit to medical Pain control with Tylenol, Dilaudid as needed Toradol 15 mg IV every 6 hours as needed Empiric Unasyn IV fluid with LR at 100 mL/h x 2 L Porphyrin panel was sent by the ER. Should be followed (send out lab) Continue aspirin 81 mg p.o. daily - continue MiraLAX #Acute left groin painpatient on chronic steroids, recent burst. Question fracture versus avascular necrosis Will obtain CT of the left hip Pain control with Tylenol, Dilaudid as needed PT/OT evaluation appreciated #Visual disturbancequestion retinal pathology. Possibly vasculitis in setting of patient's underlying RA. No medications that she is taking that can cause this. Will place consultation for ophthalmology however, may need to be seen outpatient #Abnormal LFTspatient with mild elevation of alk phos = 123 and T. bili = 1.4, AST = 47. No elevation of INR = 1.3. Also with thrombocytopenia with platelets = 111. Question developing liver pathology, some compromise synthetic function giving thrombocytopenia and elevated INR. Liver appears normal on CT. Patient was previously on methotrexate which was recently put on hold due to developing anemia and thrombocytopenia. Repeat LFTs in the morning Check acetaminophen level #Rheumatoid arthritis Continue hydroxychloroquine 200 mg p.o. daily Solu-Medrol 60 mg IV daily for short-term to see if pain improves #Interstitial lung diseasepatient with adequate oxygenation on room air. No respiratory distress Continue albuterol inhaled as needed #Hypertensionblood pressure stable Continue losartan 50 mg p.o. every morning #Hyperlipidemia Crestor 20 mg p.o. every morning #GERD Protonix 40 mg p.o. daily #Fibromyalgia Continue baclofen 10 mg p.o. twice daily as needed Continue Cymbalta 60 mg p.o. every morning Continue Neurontin 300 mg p.o. 3 times daily Continue tramadol 50 mg p.o. daily History of Present Illness Chief Complaint: Severe abdominal pain, left groin pain Primary Care Provider: EM Church Gabi Richmond is a 54-year-old female with history of rheumatoid arthritis on chronic prednisone and hydroxychloroquine (formerly on methotrexate which has been on hold for the last week due to anemia and thrombocytopenia), interstitial lung disease, hypertension, hyperlipidemia and fibromyalgia presenting with acute worsening of her chronic abdominal pain as well as new left groin pain. Patient was most recently hospitalized at [facility] from October 22 through October 26, 2024 after presenting with right side abdominal pain. CT at that time revealed diffuse colitis specifically involving the transverse colon. Patient with longstanding history of the same. Has had multiple CTs in the past which revealed colitis. She had a colonoscopy performed on December 17, [address] Persaud which revealed mild diverticulosis, internal hemorrhoids as well as 4 sessile polyps in the ascending colon which were biopsied and revealed tubular adenomas with no significant histopathologic abnormality. She since followed up with GI who thought patient's colitis possibly secondary to ischemia. They initiated baby aspirin and MiraLAX. Stool calprotectin on 10/24/24 = 53 which was slightly above the upper limit of normal (50) for IBD. Patient does follow with GI as well as rheumatology Patient returns today with significant worsening of her right sided abdominal pain which has been going on for the last 24 hours. She has had decreased oral intake as well as intermittent nausea with nonbloody/nonbilious vomiting. She denies fever/chills/diarrhea/bloody or mucoid bowel movements. Additionally she is complaining of severe pain in her left groin for the last day which feels like a cramping, spasm. She is unable to bear weight on the left leg. Today her family had to get her out of bed and carry her to the car Due to pain and generalized weakness. No fall or trauma. Also complaining of some changes in her color vision over the last several days. She reports that everything looks orange and yellow. Thinks that the white strings on her daughter's sweatshirt or fluorescent yellow. Has been getting blue confused as well. In the ER patient with significant abdominal pain. CT of the abdomen with angiography was performed at the time of severe pain which showed no ischemia. ER course: Dilaudid 1 mg IV +0.5mg +0.5mg + 0.5mg Normal saline x 1L Zofran 4 mg IV x 2 Solu-Medrol 60 mg IV Zosyn 4.5 g IV Toradol 15 mg IV Allergies Allergy/AdvReac Type Severity Reaction Status Date / Time latex Allergy Intermediate Rash Verified 01/30/25 21:05 homatropine AdvReac Intermediate Nausea Verified 01/30/25 21:05 morphine AdvReac Intermediate Nausea, Verified 01/30/25 21:05 Vomiting Home Medications Medication Instructions Recorded Confirmed Type prednisone 5 mg tablet 5 mg PO QAM 11/20/19 01/30/25 History omeprazole 20 mg capsule,delayed 20 mg PO DAILYBB 10/05/20 01/30/25 History release gabapentin 300 mg capsule 300 mg PO TID 10/17/21 01/30/25 History (Neurontin) methotrexate sodium 2.5 mg tablet 20 mg PO WK 11/09/21 01/30/25 History tramadol 50 mg tablet 50 mg PO DAILY 04/27/23 01/30/25 History hydroxychloroquine 200 mg tablet 200 mg PO DAILY 08/31/23 01/30/25 History (Plaquenil) alendronate 70 mg tablet (Fosamax) 70 mg PO WK #12 tabs 10/23/23 01/30/25 Rx rosuvastatin 20 mg tablet 20 mg PO QAM #90 tabs 02/15/24 01/30/25 Rx ondansetron 8 mg disintegrating 8 mg PO Q8H PRN nausea and 02/28/24 01/30/25 Rx tablet vomiting #20 tabs ibuprofen 200 mg tablet 400 mg PO Q6H PRN Pain 03/05/24 01/30/25 History guaifenesin 600 mg tablet, 1,200 mg (2 x 600 mg) PO BID PRN 03/06/24 01/30/25 Rx extended release 12 hr (Mucinex) cough #30 tabs baclofen 10 mg tablet 10 mg PO BID PRN muscle spasm #20 03/07/24 01/30/25 Rx tabs duloxetine 30 mg capsule,delayed 60 mg PO QAM 03/08/24 01/30/25 History release (Cymbalta) losartan 50 mg tablet 50 mg PO QAM #30 tabs 03/12/24 01/30/25 Rx albuterol sulfate 90 mcg/actuation 2 puff inhalation QID PRN 06/19/24 01/30/25 Rx aerosol inhaler shortness of breath or wheezing #8.5 grams buspirone 15 mg tablet 15 mg PO BID #60 tabs 08/19/24 01/30/25 Rx potassium chloride 20 mEq 20 meq PO BID #180 tabs 09/30/24 01/30/25 Rx tablet,extended release aspirin 81 mg chewable tablet 81 mg PO DAILY #30 tabs 10/26/24 01/30/25 Rx (Children's Aspirin) folic acid 1 mg tablet 1 mg PO QAM #30 tabs 10/26/24 01/30/25 Rx mecobalamin (vitamin B12) 500 mcg 500 mcg PO DAILY #30 tabs 10/26/24 01/30/25 Rx chewable tablet oxycodone 5 mg tablet 5 mg PO Q6H PRN pain #20 tabs 11/27/24 01/30/25 Rx valacyclovir 1 gram tablet 2,000 mg PO Q12H PRN cold sores 12/06/24 01/30/25 History (Valtrex) prednisone 20 mg tablet See Rx Instructions PO QAM PRN 01/30/25 01/30/25 History FLARE [employer] Past Med/Surg History Problem List (Updated 01/31/25 @ 01:31 by Steffi Duarte DO) Abnormal LFTs Left groin pain Visual disturbance Acute colitis Colitis (Acute) Rhinovirus infection (Acute) Irregular bowel habits Chronic respiratory failure with hypoxia Bloody stool (Acute) Right sided abdominal pain (Acute) Hypokalemia (Acute) Infectious gastroenteritis and colitis Decreased pedal pulses Rectal bleeding History of incisional hernia repair (06/30/22) Open Incisional Hernia Repair - Niikta Zamorano DO GERD (gastroesophageal reflux disease) Osteoporosis Chronic bronchitis ILD (interstitial lung disease) Pulmonary nodules Impaired fasting glucose Lymphocytosis Anxiety Hyperlipidemia Hypertension Hx laparoscopic cholecystectomy (10/21/21) Laparoscopic Cholecystectomy - Nikita Zamorano DO 10/21/2021 Hypokalemia Medical History Cold sore Currently has "fever blister on my lip" - hasn't started PRN valtrex yet as per patient Pulmonary nodules Osteoporosis GERD (gastroesophageal reflux disease) hx History of bloody stools "after my last colonoscopy, I had 6-8 months of bleeding like clots." as per patient Right sided abdominal pain reason for procedure 12/17/24 Acute colitis reason for procedure 12/17/24 Pneumonia hx - pt denies at any issues at this time Atypical chest pain pt denies any issues currently Current smoker Rheumatoid arthritis Dr Rivas Rheumotology 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 History of COVID-19 May 12, 2022 > home test, cough, runny nose, > all resolved Shingles outbreak Sep 2020 Nausea and vomiting after administration of anesthetic agent ILD (interstitial lung disease) no longer following Pulm Fibromyalgia Diverticular disease no hospitalizations - unsure if incidental finding from imaging or colonoscopy Depression Anxiety Hyperlipidemia Hypertension Biliary dyskinesia Surgical History History of laparoscopic cholecystectomy History of incisional hernia repair Hx of removal of cyst from left hand during carpal tunnel History of carpal tunnel release Bilateral History of esophagogastroduodenoscopy (EGD) History of colonoscopy "after my last colonoscopy, I had 6-8 months of bleeding like clots." as per patient History of hysterectomy Family History Aunt Diabetes Uncle Diabetes Social History Smoking Status: Current every day smoker Tobacco Type: Cigarettes Age Started Using Tobacco: 15; packs per day: 1; Cigarettes Per Day: 1/2 ppd; Second Hand Exposure: No; Do You Dip or Chew Tobacco: No; Tobacco Cessation Education Requested by Patient: No Hx Alcohol Use: Yes Hx Substance Use: No Preferred Language: Sinhala Communication Ability: Effective Visual Impairment: Partially Limited Brake Liner Required: No Beliefs That Will Affect Care: None marital status: Current Living Situation: Spouse current occupational status: disabled How many Children do You have: 2 Other Information That Helps Us Care for You: No Feels Safe at Home: Yes Safety Concerns: Feels Safe At This Time Diet: regular caffeine: Yes Dental Care, Regularly: No Physical Activity Frequency: Daily Physical Activity Frequency Comment: Active Seatbelt Use: always Sunscreen Use: No Assistive Devices: None Review of Systems Review of Systems: All systems reviewed & are unremarkable except as noted in HPI & below Physical Exam Physical Exam: General: patient resting supine in bed, uncomfortable, awake and alert, able to answer questions appropriately and follow commands Skin: warm, dry, intact, no rashes or lesions HEENT: NC/AT, PERRL, EOMI, anicteric sclera, conjunctiva without injection, external ear normal to inspection and nontender, nares patent, slightly dry mucus membranes, dentition intact, no oropharyngeal lesions, neck supple, trachea midline, no LAD, no thyromegaly, no JVD Limited bedside funduscopic exam with no obvious irregularities Heart: +S1/S2, regular, no m/r/g Lungs: equal air entry bilaterally, no rales/rhonchi/wheezes Abd: +BS, soft, nondistended, significant tenderness to palpation of the right side with some voluntary guarding Significant tenderness to palpation of the left groin, no obvious deformity of the hip or groin, no hernia appreciated Ext: warm, 2+ pulses in UE/LE bilaterally, no clubbing/cyanosis or edema Neuro: nonfocal, patient AA&O x 4, speech intact, no facial droop, moving all extremities on command with equal strength 5/5 Results & Data Results & Data Vital Signs (Past 12 Hours) Vital Signs Temp Pulse Pulse Resp BP BP Pulse Ox 01/30/25 21:30 97 H 20 99/65 L 93 01/30/25 21:08 102 H 01/30/25 18:52 102 H 20 110/77 94 01/30/25 16:56 96 H 01/30/25 16:29 102 H 22 120/98 99 01/30/25 16:25 36.7 C 101 H 18 114/73 99 O2 Del Method 01/30/25 21:30 Room Air 01/30/25 21:08 01/30/25 18:52 Room Air 01/30/25 16:56 01/30/25 16:29 Room Air 01/30/25 16:25 Room Air Laboratory Results Laboratory Results WBC 5.44 K/ul (4.8-10.8) 01/30/25 16:30 RBC 3.68 M/uL (4.20-5.40) L 01/30/25 16:30 Hgb 10.6 g/dl (12.0-16.0) L 01/30/25 16:30 Hct 32.0 % (37.0-47.0) L 01/30/25 16:30 MCV 87.0 fL (80.0-100.0) 01/30/25 16:30 MCH 28.8 pg (25.0-34.0) 01/30/25 16:30 MCHC 33.1 g/dL (32.0-36.0) 01/30/25 16:30 RDW Std Deviation 49.9 fL (36.4-46.3) H 01/30/25 16:30 RDW Coeff of Ailyn 16.0 % (11.5-14.5) H 01/30/25 16:30 Plt Count 111 K/uL (130-400) L 01/30/25 16:30 MPV 10.9 fL (9.4-12.4) 01/30/25 16:30 Immature Gran % (Auto) 0.2 % 01/30/25 16:30 Neut % (Auto) 59.0 % 01/30/25 16:30 Lymph % (Auto) 31.1 % 01/30/25 16:30 [place] % (Auto) 6.4 % 01/30/25 16:30 Eos % (Auto) 2.4 % 01/30/25 16:30 Baso % (Auto) 0.9 % 01/30/25 16:30 Neut # (Auto) 3.21 K/uL (1.40-6.50) 01/30/25 16:30 Lymph # (Auto) 1.69 K/uL (1.20-3.40) 01/30/25 16:30 [place] # (Auto) 0.35 K/uL (0.11-0.59) 01/30/25 16:30 Eos # (Auto) 0.13 K/uL (0.00-0.50) 01/30/25 16:30 Baso # (Auto) 0.05 K/uL (0.00-0.20) 01/30/25 16:30 Immature Gran # (Auto) 0.01 K/uL (0.01-0.20) 01/30/25 16:30 ESR 28 mm/hr (0-30) 01/30/25 16:30 PT 13.5 Seconds (9.0-12.0) H 01/30/25 16:30 INR 1.3 (0.9-1.1) H 01/30/25 16:30 APTT 32 Seconds (21-31) H 01/30/25 16:30 PTT Ratio 1.2 01/30/25 16:30 Sodium 138 mmol/L (136-145) 01/30/25 16:30 Potassium 3.1 mmol/L (3.5-5.1) L 01/30/25 16:30 Chloride 105 mmol/L (98-107) 01/30/25 16:30 Carbon Dioxide 25 mmol/L (21-32) 01/30/25 16:30 Anion Gap 8 (3-11) 01/30/25 16:30 BUN 10 mg/dl (6-23) 01/30/25 16:30 Creatinine 0.83 mg/dl (0.6-1.2) 01/30/25 16:30 Est Cr Clr Drug Dosing 74.6 ml/min 01/30/25 16:30 eGFR 82.69 01/30/25 16:30 BUN/Creatinine Ratio 12.0 (10-20) 01/30/25 16:30 Glucose 114 mg/dl (70-99(Fasting)) H 01/30/25 16:30 Lactate 1.5 mmol/L (0.4-2.0) 01/30/25 17:21 Calcium 8.5 mg/dl (8.6-10.3) L 01/30/25 16:30 Magnesium 1.8 mg/dl (1.7-2.4) 01/30/25 16:30 Total Bilirubin 1.4 mg/dl (0.2-1.0) H 01/30/25 16:30 AST 47 U/L (13-39) H 01/30/25 16:30 ALT 28 U/L (7-52) 01/30/25 16:30 Alkaline Phosphatase 123 U/L (34-104) H 01/30/25 16:30 C-Reactive Protein 0.52 mg/dl (0-0.5) H 01/30/25 16:30 Total Protein 7.1 gm/dl (6.0-8.3) 01/30/25 16:30 Albumin 3.2 gm/dl (3.4-5.0) L 01/30/25 16:30 Globulin 3.9 gm/dl (2.5-4.0) 01/30/25 16: Albumin/Globulin Ratio 0.8 (0.9-2) L 01/30/25 16:30 Lipase 25 U/L (11-82) 01/30/25 16:30 Urine Color Dark Yellow 01/30/25 19:20 Urine Appearance Cloudy (Clear) A 01/30/25 19:20 Urine pH 6.0 (4.5-7.5) 01/30/25 19:20 Ur Specific [place] > 1.045 (1.000-1.030) H 01/30/25 19:20 Urine Protein 1+ (Negative) H 01/30/25 19:20 Urine Glucose (UA) Negative (Negative) 01/30/25 19:20 Urine Ketones Trace (Negative) H 01/30/25 19:20 Urine Blood Negative (Negative) 01/30/25 19: Urine Nitrite Negative (Negative) 01/30/25 19:20 Urine Bilirubin 1+ (Negative) H 01/30/25 19:20 Urine Urobilinogen Negative (Negative) 01/30/25 19:20 Ur Leukocyte Esterase Negative (Negative) 01/30/25 19:20 Urine WBC (Auto) 0-5 /hpf (0-5) 01/30/25 19:20 Urine RBC (Auto) 0-2 /hpf (0-2) 01/30/25 19:20 U Hyaline Cast (Auto) 0-2 /lpf (0-2) 01/30/25 19:20 U Epithel Cells (Auto) 6-10 /hpf (0-2) H 01/30/25 19:20 Urine Bacteria (Auto) 2+ (None Seen) H 01/30/25 19:20 Urine Mucus Present (None Prsent) A 01/30/25 19:20 Urine Comment 01/30/25 19:20 Impressions Chest X-Ray 01/30/25 16:47 Clinical History: Pain Technique: A frontal view of the chest was obtained Comparison is made with the prior examination dated 04/02/2024 Findings: There is new mild interstitial prominence in the right lung base. The heart size is within normal limits. No pleural effusion or pneumothorax is seen. There is no definite pulmonary nodule. No fracture is noted. No foreign body is seen Impression: Possible right lower lobe bronchopneumonia ACT 112: Positive. There are findings on this exam that require communication between the performing entity and the patient following Patient Test Result Information Act ([place] ACT 112) guidelines. Electronically signed by Ced De Dios 01-30-2025 5:28 PM Abdomen/Pelvis CTA 01/30/25 17:01 EXAM: CT angio abdomen pelvis w con CLINICAL HISTORY: Possible ischemic colitis TECHNIQUE: CTA of the abdomen and pelvis was performed with IV contrast. Coronal and sagittal reconstructive images were also obtained. 115 ml optiray 320 intravenous contrast was administered. One of these 3D techniques was utilized: Maximum Intensity Pixel (MIP), 3D Reconstructed Images, Volume Rendered Images, Surface Shaded Rendering. Axial non-contrast sections of the abdomen and pelvis were also obtained. One of the following dose reduction techniques was utilized for this exam.Automated exposure control, adjustment of the mA and/or kV according to patient size, and use of iterative reconstruction. DLP: 1032.98 mGy-cm. COMPARISON: 10/23/2024. FINDINGS: Aorta: The abdominal aorta is normal in caliber. Diffuse atherosclerotic changes with multiple mural calcifications. No evidence of aneurysm, dissection. Aortic bifurcation is unremarkable. Renal Arteries: Renal arteries are normal in size and opacification. No evidence of stenosis or occlusion. Symmetric perfusion of both kidneys. Mesenteric Arteries: Superior mesenteric artery (SMA) and inferior mesenteric artery (CIRILO) are normal in caliber and opacification. No evidence of stenosis or occlusion. Celiac Artery: Celiac artery is normal in caliber and opacification. No evidence of stenosis or occlusion. Iliac Arteries: Common, and external iliac arteries are normal in caliber and opacification. Mild narrowing of left internal iliac artery by calcific plaques. No evidence of aneurysm, or occlusion. Venous Structures: Inferior vena cava (IVC) and major venous structures are normal in caliber and opacification. No evidence of thrombus or obstruction. Liver: Normal size and morphology. Homogeneous enhancement post-contrast. No focal hepatic lesions. Gallbladder and Biliary System: Status post cholecystectomy. Moderate dilatation of CBD (14 mm), likely physiological. Pancreas: Normal size and contour. Homogeneous enhancement post-contrast. No masses or cystic lesions. Spleen: Normal size and appearance. Homogeneous enhancement post-contrast. Adrenal Glands: Normal size and morphology bilaterally. No adrenal masses. Kidneys and Ureters: Normal size, shape, and position of both kidneys. Homogeneous enhancement post-contrast. No renal stones, masses, or hydronephrosis. Ureters are unremarkable. Bladder: Normal in size and wall thickness. No intraluminal masses. Normal enhancement post-contrast. Bowel: Diffuse submucosal edema involving entire segments of the colon, suggest acute colitis. Uncomplicated colonic diverticulosis. Mesenteric fat stranding and multiple reactive lymph nodes, inflammatory changes. Lymph Nodes: No pathologically enlarged lymph nodes in the abdomen or pelvis. Peritoneum: Mild free ascites. Bones: No lytic or sclerotic lesions. Normal alignment and bone density. Multiple vertebral body hemangiomas. Soft Tissues: Normal appearance of the visualized soft tissues. uterus not optimally visualized, requires correlation surgical history IMPRESSION: 1. Normal abdominal angiography, no signs of vascular occlusion or significant stenosis. 2. Diffuse submucosal edema involving entire segments of the colon, suggest acute colitis. Infective etiology is favoured over ischemic cause. Clinical correlation is advised. Interval progression. 3. Mild free ascites. Interval new. 4. Mesenteric fat stranding and multiple reactive lymph nodes, inflammatory changes. Interval progression. 5. Status post cholecystectomy. Moderate dilatation of CBD (14 mm), likely physiological. Redemonstration. 6. Uncomplicated colonic diverticulosis. Stable. 7. Diffuse atherosclerotic changes with multiple mural calcifications. Stable. 8. Mild narrowing of left internal iliac artery by calcific plaques. Stable. Electronically signed by Leonardo Blanco 01-30-2025 8:31 PM PG Care Time/CCT Total # of Minutes Spent Total Time Spent with Patient: Total time spent is greater than 50% in coordination of care (as documented) at patient's floor/unit and/or counseling patient: Coding Level of Care Code 55030 INT INP/OBS CARE MIN Diagnoses Acute colitis K52.9 Left groin pain R10.32 Visual disturbance H53.9 Abnormal LFTs R79.89 Rheumatoid arthritis M06.9 ILD (interstitial lung disease) J84.9 Hypertension I10 Hyperlipidemia E78.5 GERD (gastroesophageal reflux disease) K21.9
[2025-01-30] MEDS ORDERED: ONDANSETRON INJ 2 MG/ML 2 ML VIAL IV PRN ×2 (22:27→23:13)
[2025-01-30] MEDS: ONDANSETRON INJ 2 MG/ML 2 ML VIAL ONE (22:36)
[2025-01-30] MEDS: KETOROLAC TROMETHAMINE 15 MG/ML VIAL ONE (22:36)
[2025-01-30] MEDS ORDERED: POLYETHYLENE (MIRALAX) 17 GM PACK PO PRN (23:13)
[2025-01-30] MEDS ORDERED: BACLOFEN 10 MG TAB PO PRN (23:13)
[2025-01-30] MEDS ORDERED: ALBUTEROL HFA 8 GM INHALER INH PRN (23:13)
[2025-01-30] MEDS ORDERED: ACETAMINOPHEN 325 MG TAB PO PRN (23:13)
[2025-01-30] MEDS ORDERED: HYDROmorphone INJ 0.5 MG/0.5 ML SYR IV PRN (23:13)
[2025-01-30] MEDS: KETOROLAC TROMETHAMINE 15 MG/ML VIAL IV STA (23:15)
[2025-01-30 23:59] LABS: C Reactive Protein 0.52 mg/dl (0-0.5)
[2025-01-31] MEDS ORDERED: AMPICILLIN/SULBACTAM SOD 1,500 MG/100 ML BAG IV SCH
[2025-01-31] MEDS: AMPICILLIN/SULBACTAM SOD 3,000 MG/100 ML BAG IV SCH (00:17)
[2025-01-31] MEDS: POTASSIUM CHLORIDE 10 MEQ TABCR PO STA (01:36)
[2025-01-31] MEDS: LACTATED RINGER'S 1,000 ML IV SCH (01:38)
--- NOTE | 2025-01-31 02:05 | CT Scan Report ---
Exam(s): CT LEFT HIP Without Contrast EXAM: CT Left Lower Extremity Without Intravenous Contrast, Hip CLINICAL HISTORY: Reason for exam: unable to bear weight, severe left groin pain. TECHNIQUE: Axial computed tomography images of the left hip without intravenous contrast. CTDI is 0 mGy and DLP is 0 mGy-cm. Automated exposure control was utilized for the study. A dose lowering technique was utilized adhering to the principles of ALARA. COMPARISON: No relevant prior studies available. FINDINGS: Bones/joints: Unremarkable. No acute fracture. No dislocation. Soft tissues: Unremarkable. IMPRESSION: No acute osseous findings. Electronically signed by: Tierra Hicks M.D. 01/31/25 02:04 AM
[2025-01-31 07:29] LABS: Hematocrit (blood only) 27.7 % (37.0-47.0); Mean Corpuscular Hemoglobin 28.8 pg (25.0-34.0); Mean Corpuscular Hgb Conc 32.5 g/dL (32.0-36.0); Mean Corpuscular Volume 88.8 fL (80.0-100.0); Mean Platelet Volume 11.3 fL (9.4-12.4); Platelet Count 85 K/uL (130-400); RDW Coefficient of Variation 15.9 % (11.5-14.5); RDW Standard Deviation 50.6 fL (36.4-46.3); Red Blood Count 3.12 M/uL (4.20-5.40); White Blood Count 4.42 K/ul (4.8-10.8)
[2025-01-31 07:42] LABS: Albumin Level 2.8 gm/dl (3.4-5.0); BUN Creatinine Ratio 12.7 (10-20); Bilirubin Direct 0.4 mg/dl (0-0.2); Bilirubin,Total 1.3 mg/dl (0.2-1.0); Calcium 8.3 mg/dl (8.6-10.3); Creatinine Clr Calc Pharmacy 61.2 ml/min; Total Protein 6.2 gm/dl (6.0-8.3)
[2025-01-31] MEDS: DOCUSATE SODIUM/SENNA 50/8.6MG TAB PO SCH (08:13)
[2025-01-31] MEDS: FOLIC ACID 1 MG TAB PO SCH (08:14)
[2025-01-31] MEDS: DULoxetine HCL 60 MG CAP PO SCH (08:14)
[2025-01-31] MEDS: ROSUVASTATIN CALCIUM 20 MG TAB PO SCH (08:14)
[2025-01-31] MEDS: LOSARTAN POTASSIUM 50 MG TAB PO SCH (08:15)
[2025-01-31] MEDS: PANTOprazole 40 MG TAB PO SCH (08:15)
[2025-01-31] MEDS: ASPIRIN 81 MG ECTAB PO SCH (08:15)
[2025-01-31] MEDS: busPIRone 15 MG TAB PO SCH (08:15)
[2025-01-31] MEDS: GABAPENTIN 300 MG CAP PO SCH (08:15)
[2025-01-31] MEDS: HYDROXYCHLOROQUINE SULFATE 200 MG TAB PO SCH (08:15)
[2025-01-31] MEDS: methylPREDNISolone 60 MG in SYRINGE 0 ML IV SCH (08:16)
[2025-01-31] MEDS: traMADol HCL 50 MG TABLET PO SCH (08:25)
[2025-01-31] MEDS ORDERED: methylPREDNISolone 125 MG/2 ML VIAL IV SCH (09:00)
[2025-01-31 11:07] LABS: Reticulocyte % 1.67 % (0.50-2.00)
[2025-01-31 11:35] LABS: Folate (Folic Acid),Ser orPlas 6.22 ng/ml (>5.38)
[2025-01-31 11:36] LABS: Vitamin B12 > 1500 pg/ml (180-914)
[2025-01-31] MEDS: PHYTONADIONE 5 MG TAB PO SCH (12:13)
--- NOTE | 2025-01-31 13:29 | Gastrointestinal Consultation ---
Date of Consultation January 31, 2025 Assessment & Plan (1) Abdominal pain: Chronic abdominal pain right side the abdomen x [address] scans suggesting the colitis the recent colonoscopy was negative for inflammatory bowel disease. She has had fatty liver on a number of CT scans. Now she has pancytopenia trace ascites elevated INR certainly raises the possibility of cirrhosis. Based on her liver disease she certainly should avoid methotrexate now and going forward. Typically cirrhosis and ascites however should be painless for the most part does not explain the severe pain. We should check autoimmune hepatitis markers hepatitis viral screens. She has a history of fibromyalgia by her report headaches so functional abdominal pain could be considered. Might benefit from amitriptyline for visceral hypersensitivity syndrome as a trial. 10 mg nightly. If there is increased ascites she might benefit from paracentesis though I doubt they will be able to tap this minimal ascites. She has biliary dilatation of 14 mm this could be postcholecystectomy though slightly bigger than seen with typical postcholecystectomy state. Lets do an MRI to evaluate the common bile duct stones. Will also allow us to visualize pancreas mesentery further. This is not ischemic. SMA celiac arteries are normal. 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 Remain off methotrexate. Disease further. Trial of vitamin K to see if her INR corrects. Amitriptyline as a trial for visceral hypersensitivity syndrome with 2 years of abdominal pain. (2) Abnormal CT of the abdomen: (3) Colitis: Plan Patient with ongoing issues with abdominal pain, thus far work up has been unremarkable including calprotectin and colonoscopy. Will discuss further with Dr. Gaines. Further recommendations to follow. History of Present Illness Reason for Consultation: colitis, abdominal pain Requesting Physician: Mikayla Hussein MD Attending Physician: Mikayla Hussein MD History of Present Illness Patient is a 54 year old female with a past medical history of rheumatoid arthritis on chronic prednisone and hydroxychloroquine (formerly on methotrexate which has been on hold for the last week due to anemia and thrombocytopenia), interstitial lung disease, hypertension, hyperlipidemia and fibromyalgia presenting with acute worsening of her chronic abdominal pain as well as new left groin pain. In October 2024, she had CT showing diffuse colitis specifically involving the transverse colon which she has had prior. She has had multiple CTs in the past which revealed colitis. She had a colonoscopy performed on December 17, [address] Persaud which revealed mild diverticulosis, internal hemorrhoids as well as 4 sessile polyps in the ascending colon which were biopsied and revealed tubular adenomas with no significant histopathologic abnormality. She since followed up with GI who thought patient's colitis possibly secondary to ischemia. Stool calprotectin on 10/24/24 was 53. Patient has had abdominal pain for several years. she had some worsening pain in her left groin which lead to this admission. shealso reports some nauesa, but no emesis. She typical has one bowel movement every 4 days which is her baseline. no blood in the stools or melena. 01/31/26 T bili 1.3, d bili 0.4, rest of LFTs unremarkable. wbc 4.42, hgb 9, hct 27.7, mcv 88.8, platelets 85. 5/ CRP .52. lipase 25. iron 37, ferritin 29. CTA 01/30/25 Normal abdominal angiography, no signs of vascular occlusion or significant stenosis. 2. Diffuse submucosal edema involving entire segments of the colon, suggest acute colitis. Infective etiology is favored over ischemic cause. Clinical correlation is advised. Interval progression. 3. Mild free ascites. Interval new. 4. Mesenteric fat stranding and multiple reactive lymph nodes, inflammatory changes. Interval progression. 5. Status post cholecystectomy. Moderate dilatation of CBD (14 mm), likely physiological. Redemonstration. 6. Uncomplicated colonic diverticulosis. Stable. 7. Diffuse atherosclerotic changes with multiple mural calcifications. Stable. 8. Mild narrowing of left internal iliac artery by calcific plaques. Stable. Allergies Allergy/AdvReac Type Severity Reaction Status Date / Time latex Allergy Intermediate Rash Verified 01/30/25 21:05 homatropine AdvReac Intermediate Nausea Verified 01/30/25 21:05 morphine AdvReac Intermediate Nausea, Verified 01/30/25 21:05 Vomiting Home Medications Medication Instructions Recorded Confirmed Type prednisone 5 mg tablet 5 mg PO QAM 11/20/19 01/30/25 History omeprazole 20 mg capsule,delayed 20 mg PO DAILYBB 10/05/20 01/30/25 History release gabapentin 300 mg capsule 300 mg PO TID 10/17/21 01/30/25 History (Neurontin) methotrexate sodium 2.5 mg tablet 20 mg PO WK 11/09/21 01/30/25 History tramadol 50 mg tablet 50 mg PO DAILY 04/27/23 01/30/25 History hydroxychloroquine 200 mg tablet 200 mg PO DAILY 08/31/23 01/30/25 History (Plaquenil) alendronate 70 mg tablet (Fosamax) 70 mg PO WK #12 tabs 10/23/23 01/30/25 Rx rosuvastatin 20 mg tablet 20 mg PO QAM #90 tabs 02/15/24 01/30/25 Rx ondansetron 8 mg disintegrating 8 mg PO Q8H PRN nausea and 02/28/24 01/30/25 Rx tablet vomiting #20 tabs ibuprofen 200 mg tablet 400 mg PO Q6H PRN Pain 03/05/24 01/30/25 History guaifenesin 600 mg tablet, 1,200 mg (2 x 600 mg) PO BID PRN 03/06/24 01/30/25 Rx extended release 12 hr (Mucinex) cough #30 tabs baclofen 10 mg tablet 10 mg PO BID PRN muscle spasm #20 03/07/24 01/30/25 Rx tabs duloxetine 30 mg capsule,delayed 60 mg PO QAM 03/08/24 01/30/25 History release (Cymbalta) losartan 50 mg tablet 50 mg PO QAM #30 tabs 03/12/24 01/30/25 Rx albuterol sulfate 90 mcg/actuation 2 puff inhalation QID PRN 06/19/24 01/30/25 Rx aerosol inhaler shortness of breath or wheezing #8.5 grams buspirone 15 mg tablet 15 mg PO BID #60 tabs 08/19/24 01/30/25 Rx potassium chloride 20 mEq 20 meq PO BID #180 tabs 09/30/24 01/30/25 Rx tablet,extended release aspirin 81 mg chewable tablet 81 mg PO DAILY #30 tabs 10/26/24 01/30/25 Rx (Children's Aspirin) folic acid 1 mg tablet 1 mg PO QAM #30 tabs 10/26/24 01/30/25 Rx mecobalamin (vitamin B12) 500 mcg 500 mcg PO DAILY #30 tabs 10/26/24 01/30/25 Rx chewable tablet oxycodone 5 mg tablet 5 mg PO Q6H PRN pain #20 tabs 11/27/24 01/30/25 Rx valacyclovir 1 gram tablet 2,000 mg PO Q12H PRN cold sores 12/06/24 01/30/25 History (Valtrex) prednisone 20 mg tablet See Rx Instructions PO QAM PRN 01/30/25 01/30/25 History [employer] Patient History Medical History Cold sore Currently has "fever blister on my lip" - hasn't started PRN valtrex yet as per patient Pulmonary nodules Osteoporosis GERD (gastroesophageal reflux disease) hx History of bloody stools "after my last colonoscopy, I had 6-8 months of bleeding like clots." as per patient Right sided abdominal pain reason for procedure 12/17/24 Acute colitis reason for procedure 12/17/24 Pneumonia hx - pt denies at any issues at this time Atypical chest pain pt denies any issues currently Current smoker Rheumatoid arthritis Dr Rivas Rheumotology 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 History of COVID-19 May 12, 2022 > home test, cough, runny nose, > all resolved Shingles outbreak Sep 2020 Nausea and vomiting after administration of anesthetic agent ILD (interstitial lung disease) no longer following Pulm Fibromyalgia Diverticular disease no hospitalizations - unsure if incidental finding from imaging or colonoscopy Depression Anxiety Hyperlipidemia Hypertension Biliary dyskinesia Surgical History History of laparoscopic cholecystectomy History of incisional hernia repair Hx of removal of cyst from left hand during carpal tunnel History of carpal tunnel release Bilateral History of esophagogastroduodenoscopy (EGD) History of colonoscopy "after my last colonoscopy, I had 6-8 months of bleeding like clots." as per patient History of hysterectomy Family History Aunt Diabetes Uncle Diabetes Social History Smoking Status: Current every day smoker Tobacco Type: Cigarettes Age Started Using Tobacco: 15; packs per day: 1; Cigarettes Per Day: 1/2 ppd; Second Hand Exposure: No; Do You Dip or Chew Tobacco: No; Tobacco Cessation Education Requested by Patient: No Hx Alcohol Use: Yes Hx Substance Use: No Preferred Language: German Communication Ability: Effective Visual Impairment: Partially Limited Gut Snatcher Required: No Beliefs That Will Affect Care: None marital status: Current Living Situation: Spouse current occupational status: disabled How many Children do You have: 2 Other Information That Helps Us Care for You: No Feels Safe at Home: Yes Safety Concerns: Feels Safe At This Time Diet: regular caffeine: Yes Dental Care, Regularly: No Physical Activity Frequency: Daily Physical Activity Frequency Comment: Active Seatbelt Use: always Sunscreen Use: No Assistive Devices: None Review of Systems Review of Systems: All systems reviewed & are unremarkable except as noted in HPI & below Physical Exam Constitutional: WD/WN, vitals as above Respiratory: normal respiratory effort, lungs clear to auscultation Cardiovascular: Rate/Rhythm: regular rate and regular rhythm Gastrointestinal (Abdomen): right sided abdominal tenderness to palpation, no guarding, soft, normal bowel sounds. Psychiatric: Orientation: alert and oriented x 3 Affect: euthymic affect Results & Data Vital Signs (Past 12 Hours) Vital Signs Temp Pulse Resp BP Pulse Ox O2 Del Method 01/31/25 08:01 88 16 109/65 94 Room Air 01/31/25 07:48 98.1 F 90 18 96/61 L 90 Room Air Coding Level of Care Code 34928 IN/OBS CONSULT LVL 4,60M Diagnoses Abdominal pain R10.84 Abdominal location: generalized Abnormal CT of the abdomen R93.5 Colitis K52.9 (1) Abdominal pain Abdominal location: generalized Qualified Code(s): R10.84 - Generalized abdominal pain
[2025-01-31] MEDS: KETOROLAC TROMETHAMINE 15 MG/ML VIAL IV PRN (14:28)
--- OUTSIDE RECORDS SUMMARY | 2025-01-31 15:20 | External Medical Summary | Summary of Care ---
Author Name Unknown Organization [facility] Address [address] [place] [address] Phone [phone] Care Team Providers Care Costumed Character Name Role Phone Justa Rose Primary Care Provider Reason for Visit * Reason Onset Date Comments Medication Refill 01/22/2025 Encounter Details Date Type Department Care Team (Late st Contact Info) Description 01/22/2025 Refill Rheumatology [facility] [address] [place] [phone] Perla Kahn MD [address] [place] [id number] Rheumatoid arthritis involving multiple sites with positive rheumatoid factor (HCC) Allergies Active Allergy Reactions Criticality Noted Date Comments Morphine 07/10/2019 Sulfasalazine 07/22/2020 vomiting documented as of this encounter (statuses as of 01/23/2025) Medications Losartan Potassium 25 MG Oral Tablet (Cozaar) Take 1 Tablet by mouth in the morning. 2 Active Rosuvastatin Calcium 5 MG Oral Tablet (Crestor) Take 1 Tablet by mouth in the morning. 2 Active busPIRone HCl 15 MG Oral Tablet (Buspar) 2 Active Folic Acid 1 MG Oral Tablet TAKE 1 TABLET BY MOUTH ONCE DAILY 90 Tablet 3 3 Active Alendronate Sodium 70 MG Oral Tablet (Fosamax)Indicat ions:Senile osteoporosis TAKE ONE TABLET BY MOUTH WEEKLY 4 Tablet 10 4 Active Albuterol Sulfate HFA 108 (90 Base) MCG/ACT Inhalation Aerosol Solution As needed 4 Active Pregabalin 75 MG Oral Capsule (Lyrica) Take 1 Capsule by mouth in the morning and 1 Capsule before bedtime. 60 Capsule 1 4 Active Methotrexate Sodium 2.5 MG Oral Tablet TAKE 8 TABLETS BY MOUTH ONCE A WEEK 104 Tablet 1 4 Active Omeprazole 20 MG Oral Capsule Delayed Release (PriLOSEC) take 1 capsule by mouth in the morning 90 Capsule 1 5 Active Hydroxychloroqui ne Sulfate 200 MG Oral Tablet (Plaquenil) TAKE 1 TABLET BY MOUTH AT BEDTIME 90 Tablet 1 5 Active predniSONE 5 MG Oral Tablet (Deltasone)Indic ations:Encounter for long-term (current) use of medications,Rehana le osteoporosis Take 1 to 2 tablets by mouth daily for RA 60 Tablet 5 5 Active DULoxetine HCl 60 MG Oral Capsule Delayed Release Particles (Cymbalta) Take 1 Capsule by mouth in the morning. 90 Capsule 1 5 Active predniSONE 10 MG Oral Tablet (Deltasone) take 1 to 2 tablets by mouth per day as need for arthritis flares 60 Tablet 5 Active oxyCODONE HCl 5 MG Oral Tablet (Oxy IR) 5 Active Potassium 99 MG Oral Tablet Take 1 Tablet by mouth in the morning. Active B-12 50 MCG Oral Tablet Take by mouth. Active Aspirin 81 MG Oral Tablet Chewable (Aspirin 81) Take 1 Tablet by mouth in the morning. Active traMADol HCl 50 MG Oral Tablet (Ultram)Indicati ons:Rheumatoid arthritis involving multiple sites with positive rheumatoid factor (HCC) Take 1 Tablet by mouth every 12 hours as needed for Pain, Severe. 60 Tablet 5 Active traMADol HCl 50 MG Oral Tablet (Ultram)Indicati ons:Rheumatoid arthritis involving multiple sites with positive rheumatoid factor (HCC) Take 1 Tablet by mouth every 12 hours as needed for Pain, Severe. 60 Tablet 5 01/23/20 25 Discontin ued(Refil l) documented as of this encounter (statuses as of 01/23/2025) Active Problems Problem Noted Date Diagnosed Date MEDICATION USE AGREEMENT 07/10/2024 History of 2019 novel coronavirus disease (COVID -19) 06/17/2022 Fibromyalgia 04/30/2021 Senile osteoporosis 10/21/2019 Encounter for long-term (current) use of medicat ions 10/01/2019 Rheumatoid arthritis involvi ng multiple sites with positive rheumatoid factor 10/01/2019 documented as of this encounter (statuses as of 01/23/2025) Resolved Problems Problem Noted Date Diagnosed Date Resolved Date Inflammatory arthritis 07/10/201910/01 documented as of this encounter (statuses as of 01/23/2025) Immunizations Name Administration Dates Next Due COVID-19 mRNA, LNP-s, No Pre serve, 2-Dose Series ([employer]) 03/25/2022,02/25/2021,02/04/2021 Seasonal Influenza Virus Vac cine, Unspecified Formulation 07/03/2019 documented as of this encounter Social History Tobacco Use Types Packs/Day Years Used Date Smoking Tobacco: Every Day Cigarettes 0.5 30 Smokeless Tobacco: Never Alcohol Use Standard Drinks/Week Comments Never 0 (1 standard drink = 0.6 oz pur e alcohol) AUDIT-C Answer Date Recorded Frequency of Alcohol Consumption Never 07/10/2019 Average Number of Drinks Not on file 019 Frequency of Binge Drinking Not on file 06/19 Comments No Sex and Gender Information Value Date Recorded Sex Assigned at Female 07/10/2024 10:53 AM EDT Legal Sex Female 7:17 AM EST Gender Identity Female 07/10/2024 10:53 AM EDT Sexual Orientation Straight 07/10/2024 10 :53 AM EDT Occupation Industry Job Start Date Job End Date Not on file Not on file Not on file Not on file documented as of this encounter Miscellaneous Notes * Telephone Encounter - Perla Kahn MD - 01/23/2025 4:29 PM EDTSigned Prescriptions: Disp Refills traMADol HCl 50 MG Oral Tablet (Ultram) 60 Tab*0 Sig: Take 1 Tablet by mouth every 12 hours as needed for Pain, Severe.Authorizing Provider: PERLA KAHN------ * Telephone Encounter - Perla Kahn MD - 01/23/2025 4:29 PM EDT I have reviewed the patient’s controlled substance dispensing history in the Prescription Drug Monitoring Program in compliance with the [facility] regulations before prescribing a controlled substance. Last Tox Screen Results: Results for orders placed or performed in visit on 07/10/24 PAIN MANAGEMENT DRUG PANEL, URINE W/ INTERPRETATION Result Value Pain Management Interpretation Based on the medication information provided: The presence of THC metabolite is INCONSISTENT with the information provided. The presence of tramadol and o-desmethyltramadol is CONSISTENT with tramadol use. Amphetamines Screen, U Negative Benzodiazepines Screen, U Negative Cannabinoids Screen, U Refer to confirmation results (A) Cocaine Metabolite Screen, U Negative Fentanyl Screen, U Negative Hydrocodone Screen, U Negative Methadone Metabolite Screen, U Refer to confirmation results (A) Morphine/Codeine Screen, U Negative Oxycodone Screen, U Negative Specimen Validity Interpretation Normal Creatinine, U 361 Narrative Cutoff Concentrations: Drug Level Amphetamines 500 ng/mL Benzodiazepines 100 ng/mL Cannabinoids 50 ng/mL Cocaine Metabolite 150 ng/mL Fentanyl 1 ng/mL Hydrocodone / Hydromorphone 300 ng/mL Methadone Metabolite 100 ng/mL Morphine / Codeine 300 ng/mL Oxycodone / Oxymorphone 100 ng/mL Screening results are presumptive and can only be used for medical purposes. Confirmatory testing is available upon request. * Telephone Encounter - Nargis Naranjo [facility] - 01/23/2025 11:40 AM EDT Pending Prescriptions: Disp Refills traMADol HCl 50 MG Oral Tablet (Ultram) 60 Tab*0 Sig: Take 1 Tablet by mouth every 12 hours as needed for Pain, Severe. * Telephone Encounter - Nargis Naranjo [facility] - 01/23/2025 11:38 AM EDT Images from the original note were not included. Please note pt's MyG request below and advise. Thank you, Nargis Naranjo, PharmD Clinical Pharmacist [facility] [phone] 01/23/2025 11:39 AM documented in this encounter Plan of Treatment Upcoming Encounters Date Type Department Care Team (Late st Contact Info) Description 08/06/2025 11:20 AM EST Office Visit Rheumatology [facility] [address] [place] [phone] Perla Kahn MD [address] [place] [phone] Health Maintenance Due Date Last Done Comments Depression Screening 1980 HIV Screening 1983 DTap/Tdap Vaccines (1 - Tdap) 1987 Hepatitis B Vaccine (1 of 3 - 19+ 3-dose series) 1987 Pneumococcal Vaccine: 50+ Years (1 of 2 - PCV) 1987 Zoster Vaccines (1 of 2) 1987 Pap Smear 1989 Cervical Cancer Screening 1998 HPV/Co-Test 1998 Mammogram 2008 Cologuard 2013 Colonoscopy 2013 Colorectal Cancer Screening 2013 Fecal Occult Blood Test 2013 Sigmoidoscopy 2013 COVID-19 Vaccine ( season) 2024 03/25/2022, 02/25/2021, 02/04/2021 Influenza Vaccine (FLU shot) (Season Ended) 2025 07/03/2019 DXA Scan 01/23/2027 01/23/2025, 0 05/2022, 08/21/2019 Lipid Panel 06/20/2029 06/20/2024, 0 05/2023, 01/06/2020, Additional history exists VITAMIN D LEVEL ONCE IN A LIFETIME-USE SMARTSET# 14069 Completed 04/30/2021 HPV (Gardasil) Vaccine Aged Out No lo nger eligible based on patient's age to complete this topic MENINGOCOCCAL (MENACTRA/MENVEO) Aged Out No longer eligible based on patient's age to complete this topic Meningitis B Vaccine (Bexsero/Trumemba) Aged Out No longer eligible based on patient's age to complete this topic documented as of this encounter Medical Devices Not on filedocumented as of this encounter Visit Diagnoses Diagnosis Rheumatoid arthritis involving multiple sites with positive rheumatoid factor (HCC) documented in this encounter Care Teams Costumed Character Relationship Specialty Start Date End Date Justa Rose CRNP [address] [facility] [place] [id number] PCP - General Nurse Practitioner 06/17/22 documented as of this encounter
--- OUTSIDE RECORDS SUMMARY | 2025-01-31 15:20 | External Medical Summary ---
Author Name Unknown Address Unknown Organization [id number] [id number] [place] [address] Laboratory Report Ordering Provider Test Date Status PERLACRISS 01/21/2025 11:41:03 Final Observation Date Value Abnormality Reference (Units ) Status WBC, Total 01/21/2025 11:41:03 6.06 4.00-10.8 0 (K/uL) Final RBC 01/21/2025 11:41:03 3.57 3.85-5.15 (M/uL) Final Hemoglobin 01/21/2025 11:41:03 10.6 Below low normal 12 .0-15.3 (g/dL) Final HCT 01/21/2025 11:41:03 32.1 Below low normal 36. 0-45.2 (%) Final MCV 01/21/2025 11:41:03 89.9 81.5-97.5 (fL) Final MCH 01/21/2025 11:41:03 29.7 27.0-34.0 (pg) Final MCHC 01/21/2025 11:41:03 33.0 32.0-36.0 (g/dL) Final RDW 01/21/2025 11:41:03 15.2 11.5-15.5 (%) Final Platelets 01/21/2025 11:41:03 104 Below low normal 140 -400 (K/uL) Final MPV 01/21/2025 11:41:03 10.9 6.6-11.1 ( fL) Final Performing Location [facility] [address] [place] [id number]
--- OUTSIDE RECORDS SUMMARY | 2025-01-31 15:20 | External Medical Summary | Summary of Care ---
Author Name Unknown Organization [facility] Address [address] [facility] [place] [address] Phone [phone] Care Team Providers Care Senior Operations Analyst Name Role Phone Lizet Roseedward STRICKLAND Primary Care Provider Reason for Visit * Reason Comments eRx-Medication Refill Encounter Details Date Type Department Care Team (Late st Contact Info) Description 01/21/2025 Refill Rheumatology [facility] [address] [place] [phone] Long Kahn MD [address] [place] [phone] Allergies Active Allergy Reactions Criticality Noted Date Comments Morphine 07/10/2019 Sulfasalazine 07/22/2020 vomiting documented as of this encounter (statuses as of 01/22/2025) Medications Losartan Potassium 25 MG Oral Tablet (Cozaar) Take 1 Tablet by mouth in the morning. 01/21/20 22 Active Rosuvastatin Calcium 5 MG Oral Tablet (Crestor) Take 1 Tablet by mouth in the morning. 01/21/20 22 Active busPIRone HCl 15 MG Oral Tablet (Buspar) 09/13/20 22 Active Folic Acid 1 MG Oral Tablet TAKE 1 TABLET BY MOUTH ONCE DAILY 90 Tablet 3 08/01/20 23 Active Alendronate Sodium 70 MG Oral Tablet (Fosamax)Indicat ions:Senile osteoporosis TAKE ONE TABLET BY MOUTH WEEKLY 4 Tablet 10 10/24/19 24 Active Albuterol Sulfate HFA 108 (90 Base) MCG/ACT Inhalation Aerosol Solution As needed 06/19/20 24 Active Pregabalin 75 MG Oral Capsule (Lyrica) Take 1 Capsule by mouth in the morning and 1 Capsule before bedtime. 60 Capsule 1 07/10/20 24 Active Methotrexate Sodium 2.5 MG Oral Tablet TAKE 8 TABLETS BY MOUTH ONCE A WEEK 104 Tablet 1 07/24/20 24 Active traMADol HCl 50 MG Oral Tablet (Ultram)Indicati ons:Rheumatoid arthritis involving multiple sites with positive rheumatoid factor (HCC) Take 1 Tablet by mouth every 12 hours as needed for Pain, Severe. 60 Tablet 11/26/19 25 Active Omeprazole 20 MG Oral Capsule Delayed Release (PriLOSEC) take 1 capsule by mouth in the morning 90 Capsule 1 11/26/19 25 Active Hydroxychloroqui ne Sulfate 200 MG Oral Tablet (Plaquenil) TAKE 1 TABLET BY MOUTH AT BEDTIME 90 Tablet 1 11/26/19 25 Active predniSONE 5 MG Oral Tablet (Deltasone)Indic ations:Encounter for long-term (current) use of medications,Rehana le osteoporosis Take 1 to 2 tablets by mouth daily for RA 60 Tablet 5 12/25/19 25 Active DULoxetine HCl 60 MG Oral Capsule Delayed Release Particles (Cymbalta) Take 1 Capsule by mouth in the morning. 90 Capsule 1 12/25/19 25 Active predniSONE 10 MG Oral Tablet (Deltasone) take 1 to 2 tablets by mouth per day as need for arthritis flares 60 Tablet 01/23/20 25 Active oxyCODONE HCl 5 MG Oral Tablet (Oxy IR) 11/28/19 25 Active Potassium 99 MG Oral Tablet Take 1 Tablet by mouth in the morning. Active B-12 50 MCG Oral Tablet Take by mouth. Active Aspirin 81 MG Oral Tablet Chewable (Aspirin 81) Take 1 Tablet by mouth in the morning. Active predniSONE 10 MG Oral Tablet (Deltasone) Takes 1 to 2 tablets a day as needed for arthritis flares 60 Tablet 12/25/19 25 025 Discontinued documented as of this encounter (statuses as of 01/22/2025) Active Problems Problem Noted Date Diagnosed Date MEDICATION USE AGREEMENT 07/10/2024 History of 2019 novel coronavirus disease (COVID -19) 06/17/2022 Fibromyalgia 04/30/2021 Senile osteoporosis 10/21/2019 Encounter for long-term (current) use of medicat ions 10/01/2019 Rheumatoid arthritis involvi ng multiple sites with positive rheumatoid factor 10/01/2019 documented as of this encounter (statuses as of 01/22/2025) Resolved Problems Problem Noted Date Diagnosed Date Resolved Date Inflammatory arthritis 07/10/201910/01 documented as of this encounter (statuses as of 01/22/2025) Immunizations Name Administration Dates Next Due COVID-19 mRNA, LNP-s, No Pre serve, 2-Dose Series ([employer]acts innovations) 03/25/2022,02/25/2021,02/04/2021 Seasonal Influenza Virus Vac cine, Unspecified [...] encounter Miscellaneous Notes * Telephone Encounter - Long Kahn MD - 01/22/2025 12:43 PM EDTSigned Prescriptions: Disp Refills predniSONE 10 MG Oral Tablet (Deltasone) 60 Tab*0 Sig: take 1 to 2 tablets by mouth per day as need for arthritis flares Authorizing Provider: LONG KAHN * Telephone Encounter - Nargis Naranjo [facility] - 01/22/2025 10:59 AM EDT Pending Prescriptions: Disp Refills predniSONE 10 MG Oral Tablet [Pharmacy Med*60 Tab*0 Sig: take 1 to 2 tablets by mouth per day as need for arthritis flares * Telephone Encounter - Nargis Naranjo [facility] - 01/22/2025 10:53 AM EDT Rheumatology: Refill Request(s) Per review of the refill parameters, Medication was NOT refilled d/t following concern: Noted at yesterday's OV, " She is taking 5 mg ofprednisone daily." Appears that 10 mg tablets are used as needed for flares. Please advise if refill for 10 mg tabs isappropriate at this time, as patient already has active prescription for 5 mg tablets. Nargis Naranjo [facility] Clinical Pharmacist Rheumatology Department 01/22/2025,10:56 AM documented in this encounter Plan of Treatment Upcoming Encounters Date Type Department Care Team (Late st Contact Info) Description 01/23/2025 11:30 AM EDT Imaging Radiology [facility] [address] [place] [phone] 08/06/2025 11:20 AM EST Office Visit Rheumatology [facility] [address] [place] [phone] Long Kahn MD [address] [place] [phone] Health Maintenance Due Date Last Done Comments [...] Fecal Occult Blood Test 2013 Sigmoidoscopy 2013 DXA Scan 10/27/2023 10/27/2021, 08/21/2019 COVID-19 Vaccine ( season) 2024 03/25/2022, 02/25/2021, 02/04/2021 Influenza Vaccine (FLU shot) (Season Ended) 2025 07/03/2019 Lipid Panel 06/20/2029 06/20/2024, 02/0 05/2023, 01/06/2020, Additional history exists VITAMIN D LEVEL ONCE IN A LIFETIME-USE SMARTSET# 13602 Completed 04/30/2021 HPV (Gardasil) Vaccine Aged Out [...] Not on filedocumented as of this encounter Care Teams Senior Operations Analyst Relationship Specialty Start Date End Date Justa Rose CRNP [facility] [place] [address] PCP - General Nurse Practitioner 06/17/22 documented as of this encounter
--- OUTSIDE RECORDS SUMMARY | 2025-01-31 15:20 | External Medical Summary ---
Author Name Unknown Address Unknown Organization K0G:[facility] [address] [place] [address] Laboratory Report Ordering Provider Test Date Status CRISS DUNCAN 01/21/2025 11:41:03 Final Observation Date Value Abnormality Reference (Units ) Status SYNC LEUKOCYTES IN BLOOD BY AUTOMATED COUNT 01/21/2025 11:41:03 6.06 4.00-10.80 (K/uL) Final Segs 01/21/2025 11:41:03 53.7 40.0-75.0 (%) Final Lymphs % 01/21/2025 11:41:03 33.7 18.0-42.0 (%) Final Monos 01/21/2025 11:41:03 9.1 1.0-11.0 (%) Final Eosinophils 01/21/2025 11:41:03 3.0 0.0-6.0 (%) Final Basos 01/21/2025 11:41:03 0.5 0.0-2.0 (%) Final Absolute Segs 01/21/2025 11:41:03 3.26 1.80-7.70 (K/uL) Final Lymphs, absolute 01/21/2025 11:41:03 2.04 1.00-4.80 (K/ul) Final Monos, Abs 01/21/2025 11:41:03 0.55 0.00-1.10 (K/uL) Final Eos, Abs 01/21/2025 11:41:03 0.18 0.00-0.70 (K/uL) Final Basos, Abs 01/21/2025 11:41:03 0.03 0.00-0.20 (K/uL) Final Performing Location [facility] [place] [address]
--- OUTSIDE RECORDS SUMMARY | 2025-01-31 15:20 | External Medical Summary | Summary of Care ---
Author Name Unknown Organization [facility] Address [address] [place] [address] Phone [phone] Care Team Providers Care Auto Transmission Specialist Name Role Phone Justa Rose Primary Care Provider Reason for Visit * Reason Comments eRx-Medication Refill Encounter Details Date Type Department Care Team (Late st Contact Info) Description 12/23/2024 Refill Rheumatology [facility] [address] [place] [address] Perla Kahn MD [address] [place] [address] Encounter for long-term (current) use of medications; Senile osteoporosis Allergies Active Allergy Reactions Criticality Noted Date Comments Morphine 07/10/2019 Sulfasalazine 07/22/2020 vomiting documented as of this encounter (statuses as of 12/24/2024) Medications Losartan Potassium 25 MG Oral Tablet [...] 90 Tablet 1 11/26/19 25 Active predniSONE 10 MG Oral Tablet (Deltasone) Takes 1 to 2 tablets a day as needed for arthritis flares 60 Tablet 12/25/19 25 Active predniSONE 5 MG Oral Tablet (Deltasone)Indic ations:Encounter for long-term (current) use of medications,Rehana le osteoporosis Take 1 to 2 tablets by mouth daily for RA 60 Tablet 5 12/25/19 25 Active DULoxetine HCl 60 MG Oral Capsule Delayed Release Particles (Cymbalta) Take 1 Capsule by mouth in the morning. 90 Capsule 1 12/25/19 25 Active DULoxetine HCl 60 MG Oral Capsule Delayed Release Particles (Cymbalta) Take 1 Capsule by mouth in the morning. 90 Capsule 2 03/11/20 24 025 Discontinued predniSONE 5 MG Oral Tablet (Deltasone)Indic ations:Encounter for long-term (current) use of medications,Rehana le osteoporosis Take 1 to 2 tablets by mouth daily for RA 60 Tablet 2 09/20/19 25 025 Discontinued predniSONE 10 MG Oral Tablet (Deltasone) Takes 1 to 2 tabs a day as needed for arthritis flares 60 Tablet 2 09/27/19 25 025 Discontinued documented as of this encounter (statuses as of 12/24/2024) Active Problems Problem Noted Date Diagnosed Date MEDICATION USE AGREEMENT 07/10/2024 History of 2019 novel coronavirus disease (COVID -19) 06/17/2022 Fibromyalgia 04/30/2021 Senile osteoporosis 10/21/2019 Encounter for long-term (current) use of medicat ions 10/01/2019 Rheumatoid arthritis involvi ng multiple sites with positive rheumatoid factor 10/01/2019 documented as of this encounter (statuses as of 12/24/2024) Resolved Problems Problem Noted Date Diagnosed Date Resolved Date Inflammatory arthritis 07/10/201910/01 documented as of this encounter (statuses as of 12/24/2024) Immunizations Name Administration Dates Next Due COVID-19 mRNA, LNP-s, No Pre serve, 2-Dose Series (MC2) 03/25/2022,02/25/2021,02/04/2021 Seasonal Influenza Virus Vac cine, Unspecified [...] Telephone Encounter - Perla Kahn MD - 12/24/2024 1:07 PM EDTSigned Prescriptions: Disp Refills predniSONE 10 MG Oral Tablet (Deltasone) 60 Tab*0 Sig: Takes 1 to 2 tablets a day as needed for arthritis flares Authorizing Provider: PERLA KAHN predniSONE 5 MG Oral Tablet (Deltasone) 60 Tab*5 Sig: Take 1 to 2 tablets by mouth daily for RA Authorizing Provider: PERLA KAHN Ordering User: LIZ GUALLPA DULoxetine HCl 60 MG Oral Capsule Delayed *90 Cap*1 Sig: Take 1 Capsule by mouth in the morning. Authorizing Provider: PERLA KAHN Ordering User: LIZ GUALLPA * Telephone Encounter - Liz Guallpa [facility] - 12/24/2024 10:59 AM EDTPending Prescriptions: Disp Refills predniSONE 10 MG Oral Tablet (Deltasone) 60 Tab*0 Sig: Takes 1 to 2 tablets a day as needed for arthritis flares Signed Prescriptions: Disp Refills predniSONE 5 MG Oral Tablet (Deltasone) 60 Tab*5 Sig: Take 1 to 2 tablets by mouth daily for RA Authorizing Provider: PERLA KAHN Ordering Use r: LIZ GUALLPA DULoxetine HCl 60 MG Oral Capsule Delayed *90 Cap*1 Sig: Take 1 Capsule by mouth in the morning. Authorizing Provider: PERLA KAHN Ordering User: LIZ GUALLPA * Telephone Encounter - Liz Guallpa [facility] - 12/24/2024 10:57 AM EDT Rheumatology: Refill Request(s) Prednisone 10mg Per review of the refill parameters, Medication was NOT refilled d/t following concern: Used for flares, will forward to physician to determine if refill appropriate Rheumatology: Refill Request(s) Prednisone 5mg Per review of the refill parameters, Medication was refilled Rheumatology: Refill Request(s) Duloxetine Per review of the refill parameters, Medication was refilled Liz Guallpa RPh [facility] Clinical Pharmacist Rheumatology Department 12/24/2024,10:57 AM documented in this encounter Plan of Treatment Upcoming Encounters Date Type Department Care Team (Late st Contact Info) Description 01/21/2025 11:00 AM EDT Office Visit Rheumatology [facility] [address] [place] [phone] [facility] [address] [facility] [address] Health Maintenance Due Date Last Done Comments [...] D LEVEL ONCE IN A LIFETIME-USE SMARTSET# 74488 Completed 04/30/2021 HPV (Gardasil) Vaccine Aged Out [...] as of this encounter Visit Diagnoses Diagnosis Encounter for long-term (current) use of medications Encounter for long-term (current) use of other medications Senile osteoporosis documented in this encounter Care Teams Auto Transmission Specialist Relationship Specialty Start Date End Date Justa Rose CRNP [address] [place] [address] [place] [address] PCP - General Nurse Practitioner 06/17/22 documented as of this encounter
--- OUTSIDE RECORDS SUMMARY | 2025-01-31 15:20 | External Medical Summary ---
Author Name Unknown Address Unknown Organization K01:[facility] [address] [place] [address] Laboratory Report Ordering Provider Test Date Status CRISS DUNCAN 01/21/2025 11:41:03 Final Observation Date Value Abnormality Reference (Units ) Status Erythrocyte sedimentation rate by Photometric method 01/21/2025 11:41:03 24 <30 (mm/hour) Final Performing Location [facility] - [address] [place] [address]
--- OUTSIDE RECORDS SUMMARY | 2025-01-31 15:20 | External Medical Summary ---
Author Name Unknown Address Unknown Organization K0G:[facility] [address] [place] [address] Laboratory Report Ordering Provider Test Date Status PERLACRISS 01/21/2025 11:41:03 Final Observation Date Value Abnormality Reference (Units ) Status BUN 01/21/2025 11:41:03 13 6-20 (mg/dL) Final Creatinine 01/21/2025 11:41:03 1.1 Above high normal 0.5-1.0 (mg/dL) Final Glomerular filtration rate/1.73 sq M.predicted [Volume Rate/Area] in Serum, Plasma or Blood by Creatinine-based formula (CKD-EPI) 01/21/2025 11:41:03 62 >=60 (mL/min) Final eGFR is calculated based on the CKD-EPI 2020 equation. Sodium 01/21/2025 11:41:03 137 135-146 (m mol/L) Final Potassium 01/21/2025 11:41:03 3.1 Below low normal 3.5 -5.1 (mmol/L) Final Cl 01/21/2025 11:41:03 101 98-107 (mm ol/L) Final CO2 01/21/2025 11:41:03 24 22-32 (mmo l/L) Final Anion gap 01/21/2025 11:41:03 12 7-15 (mmol /L) Final Glucose 01/21/2025 11:41:03 70 70-120 (mg /dL) Final Albumin 01/21/2025 11:41:03 3.4 Below low normal 3.8 -5.0 (g/dL) Final AST (Aspartate aminotransferase) 01/21/2025 11:41:03 62 Above high normal 10-35 (U/L) Final Alk Phos 01/21/2025 11:41:03 140 Above high normal 35 -130 (U/L) Final Bilirubin, Total 01/21/2025 11:41:03 0.8 <=1 .2 (mg/dL) Final Calcium 01/21/2025 11:41:03 8.7 8.4-10.2 ( mg/dL) Final Protein 01/21/2025 11:41:03 7.1 6.0-8.3 (g /dL) Final ALT (Alanine aminotransferase) 01/21/2025 11:41:03 40 Above high normal 10-35 (U/L) Final Performing Location [facility] [address] [facility] [address]
--- OUTSIDE RECORDS SUMMARY | 2025-01-31 15:20 | External Medical Summary | Summary of Care ---
Author Name Unknown Organization [facility] Address [address] [place] [address] Phone [phone] Care Team Providers Care Him Clerk Name Role Phone Justa Rose Primary Care Provider Encounter Details Date Type Department Care Team (Late st Contact Info) Description 12/27/2024 Orders Only Rheumatology [facility] [address] [place] [phone] Long Santiago [facility] [address] [facility] [address] Allergies Active Allergy Reactions Criticality Noted Date Comments Morphine 07/10/2019 Sulfasalazine 07/22/2020 vomiting documented as of this encounter (statuses as of 12/27/2024) Medications Losartan Potassium 25 MG Oral Tablet [...] Active Alendronate Sodium 70 MG Oral Tablet (Fosamax)Indicati ons:Senile osteoporosis TAKE ONE TABLET BY MOUTH WEEKLY [...] A WEEK 104 Tablet 1 4 Active traMADol HCl 50 MG Oral Tablet (Ultram)Indicatio ns:Rheumatoid arthritis involving multiple sites with positive rheumatoid factor (HCC) Take 1 Tablet by mouth every 12 hours as needed for Pain, Severe. 60 Tablet 5 Active Omeprazole 20 MG Oral Capsule Delayed Release (PriLOSEC) take 1 capsule by mouth in the morning 90 Capsule 1 5 Active Hydroxychloroquin e Sulfate 200 MG Oral Tablet (Plaquenil) TAKE 1 TABLET BY MOUTH AT BEDTIME 90 Tablet 1 5 Active predniSONE 10 MG Oral Tablet (Deltasone) Takes 1 to 2 tablets a day as needed for arthritis flares 60 Tablet 5 Active predniSONE 5 MG Oral Tablet (Deltasone)Indica tions:Encounter for long-term (current) use of medications,Senil e osteoporosis Take 1 to 2 tablets by mouth daily for RA 60 Tablet 5 5 Active DULoxetine HCl 60 MG Oral Capsule Delayed Release Particles (Cymbalta) Take 1 Capsule by mouth in the morning. 90 Capsule 1 5 Active documented as of this encounter (statuses as of 12/27/2024) Active Problems Problem Noted Date Diagnosed Date MEDICATION USE AGREEMENT 07/10/2024 History of 2019 novel coronavirus disease (COVID -19) 06/17/2022 Fibromyalgia 04/30/2021 Senile osteoporosis 10/21/2019 Encounter for long-term (current) use of medicat ions 10/01/2019 Rheumatoid arthritis involvi ng multiple sites with positive rheumatoid factor 10/01/2019 documented as of this encounter (statuses as of 12/27/2024) Resolved Problems Problem Noted Date Diagnosed Date Resolved Date Inflammatory arthritis 07/10/201910/01 documented as of this encounter (statuses as of 12/27/2024) Immunizations Name Administration Dates Next Due COVID-19 mRNA, LNP-s, No Pre serve, 2-Dose Series ([facility]) 03/25/2022,02/25/2021,02/04/2021 Seasonal Influenza Virus Vac cine, Unspecified [...] on file documented as of this encounter Plan of Treatment Upcoming Encounters Date Type Department Care Team (Late st Contact Info) Description 01/21/2025 11:00 AM EDT Office Visit Rheumatology [facility] [address] [place] [phone] Long Santiago [facility] [address] [facility] [address] Health Maintenance Due Date Last Done Comments [...] Ended) 2025 07/03/2019 Lipid Panel 06/20/2029 06/20/2024, 02/05/2023, 01/06/2020, Additional history exists VITAMIN D LEVEL ONCE IN A LIFETIME-USE SMARTSET# 75064 Completed 04/30/2021 HPV (Gardasil) Vaccine Aged Out [...] Not on filedocumented as of this encounter Procedures Procedure Name Priority Date/Time Associated Diagnosis Comments CHEMISTRY-OUTSIDE Routine 12/10/2024 documented in this encounter Results * (ABNORMAL) CHEMISTRY-OUTSIDE (12/10/2024) Not all results display below - see scan for full detail OUTSIDE LAB (SEE SCANNED REPORT) Comment:SCAN INCLUDES: CMP, URIC ACID, SED RATE, CBCD CREATININE 0.90 0.6 - 1.2 MG/DL OUTSIDE LAB (SEE SCANNED REPORT) EGFR 75.03 OUTSIDE LA B (SEE SCANNED REPORT) POTASSIUM 3.0(A) 3.5 - 5.1 MMOL/L OUTSIDE LAB (SEE SCANNED REPORT) GLUCOSE 194(A) 70 - 99 MG/DL OUTSIDE LAB (SEE SCANNED REPORT) HOURS FASTING OUTSID E LAB (SEE SCANNED REPORT) TRIGLYCERIDES-OUT SIDE LAB OUTSIDE LAB (SEE SCANNED REPORT) CHOLESTEROL-OUTSI DE LAB OUTSIDE LAB (SEE SCANNED REPORT) HDL-OUTSIDE LAB OUTS JES LAB (SEE SCANNED REPORT) CHOL/HDL RATIO-OUTSIDE LAB OUTSIDE LA B (SEE SCANNED REPORT) LDL (CALCULATED)-OUTS JES LAB OUTSIDE LAB (SEE SCANNED REPORT) LDL (DIRECT MEASURE)-OUTSIDE LAB OUTSIDE LAB (SEE SCANNED REPORT) HEMOGLOBIN, Q1X-[id number] LAB OUTSIDE LAB (SEE SCANNED REPORT) PHOSPHORUS-OUTSID E LAB OUTSIDE LAB (SEE SCANNED REPORT) PTH-OUTSIDE LAB OUTS JES LAB (SEE SCANNED REPORT) MICROALBUMIN RATIO-OUTSIDE LAB OUTSIDE LA B (SEE SCANNED REPORT) PROTEIN, UA-OUTSIDE LAB OUTSIDE LAB (SEE SCANNED REPORT) HGB 11.1(A) 12.0 - 16.0 G/DL OUTSIDE LAB (SEE SCANNED REPORT) 12/10/2024 us Long Santiago MD LABORATORY Final Resul t OUTSIDE LAB (SEE SCANNED REPORT) documented in this encounter Care Teams Him Clerk Relationship Specialty Start Date End Date Justa Rose CRNP [address] [place] [address] [place] [address] PCP - General Nurse Practitioner 06/17/22 documented as of this encounter
--- OUTSIDE RECORDS SUMMARY | 2025-01-31 15:20 | External Medical Summary | Summary of Care ---
Author Name Unknown Organization [facility] Address [address] [place] [address] Phone [phone] Care Team Providers Care Detail Sergeant Name Role Phone Justa Rose Primary Care Provider Reason for Visit * Reason Comments Outpatient Testing Encounter Details Date Type Department Care Team (Late st Contact Info) Description 01/21/2025 11:50 AM EDT Laboratory Laboratory, [facility] [address] [place] [phone] [facility] [address] [place] [address] Rheumatoid arthritis involving multiple sites with positive rheumatoid factor (HCC); Encounter for long-term (current) use of medications; Fibromyalgia; Senile osteoporosis Allergies Active Allergy Reactions Criticality Noted Date Comments Morphine 07/10/2019 Sulfasalazine 07/22/2020 vomiting documented as of this encounter (statuses as of 01/21/2025) Medications Losartan Potassium 25 MG Oral Tablet [...] the morning. 90 Capsule 1 5 Active oxyCODONE HCl 5 MG Oral Tablet (Oxy IR) 5 Active Potassium 99 MG Oral Tablet Take 1 Tablet by mouth in the morning. Active B-12 50 MCG Oral Tablet Take by mouth. Activ e Aspirin 81 MG Oral Tablet Chewable (Aspirin 81) Take 1 Tablet by mouth in the morning. Active documented as of this encounter (statuses as of 01/21/2025) Active Problems Problem Noted Date Diagnosed Date MEDICATION USE AGREEMENT 07/10/2024 History of 2019 novel coronavirus disease (COVID -19) 06/17/2022 Fibromyalgia 04/30/2021 Senile osteoporosis 10/21/2019 Encounter for long-term (current) use of medicat ions 10/01/2019 Rheumatoid arthritis involvi ng multiple sites with positive rheumatoid factor 10/01/2019 documented as of this encounter (statuses as of 01/21/2025) Resolved Problems Problem Noted Date Diagnosed Date Resolved Date Inflammatory arthritis 07/10/201910/01 documented as of this encounter (statuses as of 01/21/2025) Immunizations Name Administration Dates Next Due COVID-19 mRNA, LNP-s, No Pre serve, 2-Dose Series (TwtBks) 03/25/2022,02/25/2021,02/04/2021 Seasonal Influenza Virus Vac cine, Unspecified [...] Description 01/23/2025 11:30 AM EDT Imaging Radiology [facility] [address] [place] [phone] 08/06/2025 11:20 AM EST Office Visit Rheumatology [facility] [address] [place] [phone] Long Santiago MD [address] [place] [phone] Pending Results Name Type Priority Associated Diagnoses Date /Time ERYTHROCYTE SEDIMENTATION RATE (ESR) Lab Routine Rheumatoid arthritis involving multiple sites with positive rheumatoid factor (HCC) 01/21/2025 11:41 AM EDT URIC ACID Lab Routine Rheumatoid arthritis involving multiple sites with positive rheumatoid factor (HCC) 01/21/2025 11:41 AM EDT Health Maintenance Due Date Last Done Comments [...] D LEVEL ONCE IN A LIFETIME-USE SMARTSET# [id number] Completed 04/30/2021 HPV (Gardasil) Vaccine Aged Out [...] Procedure Name Priority Date/Time Associated Diagnosis Comments DIFFERENTIAL, AUTOMATED Routine 01/21/2025 11:41 AM EDT Rheumatoid arthritis involving multiple sites with positive rheumatoid factor (HCC) COMPREHENSIVE METABOLIC PANEL Routine 01/21/2025 11:41 AM EDT Rheumatoid arthritis involving multiple sites with positive rheumatoid factor (HCC) CBC Routine 01/21/2025 11:41 AM EDT Rheumatoid arthritis involving multiple sites with positive rheumatoid factor (HCC) CBC Routine 01/21/2025 11:41 AM EDT Rheumatoid arthritis involving multiple sites with positive rheumatoid factor (HCC) documented in this encounter Results * DIFFERENTIAL, AUTOMATED (01/21/2025 11:41 AM EDT) [facility] WBC 6.06 4.00 - 10.80 K/uL 01/21/2025 11:53 AM EDT [facility] Neutrophils % 53.7 40.0 - 75.0 % 01/21/2025 11:53 AM EDT [facility] Lymphocytes % 33.7 18.0 - 42.0 % 01/21/2025 11:53 AM EDT [facility] Monocytes % 9.1 1.0 - 11.0 % 01/21/2025 11:53 AM EDT [facility] Eosinophils % 3.0 0.0 - 6.0 % 01/21/2025 11:53 AM EDT [facility] Basophils % 0.5 0.0 - 2.0 % 01/21/2025 11:53 AM EDT [facility] Absolute Neutrophils 3.26 1.80 - 7.70 K/uL 01/21/2025 11:53 AM EDT [facility] Absolute Lymphocytes 2.04 1.00 - 4.80 K/ul 01/21/2025 11:53 AM EDT [facility] Absolute Monocytes 0.55 0.00 - 1.10 K/uL 01/21/2025 11:53 AM EDT [facility] Absolute Eosinophils 0.18 0.00 - 0.70 K/uL 01/21/2025 11:53 AM EDT [facility] Absolute Basophils 0.03 0.00 - 0.20 K/uL 01/21/2025 11:53 AM EDT [facility] 57-10 Blood Venous blood specimen / Unknown Venipuncture / Unknown 01/21/2025 11:41 AM EDT 01/21/2025 11:41 AM EDT us Long Santiago MD LAB BLOOD ORDERABLES Final Result [facility] [address] [facility] [place] [address] * (ABNORMAL) CBC (01/21/2025 11:41 AM EDT) WBC 6.06 4.00 - 10.80 K/uL 01/21/2025 11:53 AM EDT [facility] RBC 3.57 3.85 - 5.15 M/uL 01/21/2025 11:53 AM EDT [facility] Song10 HGB 10.6(L) 12.0 - 15.3 g/dL 01/21/2025 11:53 AM EDT [facility] HCT 32.1(L) 36.0 - 45.2 % 01/21/2025 11:53 AM EDT [facility] Song-10 MCV 89.9 81.5 - 97.5 fL 01/21/2025 11:53 AM EDT [facility] MCH 29.7 27.0 - 34.0 pg 01/21/2025 11:53 AM EDT [facility] MCHC 33.0 32.0 - 36.0 g/dL 01/21/2025 11:53 AM EDT [facility] RDW 15.2 11.5 - 15.5 % 01/21/2025 11:53 AM EDT [facility] PLT 104(L) 140 - 400 K/uL 01/21/2025 11:53 AM EDT [facility] Nohemi10 MPV 10.9 6.6 - 11.1 fL 01/21/2025 11:53 AM EDT [facility] 5710 Blood Venous blood specimen / Unknown Venipuncture / Unknown 01/21/2025 11:41 AM EDT 01/21/2025 11:41 AM EDT us Long Santiago MD LAB BLOOD ORDERABLES Final Result [facility] [address] [facility] [address] * (ABNORMAL) COMPREHENSIVE METABOLIC PANEL (01/21/2025 11:41 AM EDT) BUN 13 6 - 20 mg/dL 01/21/2025 1:48 PM EDT [facility] CREATININE 1.1(H) 0.5 - 1.0 mg/dL 01/21/2025 1:48 PM EDT [facility] EGFR 62 >=60 mL/min 01/21/2025 1:48 PM EDT [facility] Comment:eGFR is calculated b ased on the CKD-EPI 2020 equation. SODIUM 137 135 - 146 mmol/L 01/21/2025 1:48 PM EDT [facility] POTASSIUM 3.1(L) 3.5 - 5.1 mmol/L 01/21/2025 1:48 PM EDT [facility] CHLORIDE 101 98 - 107 mmol/L 01/21/2025 1:48 PM EDT [facility] CO2 24 22 - 32 mmol/L 01/21/2025 1:48 PM EDT [facility] ANION GAP 12 7 - 15 mmol/L 01/21/2025 1:48 PM EDT [facility] GLUCOSE 70 70 - 120 mg/dL 01/21/2025 1:48 PM EDT [facility]10 Albumin 3.4(L) 3.8 - 5.0 g/dL 01/21/2025 1:48 PM EDT [facility] AST 62(H) 10 - 35 U/L 01/21/2025 1:48 PM EDT [facility]10 Alkaline Phosphatase 140(H) 35 - 130 U/L 01/21/2025 1:48 PM EDT [facility]10 Bilirubin, Total 0.8 <=1.2 mg/dL 01/21/2025 1:48 PM EDT [facility] CALCIUM 8.7 8.4 - 10.2 mg/dL 01/21/2025 1:48 PM EDT [facility] Protein 7.1 6.0 - 8.3 g/dL 01/21/2025 1:48 PM EDT [facility] ALT 40(H) 10 - 35 U/L 01/21/2025 1:48 PM EDT [facility]10 Blood Venous blood specimen / Unknown Venipuncture / Unknown 01/21/2025 11:41 AM EDT 01/21/2025 11:41 AM EDT us Long Santiago MD LAB BLOOD ORDERABLES Final Result [facility] [address] [facility] [place] [address] documented in this encounter Visit Diagnoses Diagnosis Rheumatoid arthritis involving multiple sites with positive rheumatoid factor (HCC) Encounter for long-term (current) use of medications Encounter for long-term (current) use of other medications Fibromyalgia Mylagia and myositis, unspecified Senile osteoporosis documented in this encounter Care Teams Detail Sergeant Relationship Specialty Start Date End Date Justa Rose CRNP [address] [facility] [place] [address] PCP - General Nurse Practitioner 06/17/22 documented as of this encounter
--- OUTSIDE RECORDS SUMMARY | 2025-01-31 15:20 | External Medical Summary | Summary of Care ---
Author Name Unknown Organization [facility] Address [address] [place] [address] Phone [phone] Care Team Providers Care Bean Picker Machine Operator Name Role Phone Justa Rose Primary Care Provider Reason for Visit * Reason Comments Rheum Follow Up Follow up - RA Encounter Details Date Type Department Care Team (Late st Contact Info) Description 01/21/2025 11:00 AM EDT Office Visit Rheumatology [facility] [address] [place] [phone] Long Santiago MD [address] [place] [phone] Rheumatoid arthritis involving multiple sites with positive rheumatoid factor (HCC)*; Encounter for long-term (current) use of medications; [...] mRNA, LNP-s, No Pre serve, 2-Dose Series (OneShift) 03/25/2022,02/25/2021,02/04/2021 Seasonal Influenza Virus Vac cine, Unspecified Formulation 07/03/2019 documented as of this encounter Social History Tobacco Use Types Packs/Day Years Used Date Smoking Tobacco: Every Day Cigarettes 0.5 30 Smokeless Tobacco: Never Tobacco Cessation:Ready to Q uit: Not Asked; Counseling Given: Not Answered Alcohol Use Standard Drinks/Week Comments Never 0 [...] on file documented as of this encounter Last Filed Vital Signs Vital Sign Reading Time Taken Comments Blood Pressure - - Pulse - - Temperature 36.5 °C (97.7 °F) 01/21/2025 10:49 AM E DT Respiratory Rate - - Oxygen Saturation - - Inhaled Oxygen Concentration - - Weight - - Height - - Body Mass Index - - documented in this encounter Progress Notes * Long Santiago MD - 01/21/2025 10:58 AM EDT Images from the original note were not included. Assessment and Plan Rheumatoid arthritis involving multiple sites with positive rheumatoid factor (HCC) - Potassium; Future Encounter for long-term (current) use of medications - Potassium; Future Fibromyalgia - Potassium; Future Senile osteoporosis - Potassium; Future She does continue to deal with diffuse arthritis pains in the question is active rheumatoid arthritis verses fibromyalgia. She has tried and failed several biologic agents. Currently on methotrexate,hydroxychloroquine and low-dose prednisone. Discussed possible use of rituximab or infliximab but she is hesitant at this point. She remains on Fosamax for osteoporosis. Will get set up for DEXA. Return to clinic in 6 months. Rheumatology Synopsis: [facility] RA SYNOPSIS Date of RA Diagnosis: 07/10/19 (01/21/2025 11:00 AM) Current Treatment: MTX; HCQ (01/21/2025 11:00 AM) Previous Treatment: ADA; ABT; UPA; TCZ; TCB; SSZ (01/21/2025 11:00 AM) 2009 Classification Criteria: Y (01/21/2025 11:00 AM) Seropositive or seronegative: Seropositive (01/21/2025 11:00 AM) RF and/or CCP: Dual Positive (01/21/2025 11:00 AM) Disease activity: Uncontrolled Patient History History of Present Illness HPI:54 year old female presented to rheumatology clinic for Rheum Follow Up (Follow up - RA) She has remained on MTX, plaquenil and pred. She was hospitalized for abd issues and was at [facility] - ? Ischemic colitis. Had colonoscopy that was fine. She continues to deal with right sided abd pain. She is still on tramadol. She continues with Fosamax for osteoporosis. She is taking 5 mg of prednisone daily. She uses a cane. We had discussed other biologics in the past and she has been hesitant. She is taking [id number] potassium supplements now. Her PCP had prescribed potassium. She has not had a repeat blood test yet. ROS: Review of Systems was asked and the following other significant symptoms are present: abd pain, joint pains, swelling Rheumatology History RA, osteoporosis Subjective Patient's past history, medications, and allergies were reviewed. Objective Physical Exam Temp 36.5 °C (97.7 °F) (Infrared ) Constitutional: appears uncomfortable, but no acute distress HEENT: NC/AT some dry mouth noted Eyes: PERRLA, sclera and conjunctiva normal Neck: supple, no adenopathy CV: normal rate and rhythm, no murmur, gallops or rub Chest: normal respiratory effort, lungs clear to auscultation and percussion Abdomen: soft, normal bowel sounds, tenderness noted to the right side Musculoskeletal: diffuse soft tissue tenderness in joint pain on exam but no synovitis noted. No knee effusions. Normal muscle strength MSK/Joint exam (Homunculus) MSK Exam findings: Homunculus exam Studies: Labs and Imaging studies reviewed with pertinent findings noted below: Disease Treatment Response CDAI Scoring Patient Global: 80 / 100 Provider Global: 50 / 100 Tender (HERNÁNDEZ-28): 26 / 28 Swollen (HERNÁNDEZ-28): 0 / 28 CDAI: 39 CDAI (Clinical Disease Activity Index) © [facility] Outcomes measures: Serial CDAI: Synopsis SmartLink 01/21/2025 11:00 07/10/2024 11:00 CDAI CDAI 39 37 - Serial CDAI: - Yes - Remission: - No - high disease activity Currently on csDMARD: Yes Currently on Biologic DMARD: No Vaccination status: COVID: Vaccine and/or Health maintenance status Incomplete Influenza:Vaccine complete for this season Pneumococcal:Vaccine and/or Health maintainance status Incomplete Zoster:Vaccine and/or Health Maintainance Incomplete Last Hepatitis and TB testing: Hepatitis B: Not Tested, results not available Hepatitis C: Not Tested, results not available PPD or TB-Gold: Not Tested, results not available No results found for: "HBSAG", "HEPB", "HCVAB" No results found for: "TB GOLD AG NIL", "TB GOLD MITOGEN NIL", "PPD INDURATION", "PPD-OUTSIDE LAB","QUANTIFERON GOLD TB", "QUANTIFERON-TB PLUS", "QUANTIFERON-TB PLUS,1T", "QUANTIFERON-TB PLUS,4T" Wrap-Up Follow-up: Return in about 6 months (around 07/24/2025). | Check-out note: Schedule dexa at [facility] in 6 months documented in this encounter Nursing Notes * Apryl Sherman LPN - 01/21/2025 10:47 AM EDT Chief Complaint Patient presents with Rheum Follow Up Follow up - RA documented in this encounter Plan of Treatment Upcoming Encounters Date Type Department Care Team (Late st Contact Info) Description 01/23/2025 11:30 AM EDT Imaging Radiology [facility] [address] [place] [phone] 08/06/2025 11:20 AM EST Office Visit Rheumatology [facility] [address] [place] [phone] Long Santiago MD [address] [place] [phone] Health Maintenance Due Date Last Done Comments [...] D LEVEL ONCE IN A LIFETIME-USE SMARTSET# [id number] Completed 04/30/2021 HPV (Gardasil) Vaccine Aged Out [...] involving multiple sites with positive rheumatoid factor (HCC)- Primary Encounter for long-term (current) use of medications Encounter for long-term (current) use of other medications Fibromyalgia Mylagia and myositis, unspecified Senile osteoporosis documented in this encounter Care Teams Bean Picker Machine Operator Relationship Specialty Start Date End Date Justa Rose CRNP [address] [place] [address] [place] [address] PCP - General Nurse Practitioner 06/17/22 documented as of this encounter
--- OUTSIDE RECORDS SUMMARY | 2025-01-31 15:20 | External Medical Summary ---
Author Name Unknown Address Unknown Organization [id number]:[facility] - [address] [place] [address] Laboratory Report Ordering Provider Test Date Status CRISS DUNCAN 01/21/2025 11:41:03 Final Observation Date Value Abnormality Reference (Units ) Status Uric Acid 01/21/2025 11:41:03 5.6 2.4-5.7 (m g/dL) Final Performing Location LAB[facility]ATORY [facility] - [address] [place] [address]
[2025-01-31] MEDS: AMITRIPTYLINE HCL 10 MG TAB PO SCH (16:28)
--- NOTE | 2025-01-31 17:02 | Hospitalist Progress Note ---
Date of Service January 31, 2025 Assessment & Plan (1) Acute colitis: (2) Left groin pain: (3) Visual disturbance: (4) Abnormal LFTs: (5) Rheumatoid arthritis: (6) ILD (interstitial lung disease): Plan 54-year-old female with history of rheumatoid arthritis on methotrexate and Plaquenil, interstitial lung disease, hypertension, hyperlipidemia presenting with acute on chronic right sided abdominal pain as well as severe left groin pain and complaint of visual disturbances specifically with color. # Abdominal pain, mccarty colonic thickening, mesentery abnormal and LAD - has had recurrence/persistence of this "colitis" appearance and pain for a year, appears to have progressed on current CT - past workup with several CTAs - no vascular occlusions including 01/30. Thought to have ischemic colitis in past. On ASA and continues smoking - calprotectin negative, recent colonoscopy negative except polyps, colon biopsy neg for microscopic colitis I am concerned that there is a process going on that has not been diagnosed. She appears more chronically ill, is not eating well, is malnourished, new onset of pancytopenia. Was severely folate deficient in November but now folate in normal range. Concern that there is some inflammatory or infectious process affecting colon and mesentery. Spleen appears abnormal on my review of CT however may simply be mottled appearance due to different phases of contrast. Lymphoma is within the Ddx. - consulted GI and Rheum - feels better today - was started on steroids and unasyn (for pneumonia) at admission - will review CTA with our staff radiologist - Porphyrin panel was sent by the ER. Should be followed (send out lab) # pancytopenia - methotrexate recently held by Rheum - check folate, B12, blood smear, retic, iron studies # ILD and possible RLL pneumonia - reviewed CT images there is some consolidation or atelectasis in bases but not too convincing. She has had cough and sweats. - cont amp-sulbactam for now - consider atypical coverage #Acute left hip/groin painpatient on chronic steroids, recent burst. CT of left hip negative for fracture Pain control with Tylenol, Dilaudid as needed PT/OT evaluation appreciated - LLE>RLE swelling - ordered LE duplex #Visual disturbance - recent yellow vision. Often a drug side effect but not on any obvious offending agents. Vit A, B12, folate and possibly vitamin D, E, Zn deficiency can cause. Celiac and IBD reported to cause especially malabsorption. Optic neuropathy. -B12, folate were OK. cont folate supp -check Vit A and Vit D, Zn, B1 INR elevation - not c/w cirrhosis based on labs, imaging. potentially nutritional - trial vit K po x 3 days and recheck INR #Rheumatoid arthritis HCQ and MTX held, see above - currently on steroids #Hypertensionblood pressure stable Continue losartan 50 mg p.o. every morning #Hyperlipidemia Crestor 20 mg p.o. every morning #GERD Protonix 40 mg p.o. daily #Fibromyalgia Continue baclofen 10 mg p.o. twice daily as needed Continue Cymbalta 60 mg p.o. every morning Continue Neurontin 300 mg p.o. 3 times daily Continue tramadol 50 mg p.o. daily DVT ppx - enox Admission and Anticipated Discharge Date Admission Date: January 30, 2025 Subjective has had cough with sputum production for a few weeks R sided especially RLQ pain has some chronicity but progressively worst past few weeks Infrequent stools, nonbloody L hip pain also new recently, no falls or trauma Has had poor appetite nursing home. Eating poorly. Anorexia. Has had profuse sweats last few weeks, never took temp Color vision change same time period - both eyes all visual field. Yellowish. No loss of acuity Has had some R back/flank pain she attrib to coughing Physical Exam 2 Physical Exam: Last 24h vitals reviewed GEN: no acute distress, sitting in bed, looks more chronically ill than last time I saw her HEENT: pupils equal, sclerae anicteric, moist MM RESP: normal WOB, CTAB CV: reg no mrg ABD: a bit firm/full. TTP right side and RLQ. no rrg +BT : no shaikh SKIN: warm and dry, no generalized rashes Lymph: one enlarged LN left supraclavicular NEURO: AOx person, place, and situation. Face symmetric, speech normal, moves 4 ext spontaneously and equally Results & Data Results & Data Vital Signs (Past 12 Hours) Vital Signs Temp Pulse Resp BP Pulse Ox O2 Del Method 01/31/25 15:41 85 96 Room Air 01/31/25 15:36 36.6 C 94 H 18 100/65 91 Room Air 01/31/25 08:01 88 16 109/65 94 Room Air 01/31/25 07:48 36.7 C 90 18 96/61 L 90 Room Air Laboratory Results 01/31/25 06:15 01/31/25 06:15 PG Care Time/CCT Total # of Minutes Spent Total Time Spent with Patient: Total time spent is greater than 50% in coordination of care (as documented) at patient's floor/unit and/or counseling patient: Coding Level of Care Code 43601 SUB INP/OBS CARE 3/50MIN Diagnoses Acute colitis K52.9 Left groin pain R10.32 Visual disturbance H53.9 Abnormal LFTs R79.89 Rheumatoid arthritis M06.9 ILD (interstitial lung disease) J84.9
[2025-01-31] MEDS: ZINC SULFATE 220 MG CAPSULE PO SCH (18:07)
[2025-01-31] MEDS: VITAMIN A 25,000 UNIT CAP PO SCH (18:07)
[2025-01-31] MEDS: THIAMINE HCL 500 MG in SODIUM CHLORIDE 0.9% 50 ML IV SCH (18:44)
--- NOTE | 2025-01-31 19:45 | Rheumatology Consultation ---
Rheumatology Consultation DOS January 31, [address] Hussein Attending Physician Dr Hussein Reason for Consultation RA, abdominl pain Assessment & Plan (1) Colitis: unclear etiology - doubt vasculitis or RA related given CT angio appearance. ok to continue with solumedrol for now to see if it helps. await further gi workup. (2) Rheumatoid arthritis, seropositive, multiple sites: uncontrolled at this point. had discussed other biologic agents as outpatient but she had wished not to pursue at this time. cannot use MTX as per GI, no arava either. can continue with plaquenil. may need heme eval given WBC changes and night sweats Plan 1. no more MTX 2. ok to continue with plaquenil 3. Ok to continue for solumedrol for 1 more day then cahnge to oral pred. would do 40mg x 2 days and taper by 10mg every 2 days until home dosing 4. await gi further work up 5. already discussed case with Dr Hussein. 6. Thank you for the consult and involving me in her care 7. I will arrnage outpatient return appt History of Present Illness Reason for Consultation: RA, abdominal pain Requesting Physician: Dr Hussein Attending Physician: Mikayla Hussein MD History of Present Illness Gabi is well known to me - has had RA and failed several biologics in the past including humira, orencia, actemra, xeljanz. also been on ssz, plaquenil and mTX. just seen by me in the office 01/21/25 for follow up. pain not well controlled - still had abdominal pain. had recent hospital stays for colitis but outpatient colonoscopy did not show any IBD. she states that since her visit with me she continued having right sided abdominal pain. she also has been experiencing drenching night seats these last few weeks. her RA pains have been unchanged. we stopped MTX after her visit because of here hgb and plt count being down. she missed one dose so far. she has had abdominal CT angio that shows normal blood vessels. she had diffuse edema concerning for colitis - radiology favored infectious but she denies any nausea, vomiting or diarrhea. she reports lack of appetite and not only having bowel movements every 3 days. she states today she has noted swelling in her feet - felt maybe due to sitting in the chair. she also has been experiencing a lot of left groin pain. CT of the hip was ok. labs show plt count was 111 and now 85. hgb is 9. white count was normal but now a little low but previous diff was normal. as outpatient differential was normal as well. she is rating her pain at a 10 when she came in and now about a 7. still on plaquenil. reviewed GI note and recommended no more MTX - ? cirrhosis. her abd pain is mainly right side and has hardness to that area. has some left lower quadrant pain as well. she is being treated for possible pneumonia as well. she also received IV solumedrol at 60mg Allergies Allergy/AdvReac Type Severity Reaction Status Date / Time latex Allergy Intermediate Rash Verified 01/30/25 21:05 homatropine AdvReac Intermediate Nausea Verified 01/30/25 21:05 morphine AdvReac Intermediate Nausea, Verified 01/30/25 21:05 Vomiting Home Medications Medication Instructions Recorded Confirmed Type prednisone 5 mg tablet 5 mg PO QAM 11/20/19 01/30/25 History omeprazole 20 mg capsule,delayed 20 mg PO DAILYBB 10/05/20 01/30/25 History release gabapentin 300 mg capsule 300 mg PO TID 10/17/21 01/30/25 History (Neurontin) methotrexate sodium 2.5 mg tablet 20 mg PO WK 11/09/21 01/30/25 History tramadol 50 mg tablet 50 mg PO DAILY 04/27/23 01/30/25 History hydroxychloroquine 200 mg tablet 200 mg PO DAILY 08/31/23 01/30/25 History (Plaquenil) alendronate 70 mg tablet (Fosamax) 70 mg PO WK #12 tabs 10/23/23 01/30/25 Rx rosuvastatin 20 mg tablet 20 mg PO QAM #90 tabs 02/15/24 01/30/25 Rx ondansetron 8 mg disintegrating 8 mg PO Q8H PRN nausea and 02/28/24 01/30/25 Rx tablet vomiting #20 tabs ibuprofen 200 mg tablet 400 mg PO Q6H PRN Pain 03/05/24 01/30/25 History guaifenesin 600 mg tablet, 1,200 mg (2 x 600 mg) PO BID PRN 03/06/24 01/30/25 Rx extended release 12 hr (Mucinex) cough #30 tabs baclofen 10 mg tablet 10 mg PO BID PRN muscle spasm #20 03/07/24 01/30/25 Rx tabs duloxetine 30 mg capsule,delayed 60 mg PO QAM 03/08/24 01/30/25 History release (Cymbalta) losartan 50 mg tablet 50 mg PO QAM #30 tabs 03/12/24 01/30/25 Rx albuterol sulfate 90 mcg/actuation 2 puff inhalation QID PRN 06/19/24 01/30/25 Rx aerosol inhaler shortness of breath or wheezing #8.5 grams buspirone 15 mg tablet 15 mg PO BID #60 tabs 08/19/24 01/30/25 Rx potassium chloride 20 mEq 20 meq PO BID #180 tabs 09/30/24 01/30/25 Rx tablet,extended release aspirin 81 mg chewable tablet 81 mg PO DAILY #30 tabs 10/26/24 01/30/25 Rx (Children's Aspirin) folic acid 1 mg tablet 1 mg PO QAM #30 tabs 10/26/24 01/30/25 Rx mecobalamin (vitamin B12) 500 mcg 500 mcg PO DAILY #30 tabs 10/26/24 01/30/25 Rx chewable tablet oxycodone 5 mg tablet 5 mg PO Q6H PRN pain #20 tabs 11/27/24 01/30/25 Rx valacyclovir 1 gram tablet 2,000 mg PO Q12H PRN cold sores 12/06/24 01/30/25 History (Valtrex) prednisone 20 mg tablet See Rx Instructions PO QAM PRN 01/30/25 01/30/25 History [employer] Patient History Medical History Cold sore Currently has "fever blister on my lip" - hasn't started PRN valtrex yet as per patient Pulmonary nodules Osteoporosis GERD (gastroesophageal reflux disease) hx History of bloody stools "after my last colonoscopy, I had 6-8 months of bleeding like clots." as per patient Right sided abdominal pain reason for procedure 12/17/24 Acute colitis reason for procedure 12/17/24 Pneumonia hx - pt denies at any issues at this time Atypical chest pain pt denies any issues currently Current smoker Rheumatoid arthritis Dr Rivas Rheumotology 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 History of COVID-May 12, 2022 > home test, cough, runny nose, > all resolved Shingles outbreak Sep 2020 Nausea and vomiting after administration of anesthetic agent ILD (interstitial lung disease) no longer following Pulm Fibromyalgia Diverticular disease no hospitalizations - unsure if incidental finding from imaging or colonoscopy Depression Anxiety Hyperlipidemia Hypertension Biliary dyskinesia Surgical History History of laparoscopic cholecystectomy History of incisional hernia repair Hx of removal of cyst from left hand during carpal tunnel History of carpal tunnel release Bilateral History of esophagogastroduodenoscopy (EGD) History of colonoscopy "after my last colonoscopy, I had 6-8 months of bleeding like clots." as per patient History of hysterectomy Family History Aunt Diabetes Uncle Diabetes Social History Smoking Status: Current every day smoker Tobacco Type: Cigarettes Age Started Using Tobacco: 15; packs per day: 1; Cigarettes Per Day: 1/2 ppd; Second Hand Exposure: No; Do You Dip or Chew Tobacco: No; Tobacco Cessation Education Requested by Patient: No Hx Alcohol Use: Yes Hx Substance Use: No Preferred Language: Ecuadorean Communication Ability: Effective Visual Impairment: Partially Limited 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 Beliefs That Will Affect Care: None marital status: Current Living Situation: Spouse current occupational status: disabled How many Children do You have: 2 Other Information That Helps Us Care for You: No Feels Safe at Home: Yes Safety Concerns: Feels Safe At This Time Diet: regular caffeine: Yes Dental Care, Regularly: No Physical Activity Frequency: Daily Physical Activity Frequency Comment: Active Seatbelt Use: always Sunscreen Use: No Assistive Devices: Cane Review of Systems Constitutional: night sweats, Eyes: normal Ear, Nose, Mouth, Throat: normal Respiratory: see above Cardiovascular: Additional Comments: normal Gastrointestinal: see above Musculoskeletal: see above Integumentary: LE edema Physical Exam Constitutional: examined lying in bed - appears uncomfortable Respiratory: CTA no wheezing Cardiovascular: reg, + s1 and S2, no murmur Gastrointestinal (Abdomen): diffuse abd pain to palpation - worse right lower quadrant with hardness noted in this area Musculoskeletal: small knee effusions noted bilaterally, tenderness to MCPs and PIPs without synovitis. bilatreal foot edema noted with + squeeze tenderness. Skin: no rashes noted Results & Data Vital Signs (Past 12 Hours) Vital Signs Temp Pulse Resp BP Pulse Ox O2 Del Method 01/31/25 15:41 85 96 Room Air 01/31/25 15:36 36.6 C 94 H 18 100/65 91 Room Air 01/31/25 08:01 88 16 109/65 94 Room Air 01/31/25 07:48 36.7 C 90 18 96/61 L 90 Room Air Laboratory Results reviewed
[2025-01-31] MEDS: GADOBUTROL 65ML VIAL IV ONE (21:36)
--- NOTE | 2025-02-01 00:37 | Magnetic Resonance Report ---
Exam(s): MRI ABDOMEN W/WO Contrast IV Amt: 7.5mL Gadavist given existing IV EXAM: MR Abdomen Without and With Intravenous Contrast CLINICAL HISTORY: Reason for exam: Ascites, mesenteric inflammation, biliary dilatati. TECHNIQUE: Multiplanar magnetic resonance images of the abdomen without and with intravenous contrast. CONTRAST: Patient received 7.5mL Gadavist given existing IV of IV contrast COMPARISON: CT abdomen/pelvis on 01/30/2025 FINDINGS: Lung bases: Unremarkable. No mass. No consolidation. Liver: Unremarkable. No mass. Gallbladder and bile ducts: Status post cholecystectomy. Mild biliary dilatation. Common bile duct measuring approximately 9 mm in diameter. No definite choledocholithiasis seen on this exam, but evaluation is limited by artifact. Pancreas: Unremarkable. No ductal dilation. No mass. Spleen: Unremarkable. No splenomegaly. Adrenals: Unremarkable. No mass. Kidneys and ureters: Small left renal cyst. No hydronephrosis. Stomach and bowel: Mild prominence of the goins of the small bowel in the left abdomen and mild prominence of the goins of the colon may be secondary to underdistention. Enteritis or colitis is not excluded. Evaluation of the stomach is limited by under distention. Appendix: Normal appendix. Intraperitoneal space: Small amount of ascites. Soft tissues: Body wall edema. Vasculature: Unremarkable. No abdominal aortic aneurysm. Lymph nodes: Unremarkable. No enlarged lymph nodes. IMPRESSION: 1. Mild prominence of the goins of the small bowel in the left abdomen and mild prominence of the goins of the colon may be secondary to underdistention. Enteritis or colitis is not excluded. 2. Small amount of ascites. 3. Status post cholecystectomy. Mild biliary dilatation. Common bile duct measuring approximately 9 mm in diameter, possibly postcholecystectomy ductal ectasia. No definite choledocholithiasis seen on this exam, but evaluation is limited by artifact. Electronically signed by: Alex Garcia M.D. 02/01/25 00:36 AM
--- NOTE | 2025-02-01 01:03 | Ultrasound Report ---
Exam(s): US VENOUS LEFT LOWER EXTREMITY EXAM: US Duplex Left Lower Extremity Veins CLINICAL HISTORY: Reason for exam: LLE swelling, r/o DVT. TECHNIQUE: Real-time duplex ultrasound scan of the left lower extremity veins integrating B-mode two-dimensional vascular structure, Doppler spectral analysis, color flow Doppler imaging and compression. COMPARISON: None FINDINGS: Deep veins: Unremarkable. No DVT in the visualized common femoral, femoral, proximal deep femoral or popliteal veins. The veins demonstrate normal color flow, are normally compressible, with normal phasic flow and/or augmentation response. Superficial veins: Unremarkable. No thrombus in the visualized great saphenous vein. Soft tissues: No acute findings. No popliteal cyst. IMPRESSION: No deep venous thrombosis identified in the left lower extremity. Electronically signed by: Alex Garcia M.D. 02/01/25 01:01 AM
[2025-02-01] MEDS: ENOXAPARIN INJ 40 MG/0.4 ML SYR SQ SCH (08:28)
--- NOTE | 2025-02-01 10:29 | Gastroenterology Progress Note ---
Date of Service February 01, 2025 Assessment & Plan (1) Abdominal pain: Plan: She is better with amitriptyline. Would continue it as an outpatient. Other issues probably can be managed/addressed as an outpatient. Will follow while in hospital Plan Continue with amitriptyline. Will continue to follow as long as she needs to stay in hospital but other issues likely could be managed as an outpatient. Admission and Anticipated Discharge Date Admission Date: January 30, 2025 Subjective Says her belly is feeling better. Slept well with the amitriptyline Physical Exam Physical Exam: Looks well Results & Data Vital Signs (Past 12 Hours) Vital Signs Temp Pulse Resp BP Pulse Ox O2 Del Method 02/01/25 07:18 36.8 C 98 H 17 109/65 94 Room Air (1) Abdominal pain Abdominal location: generalized Qualified Code(s): R10.84 - Generalized abdominal pain
--- NOTE | 2025-02-01 15:33 | Hospitalist Progress Note ---
Date of Service February 01, 2025 Assessment & Plan (1) Acute colitis: (2) Left groin pain: (3) Visual disturbance: (4) Abnormal LFTs: (5) Rheumatoid arthritis: (6) ILD (interstitial lung disease): Plan 54-year-old female with history of rheumatoid arthritis on methotrexate and Plaquenil, interstitial lung disease, hypertension, hyperlipidemia presenting with acute on chronic right sided abdominal pain as well as severe left groin pain and complaint of visual disturbances specifically with color. # Abdominal pain, mccarty colonic thickening, mesentery abnormal and LAD - "colitis" appearance, abdominal pain and bowel wall thickening since 2021, which has progressed - past workup with several CTAs - no vascular occlusions including 5. Thought to have ischemic colitis in past. On ASA and continues smoking - calprotectin negative, recent colonoscopy negative except polyps, R colon biopsy neg for microscopic colitis. In 2021 had EGD/colo with TI biopsy, multiple colon biopsies, gastric biopsy unremarkable. Celiac labs neg 2021 and negative for HLA-B27 I am concerned that there is a process going on that has not been diagnosed. She appears more chronically ill, is not eating well, is malnourished, new onset of pancytopenia. Was severely folate deficient in November but now folate in normal range. Concern that there is some inflammatory or infectious process affecting colon and mesentery. Reviewed CTs with staff radiologist - spleen normal size, doesn't look like lymphoma, not concerned that the mesenteric changes are clinically significant, could be angioedema, Whipple's disease usually affecting jejunum and uncommon in colon, has appearance compatible with C. diff but does not fit clinically. You can get mural fibrofatty deposits in wall of colon associated with obesity, chronic steroids, inflammatory conditions - consulted GI and Rheum - reviewed recs in notes - continue steroids, continue amitriptyline - held ARB and sent complement studies for hereditary angioedema - Porphyrin panel was sent by the ER. Should be followed (send out lab) - Poss cirrhosis - Hx hepatic steatosis, MAFLD, bilirubin 1.3, increased INR, small ascites. DORI pending # pancytopenia - methotrexate recently held by Rheum - low retic index c/w hypoproliferative. folate low normal 6, B12 wnl, low normal iron stores. ferritin 29. CRP was low - heme/onc # ILD and possible RLL pneumonia - reviewed CT images there is some consolidation or atelectasis in bases but not too convincing. She has had cough and sweats. - cont amp-sulbactam for now - consider atypical coverage #Acute left hip/groin painpatient on chronic steroids, recent burst. CT of left hip negative for fracture Pain control with Tylenol, Dilaudid as needed PT/OT evaluation appreciated - LLE>RLE swelling - LE duplex negative - L hip pain improved on steroids but now bilateral ankles are sore #Visual disturbance - recent yellow vision. #Malnutirition, poor appetite/oral intake, hypoalbuminemia Often a drug side effect but not on any obvious offending agents. Vit A, B12, folate and possibly vitamin D, E, Zn deficiency can cause. Celiac and IBD reported to cause especially malabsorption. Optic neuropathy. -B12, folate were OK. cont folate supp -Vit D only slightly low at 27 -check Vit A, Zn, B1 -empirically replacing B1 IV, Vit A -needs ophthalmology follow up -INR elevation - could be nutritional - trial vit K po x 3 days and recheck INR. #Rheumatoid arthritis HCQ and MTX held, see above - currently on steroids - DORI pending #Hypertensionblood pressure stable ARB held #Hyperlipidemia Crestor 20 mg p.o. every morning #GERD Protonix 40 mg p.o. daily #Fibromyalgia Continue baclofen 10 mg p.o. twice daily as needed Continue Cymbalta 60 mg p.o. every morning Continue Neurontin 300 mg p.o. 3 times daily Continue tramadol 50 mg p.o. daily DVT ppx - enox Admission and Anticipated Discharge Date Admission Date: January 30, 2025 Subjective Abdominal pain slightly better but still significant, R sided Not eating well L hip pain improved. Both ankles now painful Physical Exam 2 Physical Exam: Last 24h vitals reviewed GEN: got from chair into bed with some obvious abdominal pain HEENT: anicteric, MMM RESP: normal WOB, occ coughing CV: ABD: remains firm/full. TTP right side and RLQ. no rrg +BT : no shaikh SKIN: warm and dry, no generalized rashes Lymph: one enlarged LN left supraclavicular NEURO: AOx person, place, and situation. Face symmetric, speech normal, moves 4 ext spontaneously and equally Results & Data Results & Data Vital Signs (Past 12 Hours) Vital Signs Temp Pulse Resp BP Pulse Ox O2 Del Method 02/01/25 14:54 36.8 C 99 H 16 113/67 97 Room Air 02/01/25 07:18 36.8 C 98 H 17 109/65 94 Room Air Laboratory Results 01/31/25 06:15 01/31/25 06:15 PG Care Time/CCT Total # of Minutes Spent Total Time Spent with Patient: Total time spent is greater than 50% in coordination of care (as documented) at patient's floor/unit and/or counseling patient: Coding Level of Care Code 06227 SUB INP/OBS CARE 3/50MIN Diagnoses Acute colitis K52.9 Left groin pain R10.32 Visual disturbance H53.9 Abnormal LFTs R79.89 Rheumatoid arthritis M06.9 ILD (interstitial lung disease) J84.9
[2025-02-01 19:04] VITALS: RESP 18
[2025-02-01] MEDS: HYDROmorphone INJ 0.5 MG/0.5 ML SYR IV PRN (20:03)
[2025-02-02 06:36] LABS: Basophils # (auto) 0.01 K/uL (0.00-0.20); Basophils % (auto) 0.1 %; Hemoglobin 8.6 g/dl (12.0-16.0); Immature Granulocytes # (auto) 0.03 K/uL (0.01-0.20); Immature Granulocytes % (auto) 0.4 %; Lymphocytes # (auto) 1.88 K/uL (1.20-3.40); Lymphocytes % (auto) 23.9 %; Mean Corpuscular Hemoglobin 29.3 pg (25.0-34.0); Mean Corpuscular Hgb Conc 33.1 g/dL (32.0-36.0); Mean Corpuscular Volume 88.4 fL (80.0-100.0); Mean Platelet Volume 10.8 fL (9.4-12.4); Monocytes # (auto) 0.31 K/uL (0.11-0.59); Monocytes % (auto) 3.9 %; Neutrophils # (auto) 5.64 K/uL (1.40-6.50); Neutrophils % (auto) 71.7 %; Platelet Count 90 K/uL (130-400); RDW Coefficient of Variation 16.5 % (11.5-14.5); RDW Standard Deviation 52.8 fL (36.4-46.3); Red Blood Count 2.94 M/uL (4.20-5.40); White Blood Count 7.87 K/ul (4.8-10.8)
[2025-02-02 08:12] LABS: Albumin Globulin Ratio 0.8 (0.9-2); Albumin Level 2.7 gm/dl (3.4-5.0); BUN Creatinine Ratio 29.5 (10-20); Bilirubin,Total 0.7 mg/dl (0.2-1.0); Calcium 7.9 mg/dl (8.6-10.3); Creatinine Clr Calc Pharmacy 65.7 ml/min; Globulin 3.2 gm/dl (2.5-4.0); Potassium 4.3 mmol/L (3.5-5.1); Thyroid Stimulating Hormone 0.376 uIu/ml (0.300-4.500); Total Protein 5.9 gm/dl (6.0-8.3)
--- NOTE | 2025-02-02 09:17 | Gastroenterology Progress Note ---
Date of Service February 02, 2025 Assessment & Plan (1) Abdominal pain: Plan: Continues with abdominal pain. Not sure any further workup to do for this. Would continue amitriptyline because it occasionally takes several days to two weeks to work Admission and Anticipated Discharge Date Admission Date: January 30, 2025 Subjective Becket good yesterday morning but says "has gone downhill ever since". Now back to her baseline with pain Physical Exam Physical Exam: She looks comfortable Results & Data Vital Signs (Past 12 Hours) Vital Signs Temp Pulse Resp BP Pulse Ox O2 Del Method 02/02/25 07:51 36.6 C 93 H 18 119/65 97 Room Air (1) Abdominal pain Abdominal location: generalized Qualified Code(s): R10.84 - Generalized abdominal pain
--- NOTE | 2025-02-02 16:16 | Hospitalist Progress Note ---
Date of Service February 02, 2025 Assessment & Plan (1) Visual disturbance: (2) Abnormal LFTs: (3) Rheumatoid arthritis: (4) Mural thickening of colon: (5) Rheumatoid arthritis, seropositive, multiple sites: (6) Right lower quadrant abdominal pain: Plan 54-year-old female with history of rheumatoid arthritis on methotrexate and Plaquenil, interstitial lung disease, hypertension, hyperlipidemia presenting with acute on chronic right sided abdominal pain as well as severe left groin pain and complaint of visual disturbances specifically with color. # Abdominal pain, mccarty colonic thickening, mesentery abnormal and LAD - "colitis" appearance, abdominal pain and bowel wall thickening since 2021, which has progressed - past workup with several CTAs - no vascular occlusions including 5/15. Thought to have ischemic colitis in past. On ASA and continues smoking - calprotectin negative, recent colonoscopy negative except polyps, R colon biopsy neg for microscopic colitis. In 2021 had EGD/colo with TI biopsy, multiple colon biopsies, gastric biopsy unremarkable. Celiac labs neg 2021 and negative for HLA-B27 I am concerned that there is a process going on that has not been diagnosed. She appears more chronically ill, is not eating well, is malnourished, new onset of pancytopenia. Was severely folate deficient in November but now folate in normal range. Concern that there is some inflammatory or infectious process affecting colon and mesentery. Reviewed CTs with staff radiologist - spleen normal size, doesn't look like lymphoma, not concerned that the mesenteric changes are clinically significant, could be angioedema, Whipple's disease usually affecting jejunum and uncommon in colon, has appearance compatible with C. diff but does not fit clinically. You can get mural fibrofatty deposits in wall of colon associated with obesity, chronic steroids, inflammatory conditions - consulted GI and Rheum - reviewed recs in GI note today - unlikely Crohn's because of negative colonoscopies and low calprotectin but still could be - continue steroids, continue amitriptyline - held ARB and sent complement studies for hereditary angioedema - Porphyrin panel was sent by the ER. Should be followed (send out lab) - celiac panel pending - Poss cirrhosis - Hx hepatic steatosis, MAFLD, bilirubin 1.3-->normal, small ascites. DORI and asma pending, repeat INR pending - trial capsaicin for possible abdominal wall pain - UGI with SBFT # pancytopenia - methotrexate recently held by Rheum. danis when last taken - low retic index c/w hypoproliferative. folate low normal 6, B12 wnl, low normal iron stores. ferritin 29. CRP was low - heme/onc # ILD and possible RLL pneumonia - reviewed CT images there is some consolidation or atelectasis in bases but not too convincing. She has had cough and sweats. - amp-sulbactam -->augmentin - consider atypical coverage #Acute left hip/groin painpatient on chronic steroids, recent burst. CT of left hip negative for fracture Pain control with Tylenol, Dilaudid as needed PT/OT evaluation appreciated - LLE>RLE swelling - LE duplex negative - L hip pain improved on steroids #Visual disturbance - recent yellow vision x few weeks. #Moderate Malnutirition, poor appetite/oral intake, hypoalbuminemia Often a drug side effect but not on any obvious offending agents. Vit A, B12, folate and possibly vitamin D, E, Zn deficiency can cause. Celiac and IBD reported to cause especially malabsorption. Optic neuropathy. Improved a bit? Getting Vit A and HCQ held -B12, folate were OK. cont folate supp -Vit D only slightly low at 27 -check Vit A, B1 -empirically replacing B1 IV, Vit A, Zn -needs ophthalmology follow up -INR elevation - could be nutritional - vit K po x 3 days and recheck INR in AM -TSH wnl #Rheumatoid arthritis HCQ and MTX held, see above. MTX should be stopped per gastroenterolgy because of liver toxicity - currently on steroids, continues with arthralgias - DORI pending #Hypertensionblood pressure stable ARB held #Hyperlipidemia Crestor 20 mg p.o. every morning #GERD Protonix 40 mg p.o. daily #Fibromyalgia Continue baclofen 10 mg p.o. twice daily as needed Continue Cymbalta 60 mg p.o. every morning Continue Neurontin 300 mg p.o. 3 times daily Continue tramadol 50 mg p.o. daily DVT ppx - enox Admission and Anticipated Discharge Date Admission Date: January 30, 2025 Subjective right-sided especially right lower abdominal pain persists really has not improved since admission poor appetite continues is having to force herself to eat but has been eating, no nausea vomiting she thinks the yellow hue to her vision might be slightly improved left hip pain much improved but continues to have arthralgias in multiple joints including ankles shoulders bilaterally Physical Exam Physical Exam: Last 24h vitals reviewed GEN: lying in bed HEENT: anicteric, MMM RESP: normal work of breathing clear to auscultation anteriorly bilaterally CV: regular with systolic murmur ABD: remains firm/full. TTP right side and RLQ. no rrg +BT unchanged 02/02 : no shaikh SKIN: warm and dry, no generalized rashes extremities: She does have some ankle swelling bilaterally without warmth Lymph: one enlarged LN left supraclavicular NEURO: AOx person, place, and situation. Face symmetric, speech normal, moves 4 ext spontaneously and equally Results & Data Results & Data Vital Signs (Past 12 Hours) Vital Signs Temp Pulse Resp BP Pulse Ox O2 Del Method 02/02/25 13:16 37.0 C 88 18 120/72 94 Room Air 02/02/25 07:51 36.6 C 93 H 18 119/65 97 Room Air PG Care Time/CCT Total # of Minutes Spent Total Time Spent with Patient: Total time spent is greater than 50% in coordination of care (as documented) at patient's floor/unit and/or counseling patient: Coding Level of Care Code 55995 SUB INP/OBS CARE 2/35MIN Diagnoses Visual disturbance H53.9 Abnormal LFTs R79.89 Rheumatoid arthritis M06.9 Mural thickening of colon K63.9 Rheumatoid arthritis, seropositive, multiple sites M05.79 Right lower quadrant abdominal pain R10.31
[2025-02-02] MEDS: AMOXICILLIN/CLAVULANATE 875 MG TAB PO SCH (17:20)
[2025-02-02] MEDS: CAPSAICIN CR 0.075% 60 GM TUBE EXT SCH (21:40)
[2025-02-03 08:23] LABS: Eosinophils # (auto) 0.01 K/uL (0.00-0.50); Eosinophils % (auto) 0.1 %; Hematocrit (blood only) 26.5 % (37.0-47.0); Hemoglobin 8.9 g/dl (12.0-16.0); Immature Granulocytes # (auto) 0.02 K/uL (0.01-0.20); Immature Granulocytes % (auto) 0.3 %; Lymphocytes # (auto) 2.17 K/uL (1.20-3.40); Mean Corpuscular Hemoglobin 29.2 pg (25.0-34.0); Mean Corpuscular Hgb Conc 33.6 g/dL (32.0-36.0); Mean Corpuscular Volume 86.9 fL (80.0-100.0); Mean Platelet Volume 10.9 fL (9.4-12.4); Monocytes # (auto) 0.36 K/uL (0.11-0.59); Monocytes % (auto) 5.2 %; Neutrophils # (auto) 4.43 K/uL (1.40-6.50); Neutrophils % (auto) 63.4 %; Platelet Count 99 K/uL (130-400); RDW Coefficient of Variation 16.6 % (11.5-14.5); RDW Standard Deviation 51.9 fL (36.4-46.3); Red Blood Count 3.05 M/uL (4.20-5.40); White Blood Count 6.99 K/ul (4.8-10.8)
[2025-02-03 08:31] LABS: INR 1.3 (0.9-1.1); Prothrombin Time 13.7 Seconds (9.0-12.0)
[2025-02-03 08:50] LABS: BUN Creatinine Ratio 27.2 (10-20); Calcium 7.7 mg/dl (8.6-10.3); Creatinine Clr Calc Pharmacy 67.8 ml/min; Potassium 4.2 mmol/L (3.5-5.1)
--- NOTE | 2025-02-03 10:13 | Fluoroscopy Report ---
FL small bowel follow through CLINICAL HISTORY: persistent abdominal pain and anorexia. TECHNIQUE: Oral barium was administered to the patient and serial radiographs of the abdomen were pe rformed. COMPARISON STUDY: CT of 01/30/2025 FINDINGS: Contrast progresses normally through the stomach to the small bowel. Small bowel fold patte rn is unremarkable. No small bowel distention or stricture seen. Contrast progresses to the colon wit hin 30 minutes. IMPRESSION: Rapid progression of contrast to the colon. Otherwise unremarkable exam. ACT 112: Negative or not required by law. The above report was generated using voice recognition software. It may contain grammatical, syntax o r spelling errors. Electronically signed by: Aron Bridges M.D. 02/03/2025 10:12 AM
--- NOTE | 2025-02-03 12:14 | Gastroenterology Progress Note ---
Date of Service February 03, 2025 Assessment & Plan (1) Abdominal pain: Plan - continue with amitriptyline 10mg daily for now. - will discuss further with Dr. Gaines, further recommendations to follow. Admission and Anticipated Discharge Date Admission Date: January 30, 2025 Subjective Patient is still having ongoing abdominal pain. thus far, she has not noticed a difference with amitriptyline. She had SBFT this morning showing Rapid progression of contrast to the colon. Otherwise unremarkable exam. Review of Systems Review of Systems: All systems reviewed & are unremarkable except as noted in HPI & below Physical Exam Respiratory: normal respiratory effort, lungs clear to auscultation Cardiovascular: Rate/Rhythm: regular rate and regular rhythm Gastrointestinal (Abdomen): right sided tenderness to palpation, no guarding, soft, normal bowel sounds. Psychiatric: A+Ox3, euthymic affect Results & Data Results & Data Vital Signs (Past 12 Hours) Vital Signs Temp Pulse Resp BP Pulse Ox O2 Del Method 02/03/25 11:50 98.2 F 87 18 125/72 99 Room Air 02/03/25 07:54 97.8 F 83 18 133/73 94 Room Air Coding Level of Care Code 38755 SUB INP/OBS CARE 10/12MIN Diagnoses Abdominal pain R10.84 Abdominal location: generalized (1) Abdominal pain Abdominal location: generalized Qualified Code(s): R10.84 - Generalized abdominal pain
[2025-02-03 15:13] VITALS: BP 114/66; PULSE 88; TEMP 97.8; O2SAT 95
[2025-02-04] MEDS ORDERED: AMITRIPTYLINE HCL 25 MG TAB PO SCH (09:00)
--- NOTE | 2025-02-04 10:15 | Discharge Summary ---
Discharge Summary Date of Service February 03, 2025 Principal Dx & Hospital Course #1 = Principal Diagnosis (1) Right lower quadrant abdominal pain: (2) Mural thickening of colon: (3) Visual disturbance: (4) Abnormal LFTs: (5) Rheumatoid arthritis, seropositive, multiple sites: Plan 54-year-old female with history of rheumatoid arthritis on methotrexate and Plaquenil, interstitial lung disease, hypertension presenting with acute on chronic right sided abdominal pain as well as severe left groin pain and complaint of visual disturbance- yellow tinge to vision for past 2 weeks, poor oral intake # Abdominal pain, progressive mccarty colonic thickening, new mesenteric abnormality with lymphadenopathy # Possible cirrhosis, probably MASH, still under evaluation - "colitis" appearance on CT, abdominal pain and bowel wall thickening since 2020, which has progressed. In 2021 had prolonged hematochezia for months (after EGD/colo with multiple biopsies), moderate malnutrition, new pancytopenia, failure to thrive, arthralgias - past workup with several CTAs - no vascular occlusions including 01/30. Thought to have ischemic colitis in past however this is not consistent with her imaging and presentations. On ASA and continues smoking - calprotectin negative, recent colonoscopy negative except polyps, R colon biopsy neg for microscopic colitis. In 2021 had EGD/colo with TI biopsy, multiple colon biopsies, gastric biopsy unremarkable. Celiac labs neg 2021 and negative for HLA-B27 I am concerned that there is a process going on that has not been diagnosed. She appears more chronically ill, is not eating well, is malnourished, new onset of pancytopenia. Was severely folate deficient in November but now folate in normal range. Concern that there is some inflammatory or infectious process affecting colon and mesentery. Reviewed CTs with staff radiologist - spleen normal size, doesn't look like lymphoma, he was not too concerned that the mesenteric changes are clinically significant. Colon has appearance compatible with C. diff but does not fit clinically. Not currently having diarrhea, but has had at times in the past. You can get mural fibrofatty deposits in wall of colon associated with obesity, chronic steroids, inflammatory conditions, which would be a benign cause of the colonic findings. could be angioedema, Whipple's disease usually affecting jejunum and uncommon in colon, - consulted GI and Rheum. Data Operations Manager did not think this was concerning for a vasculitis- type presentation - unlikely Crohn's because of negative colonoscopies and low calprotectin but still could be if in small bowel. SBFT was negative with rapid transit. Consider further small bowel imaging - treated with steroids, amitriptyline - however no significant improvement - discharged on steroid taper back to usual 5 mg and follow up with Rheum - held ARB and sent complement studies for hereditary angioedema. C1's, C4 pending. Resumed ARB on discharge because pain did not improve with holding ARB/steroids - Porphyrin panel was sent by the ER. Should be followed (send out lab) - celiac panel pending, HLA-B27 negative. Has never had jejunal biopsy - Poss cirrhosis - Hx hepatic steatosis, MAFLD, bilirubin 1.3-->normal, small ascites. DORI and asma pending, repeat INR still 1.3 after vitamin K 5 mg po x 3 days so not nutritional - trial capsaicin for possible abdominal wall pain - seems to help? 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 Leukopenia resolved - low retic index c/w hypoproliferative anemia. folate low normal 6 continue oral supplement, B12 wnl, low normal iron stores. ferritin 29. CRP was low - SPEP / light chains pending - heme/onc referral if not resolving in 1-2 weeks off methotrexate #Visual disturbance - recent yellow vision x few weeks. Suspect Vitamin A deficiency #Moderate Malnutirition, poor appetite/oral intake, hypoalbuminemia, failure to thrive Yellow vision is often a drug side effect - she is on chronic hydroxychloroquine which could cause this. Yellow vision improved after several doses of Vitamin A. HCQ held but would not expect improvement this fast from chronic retinal damage. Needs to see optho. Vit A, B12, folate and possibly vitamin D, E, Zn deficiency can cause. Celiac and IBD reported to cause especially malabsorption / ADEK deficiency. Optic neuropathy can cause it. -B12, folate were OK. cont folate supp -Vit D only slightly low at 27 -check Vit A, B1 - pending. Empirically replaced B1 with IV thiamine 500 mg x 8 doses. continue oral thiamine. -Vit A repletion x 2-4 weeks, moderate dose because of increased risk of hepatotoxicity -needs ophthalmology follow up -INR elevation did not reverse with oral replacement of vitamin K -TSH wnl # ILD and possible RLL pneumonia - reviewed CT images there is some consolidation or atelectasis in bases but not too convincing. She has had cough and sweats. - amp-sulbactam -->augmentin x 7d - see if recent night sweats resolve - probably should have repeat chest CT after pneumonia treatment completed - smoker, L cervical lymph node # possible cirrhosis, MAFLD - see above. elevated INR, small ascites, bilirubin elevation resolved, hypoalbuminemia, thrombocytopenia - GI rec stop methotrexate because of hepatotoxicity -Hep B and Hep C neg in 2022 - DORI and asma pending - follow up GI #Acute left hip/groin painpatient on chronic steroids, recent burst. CT of left hip negative for fracture, AVN - LLE>RLE swelling - LE duplex negative - L hip pain resolved on steroids so seems likely was inflammatory arthritis - prednisone taper #Rheumatoid arthritis HCQ and MTX held, see above. MTX should be stopped per gastroenterolgy because of liver toxicity - currently on steroids taper, continues with arthralgias but hip pain resolved - has Rheum follow up scheduled #Hypertensionblood pressure stable #Hyperlipidemia Crestor 20 mg p.o. every morning #GERD Protonix 40 mg p.o. daily #Fibromyalgia Continue baclofen 10 mg p.o. twice daily as needed Continue Cymbalta 60 mg p.o. every morning Continue Neurontin 300 mg p.o. 3 times daily Continue tramadol 50 mg p.o. daily Notes For Next Care Provider Chest CT as outpatient Multiple labs pending - Vit A, B1, SPEP, free light chains, DORI, asma, complement tests - C1, C4, porphyrins, celiac labs Consider pain clinic referral if abdominal pain seeming like abdominal wall pain - consider diagnostic injection Follow up gastroenterology, rheumatology Consider further small bowel imaging and/or epeat EGD with small bowel biopsy (celiac, whipple's) Protein supplement Needs optho follow up Repeat CBC with diff - heme onc referral if pancytopenia persisting off methotrexate Medication Changes From Visit Amitriptyline Prednisone taper Vitamin A, B1 Consider Zn supplement Admission HPI Per Admitting Provider Gabi Richmond is a 54-year-old female with history of rheumatoid arthritis on chronic prednisone and hydroxychloroquine (formerly on methotrexate which has been on hold for the last week due to anemia and thrombocytopenia), interstitial lung disease, hypertension, hyperlipidemia and fibromyalgia presenting with acute worsening of her chronic abdominal pain as well as new left groin pain. Patient was most recently hospitalized at [facility] from October 22 through October 26, 2024 after presenting with right side abdominal pain. CT at that time revealed diffuse colitis specifically involving the transverse colon. Patient with longstanding history of the same. Has had multiple CTs in the past which revealed colitis. She had a colonoscopy performed on December 17, [address] Persaud which revealed mild diverticulosis, internal hemorrhoids as well as 4 sessile polyps in the ascending colon which were biopsied and revealed tubular adenomas with no significant histopathologic abnormality. She since followed up with GI who thought patient's colitis possibly secondary to ischemia. They initiated baby aspirin and MiraLAX. Stool calprotectin on 10/24/24 = 53 which was slightly above the upper limit of normal (50) for IBD. Patient does follow with GI as well as rheumatology Patient returns today with significant worsening of her right sided abdominal pain which has been going on for the last 24 hours. She has had decreased oral intake as well as intermittent nausea with nonbloody/nonbilious vomiting. She denies fever/chills/diarrhea/bloody or mucoid bowel movements. Additionally she is complaining of severe pain in her left groin for the last day which feels like a cramping, spasm. She is unable to bear weight on the left leg. Today her family had to get her out of bed and carry her to the car Due to pain and generalized weakness. No fall or trauma. Also complaining of some changes in her color vision over the last several days. She reports that everything looks orange and yellow. Thinks that the white strings on her daughter's sweatshirt or fluorescent yellow. Has been getting blue confused as well. In the ER patient with significant abdominal pain. CT of the abdomen with angiography was performed at the time of severe pain which showed no ischemia. ER course: Dilaudid 1 mg IV +0.5mg +0.5mg + 0.5mg Normal saline x 1L Zofran 4 mg IV x 2 Solu-Medrol 60 mg IV Zosyn 4.5 g IV Toradol 15 mg IV Discharge Exam Last 24h vitals reviewed GEN: sitting up in bed HEENT: anicteric, MMM RESP: normal work of breathing CV: regular with systolic murmur ABD: remains firm/full. TTP right side and RLQ. no rrg +BT unchanged 02/03 : no shaikh SKIN: warm and dry, no generalized rashes extremities: She does have some ankle swelling bilaterally without warmth - seems synovial Lymph: one enlarged LN left supraclavicular NEURO: AOx person, place, and situation. Face symmetric, speech normal, moves 4 ext spontaneously and equally Discharge Plan Discharge Items Patient Disposition: Home - Home Health Services Reason For Visit: INTRACTABLE ABDOMINAL PAIN, HIP PAIN Discharge Diagnosis: Abdominal pain, colon wall thickening, left hip pain, rheumatoid arthritis Condition on Discharge: Fair Activity: Resume your previous activity Non-emergency contact: Primary Care Provider and Switchgear Repairer Call non-emergency contact if: you have any medication questions, your symptoms worsen, your pain is worsening and your pain is unusual for you Follow-up/Referrals: Trini Landa PA-C [Physician [employer] Drawer] - 02/07/25 11:00 am (Trini is Flori Milton's partner and will follow up with you since Flori is off. Please arrive to your appointment 15 min. early. Thank you!) Long Santiago MD [Physician] - 02/05/25 1:00 pm (Please arrive 15 min. prior to your appointment time. Also note that office location has changed to [address] Thank you!) Diet: Regular Addtl Attending Provider Instructions: You were evaluated for right sided abdominal pain and left hip pain Hip pain resolved on some steroids We treated you for pneumonia - few more days of oral antibiotics. See if the cough and night sweats resolve on this. The cause of your abdominal pain is uncertain You have colon wall thickening that has progressed since we first noted it in 2020. Recent colonoscopy did not show any inflammation (colitis) inside your colon You are showing signs of some liver disease (cirrhosis), so the ghost writer recommended discontinuing methotrexate I think the methotrexate has also been causing low blood counts. Your white blood count has improved There are some blood tests pending for causes of liver disease, celiac disease, angioedema You are getting moderately malnourished Try to eat multiple small meals a day Try getting in a protein supplement twice a day - shake, bar, eggs etc I am suspicious you could have vitamin A deficiency - this can cause yellow tint to vision. Hydroxychloroquine can also cause this. B12 normal, folate low normal, iron stores low normal B1 and vitamin A levels pending. We replaced the B1 intravenously and started vitamin A replacement. You only take vitamin A replacement for 2-4 weeks typically Capsaicin may help your abdominal pain, especially if its abdominal wall pain (rather than inside pain) Amitriptyline was started by GI, this medication can be helpful for abdominal pain Prednisone taper - stopped methotrexate, holding hydroxychloroquine We made a referral to tertiary care GI at [facility] Follow up with [facility], Rheumatology and primary care Please make an ophthalmology appointment as soon as possible regarding the color change in your vision It was a pleasure taking care of you in the hospital, Mikayla Hussein MD Addtl Preparation Department Supervisor Provider Instructions: Referral is being sent to [facility]. They will review information and call you with an appointment. Thank you! Pending Studies at Discharge: Yes Stand-Alone Forms: My [facility] [employer], Smoking Cessation Medications and DC Order Prescriptions: New amoxicillin-pot clavulanate 875-125 mg Tablet 1 tab PO BIDM Qty: 8 0RF amitriptyline 25 mg Tablet 25 mg PO DAILY Qty: 30 0RF beta carotene 7,500 mcg (25,000 unit) Capsule 7,500 mcg PO QAM Qty: 14 0RF thiamine HCl (vitamin B1) 100 mg tablet 100 mg PO DAILY Qty: 30 0RF Rx Instructions: may buy over the counter prednisone 10 mg tablet See Taper PO DIRECTED Qty: 20 0RF Taper: Taper, Blank 40 mg DAILY for 2 Days 30 mg DAILY for 2 Days 20 mg DAILY for 2 Days 10 mg DAILY for 2 Days Rx Instructions: see taper instructions. After taper resume usual 5 mg daily Continued alendronate [Fosamax] 70 mg tablet 70 mg PO WK Qty: 12 3RF Hold Instructions: GI side effects Rx Instructions: Monday ondansetron 8 mg tablet,disintegrating 8 mg PO Q8H PRN (Reason: nausea and vomiting) Qty: 20 0RF losartan 50 mg tablet 50 mg PO QAM Qty: 30 0RF buspirone 15 mg tablet 15 mg PO BID Qty: 60 5RF potassium chloride 20 mEq tablet extended release 20 meq PO BID Qty: 180 1RF omeprazole 20 mg capsule,delayed release(DR/EC) 20 mg PO DAILYBB tramadol 50 mg tablet 50 mg PO DAILY rosuvastatin 20 mg tablet 20 mg PO QAM Qty: 90 3RF duloxetine [Cymbalta] 30 mg capsule,delayed release(DR/EC) 60 mg PO QAM albuterol sulfate 90 mcg/actuation HFA aerosol inhaler 2 puff inhalation QID PRN (Reason: shortness of breath or wheezing) Qty: 8.5 0RF oxycodone 5 mg tablet 5 mg PO Q6H PRN (Reason: pain) Qty: 20 0RF gabapentin [Neurontin] 300 mg capsule 300 mg PO TID Patient Comments: "on hold until after 12/17/24 Colonoscopy" aspirin [Children's Aspirin] 81 mg Tablet,Chewable 81 mg PO DAILY Qty: 30 0RF Rx Instructions: buy over the counter folic acid 1 mg Tablet 1 mg PO QAM Qty: 30 0RF Rx Instructions: buy over the counter mecobalamin (vitamin B12) 500 mcg tablet,chewable 500 mcg PO DAILY Qty: 30 0RF Rx Instructions: buy over the counter valacyclovir [Valtrex] 1 gram tablet 2,000 mg PO Q12H PRN (Reason: cold sores) Rx Instructions: Take 2 tablets every 12 hours x 2 doses for each cold sore flare. Take at first sign of cold sore. ibuprofen 200 mg Tablet 400 mg PO Q6H PRN (Reason: Pain) guaifenesin [Mucinex] 600 mg Tablet Extended Release 12hr 1,200 mg PO BID PRN (Reason: cough) Qty: 30 0RF baclofen 10 mg Tablet 10 mg PO BID PRN (Reason: muscle spasm) Qty: 20 0RF Held hydroxychloroquine [Plaquenil] 200 mg tablet 200 mg PO DAILY Hold Instructions: Resume on 02/17/25. discuss with eye doctor and with Dr. Rivas prior to resuming prednisone 5 mg tablet 5 mg PO QAM Hold Instructions: Resume on 02/17/25. resume usual dosing once you finish the prednisone taper Discontinued methotrexate sodium 2.5 mg tablet 20 mg PO WK Hold Instructions: Resume on 03/12/24. resume after completing antibiotics Patient Comments: "holiding until after 12/17/24 Colonoscopy" Rx Instructions: TAKES 8 TABLETS ON SUNDAYS prednisone 20 mg tablet See Rx Instructions PO QAM PRN (Reason: FLARE UPS ) Patient Comments: "I'll finish this before my 12/17/24 Colonoscopy" Rx Instructions: Take 2 tablets daily x 4 days, then 1 tablet daily x 4 days, then 1/2 tablet daily x 4 days then resume usual dose prednisone Discharge Orders: Discharge Order (Routine); Ordered 02/03/25 Ordered By: Mikayla Hussein Admission Data Admit Date/Time: 01/30/25 22:22 Attending Provider: Mikayla Hussein Admit Provider: Steffi Duarte Primary Care Provider: Justa Rose Other Providers: Kyrie Gaines; Long Santiago; Venus Cuba Jr Other Interventions: Discharge Summary Assessment (RN) Last Done: 02/03/25 17:55 Hospital Stay Data Consultations 01/30/25 20:52 ED Decision to Admit Stat 01/30/25 21:05 ED Decision to Admit Stat 01/31/25 10:33 Consult Gastroenterology Routine 01/31/25 10:56 Consult Gastroenterology Routine 01/31/25 16:26 Consult Rheumatology Routine Diagnostic Imagining Performed 01/30/25 17:01 CT angio abdomen pelvis w con Stat 01/30/25 22:22 CT hip LT wo con Stat 01/31/25 15:39 US venous duplex leg [US venous doppler LE LT] Urgent 01/31/25 17:53 MRI Abdomen [MR abdomen wo/w con] Routine 02/03/25 09:18 FL small bowel follow through Routine Pending Results Patient Have Any Pending Studies at Discharge: Yes Discharge Instructions Given to Patient (Per Discharging Provider) You were evaluated for right sided abdominal pain and left hip pain Hip pain resolved on some steroids We treated you for pneumonia - few more days of oral antibiotics. See if the cough and night sweats resolve on this. The cause of your abdominal pain is uncertain You have colon wall thickening that has progressed since we first noted it in 2020. Recent colonoscopy did not show any inflammation (colitis) inside your colon You are showing signs of some liver disease (cirrhosis), so the ghost writer recommended discontinuing methotrexate I think the methotrexate has also been causing low blood counts. Your white blood count has improved There are some blood tests pending for causes of liver disease, celiac disease, angioedema You are getting moderately malnourished Try to eat multiple small meals a day Try getting in a protein supplement twice a day - shake, bar, eggs etc I am suspicious you could have vitamin A deficiency - this can cause yellow tint to vision. Hydroxychloroquine can also cause this. B12 normal, folate low normal, iron stores low normal B1 and vitamin A levels pending. We replaced the B1 intravenously and started vitamin A replacement. You only take vitamin A replacement for 2-4 weeks typically Capsaicin may help your abdominal pain, especially if its abdominal wall pain (rather than inside pain) Amitriptyline was started by GI, this medication can be helpful for abdominal pain Prednisone taper - stopped methotrexate, holding hydroxychloroquine We made a referral to tertiary care GI at [facility] Follow up with [facility], Rheumatology and primary care Please make an ophthalmology appointment as soon as possible regarding the color change in your vision It was a pleasure taking care of you in the hospital, Mikayla Hussein MD Total Time Total Time Spent Total Time Spent (In Minutes): I personally spent: 60 minutes today on clinical care activities including: reviewing chart notes and vital signs reviewing labs reviewing studies updating PCP examining and counseling the patient counseling the patient's family writing orders writing prescriptions, discharge instructions documentation Coding Level of Care Code 24865 INP/OBS DISCH >30 MIN Diagnoses Right lower quadrant abdominal pain R10.31 Mural thickening of colon K63.9 Visual disturbance H53.9 Abnormal LFTs R79.89 Rheumatoid arthritis, seropositive, multiple sites M05.79
[2025-02-04 18:17] LABS: Anti Nuclear Antibody Screen POSITIVE (NEGATIVE)
[2025-02-05 09:44] LABS: ANA Pattern Nuclear, Homogeneous
== END 2025-02-03 18:25 | disposition home health service (06) | DRG 391 ==
LOC: ED 16:20 → SUATTDRO 22:22 → 3W 22:22
DX: Z88.5 Allergy status to narcotic agent; E88.09 Other disorders of plasma-protein metabolism, not elsewhere classified; R93.5 Abnormal findings on diagnostic imaging of other abdominal regions, including retroperitoneum; Z91.040 Latex allergy status; E78.5 Hyperlipidemia, unspecified; D69.6 Thrombocytopenia, unspecified; M05.89 Other rheumatoid arthritis with rheumatoid factor of multiple sites; Z86.0100 Personal history of colon polyps, unspecified; H53.8 Other visual disturbances; K21.9 Gastro-esophageal reflux disease without esophagitis; K76.0 Fatty (change of) liver, not elsewhere classified; Z79.82 Long term (current) use of aspirin; I10 Essential (primary) hypertension; Z79.52 Long term (current) use of systemic steroids; E44.0 Moderate protein-calorie malnutrition; F17.210 Nicotine dependence, cigarettes, uncomplicated; Z79.899 Other long term (current) drug therapy; R79.89 Other specified abnormal findings of blood chemistry; J18.9 Pneumonia, unspecified organism; M25.552 Pain in left hip; R10.32 Left lower quadrant pain; K52.9 Noninfective gastroenteritis and colitis, unspecified; M79.7 Fibromyalgia

== ENCOUNTER 2025-09-04 21:08 | Observation (INO) ==
[2025-09-04 21:21] VITALS: TEMP 97.7
[2025-09-04] MEDS: OPTIRAY 320 125ml IV ONE (21:32)
--- NOTE | 2025-09-04 21:53 | CT Scan Report ---
Exam(s): CT HEAD Without Contrast EXAM: CT Head Without Intravenous Contrast CLINICAL HISTORY: Neuro deficit, acute, stroke suspected. TECHNIQUE: Axial computed tomography images of the head/brain without intravenous contrast. CTDI is 96 mGy and DLP is 967.83 mGy-cm. Automated exposure control was utilized for the study. A dose lowering technique was utilized adhering to the principles of ALARA. COMPARISON: No relevant prior studies available. FINDINGS: Brain: No intracranial hemorrhage. No significant mass effect. No cortical infarct. No significant white matter disease. Ventricles: No significant abnormality. No ventriculomegaly. Bones/joints: No significant abnormality. No acute fracture. Soft tissues: No significant abnormality. Sinuses: Unremarkable as visualized. No acute sinusitis. Mastoid air cells: Unremarkable as visualized. No mastoid effusion. IMPRESSION: No acute intracranial process identified. Communications: Call Doctor Stroke Electronically signed by: Nikita Young MD 09/04/25 21:52 PM
--- NOTE | 2025-09-04 21:57 | Emergency Department Note ---
History of Present Illness General Chief complaint: Stroke Alert Stated complaint: ALTERED MENTAL STATUS Time Seen by Provider: 09/04/25 21:31 Source: patient Mode of arrival: ambulatory Limitations: altered mental status History of Present Illness Patient is a 55-year-old female with history of alcoholic liver cirrhosis, hepatorenal syndrome, rheumatoid arthritis, acute kidney injury, portal hypertension who presents for altered mental status and slurred speech. She had an EGD this morning and has been altered according to her daughter since then. Daughter is unclear exact time of onset of change in mental status. Patient is confused and unable to give us any history. Recently had a paracentesis 5 days prior. No reported fevers. Home Medications Medication Instructions Recorded Confirmed Type prednisone 5 mg tablet 5 mg PO QAM 11/20/19 09/04/25 History omeprazole 20 mg capsule,delayed 20 mg PO DAILYBB 10/05/20 09/04/25 History release gabapentin 300 mg capsule 300 mg PO TID 10/17/21 09/04/25 History (Neurontin) tramadol 50 mg tablet 50 mg PO DAILY PRN Pain 04/27/23 09/04/25 History hydroxychloroquine 200 mg tablet 200 mg PO DAILY 08/31/23 09/04/25 History (Plaquenil) alendronate 70 mg tablet (Fosamax) 70 mg PO WK #12 tabs 10/23/23 09/04/25 Rx guaifenesin 600 mg tablet, 1,200 mg (2 x 600 mg) PO BID PRN 03/06/24 09/04/25 Rx extended release 12 hr (Mucinex) cough #30 tabs albuterol sulfate 90 mcg/actuation 2 puff inhalation QID PRN 06/19/24 09/04/25 Rx aerosol inhaler shortness of breath or wheezing #8.5 grams aspirin 81 mg chewable tablet 81 mg PO DAILY #30 tabs 10/26/24 09/04/25 Rx (Children's Aspirin) folic acid 1 mg tablet 1 mg PO QAM #30 tabs 10/26/24 09/04/25 Rx mecobalamin (vitamin B12) 500 mcg 500 mcg PO DAILY #30 tabs 10/26/24 09/04/25 Rx chewable tablet oxycodone 5 mg tablet 5 mg PO Q6H PRN pain #20 tabs 11/27/24 09/04/25 Rx valacyclovir 1 gram tablet 2,000 mg PO Q12H PRN cold sores 12/06/24 09/04/25 History (Valtrex) rosuvastatin 20 mg tablet 20 mg PO QAM #90 tabs 02/27/25 09/04/25 Rx amitriptyline 25 mg tablet 25 mg PO HS 05/20/25 09/04/25 History buspirone 15 mg tablet 15 mg PO BID 05/20/25 09/04/25 History ondansetron 8 mg disintegrating 8 mg PO Q8H PRN nausea and 06/02/25 09/04/25 Rx tablet vomiting #90 tabs losartan 50 mg tablet 50 mg PO QAM #90 tabs 07/01/25 09/04/25 Rx melatonin 3 mg tablet 6 mg PO HS PRN Insomnia 07/02/25 09/04/25 History polyethylene glycol 3350 17 17 g PO DAILY PRN Constipation 07/02/25 09/04/25 History gram/dose oral powder (Miralax) potassium chloride 10 mEq 20 meq PO DAILY 07/02/25 09/04/25 History capsule,extended release amoxicillin 875 mg-potassium 1 tab PO BID 09/04/25 09/04/25 History clavulanate 125 mg tablet spironolactone 25 mg tablet 25 mg PO DAILY 09/04/25 09/04/25 History sucralfate 100 mg/mL oral 10 ml PO QID 09/04/25 09/04/25 History suspension Allergies Allergy/AdvReac Type Severity Reaction Status Date / Time latex Allergy Intermediate Rash Verified 09/04/25 23:40 homatropine AdvReac Intermediate Nausea Verified 09/04/25 23:40 morphine AdvReac Intermediate Nausea, Verified 09/04/25 23:40 Vomiting Past Med/Surg History Problem List (Updated 09/05/25 @ 00:19 by Long Doe MD) Encephalopathy (Acute) Cirrhosis Thrombocytopenia (Acute) Abdominal ascites (Acute) Hepatosplenomegaly Elevated INR Thrombocytopenia Normocytic anemia Metabolic dysfunction-associated steatotic liver disease (MASLD) (Acute) Elevated serum immunoglobulin free light chains Mural thickening of colon (Chronic) Rheumatoid arthritis, seropositive, multiple sites (Chronic) Chronic respiratory failure with hypoxia (Chronic) GERD (gastroesophageal reflux disease) (Chronic) Osteoporosis (Chronic) Chronic bronchitis (Chronic) ILD (interstitial lung disease) (Chronic) Pulmonary nodules (Chronic) Hyperlipidemia (Chronic) Hypertension (Chronic) Medical History Colitis Carpal tunnel syndrome Infectious gastroenteritis and colitis Cold sore Pulmonary nodules Osteoporosis GERD (gastroesophageal reflux disease) History of bloody stools Right sided abdominal pain Acute colitis Pneumonia Atypical chest pain Current smoker Rheumatoid arthritis 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 History of COVID-19 Shingles outbreak Nausea and vomiting after administration of anesthetic agent ILD (interstitial lung disease) Fibromyalgia Diverticular disease Depression Anxiety Hyperlipidemia Hypertension Biliary dyskinesia Surgical History Hx laparoscopic cholecystectomy (10/21/21) History of incisional hernia repair (06/30/22) History of laparoscopic cholecystectomy History of incisional hernia repair Hx of removal of cyst History of carpal tunnel release History of esophagogastroduodenoscopy (EGD) History of colonoscopy History of hysterectomy Family History Aunt Diabetes Uncle Diabetes Social History Smoking Status: Current every day smoker Tobacco Type: Cigarettes Age Started Using Tobacco: 15; packs per day: 1; Cigarettes Per Day: 1/2 ppd; Second Hand Exposure: Yes; Do You Dip or Chew Tobacco: No; Hx Alcohol Use: No Hx Substance Use: No Preferred Language: Maori Communication Ability: Effective Visual Impairment: Partially Limited Strike Operations Officer Required: No Beliefs That Will Affect Care: None marital status: Current Living Situation: Spouse current occupational status: disabled How many Children do You have: 2 Feels Safe at Home: Yes Diet: regular caffeine: Yes Dental Care, Regularly: No Physical Activity Frequency: Daily Physical Activity Frequency Comment: Active Seatbelt Use: always Sunscreen Use: No Assistive Devices: Cane and Scooter/Electric Scooter Review of Systems Unable to obtain full ROS secondary to altered mental status Physical Exam Vital Signs Vital Signs - 24 hr 09/04/25 21:16 09/04/25 21:26 09/04/25 21:26 Temperature 36.5 C Temperature Source Temporal Artery Scan Pulse Rate 93 H Pulse Rate [Finger] 98 H Pulse Rate from SpO2 Sensor Respiratory Rate 18 18 Respiratory Effort / Characteristics Non-Labored Spontaneous Non-Labored Respiratory Depth Normal Normal Respiratory Pattern Blood Pressure 131/86 Blood Pressure [Right Arm] 143/91 H Blood Pressure Mean 101 Blood Pressure Mean [Right Arm] 108 Pulse Oximetry 99 99 Oxygen Delivery Method Room Air Room Air Room Air Sepsis Recent Fever Within 48 Hours No Sepsis New/Unexplained Change in Mental Status No Sepsis Action Taken by Nursing No Action Required 09/04/25 21:26 09/04/25 21:26 09/04/25 21:45 Temperature Temperature Source Pulse Rate 102 H Pulse Rate [Finger] Pulse Rate from SpO2 Sensor Respiratory Rate 21 Respiratory Effort / Characteristics Respiratory Depth Respiratory Pattern Blood Pressure Blood Pressure [Right Arm] Blood Pressure Mean Blood Pressure Mean [Right Arm] Pulse Oximetry Oxygen Delivery Method Room Air Room Air Sepsis Recent Fever Within 48 Hours Sepsis New/Unexplained Change in Mental Status Sepsis Action Taken by Nursing 09/04/25 21:51 09/04/25 21:53 09/04/25 22:00 Temperature Temperature Source Pulse Rate 100 H 103 H 101 H Pulse Rate [Finger] Pulse Rate from SpO2 Sensor 101 H Respiratory Rate 22 21 Respiratory Effort / Characteristics Respiratory Depth Respiratory Pattern Blood Pressure Blood Pressure [Right Arm] Blood Pressure Mean Blood Pressure Mean [Right Arm] Pulse Oximetry 98 Oxygen Delivery Method Sepsis Recent Fever Within 48 Hours Sepsis New/Unexplained Change in Mental Status Sepsis Action Taken by Nursing 09/04/25 22:00 09/04/25 22:00 09/04/25 22:00 Temperature Temperature Source Pulse Rate Pulse Rate [Finger] Pulse Rate from SpO2 Sensor Respiratory Rate Respiratory Effort / Characteristics Respiratory Depth Respiratory Pattern Blood Pressure 137/100 137/100 137/100 Blood Pressure [Right Arm] Blood Pressure Mean 110 110 110 Blood Pressure Mean [Right Arm] Pulse Oximetry Oxygen Delivery Method Sepsis Recent Fever Within 48 Hours Sepsis New/Unexplained Change in Mental Status Sepsis Action Taken by Nursing 09/04/25 22:00 09/04/25 22:00 09/04/25 22:12 Temperature Temperature Source Pulse Rate 101 H Pulse Rate [Finger] Pulse Rate from SpO2 Sensor 101 H Respiratory Rate 21 Respiratory Effort / Characteristics Respiratory Depth Respiratory Pattern Blood Pressure 137/100 137/100 Blood Pressure [Right Arm] Blood Pressure Mean 110 110 Blood Pressure Mean [Right Arm] Pulse Oximetry 98 Oxygen Delivery Method Sepsis Recent Fever Within 48 Hours Sepsis New/Unexplained Change in Mental Status Sepsis Action Taken by Nursing 09/04/25 22:21 09/04/25 22:30 09/04/25 22:30 Temperature Temperature Source Pulse Rate 102 H Pulse Rate [Finger] Pulse Rate from SpO2 Sensor 101 H Respiratory Rate 24 Respiratory Effort / Characteristics Respiratory Depth Respiratory Pattern Blood Pressure 138/88 138/88 Blood Pressure [Right Arm] Blood Pressure Mean 112 112 Blood Pressure Mean [Right Arm] Pulse Oximetry 99 Oxygen Delivery Method Sepsis Recent Fever Within 48 Hours Sepsis New/Unexplained Change in Mental Status Sepsis Action Taken by Nursing 09/04/25 22:30 09/04/25 22:30 09/04/25 22:30 Temperature Temperature Source Pulse Rate Pulse Rate [Finger] Pulse Rate from SpO2 Sensor Respiratory Rate Respiratory Effort / Characteristics Respiratory Depth Respiratory Pattern Blood Pressure 138/88 138/88 138/88 Blood Pressure [Right Arm] Blood Pressure Mean 112 112 112 Blood Pressure Mean [Right Arm] Pulse Oximetry Oxygen Delivery Method Sepsis Recent Fever Within 48 Hours Sepsis New/Unexplained Change in Mental Status Sepsis Action Taken by Nursing 09/04/25 22:30 09/04/25 23:00 09/05/25 00:06 Temperature Temperature Source Pulse Rate 102 H Pulse Rate [Finger] 101 H 105 H Pulse Rate from SpO2 Sensor Respiratory Rate 16 17 18 Respiratory Effort / Characteristics Non-Labored Spontaneous Respiratory Depth Normal Respiratory Pattern Regular Blood Pressure Blood Pressure [Right Arm] 145/79 H 146/82 H Blood Pressure Mean Blood Pressure Mean [Right Arm] 101 103 Pulse Oximetry 98 98 94 Oxygen Delivery Method Room Air Room Air Sepsis Recent Fever Within 48 Hours Sepsis New/Unexplained Change in Mental Status Sepsis Action Taken by Nursing See below Constitutional WD/WN, vitals as above Eyes PERRL, conjunctivae normal, anicteric sclerae ENMT external ear and nose normal, oropharynx normal Respiratory normal respiratory effort, lungs clear to auscultation Cardiovascular RRR, no murmur, no edema Gastrointestinal (Abdomen) Distended abdomen with fluid wave noted, nontender to palpation, no mass Musculoskeletal no cyanosis or clubbing, extremities motor strength 5/5 Neurologic CN's II-XI intact bilaterally, awake and + confused; no focal motor deficit Speech / Cognition: + abnormal speech and + expressive aphasia Motor/Sensory: no asterixis Coordination: normal [id number] test and normal [id number] test NIHSS of 3 Course Administered Medications Sodium Chloride (Nss) 500 mls @ 999 mls/hr IV .Q31M ONE Stop: 09/05/25 00:12 Last Admin: 09/05/25 00:00 Dose: 999 mls/hr Documented By: andree Magnesium Sulfate/Dextrose (Magnesium Sulfate / D5w) 1 gm in 100 mls @ 50 mls/hr IV Q2H ASHLEY Stop: 09/05/25 03:44 Last Admin: 09/04/25 23:54 Dose: 50 mls/hr Documented By: andree Discontinued Medications Ioversol (Optiray 320 125ml) 119 ml IV ONCE ONE Stop: 09/04/25 21:32 Last Admin: 09/04/25 21:32 Dose: 119 ml Documented By: MATTY Nicotine (Nicotine 21 Mg/24 Hr Tdsy) Confirm Administered Dose 1 patch TD .STK- MED ONE Stop: 09/04/25 22:44 Last Admin: 09/04/25 22:45 Dose: 1 patch Documented By: SUSAN Medical Decision Making Laboratory Data 09/04/25 21:42 09/04/25 21:42 Lab Results 09/04/25 09/04/25 09/04/25 Range/Units 21:39 21:42 22:33 WBC 5.56 (4.8-10.8) K/ul RBC 2.39 L (4.20-5.40) M/uL Hgb 7.0 L (12.0-16.0) g/dL Hct 21.3 L (37.0-47.0) % MCV 89.1 (80.0-100.0) fL MCH 29.3 (25.0-34.0) pg MCHC 32.9 (32.0-36.0) g/dL RDW Std Deviation 56.2 H (36.4-46.3) fL RDW Coeff of Ailyn 17.5 H (11.5-14.5) % Plt Count 113 L (130-400) K/uL MPV 11.0 (9.4-12.4) fL PT 14.7 H (9.0-12.0) Seconds INR 1.4 H (0.9-1.1) APTT 36 H (21-31) Seconds PTT Ratio 1.3 Sodium 127 L (136-145) mmol/L Potassium 4.1 (3.5-5.1) mmol/L Chloride 104 (98-107) mmol/L Carbon Dioxide 17 L (21-32) mmol/L Anion Gap 6 (3-11) BUN 21 (6-23) mg/dl Creatinine 2.14 H (0.6-1.2) mg/dl Est Cr Clr Drug Dosing 26.6 ml/min eGFR 26.37 BUN/Creatinine Ratio 9.8 L (10-20) Glucose 97 (70-99(Fasting)) mg/dl POC Glucose 102 H (70-99) mg/dl Calcium 8.1 L (8.6-10.3) mg/dl Magnesium 1.6 L (1.7-2.4) mg/dl Total Bilirubin 0.8 (0.2-1.0) mg/dl AST 34 (13-39) U/L ALT 19 (7-52) U/L Alkaline Phosphatase 88 (34-104) U/L Ammonia 57.0 (18-72) umol/L Total Protein 5.7 L (6.0-8.3) gm/dl Albumin 2.5 L (3.4-5.0) gm/dl Globulin 3.2 (2.5-4.0) gm/dl Albumin/Globulin Ratio 0.8 L (0.9-2) Urine Color Urine Appearance (Clear) Urine pH (4.5-7.5) Ur Specific [place] (1.000-1.030) Urine Protein (Negative) Urine Glucose (UA) (Negative) Urine Ketones (Negative) Urine Blood (Negative) Urine Nitrite (Negative) Urine Bilirubin (Negative) Urine Urobilinogen (Negative) Ur Leukocyte Esterase (Negative) Urine Comment Ethyl Alcohol mg/dL < 10.0 (<10.0) mg/dl 09/04/25 Range/Units 23:17 WBC (4.8-10.8) K/ul RBC (4.20-5.40) M/uL Hgb (12.0-16.0) g/dL Hct (37.0-47.0) % MCV (80.0-100.0) fL MCH (25.0-34.0) pg MCHC (32.0-36.0) g/dL RDW Std Deviation (36.4-46.3) fL RDW Coeff of Ailyn (11.5-14.5) % Plt Count (130-400) K/uL MPV (9.4-12.4) fL PT (9.0-12.0) Seconds INR (0.9-1.1) APTT (21-31) Seconds PTT Ratio Sodium (136-145) mmol/L Potassium (3.5-5.1) mmol/L Chloride (98-107) mmol/L Carbon Dioxide (21-32) mmol/L Anion Gap (3-11) BUN (6-23) mg/dl Creatinine (0.6-1.2) mg/dl Est Cr Clr Drug Dosing ml/min eGFR BUN/Creatinine Ratio (10-20) Glucose (70-99(Fasting)) mg/dl POC Glucose (70-99) mg/dl Calcium (8.6-10.3) mg/dl Magnesium (1.7-2.4) mg/dl Total Bilirubin (0.2-1.0) mg/dl AST (13-39) U/L ALT (7-52) U/L Alkaline Phosphatase (34-104) U/L Ammonia (18-72) umol/L Total Protein (6.0-8.3) gm/dl Albumin (3.4-5.0) gm/dl Globulin (2.5-4.0) gm/dl Albumin/Globulin Ratio (0.9-2) Urine Color Yellow Urine Appearance Clear (Clear) Urine pH 5.0 (4.5-7.5) Ur Specific [place] 1.032 H (1.000-1.030) Urine Protein Negative (Negative) Urine Glucose (UA) Negative (Negative) Urine Ketones Negative (Negative) Urine Blood Negative (Negative) Urine Nitrite Negative (Negative) Urine Bilirubin Negative (Negative) Urine Urobilinogen Negative (Negative) Ur Leukocyte Esterase Negative (Negative) Urine Comment Ethyl Alcohol mg/dL (<10.0) mg/dl Imaging Data Radiologist's Impression: Chest X-Ray 09/04/25 21:26 Exam(s): XR CXR 1 VIEW EXAM: XR Chest, 1 View CLINICAL HISTORY: stroke alert. TECHNIQUE: Frontal view of the chest. COMPARISON: XR Chest dated 01/30/2025 FINDINGS: Lungs: Shallow inspiration. Similar reticulonodular interstitial changes throughout the lungs with slight asymmetric prominence of the right lung base, stable. No new airspace consolidation. No radiographic evidence for florid CHF. Pleural space: No significant abnormality. No pneumothorax. No large pleural effusion. Heart: No significant abnormality. No cardiomegaly. Mediastinum: No significant abnormality identified. The trachea is midline. Bones/joints: No significant abnormality. No acute fracture. IMPRESSION: Poor inspiratory effort without evidence for acute cardiopulmonary process or significant alteration from the prior examination. Electronically signed by: Nikita Young MD 09/04/25 23:[address] 09/04/25 21:26 CR Exam(s): CT HEAD Without Contrast EXAM: CT Head Without Intravenous Contrast CLINICAL HISTORY: Neuro deficit, acute, stroke suspected. TECHNIQUE: Axial computed tomography images of the head/brain without intravenous contrast. CTDI is 96 mGy and DLP is 967.83 mGy-cm. Automated exposure control was utilized for the study. A dose lowering technique was utilized adhering to the principles of ALARA. COMPARISON: No relevant prior studies available. FINDINGS: Brain: No intracranial hemorrhage. No significant mass effect. No cortical infarct. No significant white matter disease. Ventricles: No significant abnormality. No ventriculomegaly. Bones/joints: No significant abnormality. No acute fracture. Soft tissues: No significant abnormality. Sinuses: Unremarkable as visualized. No acute sinusitis. Mastoid air cells: Unremarkable as visualized. No mastoid effusion. IMPRESSION: No acute intracranial process identified. Communications: Call Doctor Stroke Electronically signed by: Nikita Young MD 09/04/25 21:52 PM Head CTA 09/04/25 21:26 CR Exam(s): CTA HEAD With Contrast IV Amt: 119ml optiray 320 EXAM: CT Angiography Head With Intravenous Contrast CLINICAL HISTORY: stroke alert. TECHNIQUE: Axial computed tomographic angiography images of the head with intravenous contrast. CTDI is 48 mGy and DLP is 667 mGy-cm. Automated exposure control was utilized for the study. A dose lowering technique was utilized adhering to the principles of ALARA. MIP reconstructed images were created and reviewed. CONTRAST: Patient received 119ml optiray 320 of IV contrast COMPARISON: No relevant prior studies available. FINDINGS: Right internal carotid artery: No acute findings. Intracranial segment is patent with no significant stenosis. No aneurysm. Right anterior cerebral artery: No significant abnormality. No occlusion or significant stenosis. No aneurysm. Right middle cerebral artery: No significant abnormality. No occlusion or significant stenosis. No aneurysm. Right posterior cerebral artery: No significant abnormality. No occlusion or significant stenosis. No aneurysm. Right vertebral artery: The distal right vertebral artery is dominant and is widely patent. Left internal carotid artery: Mild atherosclerotic calcification of the cavernous left internal carotid artery. No significant stenosis. The petrous and supraclinoid segments are patent. No aneurysm. Left anterior cerebral artery: No significant abnormality. No occlusion or significant stenosis. No aneurysm. Left middle cerebral artery: No significant abnormality. No occlusion or significant stenosis. No aneurysm. Left posterior cerebral artery: No significant abnormality. No occlusion or significant stenosis. No aneurysm. Left vertebral artery: Unremarkable as visualized. Basilar artery: No significant abnormality. No occlusion or significant stenosis. No aneurysm. Brain: No abnormal parenchymal enhancement identified. IMPRESSION: Negative intracranial CTA examination. Communications: Call Doctor Stroke Electronically signed by: Nikita Young MD 09/04/25 21:57 PM Neck CTA 09/04/25 21:26 CR Exam(s): CTA NECK With Contrast IV Amt: 119ml optiray 320 EXAM: CT Angiography Neck With Intravenous Contrast CLINICAL HISTORY: stroke alert. TECHNIQUE: Routine carotid CT angiography protocol was performed with intravenous contrast. NASCET criteria using the distal ICAs for comparison were used for evaluation of stenoses. CTDI is 26.19 mGy and DLP is 503.4 mGy-cm. Automated exposure control was utilized for the study. A dose lowering technique was utilized adhering to the principles of ALARA. MIP reconstructed images were created and reviewed. CONTRAST: Patient received 119ml optiray 320 of IV contrast COMPARISON: None. FINDINGS: VASCULATURE: Right common carotid artery: No significant abnormality. No occlusion or significant stenosis. No dissection. Right internal carotid artery: No significant abnormality. Extracranial segment is patent with no occlusion or significant stenosis. No dissection. Right external carotid artery: No significant abnormality. No occlusion. Right vertebral artery: No significant abnormality. No occlusion or significant stenosis. No dissection. Left common carotid artery: No significant abnormality. No occlusion or significant stenosis. No dissection. Left internal carotid artery: Minimal atherosclerotic calcification involving the proximal left internal carotid artery at the carotid bifurcation. No significant stenosis by NASCET criteria. The mid to distal internal carotid artery is otherwise patent. No dissection. Left external carotid artery: No significant abnormality. No occlusion. Left vertebral artery: No significant abnormality. No occlusion or significant stenosis. No dissection. Brachiocephalic and subclavian arteries: There is a normal branching pattern of the proximal great vessels, which are widely patent. Aorta: The aortic arch is patent. No dissection or aneurysm. NECK: Bones/joints: No significant abnormality. No acute fracture. Soft tissues: No significant abnormality. Lung apices: Curvilinear presumed chronic fibrotic changes with subtle honeycombing in the anterolateral aspect of both upper lobes. CAROTID STENOSIS REFERENCE USING NASCET CRITERIA: % ICA stenosis = (1 - narrowest ICA diameter/diameter of distal cervical ICA) x 100. Mild - <50% stenosis. Moderate - 50-69% stenosis. Severe - 70-94% stenosis. Near occlusion - 95-99% stenosis. Occluded - 100% stenosis. IMPRESSION: Negative cervical CTA examination. No significant stenosis or occlusion. Communications: Call Doctor Stroke Electronically signed by: Nikita Young MD 09/04/25 22:00 PM ECG Data Attestation: I personally reviewed and interpreted this ECG as follows: Indication: + altered mental status Rate (beats per minute): 98 Rhythm: + normal sinus ECG Intervals/blocks: + Normal QRS, + Normal QT and + Normal CA ECG [place]: + Normal ECG ST segments: + Normal ST segments Comparison ECG Date: from (03/04/2024) Change: the following changes noted (tachycardia resolved ) Blood Pressure Blood Pressure Findings: Elevated blood pressure MDM Narrative Patient is a 55 y.o. F who presents with acute confusion and slurred speech. She was initially evaluated in B1 as a code stroke. NIH stroke scale of 3. No focal weakness noted. She is outside the window for TNK. No LVO noted on CTA imaging. I discussed the case with Dr. Mueller with teleneurology at [place] who recommends daily baby aspirin and admission for MRI and stroke workup. See Dr. Mueller's documentation for further details. Lab work ordered and reviewed. Chronic anemia noted. Consistent with her prior baseline. No evidence of leukocytosis. Hyponatremia of 127. Consistent with her chronic liver disease. Mild TATY noted. 500 mL of IV fluid were given due to hypervolemic exam. Ammonia level 57 slightly above her baseline. Overall presentation consistent with encephalopathy likely hepatic versus metabolic. Low suspicion for infection or acute stroke however further workup is needed and patient will be admitted to hospitalist service at this time. Impression & Plan Encephalopathy Discharge Plan Visit Data Chief Complaint: Stroke Alert Stated Complaint: ALTERED MENTAL STATUS ED Provider: Long Doe Discharge Problem: Encephalopathy Patient Disposition: Admitted As Inpatient Condition: Good Forms Stand Alone Forms: My [facility] Prescriptions Prescriptions: No Action alendronate [Fosamax] 70 mg tablet 70 mg PO WK Qty: 12 3RF Hold Instructions: GI side effects Patient Comments: 05/20- last filled 01/31/25 84 day supply Rx Instructions: Monday rosuvastatin 20 mg tablet 20 mg PO QAM Qty: 90 3RF losartan 50 mg tablet 50 mg PO QAM Qty: 90 1RF hydroxychloroquine [Plaquenil] 200 mg tablet 200 mg PO DAILY Hold Instructions: Resume on 02/17/25. discuss with eye doctor and with Dr. Rivas prior to resuming omeprazole 20 mg capsule,delayed release(DR/EC) 20 mg PO DAILYBB tramadol 50 mg tablet 50 mg PO DAILY PRN (Reason: Pain) ondansetron 8 mg tablet,disintegrating 8 mg PO Q8H PRN (Reason: nausea and vomiting) Qty: 90 3RF Patient Comments: 05/20- no fill history unable to verify albuterol sulfate 90 mcg/actuation HFA aerosol inhaler 2 puff inhalation QID PRN (Reason: shortness of breath or wheezing) Qty: 8.5 0RF oxycodone 5 mg tablet 5 mg PO Q6H PRN (Reason: pain) Qty: 20 0RF Patient Comments: 05/20-last filled 11/27/24 5 day supply #30 potassium chloride 10 mEq capsule, extended release 20 meq PO DAILY melatonin 3 mg tablet 6 mg PO HS PRN (Reason: Insomnia) polyethylene glycol 3350 [Miralax] 17 gram/dose powder 17 g PO DAILY PRN (Reason: Constipation) Rx Instructions: Mix 17 g in 4 to 8 ounces of any beverage and drink by mouth daily as needed for Constipation. prednisone 5 mg tablet 5 mg PO QAM Hold Instructions: Resume on 02/17/25. resume usual dosing once you finish the prednisone taper gabapentin [Neurontin] 300 mg capsule 300 mg PO TID Patient Comments: "on hold until after 12/17/24 Colonoscopy" aspirin [Children's Aspirin] 81 mg Tablet,Chewable 81 mg PO DAILY Qty: 30 0RF Rx Instructions: buy over the counter folic acid 1 mg Tablet 1 mg PO QAM Qty: 30 0RF mecobalamin (vitamin B12) 500 mcg tablet,chewable 500 mcg PO DAILY Qty: 30 0RF Rx Instructions: buy over the counter valacyclovir [Valtrex] 1 gram tablet 2,000 mg PO Q12H PRN (Reason: cold sores) Patient Comments: 05/20- no fill history unable to verify Rx Instructions: Take 2 tablets every 12 hours x 2 doses for each cold sore flare. Take at first sign of cold sore. sucralfate 100 mg/mL suspension 10 ml PO QID spironolactone 25 mg tablet 25 mg PO DAILY amoxicillin-pot clavulanate 875-125 mg tablet 1 tab PO BID Rx Instructions: ORDERED 09/04/25 FOR 5 DAYS guaifenesin [Mucinex] 600 mg Tablet Extended Release 12hr 1,200 mg PO BID PRN (Reason: cough) Qty: 30 0RF Patient Comments: 05/20- otc unable to verify amitriptyline 25 mg tablet 25 mg PO HS Patient Comments: 05/20- last filled 02/03 30 day supply #30 buspirone 15 mg tablet 15 mg PO BID Patient Comments: 05/20-last filled 09/17/24 30 day supply #60 Referrals Referrals: Justa Rose CRNP [Primary Care Provider] -
[2025-09-04 21:59] LABS: Hematocrit (blood only) 21.3 % (37.0-47.0); Hemoglobin 7.0 g/dL (12.0-16.0); Mean Corpuscular Hemoglobin 29.3 pg (25.0-34.0); Mean Corpuscular Volume 89.1 fL (80.0-100.0); Platelet Count 113 K/uL (130-400); RDW Standard Deviation 56.2 fL (36.4-46.3); Red Blood Count 2.39 M/uL (4.20-5.40); White Blood Count 5.56 K/ul (4.8-10.8)
--- NOTE | 2025-09-04 22:01 | CT Scan Report ---
Exam(s): CTA NECK With Contrast IV Amt: 119ml optiray 320 EXAM: CT Angiography Neck With Intravenous Contrast CLINICAL HISTORY: stroke alert. TECHNIQUE: Routine carotid CT angiography protocol was performed with intravenous contrast. NASCET criteria using the distal ICAs for comparison were used for evaluation of stenoses. CTDI is 26.19 mGy and DLP is 503.4 mGy-cm. Automated exposure control was utilized for the study. A dose lowering technique was utilized adhering to the principles of ALARA. MIP reconstructed images were created and reviewed. CONTRAST: Patient received 119ml optiray 320 of IV contrast COMPARISON: None. FINDINGS: VASCULATURE: Right common carotid artery: No significant abnormality. No occlusion or significant stenosis. No dissection. Right internal carotid artery: No significant abnormality. Extracranial segment is patent with no occlusion or significant stenosis. No dissection. Right external carotid artery: No significant abnormality. No occlusion. Right vertebral artery: No significant abnormality. No occlusion or significant stenosis. No dissection. Left common carotid artery: No significant abnormality. No occlusion or significant stenosis. No dissection. Left internal carotid artery: Minimal atherosclerotic calcification involving the proximal left internal carotid artery at the carotid bifurcation. No significant stenosis by NASCET criteria. The mid to distal internal carotid artery is otherwise patent. No dissection. Left external carotid artery: No significant abnormality. No occlusion. Left vertebral artery: No significant abnormality. No occlusion or significant stenosis. No dissection. Brachiocephalic and subclavian arteries: There is a normal branching pattern of the proximal great vessels, which are widely patent. Aorta: The aortic arch is patent. No dissection or aneurysm. NECK: Bones/joints: No significant abnormality. No acute fracture. Soft tissues: No significant abnormality. Lung apices: Curvilinear presumed chronic fibrotic changes with subtle honeycombing in the anterolateral aspect of both upper lobes. CAROTID STENOSIS REFERENCE USING NASCET CRITERIA: % ICA stenosis = (1 - narrowest ICA diameter/diameter of distal cervical ICA) x 100. Mild - <50% stenosis. Moderate - 50-69% stenosis. Severe - 70-94% stenosis. Near occlusion - 95-99% stenosis. Occluded - 100% stenosis. IMPRESSION: Negative cervical CTA examination. No significant stenosis or occlusion. Communications: Call Doctor Stroke Electronically signed by: Nikita Young MD 09/04/25 22:00 PM
[2025-09-04 22:06] LABS: Albumin Level 2.5 gm/dl (3.4-5.0); Anion Gap 6.0 (3-11); Bilirubin,Total 0.8 mg/dl (0.2-1.0); Calcium 8.1 mg/dl (8.6-10.3); Carbon Dioxide 17.0 mmol/L (21-32); Chloride 104.0 mmol/L (98-107); Magnesium 1.6 mg/dl (1.7-2.4); Potassium 4.1 mmol/L (3.5-5.1); Sodium 127.0 mmol/L (136-145)
[2025-09-04 22:12] LABS: Alanine Aminotransferase 19.0 U/L (7-52); Albumin Globulin Ratio 0.8 (0.9-2); Alkaline Phosphatase 88.0 U/L (34-104); Blood Urea Nitrogen 21.0 mg/dl (6-23); Creatinine Clr Calc Pharmacy 26.6 ml/min; Globulin 3.2 gm/dl (2.5-4.0); Glucose 97.0 mg/dl (70-99(Fasting)); Total Protein 5.7 gm/dl (6.0-8.3)
[2025-09-04 22:29] LABS: INR 1.4 (0.9-1.1); Partial Thromboplastin Time 36 Seconds (21-31); Prothrombin Time 14.7 Seconds (9.0-12.0)
[2025-09-04] MEDS: NICOTINE 21 MG/24 HR TDSY TD ONE (22:45)
[2025-09-04 23:28] LABS: Appearance Urine Clear (Clear); Glucose Urine UA Negative (Negative)
--- NOTE | 2025-09-04 23:34 | XRay Report ---
Exam(s): XR CXR 1 VIEW EXAM: XR Chest, 1 View CLINICAL HISTORY: stroke alert. TECHNIQUE: Frontal view of the chest. COMPARISON: XR Chest dated 01/30/2025 FINDINGS: Lungs: Shallow inspiration. Similar reticulonodular interstitial changes throughout the lungs with slight asymmetric prominence of the right lung base, stable. No new airspace consolidation. No radiographic evidence for florid CHF. Pleural space: No significant abnormality. No pneumothorax. No large pleural effusion. Heart: No significant abnormality. No cardiomegaly. Mediastinum: No significant abnormality identified. The trachea is midline. Bones/joints: No significant abnormality. No acute fracture. IMPRESSION: Poor inspiratory effort without evidence for acute cardiopulmonary process or significant alteration from the prior examination. Electronically signed by: Nikita Young MD 09/04/25 23:33 PM
[2025-09-04] MEDS: MAGNESIUM SULFATE / D5W 1 GM/100 ML BAG IV SCH (23:54)
[2025-09-05] MEDS: SODIUM CHLORIDE 0.9% 500 ML IV ONE
--- NOTE | 2025-09-05 01:19 | History & Physical Report ---
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 Symptoms began after patient had a regularly scheduled EGD with variceal banding for which she received sedation with Propofol She is afebrile, no obvious source of infection #Encephalopathy / Delirium - possibly secondary to Propofol use, expect delayed clearance given patient's hepatic compromise from cirrhosis as well as slight decline in her renal function from baseline. However, short half life of Propofol even with reduced clearance would expect improvement in patient's condition as she is now over 12 hours out from her procedure. Low Xn=732 could be playing a role as well No obvious source of infection -check VBG with AM labs -Check TSH -Avoid hepatotoxic and nephrotoxic agents - holding Oxycodone and Tramadol for now. Reduce Gabapentin from 300mg po TID to 200mg po TID -Frequent orientation -Gentle IVF - LR at 80mL/hr x 500mL, Albumin 25% x 1 bottle #Hyponatremia - Ud=026 -Check urine and serum osm -Repeat chemistry in AM -Free water restriction #Cirrhosis -Hold Spironolactone for now - patient appears slightly dry -Ascites seems to be reaccumulating on her abdomen - may benefit from repeat paracentesis prior to discharge #GERD -Continue Sucralfate #Hyperlipidemia -Continue Rosuvastatin #Hypertension -Hold Losartan for now -Monitor renal function #RA -Continue home Prednisone 5mg po qAM - low threshold for stress dose steroids should patient become hypotensive -Continue Plaquenil at home dose -Patient receives Tremfya infusions through [facility] [place] [place] [facility] #Anemia - patient with frequent rectal bleeding. Note from PCP reviewed, iron studies ordered Transfuse if ongoing bleed or Hgb < 7 Consent signed and on chart History of Present Illness Chief Complaint: acute encephalopathy Primary Care Provider: EM Church Gabi Richmond is a 55yo female with complex medical history to include MASH cirrhosis (with know esophageal varices, recurrent ascites requiring frequent paracentesis, SBP), Rheumatoid arthritis, HTN and HLP presenting with ongoing confusion and acute encephalopathy. Patient had a routine EGD this morning around 08:00. Daughter reports that they found esophageal varices, 3 were banded, red teresa sign present. Patient received Propofol for the case. No complications noted. After return home she apparently was confused which lasted throughout the day. Patient's daughter was notified around 20:00 of patient's behavior. She states that she is confused, talking to people that aren't in the room, reaching for invisible things. Prior to the EGD patient had been in her usual state of health She did have a paracentesis performed yesterday and had 5L of ascites removed - no Albumin given. In the ER patient afebrile, tachycardic ER Course: Nicotine patch Magnesium x 2gm NSS x 500mL Allergies Allergy/AdvReac Type Severity Reaction Status Date / Time latex Allergy Intermediate Rash Verified 09/04/25 23:40 homatropine AdvReac Intermediate Nausea Verified 09/04/25 23:40 morphine AdvReac Intermediate Nausea, Verified 09/04/25 23:40 Vomiting Home Medications Medication Instructions Recorded Confirmed Type prednisone 5 mg tablet 5 mg PO QAM 11/20/19 09/04/25 History omeprazole 20 mg capsule,delayed 20 mg PO DAILYBB 10/05/20 09/04/25 History release gabapentin 300 mg capsule 300 mg PO TID 10/17/21 09/04/25 History (Neurontin) tramadol 50 mg tablet 50 mg PO DAILY PRN Pain 04/27/23 09/04/25 History hydroxychloroquine 200 mg tablet 200 mg PO DAILY 08/31/23 09/04/25 History (Plaquenil) alendronate 70 mg tablet (Fosamax) 70 mg PO WK #12 tabs 10/23/23 09/04/25 Rx guaifenesin 600 mg tablet, 1,200 mg (2 x 600 mg) PO BID PRN 03/06/24 09/04/25 Rx extended release 12 hr (Mucinex) cough #30 tabs albuterol sulfate 90 mcg/actuation 2 puff inhalation QID PRN 06/19/24 09/04/25 Rx aerosol inhaler shortness of breath or wheezing #8.5 grams aspirin 81 mg chewable tablet 81 mg PO DAILY #30 tabs 10/26/24 09/04/25 Rx (Children's Aspirin) folic acid 1 mg tablet 1 mg PO QAM #30 tabs 10/26/24 09/04/25 Rx mecobalamin (vitamin B12) 500 mcg 500 mcg PO DAILY #30 tabs 10/26/24 09/04/25 Rx chewable tablet oxycodone 5 mg tablet 5 mg PO Q6H PRN pain #20 tabs 11/27/24 09/04/25 Rx valacyclovir 1 gram tablet 2,000 mg PO Q12H PRN cold sores 12/06/24 09/04/25 History (Valtrex) rosuvastatin 20 mg tablet 20 mg PO QAM #90 tabs 02/27/25 09/04/25 Rx amitriptyline 25 mg tablet 25 mg PO HS 05/20/25 09/04/25 History buspirone 15 mg tablet 15 mg PO BID 05/20/25 09/04/25 History ondansetron 8 mg disintegrating 8 mg PO Q8H PRN nausea and 06/02/25 09/04/25 Rx tablet vomiting #90 tabs losartan 50 mg tablet 50 mg PO QAM #90 tabs 07/01/25 09/04/25 Rx melatonin 3 mg tablet 6 mg PO HS PRN Insomnia 07/02/25 09/04/25 History polyethylene glycol 3350 17 17 g PO DAILY PRN Constipation 07/02/25 09/04/25 History gram/dose oral powder (Miralax) potassium chloride 10 mEq 20 meq PO DAILY 07/02/25 09/04/25 History capsule,extended release amoxicillin 875 mg-potassium 1 tab PO BID 09/04/25 09/04/25 History clavulanate 125 mg tablet spironolactone 25 mg tablet 25 mg PO DAILY 09/04/25 09/04/25 History sucralfate 100 mg/mL oral 10 ml PO QID 09/04/25 09/04/25 History suspension Past Med/Surg History Problem List (Updated 09/05/25 @ 03:57 by Steffi Duarte DO) Hyponatremia Encephalopathy (Acute) Cirrhosis Thrombocytopenia (Acute) Abdominal ascites (Acute) Hepatosplenomegaly Elevated INR Thrombocytopenia Normocytic anemia Metabolic dysfunction-associated steatotic liver disease (MASLD) (Acute) Elevated serum immunoglobulin free light chains Mural thickening of colon (Chronic) Rheumatoid arthritis, seropositive, multiple sites (Chronic) Chronic respiratory failure with hypoxia (Chronic) GERD (gastroesophageal reflux disease) (Chronic) Osteoporosis (Chronic) Chronic bronchitis (Chronic) ILD (interstitial lung disease) (Chronic) Pulmonary nodules (Chronic) Hyperlipidemia (Chronic) Hypertension (Chronic) Medical History Colitis Carpal tunnel syndrome Infectious gastroenteritis and colitis Cold sore Currently has "fever blister on my lip" - hasn't started PRN valtrex yet as per patient Pulmonary nodules Osteoporosis GERD (gastroesophageal reflux disease) hx History of bloody stools "after my last colonoscopy, I had 6-8 months of bleeding like clots." as per patient Right sided abdominal pain reason for procedure 12/17/24 Acute colitis reason for procedure 12/17/24 Pneumonia hx - pt denies at any issues at this time Atypical chest pain pt denies any issues currently Current smoker Rheumatoid arthritis [facility] 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 History of COVID-May 12, 2022 > home test, cough, runny nose, > all resolved Shingles outbreak Sep 2020 Nausea and vomiting after administration of anesthetic agent ILD (interstitial lung disease) no longer following Pulm Fibromyalgia Diverticular disease no hospitalizations - unsure if incidental finding from imaging or colonoscopy Depression Anxiety Hyperlipidemia Hypertension Biliary dyskinesia Surgical History Hx laparoscopic cholecystectomy (10/21/21) Laparoscopic Cholecystectomy - Nikita Zamorano DO 10/21/2021 History of incisional hernia repair (06/30/22) Open Incisional Hernia Repair - Nikita Zamorano DO History of laparoscopic cholecystectomy History of incisional hernia repair Hx of removal of cyst from left hand during carpal tunnel History of carpal tunnel release Bilateral History of esophagogastroduodenoscopy (EGD) History of colonoscopy "after my last colonoscopy, I had 6-8 months of bleeding like clots." as per patient History of hysterectomy Family History Aunt Diabetes Uncle Diabetes Social History Smoking Status: Current every day smoker Tobacco Type: Cigarettes Age Started Using Tobacco: 15; packs per day: 1; Cigarettes Per Day: 1/2 ppd; Second Hand Exposure: Yes; Do You Dip or Chew Tobacco: No; Hx Alcohol Use: No Hx Substance Use: No Preferred Language: Mongolian Communication Ability: Effective Visual Impairment: Partially Limited 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: No Beliefs That Will Affect Care: None marital status: Current Living Situation: Spouse current occupational status: disabled How many Children do You have: 2 Feels Safe at Home: Yes Diet: regular caffeine: Yes Dental Care, Regularly: No Physical Activity Frequency: Daily Physical Activity Frequency Comment: Active Seatbelt Use: always Sunscreen Use: No Assistive Devices: Cane and Scooter/Electric Scooter Review of Systems Review of Systems: All systems reviewed & are unremarkable except as noted in HPI & below Physical Exam Physical Exam: General: patient resting comfortably, NAD, non-toxic in appearance, oriented to self and somewhat to hospital Skin: warm, dry, intact, no rashes or lesions HEENT: NC/AT, PERRL, EOMI, anicteric sclera, conjunctiva without injection, external ear normal to inspection and nontender, nares patent, dry mucus membranes, dentition intact, no oropharyngeal lesions, neck supple, trachea midline, no LAD, no thyromegaly, no JVD Heart: +S1/S2, regular, tachycardic, no m/r/g Lungs: equal air entry bilaterally, no rales/rhonchi/wheezes Abd: +BS, soft, distended, tympanic to percussion, somewhat diffusely tender with no rebound or guarding Ext: warm, 2+ pulses in UE/LE bilaterally, no clubbing/cyanosis or edema Neuro: non-focal, patient inattentive, answering some questions and following some commands, oriented to self and somewhat to location Results & Data Results & Data Vital Signs (Past 12 Hours) Vital Signs Temp Pulse Pulse Resp BP BP Pulse Ox 09/05/25 00:06 105 H 18 146/82 H 94 09/04/25 23:00 101 H 17 145/79 H 98 09/04/25 22:30 102 H 16 98 09/04/25 22:30 138/88 09/04/25 22:30 138/88 09/04/25 22:30 138/88 09/04/25 22:30 138/88 09/04/25 22:30 138/88 09/04/25 22:21 102 H 24 99 09/04/25 22:12 101 H 21 98 09/04/25 22:00 137/100 09/04/25 22:00 137/100 09/04/25 22:00 137/100 09/04/25 22:00 137/100 09/04/25 22:00 137/100 09/04/25 22:00 101 H 21 98 09/04/25 21:53 103 H 09/04/25 21:51 100 H 22 09/04/25 21:45 102 H 21 09/04/25 21:26 09/04/25 21:26 09/04/25 21:26 09/04/25 21:26 98 H 18 143/91 H 99 09/04/25 21:16 36.5 C 93 H 18 131/86 99 O2 Del Method 09/05/25 00:06 Room Air 09/04/25 23:00 Room Air 09/04/25 22:30 09/04/25 22:30 09/04/25 22:30 09/04/25 22:30 09/04/25 22:30 09/04/25 22:30 09/04/25 22:21 09/04/25 22:12 09/04/25 22:00 09/04/25 22:00 09/04/25 22:00 09/04/25 22:00 09/04/25 22:00 09/04/25 22:00 09/04/25 21:53 09/04/25 21:51 09/04/25 21:45 09/04/25 21:26 Room Air 09/04/25 21:26 Room Air 09/04/25 21:26 Room Air 09/04/25 21:26 Room Air 09/04/25 21:16 Room Air Laboratory Results Laboratory Results WBC 5.56 K/ul (4.8-10.8) 09/04/25 21:42 RBC 2.39 M/uL (4.20-5.40) L 09/04/25 21:42 Hgb 7.0 g/dL (12.0-16.0) L 09/04/25 21:42 Hct 21.3 % (37.0-47.0) L 09/04/25 21:42 MCV 89.1 fL (80.0-100.0) 09/04/25 21:42 MCH 29.3 pg (25.0-34.0) 09/04/25 21:42 MCHC 32.9 g/dL (32.0-36.0) 09/04/25 21:42 RDW Std Deviation 56.2 fL (36.4-46.3) H 09/04/25 21:42 RDW Coeff of Ailyn 17.5 % (11.5-14.5) H 09/04/25 21:42 Plt Count 113 K/uL (130-400) L 09/04/25 21:42 MPV 11.0 fL (9.4-12.4) 09/04/25 21:42 PT 14.7 Seconds (9.0-12.0) H 09/04/25 21:42 INR 1.4 (0.9-1.1) H 09/04/25 21:42 APTT 36 Seconds (21-31) H 09/04/25 21:42 PTT Ratio 1.3 09/04/25 21:42 Sodium 127 mmol/L (136-145) L 09/04/25 21:42 Potassium 4.1 mmol/L (3.5-5.1) 09/04/25 21:42 Chloride 104 mmol/L (98-107) 09/04/25 21:42 Carbon Dioxide 17 mmol/L (21-32) L 09/04/25 21:42 Anion Gap 6 (3-11) 09/04/25 21:42 BUN 21 mg/dl (6-23) 09/04/25 21:42 Creatinine 2.14 mg/dl (0.6-1.2) H 09/04/25 21:42 Est Cr Clr Drug Dosing 26.6 ml/min 09/04/25 21:42 eGFR 26.37 09/04/25 21:42 BUN/Creatinine Ratio 9.8 (10-20) L 09/04/25 21:42 Glucose 97 mg/dl (70-99(Fasting)) 09/04/25 21:42 POC Glucose 102 mg/dl (70-99) H 09/04/25 21:39 Calcium 8.1 mg/dl (8.6-10.3) L 09/04/25 21:42 Magnesium 1.6 mg/dl (1.7-2.4) L 09/04/25 21:42 Total Bilirubin 0.8 mg/dl (0.2-1.0) 09/04/25 21:42 AST 34 U/L (13-39) 09/04/25 21:42 ALT 19 U/L (7-52) 09/04/25 21:42 Alkaline Phosphatase 88 U/L (34-104) 09/04/25 21:42 Ammonia 57.0 umol/L (18-72) 09/04/25 22:33 Total Protein 5.7 gm/dl (6.0-8.3) L 09/04/25 21:42 Albumin 2.5 gm/dl (3.4-5.0) L 09/04/25 21:42 Globulin 3.2 gm/dl (2.5-4.0) 09/04/25 21:42 Albumin/Globulin Ratio 0.8 (0.9-2) L 09/04/25 21:42 Urine Color Yellow 09/04/25 23:17 Urine Appearance Clear (Clear) 09/04/25 23:17 Urine pH 5.0 (4.5-7.5) 09/04/25 23:17 Ur Specific [place] 1.032 (1.000-1.030) H 09/04/25 23:17 Urine Protein Negative (Negative) 09/04/25 23:17 Urine Glucose (UA) Negative (Negative) 09/04/25 23:17 Urine Ketones Negative (Negative) 09/04/25 23:17 Urine Blood Negative (Negative) 09/04/25 23:17 Urine Nitrite Negative (Negative) 09/04/25 23:17 Urine Bilirubin Negative (Negative) 09/04/25 23:17 Urine Urobilinogen Negative (Negative) 09/04/25 23:17 Ur Leukocyte Esterase Negative (Negative) 09/04/25 23:17 Urine Comment 09/04/25 23:17 Ethyl Alcohol mg/dL < 10.0 mg/dl (<10.0) 09/04/25 21:42 Impressions Chest X-Ray 09/04/25 21:26 Exam(s): XR CXR 1 VIEW EXAM: XR Chest, 1 View CLINICAL HISTORY: stroke alert. TECHNIQUE: Frontal view of the chest. COMPARISON: XR Chest dated 01/30/2025 FINDINGS: Lungs: Shallow inspiration. Similar reticulonodular interstitial changes throughout the lungs with slight asymmetric prominence of the right lung base, stable. No new airspace consolidation. No radiographic evidence for florid CHF. Pleural space: No significant abnormality. No pneumothorax. No large pleural effusion. Heart: No significant abnormality. No cardiomegaly. Mediastinum: No significant abnormality identified. The trachea is midline. Bones/joints: No significant abnormality. No acute fracture. IMPRESSION: Poor inspiratory effort without evidence for acute cardiopulmonary process or significant alteration from the prior examination. Electronically signed by: Nikita Young MD 09/04/25 23:[address] 09/04/25 21:26 CR Exam(s): CT HEAD Without Contrast EXAM: CT Head Without Intravenous Contrast CLINICAL HISTORY: Neuro deficit, acute, stroke suspected. TECHNIQUE: Axial computed tomography images of the head/brain without intravenous contrast. CTDI is 96 mGy and DLP is 967.83 mGy-cm. Automated exposure control was utilized for the study. A dose lowering technique was utilized adhering to the principles of ALARA. COMPARISON: No relevant prior studies available. FINDINGS: Brain: No intracranial hemorrhage. No significant mass effect. No cortical infarct. No significant white matter disease. Ventricles: No significant abnormality. No ventriculomegaly. Bones/joints: No significant abnormality. No acute fracture. Soft tissues: No significant abnormality. Sinuses: Unremarkable as visualized. No acute sinusitis. Mastoid air cells: Unremarkable as visualized. No mastoid effusion. IMPRESSION: No acute intracranial process identified. Communications: Call Doctor Stroke Electronically signed by: Nikita Young MD 09/04/25 21:52 PM Head CTA 09/04/25 21:26 CR Exam(s): CTA HEAD With Contrast IV Amt: 119ml optiray 320 EXAM: CT Angiography Head With Intravenous Contrast CLINICAL HISTORY: stroke alert. TECHNIQUE: Axial computed tomographic angiography images of the head with intravenous contrast. CTDI is 48 mGy and DLP is 667 mGy-cm. Automated exposure control was utilized for the study. A dose lowering technique was utilized adhering to the principles of ALARA. MIP reconstructed images were created and reviewed. CONTRAST: Patient received 119ml optiray 320 of IV contrast COMPARISON: No relevant prior studies available. FINDINGS: Right internal carotid artery: No acute findings. Intracranial segment is patent with no significant stenosis. No aneurysm. Right anterior cerebral artery: No significant abnormality. No occlusion or significant stenosis. No aneurysm. Right middle cerebral artery: No significant abnormality. No occlusion or significant stenosis. No aneurysm. Right posterior cerebral artery: No significant abnormality. No occlusion or significant stenosis. No aneurysm. Right vertebral artery: The distal right vertebral artery is dominant and is widely patent. Left internal carotid artery: Mild atherosclerotic calcification of the cavernous left internal carotid artery. No significant stenosis. The petrous and supraclinoid segments are patent. No aneurysm. Left anterior cerebral artery: No significant abnormality. No occlusion or significant stenosis. No aneurysm. Left middle cerebral artery: No significant abnormality. No occlusion or significant stenosis. No aneurysm. Left posterior cerebral artery: No significant abnormality. No occlusion or significant stenosis. No aneurysm. Left vertebral artery: Unremarkable as visualized. Basilar artery: No significant abnormality. No occlusion or significant stenosis. No aneurysm. Brain: No abnormal parenchymal enhancement identified. IMPRESSION: Negative intracranial CTA examination. Communications: Call Doctor Stroke Electronically signed by: Nikita Young MD 09/04/25 21:57 PM Neck CTA 09/04/25 21:26 CR Exam(s): CTA NECK With Contrast IV Amt: 119ml optiray 320 EXAM: CT Angiography Neck With Intravenous Contrast CLINICAL HISTORY: stroke alert. TECHNIQUE: Routine carotid CT angiography protocol was performed with intravenous contrast. NASCET criteria using the distal ICAs for comparison were used for evaluation of stenoses. CTDI is 26.19 mGy and DLP is 503.4 mGy-cm. Automated exposure control was utilized for the study. A dose lowering technique was utilized adhering to the principles of ALARA. MIP reconstructed images were created and reviewed. CONTRAST: Patient received 119ml optiray 320 of IV contrast COMPARISON: None. FINDINGS: VASCULATURE: Right common carotid artery: No significant abnormality. No occlusion or significant stenosis. No dissection. Right internal carotid artery: No significant abnormality. Extracranial segment is patent with no occlusion or significant stenosis. No dissection. Right external carotid artery: No significant abnormality. No occlusion. Right vertebral artery: No significant abnormality. No occlusion or significant stenosis. No dissection. Left common carotid artery: No significant abnormality. No occlusion or significant stenosis. No dissection. Left internal carotid artery: Minimal atherosclerotic calcification involving the proximal left internal carotid artery at the carotid bifurcation. No significant stenosis by NASCET criteria. The mid to distal internal carotid artery is otherwise patent. No dissection. Left external carotid artery: No significant abnormality. No occlusion. Left vertebral artery: No significant abnormality. No occlusion or significant stenosis. No dissection. Brachiocephalic and subclavian arteries: There is a normal branching pattern of the proximal great vessels, which are widely patent. Aorta: The aortic arch is patent. No dissection or aneurysm. NECK: Bones/joints: No significant abnormality. No acute fracture. Soft tissues: No significant abnormality. Lung apices: Curvilinear presumed chronic fibrotic changes with subtle honeycombing in the anterolateral aspect of both upper lobes. CAROTID STENOSIS REFERENCE USING NASCET CRITERIA: % ICA stenosis = (1 - narrowest ICA diameter/diameter of distal cervical ICA) x 100. Mild - <50% stenosis. Moderate - 50-69% stenosis. Severe - 70-94% stenosis. Near occlusion - 95-99% stenosis. Occluded - 100% stenosis. IMPRESSION: Negative cervical CTA examination. No significant stenosis or occlusion. Communications: Call Doctor Stroke Electronically signed by: Nikita Young MD 09/04/25 22:00 PM KUB X-Ray 09/05/25 01:19 EXAM: XR KUB/Abdomen 1 view CLINICAL HISTORY: Abdominal distention. TECHNIQUE: X-ray images of the abdomen were obtained in the supine position. COMPARISON: 10/24/2024 FINDINGS: Gas Pattern: No evidence of bowel obstruction or distention. Mild gaseous distention and fecal loading in the right and left colon. Soft Tissues: Soft tissues of the abdomen appear normal without evidence of masses or calcifications. Cholecystectomy clips noted. The urinary bladder is seen filled with contrast material, mostly from a prior study. Pelvic phleboliths. IMPRESSION: Mild gaseous distention and fecal loading in the right and left colon. Stable. Please correlate clinically. Electronically signed by Leonardo Blanco 09-05-2025 03:06 AM Code Status & VTE Plan VTE Prophylaxis Plan VTE Prophylaxis will be ordered: Yes PG Care Time/CCT Total # of Minutes Spent Total Time Spent with Patient: Total time spent is greater than 50% in coordination of care (as documented) at patient's floor/unit and/or counseling patient: Coding Level of Care Code 59551 INT INP/OBS CARE 3/75MIN Diagnoses Encephalopathy G93.40 Rheumatoid arthritis, seropositive, multiple sites M05.79 GERD (gastroesophageal reflux disease) K21.9 Hyperlipidemia E78.5 Hypertension I10 ILD (interstitial lung disease) J84.9 Hyponatremia E87.1
--- NOTE | 2025-09-05 03:07 | XRay Report ---
EXAM: XR KUB/Abdomen 1 view CLINICAL HISTORY: Abdominal distention. TECHNIQUE: X-ray images of the abdomen were obtained in the supine position. COMPARISON: 10/24/2024 FINDINGS: Gas Pattern: No evidence of bowel obstruction or distention. Mild gaseous distention and fecal loading in the right and left colon. Soft Tissues: Soft tissues of the abdomen appear normal without evidence of masses or calcifications. Cholecystectomy clips noted. The urinary bladder is seen filled with contrast material, mostly from a prior study. Pelvic phleboliths. IMPRESSION: Mild gaseous distention and fecal loading in the right and left colon. Stable. Please correlate clinically. Electronically signed by Leonardo Blanco 09-05-2025 03:06 AM
[2025-09-05] MEDS ORDERED: POLYETHYLENE (MIRALAX) 17 GM PACK PO PRN (04:28)
[2025-09-05] MEDS ORDERED: MELATONIN 3 MG TAB PO PRN (04:28)
[2025-09-05] MEDS ORDERED: guaiFENesin 600 MG TABCR PO PRN (04:28)
[2025-09-05] MEDS ORDERED: ACETAMINOPHEN 325 MG TAB PO PRN (04:28)
[2025-09-05] MEDS ORDERED: ALBUTEROL HFA 8 GM INHALER INH PRN (04:28)
[2025-09-05] MEDS: ALBUMIN 25% 25 GM/100 ML VIAL IV ONE (05:03)
[2025-09-05 05:08] LABS: Base Excess VBG -6.4 mEq/L; HCO3 VBG 18 mmol/L; Oxygen Saturation VBG 62.3 %; PCO2 VBG 33 mmHg (38-50); PO2 VBG 38 mmHg; pH VBG 7.35 (7.36-7.41)
[2025-09-05] MEDS: LACTATED RINGER'S 500 ML IV SCH (05:18)
[2025-09-05 06:54] VITALS: RESP 18
[2025-09-05] MEDS: HYDROXYCHLOROQUINE SULFATE 200 MG TAB PO SCH (07:36)
[2025-09-05] MEDS: GABAPENTIN 100 MG CAP PO SCH (07:36)
[2025-09-05] MEDS: ASPIRIN 81 MG CHEW PO SCH (07:36)
[2025-09-05] MEDS: AMOXICILLIN/CLAVULANATE 875 MG TAB PO SCH (07:36)
[2025-09-05] MEDS: ROSUVASTATIN CALCIUM 20 MG TAB PO SCH (07:37)
[2025-09-05] MEDS: FOLIC ACID 1 MG TAB PO SCH (07:38)
[2025-09-05] MEDS: busPIRone 15 MG TAB PO SCH (07:39)
[2025-09-05] MEDS: SUCRALFATE 1 GM/10 ML UDC PO SCH (07:40)
--- NOTE | 2025-09-05 07:46 | Hospitalist Progress Note ---
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 Symptoms began after patient had a regularly scheduled EGD with variceal banding for which she received sedation with Propofol She is afebrile, no obvious source of infection #Encephalopathy / Delirium - possibly secondary to Propofol use, expect delayed clearance given patient's hepatic compromise from cirrhosis as well as slight decline in her renal function from baseline. However, short half life of Propofol even with reduced clearance would expect improvement in patient's condition as she is now over 12 hours out from her procedure. Low Az=588 could be playing a role as well No obvious source of infection -check VBG with AM labs -Check TSH -Avoid hepatotoxic and nephrotoxic agents - holding Oxycodone and Tramadol for now. Reduce Gabapentin from 300mg po TID to 200mg po TID -Frequent orientation -Gentle IVF - LR at 80mL/hr x 500mL, Albumin 25% x 1 bottle #Hyponatremia - Ia=568 -Check urine and serum osm -Repeat chemistry in AM -Free water restriction #Cirrhosis -Hold Spironolactone for now - patient appears slightly dry -Ascites seems to be reaccumulating on her abdomen - may benefit from repeat paracentesis prior to discharge #GERD -Continue Sucralfate #Hyperlipidemia -Continue Rosuvastatin #Hypertension -Hold Losartan for now -Monitor renal function #RA -Continue home Prednisone 5mg po qAM - low threshold for stress dose steroids should patient become hypotensive -Continue Plaquenil at home dose -Patient receives Tremfya infusions through [facility] #Anemia - patient with frequent rectal bleeding. Note from PCP reviewed, iron studies ordered Transfuse if ongoing bleed or Hgb < 7 Consent signed and on chart Admission and Anticipated Discharge Date Admission Date: September 05, 2025 Subjective Pt seen and examined today at bedside. She states she feels fine and wants to go home. Denies fever, chills, CP, SOB, abdominal pain (aside from chronic hernia pain). Review of Systems Review of Systems: per hpi Physical Exam Physical Exam: GA: well groomed, well nourished in no apparent distress. AAOx2 to person, place, but not time (1994) HEENT: head normocephalic, atraumatic. EOMI RESP: vesicular breath sounds b/l. No wheezes, rhonchi, or rales CARDIOVASCULAR: S1 and S2 heard. No murmurs, rubs, or gallops. Radial pulses 2+ b/l RRR GI: no distension or tenderness or masses felt to palpation MSK: no gross abnormalities or focal deficits SKIN: warm, dry, no edema PSYCH: appropriate mood and affect NEURO: no focal deficits. speech fluent Results & Data Results & Data Vital Signs (Past 12 Hours) Vital Signs Temp Pulse Pulse Resp BP BP Pulse Ox 09/05/25 07:08 95 H 09/05/25 06:00 94 H 18 119/86 98 09/05/25 04:00 98 H 20 151/80 H 97 09/05/25 01:39 100 H 09/05/25 00:06 105 H 18 146/82 H 94 09/04/25 23:00 101 H 17 145/79 H 98 09/04/25 22:30 102 H 16 98 09/04/25 22:30 138/88 09/04/25 22:30 138/88 09/04/25 22:30 138/88 09/04/25 22:30 138/88 09/04/25 22:30 138/88 09/04/25 22:21 102 H 24 99 09/04/25 22:12 101 H 21 98 09/04/25 22:00 137/100 09/04/25 22:00 137/100 09/04/25 22:00 137/100 09/04/25 22:00 137/100 09/04/25 22:00 137/100 09/04/25 22:00 101 H 21 98 09/04/25 21:53 103 H 09/04/25 21:51 100 H 22 09/04/25 21:45 102 H 21 09/04/25 21:26 09/04/25 21:26 09/04/25 21:26 09/04/25 21:26 98 H 18 143/91 H 99 09/04/25 21:16 36.5 C 93 H 18 131/86 99 O2 Del Method 09/05/25 07:08 09/05/25 06:00 Room Air 09/05/25 04:00 Room Air 09/05/25 01:39 09/05/25 00:06 Room Air 09/04/25 23:00 Room Air 09/04/25 22:30 09/04/25 22:30 09/04/25 22:30 09/04/25 22:30 09/04/25 22:30 09/04/25 22:30 09/04/25 22:21 09/04/25 22:12 09/04/25 22:00 09/04/25 22:00 09/04/25 22:00 09/04/25 22:00 09/04/25 22:00 09/04/25 22:00 09/04/25 21:53 09/04/25 21:51 09/04/25 21:45 09/04/25 21:26 Room Air 09/04/25 21:26 Room Air 09/04/25 21:26 Room Air 09/04/25 21:26 Room Air 09/04/25 21:16 Room Air Resident Activity Tracking Resident Involvement: Resident Care Provided Care Provided: Adult Hospital Medicine
[2025-09-05] MEDS: ONDANSETRON INJ 2 MG/ML 2 ML VIAL IV PRN (08:51)
[2025-09-05] MEDS: REMOVE NICODERM PATCH SCH (09:13)
[2025-09-05 10:39] LABS: Amphetamines+Metham, Urine Neg (Neg); MDMA (Ecstacy), Urine Neg (Neg); Marijuana, Urine Neg (Neg)
[2025-09-05 11:05] LABS: Thyroid Stimulating Hormone 3.124 uIu/ml (0.300-4.500)
[2025-09-05] MEDS: NICOTINE 21 MG/24 HR TDSY TD SCH (11:20)
[2025-09-05] MEDS: LACTATED RINGER'S 1,000 ML IV SCH (11:21)
[2025-09-05 12:17] VITALS: BP 138/76; PULSE 93; O2SAT 99
--- NOTE | 2025-09-05 12:44 | Discharge Summary ---
Date of Service September 05, 2025 Admission HPI Per Admitting Provider Gabi Richmond is a 55yo female with complex medical history to include MASH cirrhosis (with know esophageal varices, recurrent ascites requiring frequent paracentesis, SBP), Rheumatoid arthritis, HTN and HLP presenting with ongoing confusion and acute encephalopathy. Patient had a routine EGD this morning around 08:00. Daughter reports that they found esophageal varices, 3 were banded, red teresa sign present. Patient received Propofol for the case. No complications noted. After return home she apparently was confused which lasted throughout the day. Patient's daughter was notified around 20:00 of patient's behavior. She states that she is confused, talking to people that aren't in the room, reaching for invisible things. Prior to the EGD patient had been in her usual state of health She did have a paracentesis performed yesterday and had 5L of ascites removed - no Albumin given. In the ER patient afebrile, tachycardic ER Course: Nicotine patch Magnesium x 2gm NSS x 500mL Principal Diagnosis Encephalopathy Discharge Exam GA: well groomed, well nourished in no apparent distress. AAOx2 to person, place, but not time (1994), later fully oriented HEENT: head normocephalic, atraumatic. EOMI RESP: vesicular breath sounds b/l. No wheezes, rhonchi, or rales CARDIOVASCULAR: S1 and S2 heard. No murmurs, rubs, or gallops. Radial pulses 2+ b/l RRR GI: no distension or tenderness or masses felt to palpation MSK: no gross abnormalities or focal deficits SKIN: warm, dry, no edema PSYCH: appropriate mood and affect NEURO: no focal deficits. speech fluent Discharge Data Allergies Allergy/AdvReac Type Severity Reaction Status Date / Time latex Allergy Intermediate Rash Verified 09/04/25 23:40 homatropine AdvReac Intermediate Nausea Verified 09/04/25 23:40 morphine AdvReac Intermediate Nausea, Verified 09/04/25 23:40 Vomiting Consultations 09/05/25 00:06 ED Decision to Admit Stat Ordered Studies 09/04/25 21:26 CT angio head w con Stat CT head/brain wo con Stat CTA neck with con [CT angio neck with con] Stat Hospital Course (1) Encephalopathy: (2) Rheumatoid arthritis, seropositive, multiple sites: (3) GERD (gastroesophageal reflux disease): (4) Hyperlipidemia: (5) Hypertension: (6) ILD (interstitial lung disease): (7) Hyponatremia: Plan 55yo female with history of 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 Symptoms began after patient had a regularly scheduled EGD with variceal banding for which she received sedation with Propofol. She is afebrile, no obvious source of infection #Encephalopathy / Delirium - possibly secondary to Propofol use, expect delayed clearance given patient's hepatic compromise from cirrhosis as well as slight decline in her renal function from baseline. Other DDx: polypharmacy vs less likely substance abuse or metabolic etiology. Pt now at baseline as per pt and . Low Cr=141 could be playing a role as well No obvious source of infection UDS negative -s/p IVF -encourage PO intake -f/u with PCP in 1-2 weeks #Hyponatremia - Ru=921 -Urine Osm 403, Serum Osm 283 -Free water restriction -encourage PO intake #Cirrhosis -resume home management #GERD -Continue home regimen #Hyperlipidemia -Continue Rosuvastatin #Hypertension -Continue home regimen #RA -Continue home Prednisone 5mg po qdaily -Continue Plaquenil at home dose -Patient receives Tremfya infusions through [facility] #Anemia - f/u OP Total Time Total Time Spent Total Time Spent (In Minutes): <30 Discharge Plan Discharge Items Patient Disposition: Home - Self-Care Reason For Visit: ACUTE ENCEPHALOPATHY Discharge Diagnosis: Delirium/Encephalopathy Condition on Discharge: Good Activity: Resume your previous activity Non-emergency contact: Primary Care Provider Call non-emergency contact if: your symptoms worsen and you have a fever Follow-up/Referrals: Justa Rose CRNP [Primary Care Provider] - 09/15/25 1:00 pm Diet: Heart Healthy Addtl Attending Provider Instructions: You were admitted to the hospital for delirium associated with anesthesia. You were treated with IV fluids. You were deemed safe/stable for discharge when you returned to your baseline levels. Your sodium was a little low so we encourage eating and staying hydrated. Medications Your medication list has been reviewed and reconciled. An updated list is included with your discharge paperwork; please review this list closely and make note of any changes. No changes were made to your medications. Take your medications as instructed; do not skip a dose. Make sure all of your doctors know every medicine you are taking (including fqth-ker-uytvadi medicines, vitamins, and supplements). Call your PCP before taking any new medicines because some of these may interact with your current medications, or may make your symptoms worse. Follow-up appointments: Make a follow-up appointment with your PCP within the next week. It is very important that you follow up with them shortly after discharge from the hospital. Keep all your follow-up appointments as already scheduled. If you cannot make an appointment, notify your provider. Please bring a copy of this discharge summary with you to your next office appointment so that your provider can review it at that time and stay updated on your hospitalization and potential changes in your care. Contact your PCP if your symptoms return or worsen. Call 911 or go to the ER if you experience any of the following: Sudden, severe abdominal pain or nausea/vomiting Severe chest pain, or chest pain that radiates (moves) to your jaw or arm Sudden, severe shortness of breath or difficulty breathing Thank you for allowing us to participate in your care. Pending Studies at Discharge: No Stand-Alone Forms: [facility] [employer], Smoking Cessation Medications and DC Order Prescriptions: Continued alendronate [Fosamax] 70 mg tablet 70 mg PO WK Qty: 12 3RF Hold Instructions: GI side effects Patient Comments: 05/20- last filled 01/31/25 84 day supply Rx Instructions: Monday rosuvastatin 20 mg tablet 20 mg PO QAM Qty: 90 3RF losartan 50 mg tablet 50 mg PO QAM Qty: 90 1RF hydroxychloroquine [Plaquenil] 200 mg tablet 200 mg PO DAILY Hold Instructions: Resume on 02/17/25. discuss with eye doctor and with Dr. Rivas prior to resuming omeprazole 20 mg capsule,delayed release(DR/EC) 20 mg PO DAILYBB tramadol 50 mg tablet 50 mg PO DAILY PRN (Reason: Pain) ondansetron 8 mg tablet,disintegrating 8 mg PO Q8H PRN (Reason: nausea and vomiting) Qty: 90 3RF Patient Comments: 05/20- no fill history unable to verify albuterol sulfate 90 mcg/actuation HFA aerosol inhaler 2 puff inhalation QID PRN (Reason: shortness of breath or wheezing) Qty: 8.5 0RF oxycodone 5 mg tablet 5 mg PO Q6H PRN (Reason: pain) Qty: 20 0RF Patient Comments: 05/20-last filled 11/27/24 5 day supply #30 potassium chloride 10 mEq capsule, extended release 20 meq PO DAILY melatonin 3 mg tablet 6 mg PO HS PRN (Reason: Insomnia) polyethylene glycol 3350 [Miralax] 17 gram/dose powder 17 g PO DAILY PRN (Reason: Constipation) Rx Instructions: Mix 17 g in 4 to 8 ounces of any beverage and drink by mouth daily as needed for Constipation. prednisone 5 mg tablet 5 mg PO QAM Hold Instructions: Resume on 02/17/25. resume usual dosing once you finish the prednisone taper gabapentin [Neurontin] 300 mg capsule 300 mg PO TID Patient Comments: "on hold until after 12/17/24 Colonoscopy" aspirin [Children's Aspirin] 81 mg Tablet,Chewable 81 mg PO DAILY Qty: 30 0RF Rx Instructions: buy over the counter folic acid 1 mg Tablet 1 mg PO QAM Qty: 30 0RF mecobalamin (vitamin B12) 500 mcg tablet,chewable 500 mcg PO DAILY Qty: 30 0RF Rx Instructions: buy over the counter valacyclovir [Valtrex] 1 gram tablet 2,000 mg PO Q12H PRN (Reason: cold sores) Patient Comments: 05/20- no fill history unable to verify Rx Instructions: Take 2 tablets every 12 hours x 2 doses for each cold sore flare. Take at first sign of cold sore. sucralfate 100 mg/mL suspension 10 ml PO QID spironolactone 25 mg tablet 25 mg PO DAILY amoxicillin-pot clavulanate 875-125 mg tablet 1 tab PO BID Rx Instructions: ORDERED 09/04/25 FOR 5 DAYS guaifenesin [Mucinex] 600 mg Tablet Extended Release 12hr 1,200 mg PO BID PRN (Reason: cough) Qty: 30 0RF Patient Comments: 05/20- otc unable to verify amitriptyline 25 mg tablet 25 mg PO HS Patient Comments: 05/20- last filled 02/03 30 day supply #30 buspirone 15 mg tablet 15 mg PO BID Patient Comments: 05/20-last filled 09/17/24 30 day supply #60 Discharge Orders: Discharge Order (Routine); Ordered 09/05/25 Ordered By: Shiv Giraldo Admission Data Admit Date/Time: 09/05/25 01:19 Attending Provider: Floyd Neumann Admit Provider: Steffi Duarte Primary Care Provider: Justa Rose Other Providers: Steffi Duarte Other Interventions: Discharge Summary Assessment (RN) Last Done: 09/05/25 13:20 Supervising Physician Co-Signing Physician Notes I personally examined the patient and verified all galloway points of history and exam, discussed case, and agree with decision making with Dr Giraldo feeling better and wants to go home. notes that she's back to her baseline and he feels comfortable with her coming home. was at her baseline before procedure as well. meds at home - pill boxes counted out weekly, she and check that she's doing things right. vitals noted nad heent nc at mmm breathing unlabored no accessory muscles good effort skin no rashes no pallor or icterus abd soft mild distention mild/mod diffuse tenderness without guarding or rebound and she notes that this is exactly how she's felt since ~april AMS - with hindsight and clearing, most likely metabolic encephalopathy due to medication effect/delayed clearance (propofol) and less likely related to hyponatremia and/or TATY - doing better and safe for home. before mentation returned to baseline, considered hepatic encephalopathy (ammonia normal), SBP (got better without intervention so paracentesis initially considered but cancelled as unnecessary), polypharmacy (but has a safe/reliable system for meds), or Na/TATY related (but improved quickly - more in line with med side effect and slow clearance) -safe/stable for home -PCP f/u, f/u labs next week -otherwise as above Metabolic encephalopathy secondary to medication effect/delayed clearance, hyponatremia, and/or TATY Resident Activity Tracking Resident Involvement: Resident Care Provided Care Provided: Adult Hospital Medicine
--- NOTE | 2025-09-05 15:18 | Billing Data ---
Date of Service September 05, 2025 Coding Level of Care Code 72305 IN/OBS DISCH 30 MIN/LESS
--- NOTE | 2025-09-05 18:29 | Electrocardiogram Report ---
Test Reason : Blood Pressure : */* mmHG Vent. Rate : 98 BPM Atrial Rate : 98 BPM P-R Int : 130 ms QRS Dur : 90 ms QT Int : 370 ms P-R-T Axes : 66 28 50 degrees QTcB Int : 472 ms Normal sinus rhythm Low voltage QRS Borderline ECG When compared with ECG of 04-Mar-2024 22:47, No significant change was found Confirmed by Bhavik Guan ([id number]) on 09/05/2025 6:29:15 PM Referred By: REFERRED SELF Confirmed By: Bhavik Guan
[2025-09-05] MEDS ORDERED: AMITRIPTYLINE HCL 25 MG TAB PO SCH (21:00)
== END 2025-09-05 14:06 | disposition home or self-care (01) | DRG 92 ==
LOC: ED 21:08 → INTOOBSV 09-05 01:19 → EDINP 09-05 01:19 → SUATTDRO 09-05 01:19 → 2N 09-05 10:24